=== PATIENT | female | born 1965 | race Caucasian/White ===

== ENCOUNTER 2024-07-03 09:22 | Inpatient (IN) | payer OTHER, SELFPAY ==
[2024-07-03] VITALS (19 sets, daily range): BP systolic 79–132; BP diastolic 42–97; PULSE 65–94; RESP 15–26; TEMP 33.2–36.1; O2SAT 91–100; BMI 38.7; BMI 38.5
--- NOTE | 2024-07-03 09:26 | ED.RN ---
PT. MEGAN KEEPS SAYING SHE WANTS LIQUIDS.
[2024-07-03] MEDS: 0.9% Normal Saline (1000mL) 1,000 ML 999 ML IV ×2 (09:46→09:50)
--- NOTE | 2024-07-03 09:48 | EDS_ITS ---
HPI History of Present Illness Chief Complaint: Alt LOC Narrative Narrative: Chief complaint and HPI: Nausea, vomiting, increased thirst, encephalopathy. 58-year-old female with no significant past medical history presents for evaluation of nausea, vomiting, increased thirst, encephalopathy. Patient is alert but confused. History taken by patient as well as boyfriend. Patient states that she has felt generally unwell since the weekend. Boyfriend states she has had decreased p.o. intake. Patient states she has increased thirst. Boyfriend states that over the past several days patient has been drinking lots of water. Yesterday she developed nausea, vomiting, increased weakness, and confusion. Boyfriend states symptoms seem to worsen today which is why they present via EMS. Patient denies any fever, chills, shortness of breath, chest pain, abdominal pain, dysuria. Endorses nausea and vomiting. Keeps stating I am thirsty and I just want to drink. POC glucose for EMS was in the 400s. Reading here states high. Patient has no reported history of diabetes. Patient states she is full code. Review of systems: See HPI Medications: As listed on the chart Allergies: As listed on the chart PFSH: Per chart Vital signs: As listed on the chart. Reviewed. Physical exam: Gen: Alert, oriented to self and place but not time that her baseline per boyfriend Head: Normocephalic, atraumatic Eyes: No sclera icterus, conjunctiva clear, PERRL, EOMI ENT: Dry mucous membranes Neck: Trachea midline, No JVD, no meningismus CV: RRR, no murmurs, no peripheral edema Resp: Lungs CTA BL, no w/r/c, mild Kussmaul breathing GI: Abd soft, non-distended, non-tender, no r/r/g Musc: Moves all extremities, no deformity Skin: Warm, dry Neuro: Grossly intact [facility] Medical History Thyroid disease Seasonal allergies Home Medications ?Medication ?Instructions ?Recorded ?Last Taken ?Type azithromycin 250 mg tablet See Rx Instructions PO .COMPLEX #6 01/28/19 Unknown Rx (Zithromax Z-Mars) tabs guaifenesin 600 mg tablet, 600 mg PO BID 08/11/19 Unknown History extended release 12 hr (Mucinex) phenylephrine HCl 2.5 mg/5 mL oral 10 mg PO ONCE 01/28/19 Unknown History solution (Children's Sudafed PE Nasal Decongestant) Allergy/AdvReac Type Severity Reaction Status Date / Time cefuroxime (From Ceftin) Allergy Mild X Verified 01/28/19 09:04 Family History Mother COPD (chronic obstructive pulmonary disease) Rheumatic fever Father Lung cancer Social History Smoking Status: Never smoker alcohol intake: never EXAM Physical Exam Const Vital Signs: 07/03/24 09:23 07/03/24 10:23 Temperature 96.9 F L 91.7 F L Temperature Source Oral Core Pulse Rate 73 77 Respiratory Rate 18 20 H Blood Pressure 106/89 H 91/56 L Blood Pressure Mean 94 67 Pulse Ox 100 100 Oxygen Delivery Method Room Air Room Air MDM MDM MDM Narrative Medical decision making narrative: 58-year-old female with no significant past medical history presents for evaluation of nausea, vomiting, increased thirst, encephalopathy. Patient is alert but encephalopathic on physical exam. POC glucose high. I suspect patient's encephalopathy is metabolic in nature. Concern is for new diagnosis of diabetes with DKA or HHS. Differential diagnosis also includes viral illness, electrolyte abnormality, CHAIM, UTI. 2 L NS bolus ordered with Zofran. Laboratory workup ordered. EKG reviewed see below. CBC with a leukocytosis of 71.5. No anemia or platelet dysfunction. This may be reactive however cannot rule out infectious process. Infectious labs added. VBG with a venous blood gas of 6.84, bicarb at 4. 2 A of bicarb ordered. Will repeat VBG in 30 minutes, if no improvement will start bicarb drip. BMP with pseudohyponatremia secondary to hyperglycemia. Patient has hyperkalemia with a potassium of 6.2. Bicarb 5. Patient's anion gap is 37. Patient has CHAIM with creatinine of 3.71. Glucose is 1240. Acetone is moderate. Urine has ketones and glucose. Negative for UTI. Patient is in DKA. 10 units IV insulin bolus ordered with insulin drip. Patient will warrant admission for DKA. Coagulation panel unremarkable. Lactic acid elevated at 2.3. Suspect hypovolemia. Troponin 89. Suspect type II demand. Chest x-ray reviewed see below. Repeat VBG again shows metabolic acidosis with low bicarb. Will start bicarb drip. Patient was discussed with the hospitalist and they accepted admission to the ICU. Patient and her significant other were informed of all the results and the plan. Patient was transferred to the ICU. EKG: Interpreted by me/EM physician: EKG shows normal sinus rhythm with a heart rate of 71. No acute ischemic changes Diagnostic: Interpreted by me/EM physician: Chest x-ray without pneumonia, effusion, cardiomegaly, pneumothorax 40 minutes of critical care time utilized in managing the patient. This is due to high probability of and deterioration of the patient based on the patient's condition and excludes any separately billable procedures. Impression: 1. New onset diabetes in DKA with severe metabolic acidosis 2. CHAIM 2. Hyperkalemia 3. Pseudohyponatremia 5. Elevated troponin, suspect type II demand 6. Severe leukocytosis Lab Data Labs: Laboratory Results - last 24 hr 07/03/24 07/03/24 07/03/24 09:35 09:47 09:50 WBC 71.5 H* RBC 4.57 Hgb 13.1 Hct 42.6 MCV 93.2 MCH 28.7 MCHC 30.8 L RDW Std Deviation 44.4 H RDW Coeff of Nuris 13.1 Plt Count 441 MPV 11.2 Neut % (Auto) Not Reportable Absolute Neuts (auto) 53.6 H Absolute Lymphs (auto) 10.00 H Total Counted 100 Neutrophils % (Manual) 74 H Band Neutrophils % 1 Lymphocytes % (Manual) 14 L Monocytes % (Manual) 6 Metamyelocytes % 3 H Myelocytes % 1 H Promyelocytes % 1 H Diff Path Review May foll Atypical Lymphocytes 2+ Platelet Estimate SLT INC PT INR APTT Sodium 112 L* Potassium 6.2 H* Chloride 70 L* Carbon Dioxide 5.0 L* Anion Gap 37 H BUN 78 H Creatinine 3.71 H Estim Creat Clear Calc 22.06 Est GFR (MDRD) Af Amer 16 L Est GFR (MDRD) Non-Af 13 L BUN/Creatinine Ratio 21.0 H Glucose 1240 H* Hemoglobin A1c 6.8 H Lactic Acid Calcium 8.4 L Phosphorus 8.9 H Magnesium 3.3 H Total Bilirubin 0.60 AST 81 H ALT 40 Alkaline Phosphatase 181 H Troponin I High Sens 89 H Total Protein 7.5 Albumin 3.6 Globulin 3.9 Albumin/Globulin Ratio 0.9 Lipase 89 H Urine Color Urine Clarity Urine pH Ur Specific [place] Urine Protein Urine Glucose (UA) Urine Ketones Urine Occult Blood Urine Nitrite Urine Bilirubin Urine Urobilinogen Ur Leukocyte Esterase Urine RBC Urine WBC Ur Squamous Epith Cells Urine Bacteria Urine Mucus Acetone Level MODERATE H POC Glucose > 500 H* 07/03/24 07/03/24 07/03/24 09:51 09:57 10:05 WBC RBC Hgb Hct MCV MCH MCHC RDW Std Deviation RDW Coeff of Nuris Plt Count MPV Neut % (Auto) Absolute Neuts (auto) Absolute Lymphs (auto) Total Counted Neutrophils % (Manual) Band Neutrophils % Lymphocytes % (Manual) Monocytes % (Manual) Metamyelocytes % Myelocytes % Promyelocytes % Diff Path Review Atypical Lymphocytes Platelet Estimate PT 17.0 H INR 1.4 APTT 31.5 Sodium Potassium Chloride Carbon Dioxide Anion Gap BUN Creatinine Estim Creat Clear Calc Est GFR (MDRD) Af Amer Est GFR (MDRD) Non-Af BUN/Creatinine Ratio Glucose Hemoglobin A1c Lactic Acid 2.3 H* Calcium Phosphorus Magnesium Total Bilirubin AST ALT Alkaline Phosphatase Troponin I High Sens Total Protein Albumin Globulin Albumin/Globulin Ratio Lipase Urine Color Yellow Urine Clarity Clear Urine pH 6.0 Ur Specific [place] 1.020 Urine Protein 30 H Urine Glucose (UA) 1000 H Urine Ketones 50 H Urine Occult Blood 250 H Urine Nitrite Negative Urine Bilirubin Negative Urine Urobilinogen Normal Ur Leukocyte Esterase Negative Urine RBC 0-5 SEEN Urine WBC 0 SEEN Ur Squamous Epith Cells 0-5 SEEN Urine Bacteria RARE Urine Mucus 0 SEEN Acetone Level POC Glucose ABG Data ABG results: ABG 07/03/24 09:58 Specimen Type MAJO Sample Site Not entered VBG pH 6.84 L* VBG pO2 36 VBG HCO3 4 L VBG Total CO2 < 5 L VBG O2 Sat (Calc) 33 L VBG Base Excess -30 L POC Mix VBG pCO2 Pt Tmp 23.8 L O2 Delivery Device Room Air Crit Call To/Read Back Yes Blood Gas Notified Whom klusty Blood Gas Notified Time 10:00:09 Radiography Diagnostic Testing: Clinical Impression(s) from Imaging Studies Chest X-Ray 07/03/24 10:13 IMPRESSION: Normal x-ray examination of the chest. Electronically Signed: Patrick Patrick MD at 10:34 EST , Discharge Plan Disposition Disposition: Acute Care Hospital [facility] Discharge Date/Time: 07/03/24 11:35
[2024-07-03 09:51] LABS: Hematocrit 42.6 % (37-47); Hemoglobin 13.1 g/dL (12.0-15.0); Mean Corp Hgb Conc 30.8 g/dL (32-36); Mean Corpuscular Hgb 28.7 pg (27.0-32.0); Mean Corpuscular Volume 93.2 fL (81-99); Mean Platelet Vol. 11.2 fl (6.2-12.0); POSITIVE COUNT YES; POSITIVE DIFFERENTIAL YES; POSITIVE MORPHOLOGY YES; Platelet Count 441 K/mm3 (150-450); RBC Distribution Width CV 13.1 % (11.6-14.6); RBC Distribution Width SD 44.4 fl (35.1-43.9); Red Blood Count 4.57 M/mm3 (4.2-5.4)
[2024-07-03 09:53] LABS: Bedside Glucose > 500 mg/dL (74-106)
[2024-07-03 09:54] LABS: Differential Indicated MANUAL DIFF
[2024-07-03 09:55] LABS: White Blood Count 71.5 K/mm3 (4.4-11.0)
--- NOTE | 2024-07-03 09:56 | ED.RN ---
WBC 71.5 DR BOATENG
[2024-07-03] MEDS: Ondansetron 4 MG/2 ML Vial IV (09:59)
[2024-07-03 10:04] LABS: Blood Gas Specimen Type VEN; O2 Delivery Device Room Air; SITE Not entered; VBG BASE EXCESS -30 mmol/L (-1.0-3.5); VBG PO2 36 mmHg (25-40); VBG SO2 33 % (50-70); VBG TCO2 < 5 mmol/L (23-33); VBG pCO2 23.8 mmHg (41-51); VBG pH 6.84 (7.32-7.42)
[2024-07-03 10:05] LABS: Mucous, Urine 0 SEEN /hpf (<or=2+); White Blood Cells 0 SEEN /hpf (0-5)
[2024-07-03 10:06] LABS: Color, Urine Yellow (Yellow); Glucose, Dipstick 1000 mg/dl (Normal); Ketone-Dipstick 50 mg/dl (Negative); Leukocyte Esterase-Dipstick Negative /ul (Negative); Nitrite-Dipstick Negative (Negative); Occult Blood-Urine 250 /ul (Negative); Protein-Dipstick 30 mg/dl (Negative); Urine Bilirubin Dipstick Negative (Negative); Urine Clarity Clear (Clear); Urine Urobilinogen Normal (Normal)
--- NOTE | 2024-07-03 10:13 | RAD_ITS ---
STUDY: X-RAY CHEST REASON FOR EXAM: Female, 58 years old. Shortness of breath TECHNIQUE: Single AP portable view of the chest. COMPARISON: None. FINDINGS: EKG electrodes are seen. The lungs are clear and expanded. Scattered small calcified granulomas. There is no demonstrated pleural abnormality. Normal size heart. Normal mediastinum and rafa. Normal visualized pulmonary arteries. Normal visualized aortic arch and descending thoracic aorta. Normal visualized thoracic spine. Normal visualized ribs, clavicles, and shoulders. There is no demonstrated abnormality of the visualized soft tissue structures of the upper abdomen. RAD/Chest 1 View (Portable) IMPRESSION: Normal x-ray examination of the chest. Electronically Signed: Patrick Patrick MD at 10:34 EST ,
[2024-07-03 10:14] LABS: Bacteria RARE /hpf (None Seen); Red Blood Cells-Urine 0-5 SEEN /hpf (0-5); Squamous Epithelial Cells - UA 0-5 SEEN /hpf (5-10)
[2024-07-03 10:21] LABS: International Normalized Ratio 1.4
[2024-07-03] MEDS: Sodium Bicarbonate 8.4% 50 ML Syringe 100 MEQ IV (10:21)
[2024-07-03 10:22] LABS: Partial Thromboplast Time 31.5 Seconds (24.1-36.2)
[2024-07-03 10:25] LABS: Lymphocyte 14 % (19-41); Metamyelocyte 3 % (0-1); Monocyte 6 % (0-10); Myelocyte 1 % (0-0); Neutrophil-Band 1 % (0-5); Neutrophil-Segmented 74 % (47-70); Promyelocyte 1 % (0-0); Total Cells Counted 100 (MANUAL DIFF)
[2024-07-03 10:27] LABS: Platelet Estimate SLT INC (ADEQ)
[2024-07-03 10:28] LABS: ALB/GLOB Ratio 0.9 RATIO (0.9-2.4); AST(SGOT) 81 U/L (15-37); Alanine Aminotransfer ALT/SGPT 40 U/L (13-56); Albumin, Serum 3.6 g/dL (3.2-5.0); Alkaline Phosphatase 181 U/L (45-117); Anion Gap 37 (5-15); Atypical Lymphocyte 2+ %; BUN 78 mg/dL (7-18); Calcium,Total 8.4 mg/dL (8.5-10.1); Chloride 70 mmol/L (98-107); Creatinine, Serum 3.71 mg/dL (0.55-1.02); EST Glomerular Filtration Rate 13 mL/min (>60); Est Glom Filt Rate - Afr Amer 16 mL/min (>60); Estimated Creatinine Clearance 22.06 ml/min; Globulin 3.9 g/dL (2.2-4.2); Glucose 1240 mg/dL (74-106); Lipase 89 U/L (13-75); Magnesium 3.3 mg/dL (1.6-2.6); Phosphorus 8.9 mg/dL (2.5-4.9); Potassium 6.2 mmol/L (3.5-5.1); Protein, Total 7.5 g/dL (6.4-8.2); Sodium Level 112 mmol/L (136-145); Troponin-I HS 89 pg/mL (3.0-54.0)
--- NOTE | 2024-07-03 10:29 | ED.RN ---
FLUID RESUSCITATION R/T DKA. PER DR. SALAZAR.
[2024-07-03 10:30] LABS: Absolute Neutrophil Count 53.6 X10^3/uL (2.0-7.7)
[2024-07-03 10:50] LABS: Lactic Acid 2.3 mmol/L (0.4-1.9)
[2024-07-03 10:51] LABS: Hemoglobin A1c 6.8 % (3.8-5.6)
[2024-07-03] MEDS: Insulin Lispro 100 UNIT/ML VIAL (ADMELOG) 10 UNIT IV (10:55)
[2024-07-03] MEDS: Insulin Lispro 100 UNIT in 0.9% Normal Saline (100mL Bag) 99 ML 11.6 UNIT CONT INF (10:55)
--- NOTE | 2024-07-03 10:56 | PCM.HP.STD ---
HPI - General General Date of Admission: 07/03/24 Date of Service: 07/03/24 Chief Complaint: Drowsy, lethargic, thirsty, polyuria, nausea and vomiting. Generalized weakness and sick since Tuesday HPI Narrative JESSE GUADARRAMA, is a 58 F who is being accompanied with her is brought to ED by EMS for being sick since past Tuesday for 3 days. She is thirsty, nausea, vomiting, fatigue and increased urination. She is also drowsy, confused and asking that she needs to pee even though she has Cross catheter. 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 In ED, vitals shows low blood pressure 91/56, 79/49 and 81/42 which got better with IV fluid resuscitation but his BP is still 103 mmHg. She has labs/biochemistry suggestive of DKA and discussed in assessment and plan. [facility] Medical History Thyroid disease Seasonal allergies Home Medications ?Medication ?Instructions ?Recorded ?Last Taken ?Type azithromycin 250 mg tablet See Rx Instructions PO .COMPLEX #6 01/28/19 Unknown Rx (Zithromax Z-Mars) tabs guaifenesin 600 mg tablet, 600 mg PO BID 01/28/19 Unknown History extended release 12 hr (Mucinex) phenylephrine HCl 2.5 mg/5 mL oral 10 mg PO ONCE 01/28/19 Unknown History solution (Children's Sudafed PE Nasal Decongestant) Allergy/AdvReac Type Severity Reaction Status Date / Time cefuroxime (From Ceftin) Allergy Mild X Verified 01/28/19 09:04 Family History Mother COPD (chronic obstructive pulmonary disease) Rheumatic fever Father Lung cancer Social History Smoking Status: Never smoker alcohol intake: never ROS ROS Narrative 14 system ROS incomplete as patient is drowsy and lethargic. Some salient ROS as mentioned by her boyfriend Denies chronic cardiac disease, respiratory illness including COPD or asthma. Polyuria and increased frequency. Denies burning micturition Denies sore throat or viral-like illness. Denies fever Review of Systems ROS Unobtainable: due to encephalopathy Vital Signs Vital Signs Vital Signs: 07/03/24 09:23 07/03/24 10:23 Temperature 96.9 F L 91.7 F L Temperature Source Oral Core Pulse Rate 73 77 Respiratory Rate 18 20 H Blood Pressure 106/89 H 91/56 L Blood Pressure Mean 94 67 Pulse Ox 100 100 Oxygen Delivery Method Room Air Room Air Weight Weight: 254 lb 10.142 oz Body Mass Index (BMI) 38.7 Physical Exam Narrative General: Drowsy, lethargy, confused and disoriented. BMI 38.6 kg/m?. Obesity grade 2 HEENT: Atraumatic, PERRLA, EOMI, Normocephalic Oral: Oral mucosa dry. No Gingival or Mucosal Lesions/ Ulcerations Neck: Supple, No JVD, Negative Carotid Bruits Chest wall/Lungs: Air entry diminished in bilateral lung bases. No crepitation/rhonchi Cardiovascular: Regular rate, Regular Rhythm, Normal S1, Normal S2, No M/G/R Abdomen: Bowel Sounds Present, Soft, Non Tender, Non-Distended : . No renal angle tenderness. No suprapubic tenderness. Extremities: Mild pedal edema, Capillary Refill Less than 3 Seconds Skin: No rashes, No breakdown Musculoskeletal: No Tenderness to Palpation of Joints or Extremities. ROM could not be evaluated as patient is without. Neurological: DTR 2+/4. No acute focal neurological deficit. Detailed neuroexam unobtainable Psych/Mental Status: Flat affect Results Lab / Micro Data 07/03/24 09:47 07/03/24 09:47 Labs: Laboratory Results - last 24 hr 07/03/24 09:35: POC Glucose > 500 H* 07/03/24 09:47: WBC 71.5 H*, RBC 4.57, Hgb 13.1, Hct 42.6, MCV 93.2, MCH 28.7, MCHC 30.8 L, RDW Std Deviation 44.4 H, RDW Coeff of Nuris 13.1, Plt Count 441, MPV 11.2, Neut % (Auto) Not Reportable, Absolute Neuts (auto) 53.6 H, Absolute Lymphs (auto) 10.00 H, Total Counted 100, Neutrophils % (Manual) 74 H, Band Neutrophils % 1, Lymphocytes % (Manual) 14 L, Monocytes % (Manual) 6, Metamyelocytes % 3 H, Myelocytes % 1 H, Promyelocytes % 1 H, Diff Path Review May foll, Atypical Lymphocytes 2+, Platelet Estimate SLT INC, Sodium 112 L*, Potassium 6.2 H*, Chloride 70 L*, Carbon Dioxide 5.0 L*, Anion Gap 37 H, BUN 78 H, Creatinine 3.71 H, Estim Creat Clear Calc 22.06, Est GFR (MDRD) Af Amer 16 L, Est GFR (MDRD) Non-Af 13 L, BUN/Creatinine Ratio 21.0 H, Glucose 1240 H*, Hemoglobin A1c 6.8 H, Calcium 8.4 L, Phosphorus 8.9 H, Magnesium 3.3 H, Total Bilirubin 0.60, AST 81 H, ALT 40, Alkaline Phosphatase 181 H, Troponin I High Sens 89 H, Total Protein 7.5, Albumin 3.6, Globulin 3.9, Albumin/Globulin Ratio 0.9, Lipase 89 H 07/03/24 09:50: Acetone Level MODERATE H 07/03/24 09:51: PT 17.0 H, INR 1.4, APTT 31.5 07/03/24 09:57: Urine Color Yellow, Urine Clarity Clear, Urine pH 6.0, Ur Specific [place] 1.020, Urine Protein 30 H, Urine Glucose (UA) 1000 H, Urine Ketones 50 H, Urine Occult Blood 250 H, Urine Nitrite Negative, Urine Bilirubin Negative, Urine Urobilinogen Normal, Ur Leukocyte Esterase Negative, Urine RBC 0-5 SEEN, Urine WBC 0 SEEN, Ur Squamous Epith Cells 0-5 SEEN, Urine Bacteria RARE, Urine Mucus 0 SEEN 07/03/24 10:05: Lactic Acid 2.3 H* ABG Data ABG results: ABG 07/03/24 09:58 Specimen Type MAJO Sample Site Not entered VBG pH 6.84 L* VBG pO2 36 VBG Total CO2 < 5 L VBG O2 Sat (Calc) 33 L VBG Base Excess -30 L POC Mix VBG pCO2 Pt Tmp 23.8 L O2 Delivery Device Room Air Crit Call To/Read Back Yes Blood Gas Notified Whom klusty Blood Gas Notified Time 10:00:09 Imaging Radiology Impression Chest X-Ray 07/03/24 10:13 IMPRESSION: Normal x-ray examination of the chest. Electronically Signed: Patrick Patrick MD at 10:34 EST , Assessment & Plan Assessment/Plan (1) DKA (diabetic ketoacidoses): QUALIFIERS: Diabetes mellitus type: type 2 Diabetes mellitus complication detail: without coma Qualified Code(s): E11.10 - Type 2 diabetes mellitus with ketoacidosis without coma PLAN: Plan This is [id number]-year-old female being admitted for DKA. Patient did not know that she has diabetes mellitus. 1. DKA most likely due to underlying, undiagnosed diabetes mellitus type 2: Patient is being admitted in the ICU. Labs reviewed. Admitting glucose was more than 1000, high anion gap metabolic acidosis, bicarb 5, AG 37. Patient was started on IV fluid normal saline 2 L bolus in the ED and then continue vigorous IV fluid rehydration as per DKA protocol. Started on IV insulin drip. Monitor BMP every 4 hourly. 2. High anion gap metabolic acidosis: ABG shows 6.91, 17, 109 on room air. Bicarb in BMP 5. IV bicarb drip was started in ED changed to 250 mL/h. Serum acetone moderate. 3. Hyperkalemia: Serum potassium was 6.2, due to high anion gap metabolic acidosis and DKA. Patient twelve-lead EKG individually reviewed, NSR low voltage QRS, QTc 439 ms. No EKG changes hyperkalemia. It is expected to correct with correction of metabolic acidosis. Serum phosphorus and magnesium are high. 4. Hypotonic, hypovolemic hyponatremia due to increased blood sugar: Corrected sodium is 127. Patient is on IV fluid normal saline and bicarb drip. 5. Leukocytosis: WBC count is 71,000 with left shift, metamyelocyte 3%, myelocytes 1%, promyelocyte 1%. Neutrophils 74%, lymphocyte 14%. Will monitor. Probably due to inflammatory response from acute metabolic derangement 7. CHAIM due to DKA: BUNs/creatinine 78 and 3.71, albumin/creatinine is a 21%. IV fluid resuscitation. 8. Elevated transaminases MD: Patient also has elevated transaminases AST 81, ALT 40. Alkaline phosphatase 181. Monitor liver chemistry. 9. DVT prophylaxis, high risk. Heparin 5000 units subcutaneous Q8 hourly. Living will/advanced directive/end of life care: Patient does not have living will or advanced directive. There is no designated power of commercial real estate attorney for health. After discussion of benefits/risks procedures involved with full code, DNR CC arrest and DNR CC with the patient's boyfriend and the eyes, he opted for full code. Follow-up. Patient does want artificial life support including intubation, tube feed, ventilator and/chest compression, central venous catheter, vasopressor and DC shock if needed Total time spent in [id number] encounter in discussion of advanced directive 17 minutes. Microbiology Past 72 Hours 07/03/24 09:57 Mucosa - Nose SARS-CoV-2, Influenza & RSV (PCR) - Final Laboratory Results 07/03/24 09:35: POC Glucose > 500 H* 07/03/24 09:47: WBC 71.5 H*, RBC 4.57, Hgb 13.1, Hct 42.6, MCV 93.2, MCH 28.7, MCHC 30.8 L, RDW Std Deviation 44.4 H, RDW Coeff of Nuris 13.1, Plt Count 441, MPV 11.2, Neut % (Auto) Not Reportable, Absolute Neuts (auto) 53.6 H, Absolute Lymphs (auto) 10.00 H, Total Counted 100, Neutrophils % (Manual) 74 H, Band Neutrophils % 1, Lymphocytes % (Manual) 14 L, Monocytes % (Manual) 6, Metamyelocytes % 3 H, Myelocytes % 1 H, Promyelocytes % 1 H, Diff Path Review May foll, Atypical Lymphocytes 2+, Platelet Estimate SLT INC, Sodium 112 L*, Potassium 6.2 H*, Chloride 70 L*, Carbon Dioxide 5.0 L*, Anion Gap 37 H, BUN 78 H, Creatinine 3.71 H, Estim Creat Clear Calc 22.06, Est GFR (MDRD) Af Amer 16 L, Est GFR (MDRD) Non-Af 13 L, BUN/Creatinine Ratio 21.0 H, Glucose 1240 H*, Hemoglobin A1c 6.8 H, Calcium 8.4 L, Phosphorus 8.9 H, Magnesium 3.3 H, Total Bilirubin 0.60, AST 81 H, ALT 40, Alkaline Phosphatase 181 H, Troponin I High Sens 89 H, Total Protein 7.5, Albumin 3.6, Globulin 3.9, Albumin/Globulin Ratio 0.9, Lipase 89 H 07/03/24 09:50: Acetone Level MODERATE H 07/03/24 09:51: PT 17.0 H, INR 1.4, APTT 31.5 07/03/24 09:57: Urine Color Yellow, Urine Clarity Clear, Urine pH 6.0, Ur Specific [place] 1.020, Urine Protein 30 H, Urine Glucose (UA) 1000 H, Urine Ketones 50 H, Urine Occult Blood 250 H, Urine Nitrite Negative, Urine Bilirubin Negative, Urine Urobilinogen Normal, Ur Leukocyte Esterase Negative, Urine RBC 0-5 SEEN, Urine WBC 0 SEEN, Ur Squamous Epith Cells 0-5 SEEN, Urine Bacteria RARE, Urine Mucus 0 SEEN 07/03/24 09:58: Specimen Type MAJO, Sample Site Not entered, VBG pH 6.84 L*, VBG pO2 36, VBG HCO3 4 L, VBG Total CO2 < 5 L, VBG O2 Sat (Calc) 33 L, VBG Base Excess -30 L, POC Mix VBG pCO2 Pt Tmp 23.8 L, O2 Delivery Device Room Air, Crit Call To/Read Back Yes, Blood Gas Notified Whom osmin Blood Gas Notified Time 10:00:09 07/03/24 10:05: Lactic Acid 2.3 H* 07/03/24 10:58: Specimen Type MAJO, Sample Site Not entered, VBG pH 6.98 L*, VBG pO2 61 H, VBG HCO3 1 L, VBG Total CO2 < 5 L, VBG O2 Sat (Calc) 76 H, VBG Base Excess < -30 L, POC Mix VBG pCO2 Pt Tmp 5.5 L*, O2 Delivery Device Not entered, Crit Call To/Read Back Yes, Blood Gas Notified Time 11:02:24 07/03/24 11:49: POC Glucose > 500 H* 07/03/24 11:53: Specimen Type ART, Sample Site Not entered, pH 6.91 L*, Bicarbonate Actual 3.4 L, Total CO2 < 5, Base Excess -29 L, O2 Saturation 93 L, ABG pCO2 17.0 L*, ABG pO2 109 H, O2 Delivery Device Room Air, Vent Mode Not entered, Crit Call To/Read Back Yes, Blood Gas Notified Whom gaetano Blood Gas Notified Time 11:54:42 07/03/24 11:57: Glucose 1075 H* 07/03/24 13:13: POC Glucose > 500 H* Clinical Impression(s) from Imaging Studies Chest X-Ray 07/03/24 10:13 IMPRESSION: Normal x-ray examination of the chest. Charges/Coding Visit Charges Inpatient E&M: 40920 Init Hosp L3 Procedures Hospitalists Procedures: 14068 Advncd Care Plan 30 Min
[2024-07-03 11:04] LABS: Blood Gas Specimen Type VEN; O2 Delivery Device Not entered; SITE Not entered; VBG BASE EXCESS < -30 mmol/L (-1.0-3.5); VBG PO2 61 mmHg (25-40); VBG SO2 76 % (50-70); VBG TCO2 < 5 mmol/L (23-33); VBG pH 6.98 (7.32-7.42)
--- NOTE | 2024-07-03 11:06 | CPS ---
Critical values verified times two. Hand delivered results to DR. Carrillo.
[2024-07-03] MEDS: Sodium Bicarbonate 100 MEQ in Dextrose 5%-Water (1000mL Bag) 1,000 ML IV (11:12)
--- NOTE | 2024-07-03 11:38 | CASEMGMT ---
Care Management Face to Face with patient for initial transition planning/care coordination assessment in the ED. This sheet writer introduced self and role at [facility]. Patient lying in bed, alert, but disoriented. Patient's boyfriend, Chester, bedside and willing to participate in assessment and is able to answer all questions appropriately. Care providers, pharmacy, and demographics verified. Admitting Diagnosis: altered mental status Other diagnosis history: maxillary sinusitis PCP: none; resources needed. Specialists: none Preferred Pharmacy: [facility] Insurance: none; Kae with [employer] contacted to try and help patient apply for Medicaid. Patient's boyfriend stated patient used to have insurance before it became too expensive. Prescription Benefit: none Living Will/HPOA: none; may be open to information as patient's boyfriend stated patient may want to put patient's boyfriend down rather than patient's daughter making medical decisions. LNOK: daughter, Iqra, lives in [place]. Living Arrangements: lives with boyfriend in a single wide mobile home; independent with all ADLs prior to this. 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 DME: none HHC: none SNF/Rehab: none Community Resources: none Patient goals: Patient unable to answer. Patient's boyfriend states patient wishes to discharge home and denies need for SNF or HHC at this time. Disposition Plan: admission to acute; RN CM/SW to follow for discharge planning needs that may arise. Gretel Arnold, POSITION CLERK, HEAD OF TRANSPORT LOGISTICS
[2024-07-03] MEDS: 0.9% Normal Saline (1000mL) 1,000 ML 1000 ML IV (11:42)
[2024-07-03 11:57] LABS: Base Excess -29 mmol/L (-2 to +2); Bicarbonate 3.4 mmol/L (22-26); Blood Gas Specimen Type ART; Mode Not entered; O2 Delivery Device Room Air; PO2 109 mmHG (75-100); SITE Not entered; SO2 93 % (95-99); Total Carbon Dioxide < 5 mmol/L; pH 6.91 (7.35-7.45)
[2024-07-03 12:28] LABS: VBG Bicarbonate 4 mmol/L (22-26)
[2024-07-03 12:28] LABS: VBG pCO2 5.5 mmHg (41-51)
[2024-07-03 12:29] LABS: VBG Bicarbonate 1 mmol/L (22-26)
--- NOTE | 2024-07-03 12:29 | CM.ED ---
Social work Per initial RN CM assessment completed in the ED, this SW identified need for patient to attempt to apply for Medicaid. This SW called Kae at [employer] around 1145 and left a voicemail requesting a return call. This SW also emailed Kae the request via encrypted email. No other needs identified at this time. Gretel Arnold, ENRICHMENT ASSISTANT, AVIATION TECHNICIAN AIRCRAFT
[2024-07-03 13:35] LABS: Bedside Glucose > 500 mg/dL (74-106)
[2024-07-03 13:35] LABS: Bedside Glucose > 500 mg/dL (74-106)
[2024-07-03 13:41] LABS: Glucose 1075 mg/dL (74-106)
[2024-07-03 13:56] LABS: Anion Gap 31 (5-15); BUN 77 mg/dL (7-18); BUN/Creat Ratio 23.1 RATIO (10-20); Calcium,Total 7.2 mg/dL (8.5-10.1); Chloride 84 mmol/L (98-107); Creatinine, Serum 3.33 mg/dL (0.55-1.02); EST Glomerular Filtration Rate 15 mL/min (>60); Est Glom Filt Rate - Afr Amer 18 mL/min (>60); Estimated Creatinine Clearance 24.58 ml/min; Glucose 939 mg/dL (74-106); Potassium 3.9 mmol/L (3.5-5.1); Sodium Level 124 mmol/L (136-145)
[2024-07-03 14:12] LABS: Reflex Lactate? Y
[2024-07-03] MEDS: 0.9% Normal Saline (1000mL) 1,000 ML 250 ML IV (14:15)
[2024-07-03 14:37] LABS: Glucose 945 mg/dL (74-106)
[2024-07-03 15:16] LABS: Bedside Glucose > 500 mg/dL (74-106)
[2024-07-03] MEDS: Heparin Injection (Vial) 5,000 UNIT/ML VIAL 5000 UNIT SC ×2 (15:44→22:40)
[2024-07-03] MEDS: Sodium Bicarbonate 100 MEQ in Dextrose 5%-Water (1000mL Bag) 1,000 ML 250 MEQ IV (15:45)
[2024-07-03 15:47] LABS: Glucose 897 mg/dL (74-106)
[2024-07-03 15:49] LABS: Lactic Acid 2.2 mmol/L (0.4-1.9)
[2024-07-03 16:18] LABS: Bedside Glucose > 500 mg/dL (74-106)
[2024-07-03 16:18] LABS: Bedside Glucose > 500 mg/dL (74-106)
[2024-07-03 16:31] LABS: Glucose 870 mg/dL (74-106)
[2024-07-03 18:20] LABS: Bedside Glucose > 500 mg/dL (74-106)
[2024-07-03 18:49] LABS: Glucose 779 mg/dL (74-106)
[2024-07-03 19:19] LABS: Anion Gap 26 (5-15); BUN 76 mg/dL (7-18); BUN/Creat Ratio 22.2 RATIO (10-20); Chloride 85 mmol/L (98-107); Creatinine, Serum 3.42 mg/dL (0.55-1.02); EST Glomerular Filtration Rate 15 mL/min (>60); Est Glom Filt Rate - Afr Amer 18 mL/min (>60); Estimated Creatinine Clearance 23.93 ml/min; Glucose 829 mg/dL (74-106); Potassium 3.6 mmol/L (3.5-5.1); Sodium Level 124 mmol/L (136-145)
[2024-07-03 20:56] LABS: Bedside Glucose > 500 mg/dL (74-106)
[2024-07-03 20:56] LABS: Bedside Glucose > 500 mg/dL (74-106)
[2024-07-03 20:56] LABS: Bedside Glucose > 500 mg/dL (74-106)
--- NOTE | 2024-07-03 21:35 | RAD_ITS ---
INDICATION: Fluid overload rule out EXAMINATION/TECHNIQUE: X-RAY - XR Chest 1 View AP portable. 9:24 PM COMPARISON: Prior study dated: 07/03/2024 FINDINGS: LINES/DEVICES: None. LUNGS: Hazy opacity in the left lung base new compared to prior. No consolidation. No pneumothorax. MEDIASTINUM: Unremarkable. CARDIAC SILHOUETTE: Not enlarged. BONES AND SOFT TISSUES: No acute abnormalities. RAD/Chest 1 View (Portable) IMPRESSION: New left basilar airspace disease may be asymmetric edema, atelectasis or early infiltrate/pneumonia. Electronically Signed: Judy Quigley MD at 23:27 EST ,
[2024-07-03 21:47] LABS: Bedside Glucose > 500 mg/dL (74-106)
[2024-07-03 22:12] LABS: Anion Gap 20 (5-15); BUN 80 mg/dL (7-18); BUN/Creat Ratio 22.7 RATIO (10-20); Calcium,Total 7.1 mg/dL (8.5-10.1); Chloride 86 mmol/L (98-107); Creatinine, Serum 3.53 mg/dL (0.55-1.02); EST Glomerular Filtration Rate 14 mL/min (>60); Est Glom Filt Rate - Afr Amer 17 mL/min (>60); Estimated Creatinine Clearance 23.18 ml/min; Glucose 639 mg/dL (74-106); Potassium 3.8 mmol/L (3.5-5.1); Sodium Level 126 mmol/L (136-145)
[2024-07-03 22:16] LABS: BNP,B-Type NATRIURETIC PEPTIDE 468.2 pg/mL (0-100)
[2024-07-03] MEDS: dexMEDEtomidine 400 MCG in 0.9% Normal Saline (100mL Bag) 96 ML 14.4 MCG CONT INF (22:39)
[2024-07-03] MEDS: Insulin Lispro 100 UNIT in 0.9% Normal Saline (100mL Bag) 99 ML 7.6 UNIT CONT INF (22:44)
[2024-07-04] VITALS (48 sets, daily range): BP systolic 78–139; BP diastolic 36–103; PULSE 75–105; RESP 21–31; TEMP 36.1–37.2; O2SAT 92–100; BMI 37.5
[2024-07-04 00:36] LABS: Osmolality, Serum 371 mOsm/KG (275-295)
[2024-07-04] MEDS: Furosemide 40 MG/4 ML Vial IV (01:03)
[2024-07-04] MEDS: 0.9% Saline Lock 10 ML Syringe IV (01:03)
[2024-07-04 01:30] LABS: Bedside Glucose 368 mg/dL (74-106)
[2024-07-04 01:30] LABS: Bedside Glucose > 500 mg/dL (74-106)
[2024-07-04 01:30] LABS: Bedside Glucose 352 mg/dL (74-106)
[2024-07-04 02:26] LABS: Allen Test Positive; Base Excess -4 mmol/L (-2 to +2); Bicarbonate 22.2 mmol/L (22-26); Blood Gas Specimen Type ART; Mode Not entered; O2 Delivery Device Cannula; PO2 52 mmHG (75-100); SITE R Radial; SO2 84 % (95-99); Total Carbon Dioxide 24 mmol/L; pCO2 41.7 mmHg (35-45); pH 7.34 (7.35-7.45)
--- NOTE | 2024-07-04 02:31 | CT_ITS ---
INDICATION: change in LOC EXAMINATION: CT BRAIN - CT Head or Brain W/O Contrast Injection TECHNIQUE: Multiple axial images were obtained of the head without intravenous contrast. The protocol utilizes one or more of the following dose reduction techniques: automated exposure control, adjustment of mA and/or kV according to patient size,and/or use of iterative reconstruction technique. IV Contrast dosage and agent: None. RADIATION DOSAGE (If Supplied By Facility): CTDIvol = ( 44.99 ) mGy, DLP = ( 1760.95 ) mGycm COMPARISON: No relevant prior comparison study available FINDINGS: BRAIN: No acute bleed. No edema. Boyer-white matter differentiation is maintained. VENTRICLES AND SULCI: Not dilated. EXTRA-AXIAL: No hemorrhage, fluid collection, or mass. CALVARIUM / SKULL BASE: Unremarkable. FACE/SINUSES: Unremarkable. SOFT TISSUES: Unremarkable. CT/Brain/Head without Contrast IMPRESSION: No acute abnormality. CT angiogram and/or MRI may be helpful to evaluate for acute infarct as clinically indicated. Electronically Signed: Judy Quigley MD at 5:37 EST ,
[2024-07-04] MEDS: Norepinephrine 8 MG in 0.9% Normal Saline (250mL Bag) 242 ML 9.4 MG CONT INF (03:18)
[2024-07-04 03:45] LABS: Hemoglobin 12.5 g/dL (12.0-15.0); Mean Corp Hgb Conc 35.7 g/dL (32-36); Mean Corpuscular Hgb 28.2 pg (27.0-32.0); Mean Platelet Vol. 10.2 fl (6.2-12.0); POSITIVE DIFFERENTIAL YES; POSITIVE MORPHOLOGY YES; Platelet Count 289 K/mm3 (150-450); RBC Distribution Width SD 34.4 fl (35.1-43.9); Red Blood Count 4.43 M/mm3 (4.2-5.4); White Blood Count 27.8 K/mm3 (4.4-11.0)
[2024-07-04 04:17] LABS: Anion Gap 11 (5-15); BUN 80 mg/dL (7-18); BUN/Creat Ratio 22.3 RATIO (10-20); Calcium,Total 7.7 mg/dL (8.5-10.1); Chloride 92 mmol/L (98-107); Creatinine, Serum 3.59 mg/dL (0.55-1.02); EST Glomerular Filtration Rate 14 mL/min (>60); Est Glom Filt Rate - Afr Amer 17 mL/min (>60); Glucose 298 mg/dL (74-106); Potassium 3.2 mmol/L (3.5-5.1); Sodium Level 128 mmol/L (136-145)
[2024-07-04] MEDS: dexMEDEtomidine 400 MCG in 0.9% Normal Saline (100mL Bag) 96 ML 14.4 MCG CONT INF (04:30)
[2024-07-04 04:50] LABS: Differential Comment SCANNED
[2024-07-04 05:32] LABS: BNP,B-Type NATRIURETIC PEPTIDE 432.7 pg/mL (0-100)
[2024-07-04] MEDS: Heparin Injection (Vial) 5,000 UNIT/ML VIAL 5000 UNIT SC ×3 (06:04→19:58)
[2024-07-04 07:00] LABS: Bedside Glucose 315 mg/dL (74-106)
[2024-07-04 07:00] LABS: Bedside Glucose 272 mg/dL (74-106)
[2024-07-04 07:00] LABS: Bedside Glucose 257 mg/dL (74-106)
[2024-07-04 07:00] LABS: Bedside Glucose 238 mg/dL (74-106)
[2024-07-04 07:17] LABS: Bedside Glucose 255 mg/dL (74-106)
--- NOTE | 2024-07-04 08:52 | PCM.PN.HOSP ---
Reason for Visit Reason for Visit: Diagnoses Type 2 diabetes mellitus with ketoacidosis without coma (07/03/24) Objective Data Objective Data Vital Signs: Vital Signs Temp Pulse Resp BP Pulse Ox O2 Del Method O2 Flow Rate 96.9 F L 85 24 H 102/72 100 Nasal Cannula 3 07/04/24 04:00 07/04/24 08:30 07/04/24 08:30 07/04/24 08:30 07/04/24 08:30 07/04/24 08:30 07/04/24 08:30 FiO2 94 07/03/24 14:00 Oxygen Flow Rate (L/min) 3 Oxygen Delivery Method Nasal Cannula Weight: 247 lb 12.793 oz Body Mass Index (BMI) 37.5 Intake & Output: Intake and Output for Last 24 Hours 07/02/24 07/03/24 07/04/24 23:59 23:59 23:59 Intake Total 4977.52 / 4992.93 227.39 / 227.39 Output Total 550 / 550 125 / 125 Balance 4427.52 / 4442.93 102.39 / 102.39 Lab / Micro Data 07/05/24 06:15 07/05/24 06:15 Labs: Laboratory Results - last 24 hr 07/03/24 09:35: POC Glucose > 500 H* 07/03/24 09:47: WBC 71.5 H*, RBC 4.57, Hgb 13.1, Hct 42.6, MCV 93.2, MCH 28.7, MCHC 30.8 L, RDW Std Deviation 44.4 H, RDW Coeff of Nuris 13.1, Plt Count 441, MPV 11.2, Neut % (Auto) Not Reportable, Absolute Neuts (auto) 53.6 H, Absolute Lymphs (auto) 10.00 H, Total Counted 100, Neutrophils % (Manual) 74 H, Band Neutrophils % 1, Lymphocytes % (Manual) 14 L, Monocytes % (Manual) 6, Metamyelocytes % 3 H, Myelocytes % 1 H, Promyelocytes % 1 H, Diff Path Review May foll, Atypical Lymphocytes 2+, Platelet Estimate SLT INC, Sodium 112 L*, Potassium 6.2 H*, Chloride 70 L*, Carbon Dioxide 5.0 L*, Anion Gap 37 H, BUN 78 H, Creatinine 3.71 H, Estim Creat Clear Calc 22.06, Est GFR (MDRD) Af Amer 16 L, Est GFR (MDRD) Non-Af 13 L, BUN/Creatinine Ratio 21.0 H, Glucose 1240 H*, Hemoglobin A1c 6.8 H, Calcium 8.4 L, Phosphorus 8.9 H, Magnesium 3.3 H, Total Bilirubin 0.60, AST 81 H, ALT 40, Alkaline Phosphatase 181 H, Troponin I High Sens 89 H, Total Protein 7.5, Albumin 3.6, Globulin 3.9, Albumin/Globulin Ratio 0.9, Lipase 89 H 07/03/24 09:50: Acetone Level MODERATE H 07/03/24 09:51: PT 17.0 H, INR 1.4, APTT 31.5 07/03/24 09:55: Serum Osmolality 371 H 07/03/24 09:57: Urine Color Yellow, Urine Clarity Clear, Urine pH 6.0, Ur Specific [place] 1.020, Urine Protein 30 H, Urine Glucose (UA) 1000 H, Urine Ketones 50 H, Urine Occult Blood 250 H, Urine Nitrite Negative, Urine Bilirubin Negative, Urine Urobilinogen Normal, Ur Leukocyte Esterase Negative, Urine RBC 0-5 SEEN, Urine WBC 0 SEEN, Ur Squamous Epith Cells 0-5 SEEN, Urine Bacteria RARE, Urine Mucus 0 SEEN 07/03/24 10:05: Lactic Acid 2.3 H* 07/03/24 11:49: POC Glucose > 500 H* 07/03/24 11:57: Glucose 1075 H* 07/03/24 13:05: Sodium Cancelled 07/03/24 13:05: Sodium Cancelled 07/03/24 13:05: Sodium 124 L, Potassium Cancelled 07/03/24 13:05: Potassium Cancelled 07/03/24 13:05: Potassium 3.9, Chloride Cancelled 07/03/24 13:05: Chloride Cancelled 07/03/24 13:05: Chloride 84 L, Carbon Dioxide Cancelled 07/03/24 13:05: Carbon Dioxide Cancelled 07/03/24 13:05: Carbon Dioxide 9.0 L*, Anion Gap Cancelled 07/03/24 13:05: Anion Gap Cancelled 07/03/24 13:05: Anion Gap 31 H, BUN Cancelled 07/03/24 13:05: BUN Cancelled 07/03/24 13:05: BUN 77 H, Creatinine Cancelled 07/03/24 13:05: Creatinine Cancelled 07/03/24 13:05: Creatinine 3.33 H, Estim Creat Clear Calc Cancelled 07/03/24 13:05: Estim Creat Clear Calc Cancelled 07/03/24 13:05: Estim Creat Clear Calc 24.58, Est GFR (MDRD) Af Amer Cancelled 07/03/24 13:05: Est GFR (MDRD) Af Amer Cancelled 07/03/24 13:05: Est GFR (MDRD) Af Amer 18 L, Est GFR (MDRD) Non-Af Cancelled 07/03/24 13:05: Est GFR (MDRD) Non-Af Cancelled 07/03/24 13:05: Est GFR (MDRD) Non-Af 15 L, BUN/Creatinine Ratio Cancelled 07/03/24 13:05: BUN/Creatinine Ratio Cancelled 07/03/24 13:05: BUN/Creatinine Ratio 23.1 H, Glucose Cancelled 07/03/24 13:05: Glucose Cancelled 07/03/24 13:05: Glucose 939 H*, Calcium Cancelled 07/03/24 13:05: Calcium Cancelled 07/03/24 13:05: Calcium 7.2 L 07/03/24 13:13: POC Glucose > 500 H* 07/03/24 14:00: Glucose 945 H* 07/03/24 14:02: POC Glucose > 500 H* 07/03/24 14:58: POC Glucose > 500 H* 07/03/24 15:03: Glucose 897 H*, Lactic Acid 2.2 H* 07/03/24 15:54: POC Glucose > 500 H* 07/03/24 16:00: Glucose 870 H* 07/03/24 16:48: POC Glucose > 500 H* 07/03/24 16:50: Sodium 124 L, Potassium 3.6, Chloride 85 L, Carbon Dioxide 13.0 L, Anion Gap 26 H, BUN 76 H, Creatinine 3.42 H, Estim Creat Clear Calc 23.93, Est GFR (MDRD) Af Amer 18 L, Est GFR (MDRD) Non-Af 15 L, BUN/Creatinine Ratio 22.2 H, Glucose 829 H*, Calcium 7.0 L 07/03/24 18:10: Glucose 779 H* 07/03/24 18:11: POC Glucose > 500 H* 07/03/24 19:25: POC Glucose > 500 H* 07/03/24 20:34: POC Glucose > 500 H* 07/03/24 21:20: Sodium 126 L, Potassium 3.8, Chloride 86 L, Carbon Dioxide 19.0 L, Anion Gap 20 H, BUN 80 H, Creatinine 3.53 H, Estim Creat Clear Calc 23.18, Est GFR (MDRD) Af Amer 17 L, Est GFR (MDRD) Non-Af 14 L, BUN/Creatinine Ratio 22.7 H, Glucose 639 H*, Calcium 7.1 L 07/03/24 21:27: POC Glucose > 500 H* 07/03/24 21:40: B-Natriuretic Peptide 468.2 H 07/03/24 22:43: POC Glucose > 500 H* 07/04/24 00:09: POC Glucose 368 H 07/04/24 01:02: POC Glucose 352 H 07/04/24 02:12: POC Glucose 315 H 07/04/24 03:10: POC Glucose 272 H 07/04/24 03:20: WBC 27.8 H, RBC 4.43, Hgb 12.5, Hct 35.0 L, MCV 79.0 L D, MCH 28.2, MCHC 35.7 D, RDW Std Deviation 34.4 L, RDW Coeff of Nuris 12.0, Plt Count 289, MPV 10.2, Immature Gran % (Auto) 2.500 H, Neut % (Auto) 53.5, Lymph % (Auto) 9.0 L, [place] % (Auto) 6.7, Eos % (Auto) 27.9 H, Baso % (Auto) 0.4, Absolute Neuts (auto) 14.9 H, Absolute Lymphs (auto) 2.50, Nucleated RBC % 0, Differential Comment SCANNED, Diff Path Review October, Sodium 128 L, Potassium 3.2 L, Chloride 92 L, Carbon Dioxide 25.0, Anion Gap 11, BUN 80 H, Creatinine 3.59 H, Estim Creat Clear Calc 22.80, Est GFR (MDRD) Af Amer 17 L, Est GFR (MDRD) Non-Af 14 L, BUN/Creatinine Ratio 22.3 H, Glucose 298 H, Calcium 7.7 L, B-Natriuretic Peptide 432.7 H 07/04/24 04:16: POC Glucose 257 H 07/04/24 06:06: POC Glucose 238 H 07/04/24 06:59: POC Glucose 255 H Micro: Microbiology 07/03/24 09:57 Mucosa - Nose SARS-CoV-2, Influenza & RSV (PCR) - Final ABG Data ABG results: ABG 07/03/24 07/03/24 07/03/24 09:58 10:58 11:53 Specimen Type MAJO MAJO ART Sample Site Not entered Not entered Not entered pH 6.91 L* Bicarbonate Actual 3.4 L Total CO2 < 5 Base Excess -29 L O2 Saturation 93 L O2 % ABG pCO2 17.0 L* ABG pO2 109 H Juan R Test VBG pH 6.84 L* 6.98 L* VBG pO2 36 61 H VBG HCO3 4 L 1 L VBG Total CO2 < 5 L < 5 L VBG O2 Sat (Calc) 33 L 76 H VBG Base Excess -30 L < -30 L POC Mix VBG pCO2 Pt Tmp 23.8 L 5.5 L* O2 Delivery Device Room Air Not entered Room Air Vent Mode Not entered Crit Call To/Read Back Yes Yes Yes Blood Gas Notified Whom osmin salter Blood Gas Notified Time 10:00:09 11:02:24 11:54:42 07/04/24 02:22 Specimen Type ART Sample Site R Radial pH 7.34 L Bicarbonate Actual 22.2 Total CO2 24 Base Excess -4 L O2 Saturation 84 L O2 % 3.0 ABG pCO2 41.7 ABG pO2 52 L Juan R Test Positive VBG pH VBG pO2 VBG HCO3 VBG Total CO2 VBG O2 Sat (Calc) VBG Base Excess POC Mix VBG pCO2 Pt Tmp O2 Delivery Device Cannula Vent Mode Not entered Crit Call To/Read Back Blood Gas Notified Whom Blood Gas Notified Time Radiography Diagnostic Testing: Radiology Impression Chest X-Ray 07/03/24 10:13 IMPRESSION: Normal x-ray examination of the chest. Electronically Signed: Patrick Patrick MD at 10:34 EST , Chest X-Ray 07/03/24 21:35 IMPRESSION: New left basilar airspace disease may be asymmetric edema, atelectasis or early infiltrate/pneumonia. Electronically Signed: Judy Quigley MD at 23:27 EST , Brain CT 07/04/24 02:31 IMPRESSION: No acute abnormality. CT angiogram and/or MRI may be helpful to evaluate for acute infarct as clinically indicated. Electronically Signed: Judy Quigley MD at 5:37 EST , Physical Exam Narrative Discussed with nursing staff. Patient has a sitter at bedside. Still mild confused and drowsy but answers questions appropriately or nodding head. Yesterday evening, patient probably pulled out the catheter and documented his voiding 1 time. Then she had repeat Cross catheterization. Total urine documented 125 mL after 12 AM today Patient was also started on Levophed as blood pressure dropped after giving Lasix. Lasix was given as patient having crackles. Physical exam: General: Mild lethargy but opens eyes. BMI 38.6 kg/m?. Obesity grade 2 HEENT: Atraumatic, PERRLA, EOMI, Normocephalic Oral: Oral mucosa dry. No Gingival or Mucosal Lesions/ Ulcerations Neck: Supple, No JVD, Negative Carotid Bruits Chest wall/Lungs: Air entry diminished in bilateral lung bases. No crepitation/rhonchi Cardiovascular: Regular rate, Regular Rhythm, Normal S1, Normal S2, No M/G/R Abdomen: Bowel Sounds Present, Soft, Non Tender, Non-Distended : Oliguria. No renal angle tenderness. No suprapubic tenderness. Extremities: Mild pedal edema, Capillary Refill Less than 3 Seconds Skin: No rashes, No breakdown Musculoskeletal: No Tenderness to Palpation of Joints or Extremities. ROM could not be evaluated as patient is without. Neurological: DTR 2+/4. No acute focal neurological deficit. Detailed neuroexam unobtainable Psych/Mental Status: Flat affect Assessment & Plan Assessment/Plan (1) DKA (diabetic ketoacidoses): QUALIFIERS: Diabetes mellitus complication detail: without coma Diabetes mellitus type: type 2 Qualified Code(s): E11.10 - Type 2 diabetes mellitus with ketoacidosis without coma PLAN: Plan This is [id number]-year-old female being admitted for DKA. Patient did not know that she has diabetes mellitus. 1. DKA most likely due to underlying, undiagnosed diabetes mellitus type 2: Patient is being admitted in the ICU. Labs reviewed. Admitting glucose was more than 1000, high anion gap metabolic acidosis, bicarb 5, AG 37. Patient was started on IV fluid normal saline 2 L bolus in the ED and then continue vigorous IV fluid rehydration as per DKA protocol. Started on IV insulin drip. 07/04: Last BMP pending. 1 anion gap closed 11. Yesterday patient completed 1 L of bicarb drip. Last ABG 7 point Septic shock probably due to evolving pneumonia: The patient presented with sepsis with clinical indicators of hypotension, mild tachycardia, leukocytosis due to evolving pneumonia with acute sepsis-related organ dysfunction as evidenced by fluid resistant hypotension requiring vasopressor, CHAIM, lactic acidosis, and metabolic acidosis. Chest x-ray shows evolving left upper lobe infiltrate Started on vancomycin and Zosyn. Urinary antigens are negative. Respiratory panel negative. MRSA PCR negative. Urine culture shows gram-positive and less than 1000, contamination. 2. High anion gap metabolic acidosis: ABG shows 6.91, 17, 109 on room air. Bicarb in BMP 5. IV bicarb drip was started in ED changed to 250 mL/h. Serum acetone moderate. 3. Hyperkalemia: Serum potassium was 6.2, due to high anion gap metabolic acidosis and DKA. Patient twelve-lead EKG individually reviewed, NSR low voltage QRS, QTc 439 ms. No EKG changes hyperkalemia. It is expected to correct with correction of metabolic acidosis. Serum phosphorus and magnesium are high. 07/04: Last potassium was 3.2. Hyperkalemia is mainly due to metabolic acidosis. 4. Hypotonic, hypovolemic hyponatremia due to increased blood sugar: Corrected sodium is 127. Patient is on IV fluid normal saline and bicarb drip. 07/04: Sodium still low 128. 5. Leukocytosis: WBC count is 71,000 with left shift, metamyelocyte 3%, myelocytes 1%, promyelocyte 1%. Neutrophils 74%, lymphocyte 14%. Will monitor. Probably due to inflammatory response from acute metabolic derangement 07/04: Leukocytosis improving 7. CHAIM due to DKA: BUNs/creatinine 78 and 3.71, albumin/creatinine is a 21%. IV fluid resuscitation. 07/04: Creatinine went up to 3.59. Patient also has oliguria 125 mL since midnight and about 50 mL last 2 hours. Communications Systems Engineer consulted. Urine electrolytes ordered. Portable renal and bladder ultrasound ordered 8. Elevated transaminases : Patient also has elevated transaminases AST 81, ALT 40. Alkaline phosphatase 181. Monitor liver chemistry. 9. DVT prophylaxis, high risk. Heparin 5000 units subcutaneous Q8 hourly. Living will/advanced directive/end of life care: Patient does not have living will or advanced directive. There is no designated power of roller coaster engineer for health. After discussion of benefits/risks procedures involved with full code, DNR CC arrest and DNR CC with the patient's boyfriend and the eyes, he opted for full code. Follow-up. Patient does want artificial life support including intubation, tube feed, ventilator and/chest compression, central venous catheter, vasopressor and DC shock if needed Total time spent in [id number] encounter in discussion of advanced directive 17 minutes. Clinical Impression(s) from Imaging Studies Chest X-Ray 07/03/24 10:13 IMPRESSION: Normal x-ray examination of the chest. Electronically Signed: Patrick Patrick MD at 10:34 EST , Chest X-Ray 07/03/24 21:35 IMPRESSION: New left basilar airspace disease may be asymmetric edema, atelectasis or early infiltrate/pneumonia. Electronically Signed: Judy Quigley MD at 23:27 EST , Brain CT 07/04/24 02:31 IMPRESSION: No acute abnormality. CT angiogram and/or MRI may be helpful to evaluate for acute infarct as clinically indicated. Electronically Signed: Judy Quigley MD at 5:37 EST , Sepsis Attestation Sepsis Alert: Yes Sepsis Attestation: Agree w/Sepsis Date exam was performed: 07/04/24 Time exam was performed: 08:05 Possible Source of Sepsis: Pulmonary Sepsis Organ Dysfunction Criteria Present: SBP < 90 mmHg or MAP < 65 mmHg, SBP decrease of more than 40 mmHg, Creatinine > 2.0 mg/dL, UOP < 0.5 mL/kg/hour for 2 consecutive hours and Lactic Acid > 2 mmol/L Supportive Findings: Patient required vasopressor started last Fluid Resuscitation Fluid resuscitation indicated?: Yes Fluid Resuscitation ordered: 30 ml/kg fluid bolus ordered Amount of fluid ordered: 3,500 Sepsis Note Date exam was performed: 07/04/24 Time exam was performed: 11:00 Sepsis Attestation: Sepsis re-evaluation was performed Response to fluids: Non Fluid responsive hypotension and Vasopressors started (Vasopressor was restarted last night) Charges/Coding Visit Charges Inpatient E&M: 93897 Subs Hosp L3
--- NOTE | 2024-07-04 08:55 | US_ITS ---
STUDY: RENAL ULTRASOUND - COMPLETE REASON FOR EXAM: Female, 58 years old. CHAIM on CKD -- portable, unstable TECHNIQUE: Ultrasound evaluation of the kidneys was performed with real-time and static schneider-scale imaging. COMPARISON: None. FINDINGS: RIGHT KIDNEY: Normal location of the right kidney, which is normal in size. The right kidney measures 9.7 cm x 5.4 cm x 4.8 cm. There is a normal cortex of the right kidney. The renal cortex measures 1.3 cm. There is no right renal mass or cyst. There are no right renal calculi. There is no right hydronephrosis. DISTAL RIGHT URETER: There is non-visualization of the distal right ureter. There is no demonstrated right ureterovesical junction calculus. There is no demonstrated right ureteral jet. LEFT KIDNEY: Normal location of the left kidney, which is normal in size. The left kidney measures 10.7 cm x 4.6 cm x 5 cm. There is a normal cortex of the left kidney. The renal cortex measures 1.4 cm. There is no left renal mass or cyst. There are no left renal calculi. There is no left hydronephrosis. DISTAL LEFT URETER: There is non-visualization of the distal left ureter. There is no demonstrated left ureterovesical junction calculus. There is no demonstrated left ureteral jet. BLADDER: A Cross catheter seen within the empty bladder. US/Kidney and Bladder IMPRESSION: Normal ultrasound of the kidneys. Electronically Signed: Patrick Patrick MD at 15:36 EST ,
--- NOTE | 2024-07-04 09:10 | PCM.CONS.R ---
Assessment & Plan Assessment/Plan (1) CHAIM (acute kidney injury): (2) Hyponatremia: (3) Acute metabolic acidosis: (4) Hypokalemia: (5) DKA (diabetic ketoacidoses): QUALIFIERS: Diabetes mellitus complication detail: without coma Diabetes mellitus type: type 2 Qualified Code(s): E11.10 - Type 2 diabetes mellitus with ketoacidosis without coma PLAN: Plan Assessment/Plan: The patient is a 58-year-old female without significant past medical history. The patient presents to the hospital on 07/03/2024 with 3-day history of generalized malaise. Patient also presented with polydipsia, polyuria, and nausea/vomiting. The patient was found to have glucose level of 1240 mg/dL with bicarbonate level of 5 mmol/L. The patient is admitted to the ICU for treatment of diabetic ketoacidosis. Patient was also found to have elevated serum creatinine on presentation without prior history of CKD. Serum creatinine was 3.71 mg/dL on 07/03/2024 on presentation. Nephrology is following for CHAIM. Acute kidney injury. There is no prior history of CKD. However, last available serum creatinine was more than 10 years ago. On 02/22/2013, serum creatinine was 0.90 mg/dL. Patient presented to hospital with serum creatinine of 3.71 mg/dL on 07/03/2024. Other than expected glucosuria and ketonuria, urinalysis on 07/03/2024 was benign. My suspicion is that the patient has CHAIM from effective blood volume depletion (EBV) due to polyuria prior to presentation. Patient presented to hospital with hypotension which recurred overnight requiring vasopressor. Patient likely has ischemic ATN from prolonged decrease in EBV. I have low suspicion for other causes of CHAIM. Agree with checking kidney ultrasound. Although I have low suspicion for obstruction as a cause of CHAIM, the size of the patient's kidneys may also help to determine chronicity of renal insufficiency. Continue keep MAP above 65 mmHg. There is no need for kidney replacement therapy at this point. Will recheck renal function, volume status, acid-base and electrolytes again tomorrow. Hypokalemia. Potassium level was 3.2 mmol/L this morning at 3:20 AM. Hypokalemia was likely due to insulin drip as well as correction of acute metabolic acidosis. Potassium level is better at 4.5 mmol/L at 8:40 AM today without potassium replacement. The patient had received IV furosemide earlier today, so we will continue to monitor serum potassium. Hyponatremia. Serum sodium was as low as 112 mmol/L on presentation on 07/03/2024. Hyponatremia was primarily due to hyperglycemia. Patient likely had hypertonic hyponatremia on presentation. Although improved, hyponatremia has persisted despite treatment of hyperglycemia. Serum sodium was 129 mmol/L today on 07/04/2024 at 8:40 AM. My suspicion is that hyponatremia is also due to CHAIM and lack of solute intake. I will check urine osmolality and urine sodium. There is no need to treat current degree of hyponatremia with hypertonic saline. Continue to treat hyperglycemia. We will continue to monitor serum sodium. Acute metabolic acidosis with high anion gap/DKA. Serum bicarbonate level was as low as 5 mmol/L on presentation on 07/03/2024. Acute metabolic acidosis is due to DKA. Anion gap has closed with treatment of DKA. Serum bicarbonate level is most recently 24 mmol/L on 07/04/2024 at 8:40 AM. Will continue to monitor serum bicarbonate. Circulatory shock. Hypotension was worsened after start of dexmedetomidine. She is now on vasopressor. Patient is being covered with antimicrobial will investigation for etiology of shock is in progress. We will monitor renal function in the setting of hypotension as discussed above. HPI Consult Data Date of Consult: 07/04/24 HPI Narrative Reason for Consultation: Acute kidney injury HPI Narrative: The patient is a 58-year-old female without significant past medical history. The patient presents to the hospital on 07/03/2024 with 3-day history of generalized malaise. Patient also presented with polydipsia, polyuria, and nausea/vomiting. The patient was found to have glucose level of 1240 mg/dL. The patient was diagnosed with DKA. Her serum bicarbonate level was 5 mmol/L with high anion gap. Nephrology is asked see the patient because of acute kidney injury. Patient presented to hospital with serum creatinine of 3.71 mg/dL. There is no prior history of CKD. Last available serum creatinine prior to this admission was from 02/22/2013. At that time, serum creatinine was 0.90 mg/dL. Patient is currently encephalopathic. She became agitated overnight and pulled Cross catheter. Patient was started on dexmedetomidine infusion. Patient also became more hypotensive overnight requiring norepinephrine infusion. She is currently on 10 mcg of norepinephrine per minute. The patient cannot provide any meaningful history. She does wake up to voice but falls asleep quickly. [facility] Medical History Thyroid disease Seasonal allergies Home Medications ?Medication ?Instructions ?Recorded ?Last Taken ?Type azithromycin 250 mg tablet See Rx Instructions PO .COMPLEX #6 01/28/19 Unknown Rx (Zithromax Z-Mars) tabs guaifenesin 600 mg tablet, 600 mg PO BID 01/28/19 Unknown History extended release 12 hr (Mucinex) phenylephrine HCl 2.5 mg/5 mL oral 10 mg PO ONCE 01/28/19 Unknown History solution (Children's Sudafed PE Nasal Decongestant) Allergy/AdvReac Type Severity Reaction Status Date / Time cefuroxime (From Ceftin) Allergy Mild X Verified 01/28/19 09:04 Family History Mother COPD (chronic obstructive pulmonary disease) Rheumatic fever Father Lung cancer Social History Smoking Status: Never smoker alcohol intake: never ROS ROS Narrative Unable to obtain due to encephalopathy. Physical Exam Narrative General: Somnolent and oriented x0, NAD. HEENT: Normocephalic, atraumatic. Mucous membrane dry without erythema. PERRLA. Neck: Supple, no JVD. Trachea is midline. No thyromegaly or lymphadenopathy. Cardiovascular: Normal S1, S2. No rubs, murmurs, or gallops. Respiratory: Lungs are clear to auscultation bilaterally. No wheezing, rhonchi, or rales. Abdomen: Normal bowel sounds, soft, nontender, no guarding or rebound, no organomegaly. Extremities: No clubbing, cyanosis, or edema. Musculoskeletal: Full passive range of motion, no joint swelling. Psychiatric: Unable to assess. Skin: Warm and dry, no rash. Neurologic: No focal neurologic deficits. Lab / Micro Data 07/04/24 03:20 07/04/24 08:40 Labs: Laboratory Results - last 24 hr 07/03/24 09:35: POC Glucose > 500 H* 07/03/24 09:47: WBC 71.5 H*, RBC 4.57, Hgb 13.1, Hct 42.6, MCV 93.2, MCH 28.7, MCHC 30.8 L, RDW Std Deviation 44.4 H, RDW Coeff of Nuris 13.1, Plt Count 441, MPV 11.2, Neut % (Auto) Not Reportable, Absolute Neuts (auto) 53.6 H, Absolute Lymphs (auto) 10.00 H, Total Counted 100, Neutrophils % (Manual) 74 H, Band Neutrophils % 1, Lymphocytes % (Manual) 14 L, Monocytes % (Manual) 6, Metamyelocytes % 3 H, Myelocytes % 1 H, Promyelocytes % 1 H, Diff Path Review May foll, Atypical Lymphocytes 2+, Platelet Estimate SLT INC, Sodium 112 L*, Potassium 6.2 H*, Chloride 70 L*, Carbon Dioxide 5.0 L*, Anion Gap 37 H, BUN 78 H, Creatinine 3.71 H, Estim Creat Clear Calc 22.06, Est GFR (MDRD) Af Amer 16 L, Est GFR (MDRD) Non-Af 13 L, BUN/Creatinine Ratio 21.0 H, Glucose 1240 H*, Hemoglobin A1c 6.8 H, Calcium 8.4 L, Phosphorus 8.9 H, Magnesium 3.3 H, Total Bilirubin 0.60, AST 81 H, ALT 40, Alkaline Phosphatase 181 H, Troponin I High Sens 89 H, Total Protein 7.5, Albumin 3.6, Globulin 3.9, Albumin/Globulin Ratio 0.9, Lipase 89 H 07/03/24 09:50: Acetone Level MODERATE H 07/03/24 09:51: PT 17.0 H, INR 1.4, APTT 31.5 07/03/24 09:55: Serum Osmolality 371 H 07/03/24 09:57: Urine Color Yellow, Urine Clarity Clear, Urine pH 6.0, Ur Specific [place] 1.020, Urine Protein 30 H, Urine Glucose (UA) 1000 H, Urine Ketones 50 H, Urine Occult Blood 250 H, Urine Nitrite Negative, Urine Bilirubin Negative, Urine Urobilinogen Normal, Ur Leukocyte Esterase Negative, Urine RBC 0-5 SEEN, Urine WBC 0 SEEN, Ur Squamous Epith Cells 0-5 SEEN, Urine Bacteria RARE, Urine Mucus 0 SEEN 07/03/24 10:05: Lactic Acid 2.3 H* 07/03/24 11:49: POC Glucose > 500 H* 07/03/24 11:57: Glucose 1075 H* 07/03/24 13:05: Sodium Cancelled 07/03/24 13:05: Sodium Cancelled 07/03/24 13:05: Sodium 124 L, Potassium Cancelled 07/03/24 13:05: Potassium Cancelled 07/03/24 13:05: Potassium 3.9, Chloride Cancelled 07/03/24 13:05: Chloride Cancelled 07/03/24 13:05: Chloride 84 L, Carbon Dioxide Cancelled 07/03/24 13:05: Carbon Dioxide Cancelled 07/03/24 13:05: Carbon Dioxide 9.0 L*, Anion Gap Cancelled 07/03/24 13:05: Anion Gap Cancelled 07/03/24 13:05: Anion Gap 31 H, BUN Cancelled 07/03/24 13:05: BUN Cancelled 07/03/24 13:05: BUN 77 H, Creatinine Cancelled 07/03/24 13:05: Creatinine Cancelled 07/03/24 13:05: Creatinine 3.33 H, Estim Creat Clear Calc Cancelled 07/03/24 13:05: Estim Creat Clear Calc Cancelled 07/03/24 13:05: Estim Creat Clear Calc 24.58, Est GFR (MDRD) Af Amer Cancelled 07/03/24 13:05: Est GFR (MDRD) Af Amer Cancelled 07/03/24 13:05: Est GFR (MDRD) Af Amer 18 L, Est GFR (MDRD) Non-Af Cancelled 07/03/24 13:05: Est GFR (MDRD) Non-Af Cancelled 07/03/24 13:05: Est GFR (MDRD) Non-Af 15 L, BUN/Creatinine Ratio Cancelled 07/03/24 13:05: BUN/Creatinine Ratio Cancelled 07/03/24 13:05: BUN/Creatinine Ratio 23.1 H, Glucose Cancelled 07/03/24 13:05: Glucose Cancelled 07/03/24 13:05: Glucose 939 H*, Calcium Cancelled 07/03/24 13:05: Calcium Cancelled 07/03/24 13:05: Calcium 7.2 L 07/03/24 13:13: POC Glucose > 500 H* 07/03/24 14:00: Glucose 945 H* 07/03/24 14:02: POC Glucose > 500 H* 07/03/24 14:58: POC Glucose > 500 H* 07/03/24 15:03: Glucose 897 H*, Lactic Acid 2.2 H* 07/03/24 15:54: POC Glucose > 500 H* 07/03/24 16:00: Glucose 870 H* 07/03/24 16:48: POC Glucose > 500 H* 07/03/24 16:50: Sodium 124 L, Potassium 3.6, Chloride 85 L, Carbon Dioxide 13.0 L, Anion Gap 26 H, BUN 76 H, Creatinine 3.42 H, Estim Creat Clear Calc 23.93, Est GFR (MDRD) Af Amer 18 L, Est GFR (MDRD) Non-Af 15 L, BUN/Creatinine Ratio 22.2 H, Glucose 829 H*, Calcium 7.0 L 07/03/24 18:10: Glucose 779 H* 07/03/24 18:11: POC Glucose > 500 H* 07/03/24 19:25: POC Glucose > 500 H* 07/03/24 20:34: POC Glucose > 500 H* 07/03/24 21:20: Sodium 126 L, Potassium 3.8, Chloride 86 L, Carbon Dioxide 19.0 L, Anion Gap 20 H, BUN 80 H, Creatinine 3.53 H, Estim Creat Clear Calc 23.18, Est GFR (MDRD) Af Amer 17 L, Est GFR (MDRD) Non-Af 14 L, BUN/Creatinine Ratio 22.7 H, Glucose 639 H*, Calcium 7.1 L 07/03/24 21:27: POC Glucose > 500 H* 07/03/24 21:40: B-Natriuretic Peptide 468.2 H 07/03/24 22:43: POC Glucose > 500 H* 07/04/24 00:09: POC Glucose 368 H 07/04/24 01:02: POC Glucose 352 H 07/04/24 02:12: POC Glucose 315 H 07/04/24 03:10: POC Glucose 272 H 07/04/24 03:20: WBC 27.8 H, RBC 4.43, Hgb 12.5, Hct 35.0 L, MCV 79.0 L D, MCH 28.2, MCHC 35.7 D, RDW Std Deviation 34.4 L, RDW Coeff of Nuris 12.0, Plt Count 289, MPV 10.2, Immature Gran % (Auto) 2.500 H, Neut % (Auto) 53.5, Lymph % (Auto) 9.0 L, Josephine % (Auto) 6.7, Eos % (Auto) 27.9 H, Baso % (Auto) 0.4, Absolute Neuts (auto) 14.9 H, Absolute Lymphs (auto) 2.50, Nucleated RBC % 0, Differential Comment SCANNED, Diff Path Review October, Sodium 128 L, Potassium 3.2 L, Chloride 92 L, Carbon Dioxide 25.0, Anion Gap 11, BUN 80 H, Creatinine 3.59 H, Estim Creat Clear Calc 22.80, Est GFR (MDRD) Af Amer 17 L, Est GFR (MDRD) Non-Af 14 L, BUN/Creatinine Ratio 22.3 H, Glucose 298 H, Calcium 7.7 L, B-Natriuretic Peptide 432.7 H 07/04/24 04:16: POC Glucose 257 H 07/04/24 06:06: POC Glucose 238 H 07/04/24 06:59: POC Glucose 255 H Micro: Microbiology 07/03/24 09:57 Mucosa - Nose SARS-CoV-2, Influenza & RSV (PCR) - Final ABG Data ABG results: ABG 07/03/24 07/03/24 07/03/24 09:58 10:58 11:53 Specimen Type MAJO MAJO ART Sample Site Not entered Not entered Not entered pH 6.91 L* Bicarbonate Actual 3.4 L Total CO2 < 5 Base Excess -29 L O2 Saturation 93 L O2 % ABG pCO2 17.0 L* ABG pO2 109 H Juan R Test VBG pH 6.84 L* 6.98 L* VBG pO2 36 61 H VBG HCO3 4 L 1 L VBG Total CO2 < 5 L < 5 L VBG O2 Sat (Calc) 33 L 76 H VBG Base Excess -30 L < -30 L POC Mix VBG pCO2 Pt Tmp 23.8 L 5.5 L* O2 Delivery Device Room Air Not entered Room Air Vent Mode Not entered Crit Call To/Read Back Yes Yes Yes Blood Gas Notified Whom osmin salter Blood Gas Notified Time 10:00:09 11:02:24 11:54:42 07/04/24 02:22 Specimen Type ART Sample Site R Radial pH 7.34 L Bicarbonate Actual 22.2 Total CO2 24 Base Excess -4 L O2 Saturation 84 L O2 % 3.0 ABG pCO2 41.7 ABG pO2 52 L Juan R Test Positive VBG pH VBG pO2 VBG HCO3 VBG Total CO2 VBG O2 Sat (Calc) VBG Base Excess POC Mix VBG pCO2 Pt Tmp O2 Delivery Device Cannula Vent Mode Not entered Crit Call To/Read Back Blood Gas Notified Whom Blood Gas Notified Time Imaging Radiology Impression Chest X-Ray 07/03/24 10:13 IMPRESSION: Normal x-ray examination of the chest. Electronically Signed: Patrick Patrick MD at 10:34 EST , Chest X-Ray 07/03/24 21:35 IMPRESSION: New left basilar airspace disease may be asymmetric edema, atelectasis or early infiltrate/pneumonia. Electronically Signed: Judy Quigley MD at 23:27 EST , Brain CT 07/04/24 02:31 IMPRESSION: No acute abnormality. CT angiogram and/or MRI may be helpful to evaluate for acute infarct as clinically indicated. Electronically Signed: Judy Quigley MD at 5:37 EST ,
[2024-07-04 09:19] LABS: Anion Gap 13 (5-15); BUN 86 mg/dL (7-18); BUN/Creat Ratio 23.3 RATIO (10-20); Chloride 92 mmol/L (98-107); Creatinine, Serum 3.69 mg/dL (0.55-1.02); EST Glomerular Filtration Rate 13 mL/min (>60); Est Glom Filt Rate - Afr Amer 16 mL/min (>60); Estimated Creatinine Clearance 21.85 ml/min; Glucose 236 mg/dL (74-106); Potassium 4.5 mmol/L (3.5-5.1); Sodium Level 129 mmol/L (136-145)
--- NOTE | 2024-07-04 09:23 | EX.PCM.CONCC ---
Assessment & Plan Assessment/Plan (1) DKA (diabetic ketoacidoses): QUALIFIERS: Diabetes mellitus complication detail: without coma Diabetes mellitus type: type 2 Qualified Code(s): E11.10 - Type 2 diabetes mellitus with ketoacidosis without coma (2) Sepsis: (3) CHAIM (acute kidney injury): PLAN: Plan RECOMMENDATIONS: 1. Okay to transition from continuous insulin to basal and sliding scale coverage. 2. Continue supplemental IV fluid hydration. 3. Continue Levophed to maintain a mean arterial pressure at or above 65 mmHg. 4. Start empiric antimicrobials. 5. Speech therapy evaluation prior to advancement of diet. 6. Discontinue Precedex. 7. Continue appropriate DVT prophylaxis. IMPRESSIONS: 1. Diabetic ketoacidosis The patient presented to the hospital with newly diagnosed diabetes mellitus in the setting of DKA, which may have been precipitated by underlying infection. She was profoundly acidotic at presentation and was medically managed with IV fluid resuscitation and continuous insulin infusion. Her anion gap has been closed x 2 this morning. Therefore, plan to transition the patient from continuous insulin to basal and sliding scale coverage. Continue aggressive electrolyte repletion, if needed. Diet can be advanced, if the patient is able to be cleared by speech therapy. 2. Septic shock The patient presented with sepsis due to suspected pneumonia with acute sepsis related organ dysfunction as evidenced by fluid refractory hypotension, necessitating vasopressor support along with lactic acidemia and acute kidney injury. Plan to continue Levophed to maintain a mean arterial pressure at or above 65 mmHg. Empiric antimicrobials have been initiated. 3. Acute kidney injury Most likely prerenal in etiology in the setting of volume depletion due to diabetic ketoacidosis and sepsis. Renal ultrasound is currently pending. Nephrology has been consulted to evaluate the patient. Continue current supportive measures as ordered. 4. Metabolic encephalopathy Most likely related to presenting DKA and concern for underlying infection. CT head was completed and ruled out any acute intracranial pathology. Will check follow-up liver function profile along with ammonia and TSH. Otherwise, continue current supportive measures. TIME: 38 minutes of critical care time, independent of procedures, was spent addressing the patient's diabetic ketoacidosis, septic shock, acute kidney injury, metabolic encephalopathy, review of all data and collaboration with the care team. HPI Consult Data Date of Consult: 07/04/24 HPI Narrative Reason for Consultation: Critical care management HPI Narrative: The patient is a 58-year-old female, with a history as outlined below, who presented to the emergency department on July 03 with altered mental status, nausea and vomiting. The patient's boyfriend reported that she had been exhibiting weakness and was confused prior to her admission to the hospital. She had never previously been diagnosed with diabetes. The patient's boyfriend did report that she had been suffering from a nonproductive cough, which has worsened during the hospitalization. On presentation to the emergency department, the patient was documented on several occasions to have a temperature of 91.7 ?F. She was also hypotensive with systolic blood pressures less than 90. Her initial laboratory evaluation revealed an elevated white blood cell count to 71,000. Coagulation profile was notable for an INR of 1.4. Chemistry profile was notable for a sodium of 112, potassium of 6.2, chloride of 70, bicarbonate of 5.0, anion gap of 37, BUN of 78 and creatinine of 3.71. Glucose was elevated at 1240. Moderate serum acetone level was noted. Initial chest x-ray of the chest was unremarkable. The patient ultimately was placed on a DKA protocol with supplemental IV fluid hydration and continuous insulin infusion. Over the course of the day on July 03, the patient remained confused and disoriented. She is currently documented to be overall net +4.5 L for the hospitalization. Follow-up chest x-ray completed last evening demonstrated an evolving left lower lobe infiltrate. CT head demonstrated no acute intracranial abnormality. The patient's white count this morning remains elevated at 27,000. ABG demonstrated a pH of 7.34 with a pCO2 of 41 and pO2 of 52. Chemistry profile was notable for a sodium of 129, BUN of 86 and creatinine of 3.69. Anion gap has been closed x 2. Glucose is improved to 236. BNP was increased to 432. Apparently, over concerns for volume overload overnight, the patient was ordered to receive a one-time dose of IV Lasix. She then became hypotensive and had to be started on vasopressor support. The patient did have an elevated lactate at 2.2 yesterday afternoon. [facility] Medical History Thyroid disease Seasonal allergies Home Medications ?Medication ?Instructions ?Recorded ?Last Taken ?Type azithromycin 250 mg tablet See Rx Instructions PO .COMPLEX #6 01/28/19 Unknown Rx (Zithromax Z-Mars) tabs guaifenesin 600 mg tablet, 600 mg PO BID 01/28/19 Unknown History extended release 12 hr (Mucinex) phenylephrine HCl 2.5 mg/5 mL oral 10 mg PO ONCE 01/28/19 Unknown History solution (Children's Sudafed PE Nasal Decongestant) Allergy/AdvReac Type Severity Reaction Status Date / Time cefuroxime (From Ceftin) Allergy Mild X Verified 01/28/19 09:04 Family History Mother COPD (chronic obstructive pulmonary disease) Rheumatic fever Father Lung cancer Social History Smoking Status: Never smoker alcohol intake: never ROS Review of Systems ROS Unobtainable: due to mental status Physical Exam Const alert and no apparent distress Constitutional Narrative: Still remains disoriented and confused, but is directable. General Appearance: cooperative and ill appearing HEENT normocephalic and head/scalp atraumatic HEENT Narrative: Dry mucous membranes. Eyes PERRL, EOMs intact bilaterally and conjunctivae normal Neck supple General: trachea midline Chest inspection of chest normal Resp normal respiratory effort Resp Narrative: Frequent paroxysms of coughing Auscultation: diminished lung sounds Cardio regular rate and regular rhythm GI normal to inspection, nondistended, normoactive bowel sounds Extremity no clubbing, cyanosis or edema Skin no rashes or lesions noted Neuro CN's II-XII intact bilaterally and moves all extremities Psych Mood & Affect: flat affect Lab / Micro Data 07/04/24 03:20 07/04/24 08:40 Labs: Laboratory Results - last 24 hr 07/03/24 09:35: POC Glucose > 500 H* 07/03/24 09:47: WBC 71.5 H*, RBC 4.57, Hgb 13.1, Hct 42.6, MCV 93.2, MCH 28.7, MCHC 30.8 L, RDW Std Deviation 44.4 H, RDW Coeff of Nuris 13.1, Plt Count 441, MPV 11.2, Neut % (Auto) Not Reportable, Absolute Neuts (auto) 53.6 H, Absolute Lymphs (auto) 10.00 H, Total Counted 100, Neutrophils % (Manual) 74 H, Band Neutrophils % 1, Lymphocytes % (Manual) 14 L, Monocytes % (Manual) 6, Metamyelocytes % 3 H, Myelocytes % 1 H, Promyelocytes % 1 H, Diff Path Review May foll, Atypical Lymphocytes 2+, Platelet Estimate SLT INC, Sodium 112 L*, Potassium 6.2 H*, Chloride 70 L*, Carbon Dioxide 5.0 L*, Anion Gap 37 H, BUN 78 H, Creatinine 3.71 H, Estim Creat Clear Calc 22.06, Est GFR (MDRD) Af Amer 16 L, Est GFR (MDRD) Non-Af 13 L, BUN/Creatinine Ratio 21.0 H, Glucose 1240 H*, Hemoglobin A1c 6.8 H, Calcium 8.4 L, Phosphorus 8.9 H, Magnesium 3.3 H, Total Bilirubin 0.60, AST 81 H, ALT 40, Alkaline Phosphatase 181 H, Troponin I High Sens 89 H, Total Protein 7.5, Albumin 3.6, Globulin 3.9, Albumin/Globulin Ratio 0.9, Lipase 89 H 07/03/24 09:50: Acetone Level MODERATE H 07/03/24 09:51: PT 17.0 H, INR 1.4, APTT 31.5 07/03/24 09:55: Serum Osmolality 371 H 07/03/24 09:57: Urine Color Yellow, Urine Clarity Clear, Urine pH 6.0, Ur Specific [place] 1.020, Urine Protein 30 H, Urine Glucose (UA) 1000 H, Urine Ketones 50 H, Urine Occult Blood 250 H, Urine Nitrite Negative, Urine Bilirubin Negative, Urine Urobilinogen Normal, Ur Leukocyte Esterase Negative, Urine RBC 0-5 SEEN, Urine WBC 0 SEEN, Ur Squamous Epith Cells 0-5 SEEN, Urine Bacteria RARE, Urine Mucus 0 SEEN 07/03/24 10:05: Lactic Acid 2.3 H* 07/03/24 11:49: POC Glucose > 500 H* 07/03/24 11:57: Glucose 1075 H* 07/03/24 13:05: Sodium Cancelled 07/03/24 13:05: Sodium Cancelled 07/03/24 13:05: Sodium 124 L, Potassium Cancelled 07/03/24 13:05: Potassium Cancelled 07/03/24 13:05: Potassium 3.9, Chloride Cancelled 07/03/24 13:05: Chloride Cancelled 07/03/24 13:05: Chloride 84 L, Carbon Dioxide Cancelled 07/03/24 13:05: Carbon Dioxide Cancelled 07/03/24 13:05: Carbon Dioxide 9.0 L*, Anion Gap Cancelled 07/03/24 13:05: Anion Gap Cancelled 07/03/24 13:05: Anion Gap 31 H, BUN Cancelled 07/03/24 13:05: BUN Cancelled 07/03/24 13:05: BUN 77 H, Creatinine Cancelled 07/03/24 13:05: Creatinine Cancelled 07/03/24 13:05: Creatinine 3.33 H, Estim Creat Clear Calc Cancelled 07/03/24 13:05: Estim Creat Clear Calc Cancelled 07/03/24 13:05: Estim Creat Clear Calc 24.58, Est GFR (MDRD) Af Amer Cancelled 07/03/24 13:05: Est GFR (MDRD) Af Amer Cancelled 07/03/24 13:05: Est GFR (MDRD) Af Amer 18 L, Est GFR (MDRD) Non-Af Cancelled 07/03/24 13:05: Est GFR (MDRD) Non-Af Cancelled 07/03/24 13:05: Est GFR (MDRD) Non-Af 15 L, BUN/Creatinine Ratio Cancelled 07/03/24 13:05: BUN/Creatinine Ratio Cancelled 07/03/24 13:05: BUN/Creatinine Ratio 23.1 H, Glucose Cancelled 07/03/24 13:05: Glucose Cancelled 07/03/24 13:05: Glucose 939 H*, Calcium Cancelled 07/03/24 13:05: Calcium Cancelled 07/03/24 13:05: Calcium 7.2 L 07/03/24 13:13: POC Glucose > 500 H* 07/03/24 14:00: Glucose 945 H* 07/03/24 14:02: POC Glucose > 500 H* 07/03/24 14:58: POC Glucose > 500 H* 07/03/24 15:03: Glucose 897 H*, Lactic Acid 2.2 H* 07/03/24 15:54: POC Glucose > 500 H* 07/03/24 16:00: Glucose 870 H* 07/03/24 16:48: POC Glucose > 500 H* 07/03/24 16:50: Sodium 124 L, Potassium 3.6, Chloride 85 L, Carbon Dioxide 13.0 L, Anion Gap 26 H, BUN 76 H, Creatinine 3.42 H, Estim Creat Clear Calc 23.93, Est GFR (MDRD) Af Amer 18 L, Est GFR (MDRD) Non-Af 15 L, BUN/Creatinine Ratio 22.2 H, Glucose 829 H*, Calcium 7.0 L 07/03/24 18:10: Glucose 779 H* 07/03/24 18:11: POC Glucose > 500 H* 07/03/24 19:25: POC Glucose > 500 H* 07/03/24 20:34: POC Glucose > 500 H* 07/03/24 21:20: Sodium 126 L, Potassium 3.8, Chloride 86 L, Carbon Dioxide 19.0 L, Anion Gap 20 H, BUN 80 H, Creatinine 3.53 H, Estim Creat Clear Calc 23.18, Est GFR (MDRD) Af Amer 17 L, Est GFR (MDRD) Non-Af 14 L, BUN/Creatinine Ratio 22.7 H, Glucose 639 H*, Calcium 7.1 L 07/03/24 21:27: POC Glucose > 500 H* 07/03/24 21:40: B-Natriuretic Peptide 468.2 H 07/03/24 22:43: POC Glucose > 500 H* 07/04/24 00:09: POC Glucose 368 H 07/04/24 01:02: POC Glucose 352 H 07/04/24 02:12: POC Glucose 315 H 07/04/24 03:10: POC Glucose 272 H 07/04/24 03:20: WBC 27.8 H, RBC 4.43, Hgb 12.5, Hct 35.0 L, MCV 79.0 L D, MCH 28.2, MCHC 35.7 D, RDW Std Deviation 34.4 L, RDW Coeff of Nuris 12.0, Plt Count 289, MPV 10.2, Immature Gran % (Auto) 2.500 H, Neut % (Auto) 53.5, Lymph % (Auto) 9.0 L, [place] % (Auto) 6.7, Eos % (Auto) 27.9 H, Baso % (Auto) 0.4, Absolute Neuts (auto) 14.9 H, Absolute Lymphs (auto) 2.50, Nucleated RBC % 0, Differential Comment SCANNED, Diff Path Review October, Sodium 128 L, Potassium 3.2 L, Chloride 92 L, Carbon Dioxide 25.0, Anion Gap 11, BUN 80 H, Creatinine 3.59 H, Estim Creat Clear Calc 22.80, Est GFR (MDRD) Af Amer 17 L, Est GFR (MDRD) Non-Af 14 L, BUN/Creatinine Ratio 22.3 H, Glucose 298 H, Calcium 7.7 L, B-Natriuretic Peptide 432.7 H 07/04/24 04:16: POC Glucose 257 H 07/04/24 06:06: POC Glucose 238 H 07/04/24 06:59: POC Glucose 255 H 07/04/24 08:40: Sodium 129 L, Potassium 4.5, Chloride 92 L, Carbon Dioxide 24.0, Anion Gap 13, BUN 86 H, Creatinine 3.69 H, Estim Creat Clear Calc 21.85, Est GFR (MDRD) Af Amer 16 L, Est GFR (MDRD) Non-Af 13 L, BUN/Creatinine Ratio 23.3 H, Glucose 236 H, Calcium 8.0 L Micro: Microbiology 07/03/24 09:57 Mucosa - Nose SARS-CoV-2, Influenza & RSV (PCR) - Final ABG Data ABG results: ABG 07/03/24 07/03/24 07/03/24 09:58 10:58 11:53 Specimen Type MAJO MAJO ART Sample Site Not entered Not entered Not entered pH 6.91 L* Bicarbonate Actual 3.4 L Total CO2 < 5 Base Excess -29 L O2 Saturation 93 L O2 % ABG pCO2 17.0 L* ABG pO2 109 H Juan R Test VBG pH 6.84 L* 6.98 L* VBG pO2 36 61 H VBG HCO3 4 L 1 L VBG Total CO2 < 5 L < 5 L VBG O2 Sat (Calc) 33 L 76 H VBG Base Excess -30 L < -30 L POC Mix VBG pCO2 Pt Tmp 23.8 L 5.5 L* O2 Delivery Device Room Air Not entered Room Air Vent Mode Not entered Crit Call To/Read Back Yes Yes Yes Blood Gas Notified Whom osmin salter Blood Gas Notified Time 10:00:09 11:02:24 11:54:42 07/04/24 02:22 Specimen Type ART Sample Site R Radial pH 7.34 L Bicarbonate Actual 22.2 Total CO2 24 Base Excess -4 L O2 Saturation 84 L O2 % 3.0 ABG pCO2 41.7 ABG pO2 52 L Juan R Test Positive VBG pH VBG pO2 VBG HCO3 VBG Total CO2 VBG O2 Sat (Calc) VBG Base Excess POC Mix VBG pCO2 Pt Tmp O2 Delivery Device Cannula Vent Mode Not entered Crit Call To/Read Back Blood Gas Notified Whom Blood Gas Notified Time Imaging Radiology Impression Chest X-Ray 07/03/24 10:13 IMPRESSION: Normal x-ray examination of the chest. Electronically Signed: Patrick Patrick MD at 10:34 EST , Chest X-Ray 07/03/24 21:35 IMPRESSION: New left basilar airspace disease may be asymmetric edema, atelectasis or early infiltrate/pneumonia. Electronically Signed: Judy Quigley MD at 23:27 EST , Brain CT 07/04/24 02:31 IMPRESSION: No acute abnormality. CT angiogram and/or MRI may be helpful to evaluate for acute infarct as clinically indicated. Electronically Signed: Judy Quigley MD at 5:37 EST , Sepsis Attestation Sepsis Attestation: Agree w/Sepsis Date exam was performed: 07/04/24 Time exam was performed: 11:46 Possible Source of Sepsis: Pulmonary and Genitourinary Sepsis Organ Dysfunction Criteria Present: SBP < 90 mmHg or MAP < 65 mmHg, Creatinine > 2.0 mg/dL and Lactic Acid > 2 mmol/L Charges/Coding Procedures Hospitalists Procedures: 76019 Critical Care 1st Hr
[2024-07-04 09:50] LABS: Amphetamine Urine VISTA NEGATIVE (<1000 ng/mL); Barbiturate Urine VISTA NEGATIVE (< 200 ng/mL); Benzodiazepine Urine VISTA NEGATIVE (< 200 ng/mL); Cocaine Urine VISTA NEGATIVE (< 300 ng/mL); Ecstacy Urine VISTA NEGATIVE (< 500 ng/mL); Methadone Urine VISTA NEGATIVE (< 300 ng/mL); PCP Urine VISTA NEGATIVE (< 25 ng/mL); THC Urine VISTA NEGATIVE (< 50 ng/mL); Vista UDS pH Range 5
[2024-07-04 10:11] LABS: Bedside Glucose 236 mg/dL (74-106)
[2024-07-04 10:11] LABS: Bedside Glucose 228 mg/dL (74-106)
[2024-07-04 10:13] LABS: Procalcitonin 3.83 ng/mL (0.00-0.09)
[2024-07-04] MEDS: Vancomycin HCl 2,000 MG in 0.9% Normal Saline (500mL Bag) 500 ML 250 MG IV (10:16)
[2024-07-04] MEDS: TITRATION PARAMETER CHANGE 1 EACH IV (10:16)
--- NOTE | 2024-07-04 10:23 | NURSING ---
Triggered sepsis alert, Dr. Mello notified, ordered antibiotics, no fluid boluses ordered.
[2024-07-04] MEDS: Dext 5%-0.45% NS 1,000 ML 100 ML IV (10:48)
[2024-07-04 10:57] LABS: Lactic Acid 2.5 mmol/L (0.4-1.9)
[2024-07-04 11:12] LABS: AST(SGOT) 138 U/L (15-37); Alanine Aminotransfer ALT/SGPT 54 U/L (13-56); Alkaline Phosphatase 143 U/L (45-117); Bilirubin, Direct < 0.05 mg/dL (0.00-0.30); Globulin 3.2 g/dL (2.2-4.2); Protein, Total 6.2 g/dL (6.4-8.2); Thyroid Stim Hormone (TSH) 0.305 uIU/mL (0.358-3.740)
[2024-07-04 11:26] LABS: Bedside Glucose 232 mg/dL (74-106)
[2024-07-04 11:26] LABS: Bedside Glucose 241 mg/dL (74-106)
[2024-07-04] MEDS: Insulin Glargine-YFGN 100 UNIT/ML Pen 30 UNIT SC ×2 (11:33→19:58)
--- NOTE | 2024-07-04 11:33 | PCM.RX.CS ---
Consult Antibiotic Management Pharmacy has been consulted to manage selected antibiotic: Vancomycin Type of Intervention Type of Consult: New start Labs Labs: Sodium 129 mmol/L (136-145) L 07/04/24 08:40 Potassium 4.5 mmol/L (3.5-5.1) 07/04/24 08:40 Chloride 92 mmol/L (98-107) L 07/04/24 08:40 Carbon Dioxide 24.0 mmol/L (21.0-32.0) 07/04/24 08:40 Anion Gap 13 (5-15) 07/04/24 08:40 BUN 86 mg/dL (7-18) H 07/04/24 08:40 Creatinine 3.69 mg/dL (0.55-1.02) H 07/04/24 08:40 Est GFR (MDRD) Af Amer 16 mL/min (>60) L 07/04/24 08:40 Est GFR (MDRD) Non-Af 13 mL/min (>60) L 07/04/24 08:40 BUN/Creatinine Ratio 23.3 RATIO (10-20) H 07/04/24 08:40 Glucose 236 mg/dL (74-106) H 07/04/24 08:40 Microbiology Microbiology: Microbiology 07/04/24 09:30 Nasal Secretion MRSA (PCR) - Final 07/03/24 09:57 Mucosa - Nose SARS-CoV-2, Influenza & RSV (PCR) - Final Dosing Weight Weight used for dosin.4 kg Estimated Creatinine Clearance Estimated Creatinine Clearance: 22 ML/MIN Goal Trough Goal Trough: 15-20 mcg/mL Pharmacy Plan for Drug Dosing Pharmacy Plan for Drug Dosing: Give initial load dose of 2000mg IV x1. Since the patient's CrCl is only slightly above 20, will not schedule another dose at this time. Will order a random level for 24 hours after the initial dose is given and use that to determine dosing for tomorrow. Pharmacy Service will continue to monitor and adjust dosing as required. Follow-Up Labs Follow-Up Labs: Trough: Vancomycin (random) Date/Time Labs Ordered Labs to be done on [date and time ordered]: 07/05/24 10:00
[2024-07-04 12:16] LABS: Bedside Glucose 258 mg/dL (74-106)
--- NOTE | 2024-07-04 12:22 | CASEMGMT ---
Social Work- SW participated in interdisciplinary rounds on pt. SW coordinated with [employer] for self-pay status. SW to meet with pt when she is cognitively clear and able to converse appropriately. SW remains available to follow. RITA Boland
[2024-07-04] MEDS: Piperacil/Tazobactam 3.375 GM in 0.9% Normal Saline (50mL MB+) 50 ML IV ×2 (12:53→21:14)
[2024-07-04 13:16] LABS: Eosinophil 11 % (0-5); Lymphocyte 15 % (19-41); Monocyte 7 % (0-10); Neutrophil-Band 7 % (0-5); Neutrophil-Segmented 60 % (47-70); Total Cells Counted 100 (MANUAL DIFF)
[2024-07-04 13:17] LABS: Hypochromasia 1+; Platelet Estimate ADEQUATE (ADEQ); Red Cell Morphology N CYTIC NORMAL (NORM C&C)
[2024-07-04 13:18] LABS: Scan Smear per Review Criteria MANUAL DIFF
[2024-07-04 13:29] LABS: Bedside Glucose 289 mg/dL (74-106)
[2024-07-04 13:42] LABS: Reflex Lactate? Y
[2024-07-04 14:20] LABS: Pathologist Review Reviewed
[2024-07-04] MEDS: Ipratropium/Albuterol Sulfate 3 ML AMPUL.NEB INHALATION (15:19)
[2024-07-04] MEDS: Insulin Lispro 100 UNIT/ML INSULN.PEN SC ×3 (15:38→23:56)
--- NOTE | 2024-07-04 15:45 | RAD_ITS ---
INDICATION: tachypneic EXAMINATION/TECHNIQUE: X-RAY - XR Chest 1 View COMPARISON: July 03, 2024 FINDINGS: LINES/DEVICES: None. LUNGS: No consolidation, edema or effusion. No pneumothorax. MEDIASTINUM AND CARDIOVASCULAR STRUCTURES: Cardiac silhouette not enlarged. Widened mediastinum likely related to prominent vessels similar to previous study. BONES AND SOFT TISSUES: Unremarkable. RAD/Chest 1 View (Portable) IMPRESSION: No radiographic evidence of acute cardiopulmonary disease. Electronically Signed: Mika Ingram DO at 17:36 EST ,
[2024-07-04 15:54] LABS: Bedside Glucose 314 mg/dL (74-106)
[2024-07-04 16:13] LABS: Pathologist Review Reviewed
[2024-07-04] MEDS: Norepinephrine 8 MG in 0.9% Normal Saline (250mL Bag) 242 ML 15 MG CONT INF (19:40)
[2024-07-04 20:28] LABS: Bedside Glucose 373 mg/dL (74-106)
[2024-07-04 22:29] LABS: Differential Indicated MANUAL DIFF
[2024-07-04 22:30] LABS: Absolute Lymphocyte Count 4.17 X10^3/uL (0.83-4.51); Absolute Neutrophil Count 16.7 X10^3/uL (2.0-7.7)
[2024-07-04 23:36] LABS: Protein, Urine (Random) 60.4 mg/dL (<11.9); Protein:Creat Ratio 1058 mg/g CRE (0-200); Urine Chloride 11 mmol/L (Not Establ.); Urine Sodium 10 mmol/L (Not Establ.)
[2024-07-05] VITALS (24 sets, daily range): BP systolic 123–157; BP diastolic 65–87; PULSE 81–96; RESP 18–24; TEMP 36.7–37.3; O2SAT 95–99; BMI 37.4
[2024-07-05 00:18] LABS: Bedside Glucose 348 mg/dL (74-106)
[2024-07-05 00:23] LABS: Osmolality, Urine 428 mOsm/KG
[2024-07-05] MEDS: Insulin Lispro 100 UNIT/ML INSULN.PEN SC ×5 (03:49→22:29)
[2024-07-05 04:09] LABS: Bedside Glucose 350 mg/dL (74-106)
[2024-07-05] MEDS: Heparin Injection (Vial) 5,000 UNIT/ML VIAL 5000 UNIT SC (05:28)
[2024-07-05] MEDS: Piperacil/Tazobactam 3.375 GM in 0.9% Normal Saline (50mL MB+) 50 ML IV ×3 (05:28→22:28)
[2024-07-05 06:42] LABS: Absolute Lymphocyte Count 1.82 X10^3/uL (0.83-4.51); Absolute Neutrophil Count 10.4 X10^3/uL (2.0-7.7); Basophil# 0.03 X10^3/uL; Hematocrit 30.4 % (37-47); Hemoglobin 10.8 g/dL (12.0-15.0); Lymphocyte # 1.82 X10^3/ul (0.83-4.51); Mean Corp Hgb Conc 35.5 g/dL (32-36); Mean Corpuscular Hgb 27.8 pg (27.0-32.0); Mean Corpuscular Volume 78.4 fL (81-99); Mean Platelet Vol. 10.6 fl (6.2-12.0); Monocyte# 1.18 X10^3/uL; NRBC Flagged by Analyzer 0 % (0-5); Neutrophil # 10.35 X10^3/uL (2.7-7.7); POSITIVE COUNT YES; Platelet Count 172 K/mm3 (150-450); RBC Distribution Width CV 12.5 % (11.6-14.6); RBC Distribution Width SD 35.5 fl (35.1-43.9); Red Blood Count 3.88 M/mm3 (4.2-5.4); White Blood Count 13.5 K/mm3 (4.4-11.0)
[2024-07-05 07:20] LABS: ALB/GLOB Ratio 0.9 RATIO (0.9-2.4); AST(SGOT) 86 U/L (15-37); Alanine Aminotransfer ALT/SGPT 50 U/L (13-56); Albumin, Serum 2.7 g/dL (3.2-5.0); Alkaline Phosphatase 123 U/L (45-117); Anion Gap 11 (5-15); BUN 86 mg/dL (7-18); BUN/Creat Ratio 25.2 RATIO (10-20); Calcium,Total 8.4 mg/dL (8.5-10.1); Chloride 101 mmol/L (98-107); Creatinine, Serum 3.41 mg/dL (0.55-1.02); EST Glomerular Filtration Rate 15 mL/min (>60); Est Glom Filt Rate - Afr Amer 18 mL/min (>60); Glucose 351 mg/dL (74-106); Magnesium 2.5 mg/dL (1.6-2.6); Phosphorus 2.2 mg/dL (2.5-4.9); Potassium 3.2 mmol/L (3.5-5.1); Protein, Total 5.7 g/dL (6.4-8.2); Sodium Level 135 mmol/L (136-145)
--- NOTE | 2024-07-05 07:46 | PN.CC_ITS ---
Assessment & Plan Assessment/Plan (1) DKA (diabetic ketoacidoses): QUALIFIERS: Diabetes mellitus type: type 2 Diabetes mellitus complication detail: without coma Qualified Code(s): E11.10 - Type 2 diabetes mellitus with ketoacidosis without coma (2) Sepsis: (3) CHAIM (acute kidney injury): PLAN: Plan RECOMMENDATIONS: 1. Continue basal and sliding scale insulin coverage as ordered. 2. Continue antimicrobials. Vancomycin can be discontinued. 3. Dietary advancement per speech therapy. 4. Ongoing potassium repletion as needed. 5. Continue appropriate DVT prophylaxis. 6. Physical therapy to work with the patient. 7. The patient is medically stable for transfer out of the intensive care unit. IMPRESSIONS: 1. Diabetic ketoacidosis Resolved. The patient presented to the hospital with newly diagnosed diabetes mellitus in the setting of DKA, which may have been precipitated by underlying infection. She was profoundly acidotic at presentation and was medically managed with IV fluid resuscitation and continuous insulin infusion. With supportive care, the patient's DKA has resolved and the patient has been transition to basal and sliding scale insulin coverage, which will be continued. 2. Septic shock Improved. The patient presented with sepsis due to suspected pneumonia with acute sepsis related organ dysfunction as evidenced by fluid refractory hypotension, necessitating vasopressor support along with lactic acidemia and acute kidney injury. The patient will be continued on empiric antibiotics. Given negative MRSA screen, we will plan to discontinue vancomycin. She has been successfully weaned from vasopressor support and remains hemodynamically stable. 3. Acute kidney injury Improving. Most likely prerenal in etiology in the setting of volume depletion due to diabetic ketoacidosis and sepsis. Renal ultrasound was unremarkable. Nephrology is currently following to assist with medical management. 4. Metabolic encephalopathy Improving. Most likely related to presenting DKA and concern for underlying infection. CT head was completed and ruled out any acute intracranial pathology. Continue current supportive measures. This note was generated with [employer] dictation software. It may contain incorrect words, spelling, and punctuation that were not noted in checking the note before signing. Subjective Subjective The patient was seen and examined at the bedside this morning. Events from the last 24 hours have been reviewed. The patient is currently afebrile, hemodynamically stable and maintaining appropriate oxygen saturations on room air. The patient has been weaned from vasopressor support. She is currently documented to be overall net +4.8 L for the hospitalization. White blood cell count is elevated at 13,000. Hemoglobin is dropped to 10.8 g/dL. Platelet count is within normal limits. Potassium is low at 3.2 with a creatinine of 3.4, which is improved from yesterday. Objective Data Objective Data The patient's most recent lab work, culture data and imaging studies have all been personally reviewed. COVID, influenza and RSV PCR's were negative. Strep and urine Legionella antigens were negative. Blood, urine and sputum cultures are pending. Respiratory viral panel was negative. MRSA screen was negative. Vital Signs: Vital Signs Temp Pulse Resp BP Pulse Ox O2 Del Method O2 Flow Rate 99 F 96 22 H 125/69 H 95 Nasal Cannula 2 07/05/24 05:00 07/05/24 07:00 07/05/24 07:00 07/05/24 07:00 07/05/24 07:00 07/05/24 07:00 07/05/24 07:00 FiO2 94 07/03/24 14:00 Oxygen Flow Rate (L/min) 2 Oxygen Delivery Method Nasal Cannula Weight: 246 lb 14.684 oz Body Mass Index (BMI) 37.4 Intake & Output: Intake and Output for Last 24 Hours 07/03/24 07/04/24 07/05/24 23:59 23:59 23:59 Intake Total 4977.52 / 4992.93 1413.05 / 1424.35 66.95 / 66.95 Output Total 550 / 550 385 / 385 700 / 700 Balance 4427.52 / 4442.93 1028.05 / 1039.35 -633.05 / -633.05 Lab / Micro Data Attestation: I reviewed the patient's lab results. 07/05/24 06:15 07/05/24 06:15 Labs: Laboratory Results - last 24 hr 07/03/24 09:06: Urine Osmolality 428, U Random Total Protein 60.4 H, Ur Random Sodium 10, Urine Creatinine 57.10, Protein/Creatinin Ratio 1058 H, Urine Potassium 23.0, Urine Chloride 11, Urine Opiates Screen NEGATIVE, Urine Methadone Screen NEGATIVE, Ur Barbiturates Screen NEGATIVE, Ur Phencyclidine Scrn NEGATIVE, Ur Amphetamines Screen NEGATIVE, MDMA (Ecstasy) Screen NEGATIVE, U Benzodiazepines Scrn NEGATIVE, Urine Cocaine Screen NEGATIVE, U Cannabinoids Screen NEGATIVE, Ur Drug Screen Comment 07/03/24 09:47: Diff Path Review Reviewed 07/04/24 03:20: Immature Gran % (Auto) WASH DRILLER HELPER, Neut % (Auto) WASH DRILLER HELPER, Lymph % (Auto) WASH DRILLER HELPER, [place] % (Auto) WASH DRILLER HELPER, Eos % (Auto) WASH DRILLER HELPER, Baso % (Auto) WASH DRILLER HELPER, Absolute Neuts (auto) 16.7 H, Absolute Lymphs (auto) 4.17, Total Counted 100, Neutrophils % (Manual) 60, B and Neutrophils % 7 H, Lymphocytes % (Manual) 15 L, Monocytes % (Manual) 7, E osinophils % (Manual) 11 H, Nucleated RBC % WASH DRILLER HELPER, Diff Path Review Reviewed, Platelet Estimate ADEQUATE, RBC Morphology N CYTIC, Hypochromasia 1+ 07/04/24 08:01: POC Glucose 228 H 07/04/24 08:40: Sodium 129 L, Potassium 4.5, Chloride 92 L, Carbon Dioxide 24.0, Anion Gap 13, BUN 86 H, Creatinine 3.69 H, Estim Creat Clear Calc 21.85, Est GFR (MDRD) Af Amer 16 L, Est GFR (MDRD) Non-Af 13 L, BUN/Creatinine Ratio 23.3 H, G lucose 236 H, Calcium 8.0 L, Total Bilirubin 0.50, Direct Bilirubin < 0.05, AST 138 H, ALT 54, Alkaline Phosphatase 143 H, Total Protein 6.2 L, Albumin 3.0 L, Globulin 3.2, TSH 0.305 L 07/04/24 09:30: POC Glucose 236 H 07/04/24 09:40: Lactic Acid 2.5 H*, Procalcitonin 3.83 H 07/04/24 10:18: POC Glucose 232 H 07/04/24 10:30: Ammonia 29.0 07/04/24 11:08: POC Glucose 241 H 07/04/24 11:56: POC Glucose 258 H 07/04/24 12:55: POC Glucose 289 H 07/04/24 15:08: POC Glucose 314 H 07/04/24 19:56: POC Glucose 373 H 07/04/24 23:53: POC Glucose 348 H 07/05/24 03:47: POC Glucose 350 H 07/05/24 06:15: Sodium 135 L, Potassium 3.2 L, Chloride 101, Carbon Dioxide 23.0, Anion Gap 11, BUN 86 H, Creatinine 3.41 H, Estim Creat Clear Calc 23.60, E st GFR (MDRD) Af Amer 18 L, Est GFR (MDRD) Non-Af 15 L, BUN/Creatinine Ratio 25.2 H, Glucose 351 H, Calcium 8.4 L, Phosphorus 2.2 L, Magnesium 2.5, Total Bilirubin 0.60, AST 86 H, ALT 50, Alkaline Phosphatase 123 H, Total Protein 5.7 L, Albumin 2.7 L, Globulin 3.0, Albumin/Globulin Ratio 0.9 Micro: Microbiology 07/04/24 13:00 Urine Catheter - Cross Legionella Antigen - Final 07/04/24 13:00 Urine Catheter - Cross Streptococcus pneumoniae Antigen (M - Final 07/04/24 11:10 Mucosa - Nasopharyngeal Respiratory Panel (PCR) - Final 07/03/24 09:06 Urine Catheter - Cross Legionella Antigen - Final 07/03/24 09:06 Urine Catheter - Cross Streptococcus pneumoniae Antigen (M - Final 07/03/24 10:20 Urine Catheter - Catheter Urine Culture - Preliminary Gram positive organism 07/04/24 09:30 Nasal Secretion MRSA (PCR) - Final 07/03/24 09:57 Mucosa - Nose SARS-CoV-2, Influenza & RSV (PCR) - Final Radiography Diagnostic Testing: Radiology Impression Renal Ultrasound 07/04/24 08:55 IMPRESSION: Normal ultrasound of the kidneys. Electronically Signed: Patrick Patrick MD at 15:36 EST , Chest X-Ray 07/04/24 15:45 IMPRESSION: No radiographic evidence of acute cardiopulmonary disease. Electronically Signed: Mika Ingram DO at 17:36 EST , Physical Exam Const alert and no apparent distress General Appearance: cooperative HEENT normocephalic, head/scalp atraumatic and moist oral mucous membranes Eyes PERRL, EOMs intact bilaterally and conjunctivae normal Neck supple General: trachea midline Chest inspection of chest normal Resp normal respiratory effort Auscultation: diminished lung sounds Cardio regular rate and regular rhythm GI normal to inspection, nondistended, normoactive bowel sounds Extremity no clubbing, cyanosis or edema Skin no rashes or lesions noted Neuro CN's II-XII intact bilaterally and moves all extremities Psych Mood & Affect: flat affect Charges/Coding Visit Charges Inpatient E&M: 73621 Subs Hosp L3
[2024-07-05 08:28] LABS: Differential Indicated SCAN CRITERIA MET
[2024-07-05 08:29] LABS: Platelet Estimate A (ADEQ)
--- NOTE | 2024-07-05 09:18 | PCM.PN.HOSP ---
Reason for Visit Reason for Visit: Diagnoses Sepsis, unspecified organism (07/03/24) Type 2 diabetes mellitus with ketoacidosis without coma (07/03/24) Hypo-osmolality and hyponatremia (07/03/24) Acute metabolic acidosis (07/03/24) Hypokalemia (07/03/24) Acute kidney failure, unspecified (07/03/24) Objective Data Objective Data Vital Signs: Vital Signs Temp Pulse Resp BP Pulse Ox O2 Del Method O2 Flow Rate 98.1 F 84 21 H 155/77 H 96 Room Air 2 07/05/24 09:00 07/05/24 09:00 07/05/24 09:00 07/05/24 09:00 07/05/24 09:00 07/05/24 09:00 07/05/24 07:00 FiO2 94 07/03/24 14:00 Oxygen Flow Rate (L/min) 2 Oxygen Delivery Method Room Air Weight: 246 lb 14.684 oz Body Mass Index (BMI) 37.4 Intake & Output: Intake and Output for Last 24 Hours 07/03/24 07/04/24 07/05/24 23:59 23:59 23:59 Intake Total 4977.52 / 4992.93 1413.05 / 1424.35 66.95 / 66.95 Output Total 550 / 550 385 / 385 700 / 700 Balance 4427.52 / 4442.93 1028.05 / 1039.35 -633.05 / -633.05 Lab / Micro Data 07/05/24 06:15 07/05/24 06:15 Labs: Laboratory Results - last 24 hr 07/03/24 09:06: Urine Osmolality 428, U Random Total Protein 60.4 H, Ur Random Sodium 10, Urine Creatinine 57.10, Protein/Creatinin Ratio 1058 H, Urine Potassium 23.0, Urine Chloride 11, Urine Opiates Screen NEGATIVE, Urine Methadone Screen NEGATIVE, Ur Barbiturates Screen NEGATIVE, Ur Phencyclidine Scrn NEGATIVE, Ur Amphetamines Screen NEGATIVE, MDMA (Ecstasy) Screen NEGATIVE, U Benzodiazepines Scrn NEGATIVE, Urine Cocaine Screen NEGATIVE, U Cannabinoids Screen NEGATIVE, Ur Drug Screen Comment 07/03/24 09:47: Diff Path Review Reviewed 07/04/24 03:20: Immature Gran % (Auto) EFFICIENCY ANALYST, Neut % (Auto) EFFICIENCY ANALYST, Lymph % (Auto) EFFICIENCY ANALYST, [place] % (Auto) EFFICIENCY ANALYST, Eos % (Auto) EFFICIENCY ANALYST, Baso % (Auto) EFFICIENCY ANALYST, Absolute Neuts (auto) 16.7 H, Absolute Lymphs (auto) 4.17, Total Counted 100, Neutrophils % (Manual) 60, Band Neutrophils % 7 H, Lymphocytes % (Manual) 15 L, Monocytes % (Manual) 7, Eosinophils % (Manual) 11 H, Nucleated RBC % EFFICIENCY ANALYST, Diff Path Review Reviewed, Platelet Estimate ADEQUATE, RBC Morphology N CYTIC, Hypochromasia 1+ 07/04/24 08:01: POC Glucose 228 H 07/04/24 08:40: Sodium 129 L, Potassium 4.5, Chloride 92 L, Carbon Dioxide 24.0, Anion Gap 13, BUN 86 H, Creatinine 3.69 H, Estim Creat Clear Calc 21.85, Est GFR (MDRD) Af Amer 16 L, Est GFR (MDRD) Non-Af 13 L, BUN/Creatinine Ratio 23.3 H, Glucose 236 H, Calcium 8.0 L, Total Bilirubin 0.50, Direct Bilirubin < 0.05, AST 138 H, ALT 54, Alkaline Phosphatase 143 H, Total Protein 6.2 L, Albumin 3.0 L, Globulin 3.2, TSH 0.305 L 07/04/24 09:30: POC Glucose 236 H 07/04/24 09:40: Lactic Acid 2.5 H*, Procalcitonin 3.83 H 07/04/24 10:18: POC Glucose 232 H 07/04/24 10:30: Ammonia 29.0 07/04/24 11:08: POC Glucose 241 H 07/04/24 11:56: POC Glucose 258 H 07/04/24 12:55: POC Glucose 289 H 07/04/24 15:08: POC Glucose 314 H 07/04/24 19:56: POC Glucose 373 H 07/04/24 23:53: POC Glucose 348 H 07/05/24 03:47: POC Glucose 350 H 07/05/24 06:15: WBC 13.5 H, RBC 3.88 L, Hgb 10.8 L, Hct 30.4 L, MCV 78.4 L, MCH 27.8, MCHC 35.5, RDW Std Deviation 35.5, RDW Coeff of Nuris 12.5, Plt Count 172, MPV 10.6, Immature Gran % (Auto) EFFICIENCY ANALYST, Neut % (Auto) EFFICIENCY ANALYST, Lymph % (Auto) EFFICIENCY ANALYST, [place] % (Auto) EFFICIENCY ANALYST, Eos % (Auto) EFFICIENCY ANALYST, Baso % (Auto) EFFICIENCY ANALYST, Absolute Neuts (auto) 10.4 H, Absolute Lymphs (auto) 1.82, Nucleated RBC % 0, Platelet Estimate A, Sodium 135 L, Potassium 3.2 L, Chloride 101, Carbon Dioxide 23.0, Anion Gap 11, BUN 86 H, Creatinine 3.41 H, Estim Creat Clear Calc 23.60, Est GFR (MDRD) Af Amer 18 L, Est GFR (MDRD) Non-Af 15 L, BUN/Creatinine Ratio 25.2 H, Glucose 351 H, Calcium 8.4 L, Phosphorus 2.2 L, Magnesium 2.5, Total Bilirubin 0.60, AST 86 H, ALT 50, Alkaline Phosphatase 123 H, Total Protein 5.7 L, Albumin 2.7 L, Globulin 3.0, Albumin/Globulin Ratio 0.9 Micro: Microbiology 07/03/24 10:20 Urine Catheter - Catheter Urine Culture - Final Gram positive organism 07/04/24 13:00 Urine Catheter - Cross Legionella Antigen - Final 07/04/24 13:00 Urine Catheter - Cross Streptococcus pneumoniae Antigen (M - Final 07/04/24 11:10 Mucosa - Nasopharyngeal Respiratory Panel (PCR) - Final 07/03/24 09:06 Urine Catheter - Cross Legionella Antigen - Final 07/03/24 09:06 Urine Catheter - Cross Streptococcus pneumoniae Antigen (M - Final 07/04/24 09:30 Nasal Secretion MRSA (PCR) - Final 07/03/24 09:57 Mucosa - Nose SARS-CoV-2, Influenza & RSV (PCR) - Final Radiography Diagnostic Testing: Radiology Impression Renal Ultrasound 07/04/24 08:55 IMPRESSION: Normal ultrasound of the kidneys. Electronically Signed: Patrick Patrick MD at 15:36 EST , Chest X-Ray 07/04/24 15:45 IMPRESSION: No radiographic evidence of acute cardiopulmonary disease. Electronically Signed: Mika Ingram DO at 17:36 EST Reading Location ID and State: [address] [place] [address] Tel [phone], Service support , Physical Exam Narrative Seen and examined Patient is off Levophed drip. Insulin drip was discontinued yesterday. Patient still lethargic. She had a sitter yesterday. Urine output 700 mL since midnight Physical exam: General: Mild lethargy but better than yesterday BMI 38.6 kg/m?. Obesity grade 2 HEENT: Atraumatic, PERRLA, EOMI, Normocephalic Oral: Oral mucosa dry. No Gingival or Mucosal Lesions/ Ulcerations Neck: Supple, No JVD, Negative Carotid Bruits Chest wall/Lungs: Air entry diminished in bilateral lung bases. No crepitation/rhonchi Cardiovascular: Regular rate, Regular Rhythm, Normal S1, Normal S2, No M/G/R Abdomen: Bowel Sounds Present, Soft, Non Tender, Non-Distended : Oliguria. No renal angle tenderness. No suprapubic tenderness. Extremities: Mild pedal edema, Capillary Refill Less than 3 Seconds Skin: No rashes, No breakdown Musculoskeletal: No Tenderness to Palpation of Joints or Extremities. ROM ministry Neurological: DTR 2+/4. No acute focal neurological deficit. Detailed neuroexam unobtainable Psych/Mental Status: Flat affect Assessment & Plan Assessment/Plan (1) DKA (diabetic ketoacidoses): QUALIFIERS: Diabetes mellitus type: type 2 Diabetes mellitus complication detail: without coma Qualified Code(s): E11.10 - Type 2 diabetes mellitus with ketoacidosis without coma PLAN: Plan This is [id number]-year-old female being admitted for DKA. Patient did not know that she has diabetes mellitus. 1. DKA most likely due to underlying, undiagnosed diabetes mellitus type 2: Patient is being admitted in the ICU. Labs reviewed. Admitting glucose was more than 1000, high anion gap metabolic acidosis, bicarb 5, AG 37. Patient was started on IV fluid normal saline 2 L bolus in the ED and then continue vigorous IV fluid rehydration as per DKA protocol. Started on IV insulin drip. 07/04: Last BMP pending. 1 anion gap closed 11. Yesterday patient completed 1 L of bicarb drip. Last ABG 7 point /07/05: Anion gap closed yesterday. Insulin drip was discontinued. Accu-Chek before meals and at bedtime with Humalog sliding scale coverage and hypoglycemia protocol. Will position BMP. 51. Mild hypokalemia and hypophosphatemia. Potassium phosphate ordered 2. Septic shock probably due to evolving pneumonia: The patient presented with sepsis with clinical indicators of hypotension, mild tachycardia, leukocytosis due to evolving pneumonia with acute sepsis-related organ dysfunction as evidenced by fluid resistant hypotension requiring vasopressor, HCAIM, lactic acidosis, and metabolic acidosis. Chest x-ray shows evolving left upper lobe infiltrate Started on vancomycin and Zosyn. Urinary antigens are negative. Respiratory panel negative. MRSA PCR negative. Urine culture shows gram-positive and less than 1000, contamination. 07/05: Patient off vasopressor. Continue IV antibiotic. Left upper lobe pneumonia High anion gap metabolic acidosis: ABG shows 6.91, 17, 109 on room air. Bicarb in BMP 5. IV bicarb drip was started in ED changed to 250 mL/h. Serum acetone moderate. 3. Hyperkalemia: Serum potassium was 6.2, due to high anion gap metabolic acidosis and DKA. Patient twelve-lead EKG individually reviewed, NSR low voltage QRS, QTc 439 ms. No EKG changes hyperkalemia. It is expected to correct with correction of metabolic acidosis. Serum phosphorus and magnesium are high. 07/04: Last potassium was 3.2. Hyperkalemia is mainly due to metabolic acidosis. 07/05: Hypokalemia and hypophosphatemia : 4. Hypotonic, hypovolemic hyponatremia due to increased blood sugar: Corrected sodium is 127. Patient is on IV fluid normal saline and bicarb drip. 07/04: Sodium still low 128. 07/05, sodium 135 5. Leukocytosis: WBC count is 71,000 with left shift, metamyelocyte 3%, myelocytes 1%, promyelocyte 1%. Neutrophils 74%, lymphocyte 14%. Will monitor. Probably due to inflammatory response from acute metabolic derangement 07/04: Leukocytosis improving 7. CHAIM due to DKA: BUNs/creatinine 78 and 3.71, albumin/creatinine is a 21%. IV fluid resuscitation. 07/04: Creatinine went up to 3.59. Patient also has oliguria 125 mL since midnight and about 50 mL last 2 hours. Medical Device Sales Representative consulted. Urine electrolytes ordered. Portable renal and bladder ultrasound ordered 8. Elevated transaminases : Patient also has elevated transaminases AST 81, ALT 40. Alkaline phosphatase 181. Monitor liver chemistry. 9. DVT prophylaxis, high risk. Heparin 5000 units subcutaneous Q8 hourly. Living will/advanced directive/end of life care: Patient does not have living will or advanced directive. There is no designated power of web services developer for health. After discussion of benefits/risks procedures involved with full code, DNR CC arrest and DNR CC with the patient's boyfriend and the eyes, he opted for full code. Follow-up. Patient does want artificial life support including intubation, tube feed, ventilator and/chest compression, central venous catheter, vasopressor and DC shock if needed Total time spent in [id number] encounter in discussion of advanced directive 17 minutes. Clinical Impression(s) from Imaging Studies Chest X-Ray 07/03/24 10:13 IMPRESSION: Normal x-ray examination of the chest. Electronically Signed: Patrick Patrick MD at 10:34 EST , Chest X-Ray 07/03/24 21:35 IMPRESSION: New left basilar airspace disease may be asymmetric edema, atelectasis or early infiltrate/pneumonia. Electronically Signed: Judy Quigley MD at 23:27 EST , Brain CT 07/04/24 02:31 IMPRESSION: No acute abnormality. CT angiogram and/or MRI may be helpful to evaluate for acute infarct as clinically indicated. Electronically Signed: Judy Quigley MD at 5:37 EST , Charges/Coding Visit Charges Inpatient E&M: 80120 Subs Hosp L3
--- NOTE | 2024-07-05 09:20 | ECHOD_ITS ---
Reason For Study: SOB Procedure This was a 2D Doppler, Color Flow transthoracic echocardiogram. The study was technically difficult. Definity deferred due to off axis images. Exam performed portable in ICU/CCU. Left Ventricle Normal LV size. Mild concentric left ventricular hypertrophy. The left ventricular ejection fraction is 65 %. Stage 1 diastolic dysfunction. Right Ventricle Mildly dilated right ventricle. Mild global right ventricular systolic dysfunction. Atria The left and right atria are normal. Mitral Valve Trivial mitral valve insufficiency. Tricuspid Valve Mild tricuspid valve insufficiency. Normal pulmonary artery pressure. Aortic Valve Trisinus/trileaflet aortic valve. Pulmonic Valve The pulmonic valve is not well visualized. Great Vessels Normal sized aortic root. Pericardium/Pleural No pericardial effusion. MMode/2D Measurements & Calculations LVIDd: 3.8 cm IVSd: 1.2 cm LVOT diam: 2.0 cm LVIDs: 2.4 cm LVPWd: 1.4 cm LVOT area: 3.2 cm2 FS: 38.7 % Ao root diam: 3.0 cm LAV(MOD-sp4): 14.9 ml LA A4 area: 8.5 cm2 LA dimension(2D): 3.4 cm RA A4 area: 10.4 cm2 Time Measurements MV dec time: 0.25 sec Doppler Measurements & Calculations MV E max ronak: 72.5 cm/sec Lat Peak E' Ronak: 12.4 cm/sec Med Peak E' Ronak: 11.9 cm/sec MV A max ronak: 78.5 cm/sec E/E' lat: 5.9 E/E' med: 6.1 MV E/A: 0.92 MV V2 max: 99.9 cm/sec MV dec slope: 301.7 cm/sec2 Ao V2 max: 102.6 cm/sec MV max P.0 mmHg Ao max P.2 mmHg MV V2 mean: 63.4 cm/sec Ao V2 mean: 73.5 cm/sec MV mean P.8 mmHg Ao mean P.4 mmHg MV V2 VTI: 30.1 cm Ao V2 VTI: 18.5 cm MVA(VTI): 2.1 cm2 AV (velocity ratio): 1.1 MATIAS(I,D): 3.3 cm2 MATIAS(V,D): 3.3 cm2 LV V1 max: 105.3 cm/sec SV(LVOT): 61.9 ml PA V2 max: 76.0 cm/sec LV V1 max P.5 mmHg PA V2 mean: 50.6 cm/sec LV V1 mean P.3 mmHg LV V1 mean: 70.1 cm/sec LV V1 VTI: 19.5 cm TR max ronak: 237.8 cm/sec TR max P.6 mmHg ECHO/Echo Complete Interpretation Summary The study was technically difficult. Mild concentric left ventricular hypertrophy. The left ventricular ejection fraction is 65 %. Stage 1 diastolic dysfunction. Mildly dilated right ventricle. Mild global right ventricular systolic dysfunction. Mild tricuspid valve insufficiency. Ordering Physician: Maximino Jean Referring Physician: BRAN PCP Performed By: Mariama Narayanan RCS
[2024-07-05] MEDS: Vancomycin Trough/Random Due 1 LAB MC (09:40)
[2024-07-05] MEDS: Insulin Glargine-YFGN 100 UNIT/ML Pen 40 UNIT SC ×2 (09:41→22:28)
[2024-07-05 10:00] LABS: Bedside Glucose 350 mg/dL (74-106)
[2024-07-05 10:33] LABS: Vancomycin, Random Level 18.8 ug/mL (0.0-15.0)
[2024-07-05] MEDS: Potassium Phosphate 30 MM in 0.9% Normal Saline (250mL Bag) 250 ML 42 MM IV (11:00)
--- NOTE | 2024-07-05 11:50 | ST.MBS ---
Modified Barium Swallow Patient Information Study Date: 07/05/24 Study Time: 13:00 Direct Billable Minutes: 99 Total Minutes procedure & reportin Diagnosis: Sepsis A41.9; Bronchitis J40 Referring Physician: Matty Mello Reason for Referral: Objectively assess swallow function, assess risk for aspiration, and determine recommendations for least restrictive diet textures and compensatory strategies to improve safety of swallow. Medical History: PMH: Thyroid disease, Seasonal allergies. The patient presented to [facility] ED 07/03/24 by EMS and accompanied by her after being sick for the past 3 days. Pt reported complaints of thirst, nausea, vomiting, fatigue, and increased urination. Additionally, pt was drowsy and confused. Pt unaware of a history of DM. In the ED, pt was hypotensive and labs/biochemistry were suggestive of DKA. Chest X-ray 07/03/24 IMPRESSION: New left basilar airspace disease may be asymmetric edema, atelectasis or early infiltrate/pneumonia. Pt was admitted for management of DKA, sepsis, and CHAIM. Chest X-ray 07/04/24 IMPRESSION: No radiographic evidence of acute cardiopulmonary disease. Pt was referred for ST consult due to concerns for aspiration. Current Diet Ordered: Regular textures / Thin liquids Mental Status: Impaired (Confusion) Respiratory Status: Oxygenating on Room Air Penetration-Aspiration Scale Penetration-Aspiration Scale: OBJECTIVE ASSESSMENT OF SWALLOW FUNCTION (QUANTITATIVE ? PER TRIAL): PENETRATION / ASPIRATION SCALE (UMAÑA): 1 = does not enter airway 2 = enters airway/above vocal folds/ejected 3 = enters airway/above vocal folds/not ejected 4 = enters airway/contacts vocal folds/ejected 5 = enters airway/contacts vocal folds/not ejected 6 = enters airway/below vocal folds/ejected 7 = enters airway/below vocal folds/not ejected despite effort 8 = enters airway/below vocal folds/no effort VIDEOFLOROSCOPIC SCALE SCORE (UMAÑA): Grade I = aspiration of material that has penetrated into the laryngeal vestibule, intact cough reflex Grade II = aspiration < 10 % of the bolus, intact cough reflex Grade III = aspiration of < 10 % of the bolus, reduced cough reflex or aspiration of > 10 % of the bolus, intact cough reflex Grade IV = aspiration of > 10 % of the bolus, reduced cough reflex Penetration-Aspiration Scale Score Thin Liquid via teaspoon: Result: 1= does not enter airway Thin Liquid via large single sip: cup: Result: 3= enters airways/above vocal folds/not ejected [place] Thick Liquid via large single sip: cup: Result: 3= enters airways/above vocal folds/not ejected Thin Liquid via small single sip: cup: Result: 1= does not enter airway Pudding via teaspoon: Result: 1= does not enter airway Comment: Esophageal screen - Retention in the middle esophagus. Thin Liquid via single sip: straw: Result: 1= does not enter airway Comment: Esophageal screen - Liquid wash fully cleared previous trial. Thin Liquid via single sip: straw Chin tuck: Result: 3= enters airways/above vocal folds/not ejected Thin Liquid via single sip: straw Effortful swallow: Result: 8= enters airway/below vocal folds/no effort Thin Liquid via small single sip: cup Trial 2: Result: 1= does not enter airway 1/2 Cookie: Result: 1= does not enter airway Comment: Esophageal screen - Retention throughout the esophagus. Thin Liquid via small single sip: cup Trial 3: Result: 8= enters airway/below vocal folds/no effort Comment: Esophageal screen - Liquid wash cleared a majority of previous trial; however, mild retention in the middle and lower esophagus remained. Thin Liquid via teaspoon Effortful swallow: Result: 1= does not enter airway Thin Liquid via teaspoon Effortful swallow Trial 2: Result: 3= enters airways/above vocal folds/not ejected [place] Thick Liquid via small single sip: cup: Result: 1= does not enter airway Oral Phase Labial Seal: No Labial Escape Tongue Control During Bolus Hold: Posterior escape of greater than half of bolus Bolus Preparation/Mastication: Slow prolonged chewing/mashing with complete recollection Bolus Transport/Lingual Motion: Slowed tongue motion Oral Residue: Residue collection on oral structures Pharyngeal Phase Initiation of Pharyngeal Swallow: Bolus head in pyriforms Soft Palate Elevation: Trace column of contrast/air between soft palate and pharyngeal wall Laryngeal Elevation: Partial superior movement thyroid cart/partial apprx aryt-epig petiole Anterior Hyoid Excursion: Partial anterior movement Epiglottic Movement: Complete inversion Laryngeal Vestibule Closure at Height of Swallow: Incomplete; narrow column of air/contrast in laryngeal vestibule Pharyngeal Stripping Wave: Present - complete Pharyngoesophageal Segment Opening: Parital distension and partial duration; parital obstruction of flow Tongue Base Retraction: Narrow column of contrast between tongue base & post. pharyngeal wall Pharyngeal Residue: Trace residue within or on pharyngeal structures Esophageal Phase Esophageal Clearance: Esophageal retention Diagnosis/Impression Diagnosis: Moderate oropharyngeal dysphagia R13.12 Impression: The oral phase is primarily marked by... -Decreased bolus control w/ premature posterior loss of >1/2 of thin liquids to the pyriforms prior to swallow onset. -Prolonged, but complete mastication. -Slow tongue motion for A-P transport The pharyngeal phase is primarily marked by... -Delayed swallow onset. -Mildly decreased TB retraction with trace-mild pharyngeal residue in vallecula. -Decreased airway closure due to decreased anterior hyoid excursion and laryngeal elevation. SILENT aspiration of thin liquids via straw w/ effortful swallow and thin liquids via small cup sip. The esophageal phase is primarily marked by... -Mild retention of pudding, which mostly cleared w/ liquid wash. -Retention of cookie throughout the esophagus, which mostly cleared w/ liquid wash, but cookie remained in middle and lower esophagus. Recommendations Diet: Regular Textures and Thin Liquids Compensatory Strategies: Small Bites, Liquid by Teaspoon Only (Hard Swallows), Slow Rate, Sitting upright and Remain sitting upright for 30 minutes after PO intake Supervision: 1:1 Direct Supervision (all food and drink) Recommend Repeat Modified Barium Swallow: Yes Comment: 2-3 weeks after implementation of oropharyngeal exercises Need for Skilled Speech Therapy Services: Yes Comment: -Train the patient in use of strategies to decrease risk for aspiration and reflux aspiration. -Ongoing assessment of diet tolerance of recommended textures. -Train the patient in oropharyngeal exercise program (BRITTON Sarmiento, Marifer). Recommended Referrals: GI Consult (Outpatient) Education Completed: 1. Described result of evaluation., 2. Pt understands evaluation & agrees with goals and treatment plan., 4. Family/caregivers understand evaluation & agree w/ goals & tx plan., 7. Pt requires further education on strategies & risks. and 8. Family/caregivers require further education on strategies & risks. Status Active ST Patient: Active Contact Information [facility] Speech Therapy:: Ann Ross M.A. CCC-CEMENT STORAGE WORKER? Speech-Language Pathologist?? [facility] [address] [place] [address]? [email or web address]?? [phone]
--- NOTE | 2024-07-05 13:34 | PCM.PN.REN ---
Subjective Subjective Resting in bed. Just had echo. Off IV pressors since midnight. Objective Data Objective Data Vital Signs: Vital Signs Temp Pulse Resp BP Pulse Ox O2 Del Method O2 Flow Rate 98.2 F 86 19 H 137/76 H 97 Room Air 2 07/05/24 11:00 07/05/24 11:00 07/05/24 11:00 07/05/24 11:00 07/05/24 11:00 07/05/24 11:00 07/05/24 08:00 FiO2 94 07/03/24 14:00 Oxygen Flow Rate (L/min) 2 Oxygen Delivery Method Room Air Weight: 112 kg Body Mass Index (BMI) 37.4 Intake & Output: Intake and Output for Last 24 Hours 07/03/24 07/04/24 07/05/24 23:59 23:59 23:59 Intake Total 4977.52 / 4992.93 1413.05 / 1424.35 356.95 / 356.95 Output Total 550 / 550 385 / 385 1050 / 1050 Balance 4427.52 / 4442.93 1028.05 / 1039.35 -693.05 / -693.05 Lab / Micro Data 07/06/24 09:50 07/06/24 09:50 Labs: Laboratory Results - last 24 hr 07/03/24 09:06: Urine Osmolality 428, U Random Total Protein 60.4 H, Ur Random Sodium 10, Urine Creatinine 57.10, Protein/Creatinin Ratio 1058 H, Urine Potassium 23.0, Urine Chloride 11 07/03/24 09:47: Diff Path Review Reviewed 07/04/24 03:20: Absolute Neuts (auto) 16.7 H, Absolute Lymphs (auto) 4.17, Nucleated RBC % NATURAL GAS PLANT TECHNICIAN, Diff Path Review Reviewed 07/04/24 15:08: POC Glucose 314 H 07/04/24 19:56: POC Glucose 373 H 07/04/24 23:53: POC Glucose 348 H 07/05/24 03:47: POC Glucose 350 H 07/05/24 06:15: WBC 13.5 H, RBC 3.88 L, Hgb 10.8 L, Hct 30.4 L, MCV 78.4 L, MCH 27.8, MCHC 35.5, RDW Std Deviation 35.5, RDW Coeff of Nuris 12.5, Plt Count 172, MPV 10.6, Immature Gran % (Auto) NATURAL GAS PLANT TECHNICIAN, Neut % (Auto) NATURAL GAS PLANT TECHNICIAN, Lymph % (Auto) NATURAL GAS PLANT TECHNICIAN, Boundary % (Auto) NATURAL GAS PLANT TECHNICIAN, Eos % (Auto) NATURAL GAS PLANT TECHNICIAN, Baso % (Auto) NATURAL GAS PLANT TECHNICIAN, Absolute Neuts (auto) 10.4 H, Absolute Lymphs (auto) 1.82, Nucleated RBC % 0, Platelet Estimate A, Sodium 135 L, Potassium 3.2 L, Chloride 101, Carbon Dioxide 23.0, Anion Gap 11, BUN 86 H, Creatinine 3.41 H, Estim Creat Clear Calc 23.60, Est GFR (MDRD) Af Amer 18 L, Est GFR (MDRD) Non-Af 15 L, BUN/Creatinine Ratio 25.2 H, Glucose 351 H, Calcium 8.4 L, Phosphorus 2.2 L, Magnesium 2.5, Total Bilirubin 0.60, AST 86 H, ALT 50, Alkaline Phosphatase 123 H, Total Protein 5.7 L, Albumin 2.7 L, Globulin 3.0, Albumin/Globulin Ratio 0.9 07/05/24 09:38: POC Glucose 350 H 07/05/24 09:50: Random Vancomycin 18.8 H Micro: Microbiology 07/04/24 13:15 Sputum, Expectorated/Coughed Gram Stain - Final 07/04/24 13:15 Sputum, Expectorated/Coughed Respiratory Culture - Preliminary Staphylococcus aureus 07/03/24 10:05 Blood Culture (Wb) - Left Hand Blood Culture - Preliminary No growth in 48 hours. 07/03/24 10:05 Blood Culture (Wb) - Right Hand Blood Culture - Preliminary No growth in 48 hours. 07/03/24 10:20 Urine Catheter - Catheter Urine Culture - Final Gram positive organism 07/04/24 13:00 Urine Catheter - Cross Legionella Antigen - Final 07/04/24 13:00 Urine Catheter - Cross Streptococcus pneumoniae Antigen (M - Final 07/04/24 11:10 Mucosa - Nasopharyngeal Respiratory Panel (PCR) - Final 07/03/24 09:06 Urine Catheter - Cross Legionella Antigen - Final 07/03/24 09:06 Urine Catheter - Cross Streptococcus pneumoniae Antigen (M - Final 07/04/24 09:30 Nasal Secretion MRSA (PCR) - Final 07/03/24 09:57 Mucosa - Nose SARS-CoV-2, Influenza & RSV (PCR) - Final Radiography Diagnostic Testing: Radiology Impression Renal Ultrasound 07/04/24 08:55 IMPRESSION: Normal ultrasound of the kidneys. Electronically Signed: Patrick Patrick MD at 15:36 EST , Chest X-Ray 07/04/24 15:45 IMPRESSION: No radiographic evidence of acute cardiopulmonary disease. Electronically Signed: Mika Ingram DO at 17:36 EST , Physical Exam Narrative Alert and oriented x 3, no apparent distress S1, S2, RRR Lung sounds clear Abdomen soft, nontender No edema Indwelling Cross Assessment & Plan Assessment/Plan (1) CHAIM (acute kidney injury): (2) Hyponatremia: (3) Acute metabolic acidosis: (4) Hypokalemia: (5) DKA (diabetic ketoacidoses): QUALIFIERS: Diabetes mellitus complication detail: without coma Diabetes mellitus type: type 2 Qualified Code(s): E11.10 - Type 2 diabetes mellitus with ketoacidosis without coma PLAN: Plan Assessment/Plan: The patient is a 58-year-old female without significant past medical history. The patient presents to the hospital on 07/03/2024 with 3-day history of generalized malaise. Patient also presented with polydipsia, polyuria, and nausea/vomiting. The patient was found to have glucose level of 1240 mg/dL with bicarbonate level of 5 mmol/L. The patient is admitted to the ICU for treatment of diabetic ketoacidosis. Patient was also found to have elevated serum creatinine on presentation without prior history of CKD. Serum creatinine was 3.71 mg/dL on 07/03/2024 on presentation. Nephrology is following for CHAIM. Acute kidney injury. There is no prior history of CKD. Last available serum creatinine 02/22/2013, SCr 0.90 mg/dL. Patient presented to hospital with serum creatinine of 3.71 mg/dL on 07/03/2024. Other than expected glucosuria and ketonuria, urinalysis on 07/03/2024 was benign. UPCR 1058mg/g. Patient likely has ischemic ATN from prolonged decrease in EBV. Renal ultrasound no calculi, no hydronephrosis, normal ultrasound of kidneys. Also to note, patient reports she has been taking Ibuprofen at least twice daily for many years. This may have contributed to CHAIM. Unknown at this point if any CKD as patient states has not had labs drawn for many years. Advised patient and significant other importance of avoiding NSAIDs for now. No acute indication for BUILD AND RELEASE MANAGER. SCr on admission 3.71, today SCr 3.41. Urine output looks to be picking up. Will continue to follow serum creatinine trajectory. Baseline serum creatinine unknown. Hypokalemia. Replacement ordered today. Hyponatremia. Serum sodium was as low as 112 mmol/L on presentation on 07/03/2024. Hyponatremia was primarily due to hyperglycemia. Patient likely had hypertonic hyponatremia on presentation. Sodium 135 today, will follow serum sodium trends Acute metabolic acidosis with high anion gap/DKA. Serum bicarbonate level was as low as 5 mmol/L on presentation on 07/03/2024. Acute metabolic acidosis is due to DKA. Anion gap has closed with treatment of DKA. Bicarbonate level 23 today. Septic shock Suspected secondary to pneumonia. Blood pressures improved, off IV pressors as of midnight. Urine output picking up. On midodrine 10 mg 3 times daily. On IV antibiotics. Echo done today.
[2024-07-05 14:29] LABS: Bedside Glucose 360 mg/dL (74-106)
[2024-07-05 14:55] LABS: Hematocrit 30.6 % (37-47); Hemoglobin 10.9 g/dL (12.0-15.0)
[2024-07-05 17:06] LABS: Mucous, Urine 0 SEEN /hpf (<or=2+); Squamous Epithelial Cells - UA 0 SEEN /hpf (5-10)
[2024-07-05 17:07] LABS: Color, Urine Red (Yellow); Glucose, Dipstick 250 mg/dl (Normal); Ketone-Dipstick 5 mg/dl (Negative); Leukocyte Esterase-Dipstick 500 /ul (Negative); Nitrite-Dipstick Negative (Negative); Occult Blood-Urine 250 /ul (Negative); Protein-Dipstick 100 mg/dl (Negative); Urine Bilirubin Dipstick Negative (Negative); Urine Clarity Cloudy (Clear); Urine Urobilinogen Normal (Normal)
[2024-07-05 17:27] LABS: Red Blood Cells-Urine > 100 SEEN /hpf (0-5); Uric Acid Crystals Ur 1+ /hpf (<or=1+)
[2024-07-05 17:29] LABS: Bacteria 1+ /hpf (None Seen); White Blood Cells 25-50 SEEN /hpf (0-5)
[2024-07-05 17:30] LABS: Transitional Epithelial - Ur 0-5 SEEN /hpf (0-5)
[2024-07-05 21:56] LABS: Bedside Glucose 362 mg/dL (74-106)
[2024-07-05 22:57] LABS: Bedside Glucose 271 mg/dL (74-106)
[2024-07-06] VITALS (9 sets, daily range): BP systolic 135–142; BP diastolic 83–95; PULSE 74–94; RESP 17–19; TEMP 36.6–37.2; O2SAT 94–99; BMI 38.1
[2024-07-06] MEDS: Piperacil/Tazobactam 3.375 GM in 0.9% Normal Saline (50mL MB+) 50 ML IV ×3 (05:56→22:08)
[2024-07-06 08:05] LABS: Bedside Glucose 201 mg/dL (74-106)
--- NOTE | 2024-07-06 08:27 | PN.HOSP_ITS ---
Reason for Visit Reason for Visit: Diagnoses Sepsis, unspecified organism (07/03/24) Type 2 diabetes mellitus with ketoacidosis without coma (07/03/24) Hypo-osmolality and hyponatremia (07/03/24) Acute metabolic acidosis (07/03/24) Hypokalemia (07/03/24) Acute kidney failure, unspecified (07/03/24) Objective Data Objective Data Vital Signs: Vital Signs Temp Pulse Resp BP Pulse Ox O2 Del Method O2 Flow Rate 99.0 F 87 18 142/83 H 95 Room Air 2 07/06/24 04:00 07/06/24 04:00 07/06/24 04:00 07/06/24 04:00 07/06/24 04:00 07/06/24 04:00 07/05/24 08:00 FiO2 94 07/03/24 14:00 Oxygen Flow Rate (L/min) 2 Oxygen Delivery Method Room Air Weight: 251 lb 8.759 oz Body Mass Index (BMI) 38.1 Intake & Output: Intake and Output for Last 24 Hours 07/04/24 07/05/24 07/06/24 23:59 23:59 23:59 Intake Total 1413.05 / 1424.35 666.95 / 666.95 100 / 100 Output Total 385 / 385 1450 / 2075 1125 / 1125 Balance 1028.05 / 1039.35 -783.05 / -1408.05 -1025 / -1025 Lab / Micro Data 07/05/24 14:45 07/05/24 06:15 Labs: Laboratory Results - last 24 hr 07/05/24 06:15: WBC 13.5 H, RBC 3.88 L, Hgb 10.8 L, Hct 30.4 L, MCV 78.4 L, MCH 27.8, MCHC 35.5, RDW Std Deviation 35.5, RDW Coeff of Nuris 12.5, Plt Count 172, MPV 10.6, Immature Gran % (Auto) AUTOMATIC PUNCH PRESS OPERATOR, Neut % (Auto) AUTOMATIC PUNCH PRESS OPERATOR, Lymph % (Auto) AUTOMATIC PUNCH PRESS OPERATOR, White % (Auto) AUTOMATIC PUNCH PRESS OPERATOR, Eos % (Auto) AUTOMATIC PUNCH PRESS OPERATOR, Baso % (Auto) AUTOMATIC PUNCH PRESS OPERATOR, Absolute Neuts (auto) 10.4 H, Absolute Lymphs (auto) 1.82, Nucleated RBC % 0, Platelet Estimate A 07/05/24 09:38: POC Glucose 350 H 07/05/24 09:50: Random Vancomycin 18.8 H 07/05/24 11:29: POC Glucose 360 H 07/05/24 14:45: Hgb 10.9 L, Hct 30.6 L 07/05/24 16:33: POC Glucose 362 H 07/05/24 17:00: Urine Color Red, Urine Clarity Cloudy, Urine pH 6.0, Ur Specific [place] 1.010, Urine Protein 100 H, Urine Glucose (UA) 250 H, Urine Ketones 5 H, Urine Occult Blood 250 H, Urine Nitrite Negative, Urine Bilirubin Negative, Urine Urobilinogen Normal, Ur Leukocyte Esterase 500 H, Urine RBC > 100 SEEN, Urine WBC 25-50 SEEN, Ur Squamous Epith Cells 0 SEEN, Ur Transition Epith Cell 0-5 SEEN, Uric Acid Crystals 1+, Urine Bacteria 1+, Urine Mucus 0 SEEN 07/05/24 22:27: POC Glucose 271 H 07/06/24 07:47: POC Glucose 201 H Micro: Microbiology 07/04/24 13:15 Sputum, Expectorated/Coughed Gram Stain - Final 07/04/24 13:15 Sputum, Expectorated/Coughed Respiratory Culture - Preliminary Staphylococcus aureus 07/03/24 10:05 Blood Culture (Wb) - Left Hand Blood Culture - Preliminary No growth in 48 hours. 07/03/24 10:05 Blood Culture (Wb) - Right Hand Blood Culture - Preliminary No growth in 48 hours. 07/03/24 10:20 Urine Catheter - Catheter Urine Culture - Final Gram positive organism 07/04/24 13:00 Urine Catheter - Cross Legionella Antigen - Final 07/04/24 13:00 Urine Catheter - Cross Streptococcus pneumoniae Antigen (M - Final 07/04/24 11:10 Mucosa - Nasopharyngeal Respiratory Panel (PCR) - Final 07/03/24 09:06 Urine Catheter - Cross Legionella Antigen - Final 07/03/24 09:06 Urine Catheter - Cross Streptococcus pneumoniae Antigen (M - Final 07/04/24 09:30 Nasal Secretion MRSA (PCR) - Final 07/03/24 09:57 Mucosa - Nose SARS-CoV-2, Influenza & RSV (PCR) - Final Physical Exam Narrative Seen and examined Patient did not require midodrine. BP about systolic 140s. Hypotension resolved. Mild intermittent confusion. Has hoarseness of voice. Moderate oropharyngeal dysphagia Physical exam: General: Awake, oriented x 2. BMI 38.6 kg/m?. Obesity grade 2 HEENT: Mild hoarseness of voice. Atraumatic, PERRLA, EOMI, Normocephalic Oral: Oral mucosa dry. No Gingival or Mucosal Lesions/ Ulcerations Neck: Supple, No JVD, Negative Carotid Bruits Chest wall/Lungs: Air entry diminished in bilateral lung bases. No crepitation/rhonchi Cardiovascular: Regular rate, Regular Rhythm, Normal S1, Normal S2, No M/G/R Abdomen: Bowel Sounds Present, Soft, Non Tender, Non-Distended : Oliguria. No renal angle tenderness. No suprapubic tenderness. Extremities: Mild pedal edema, Capillary Refill Less than 3 Seconds Skin: No rashes, No breakdown Musculoskeletal: No Tenderness to Palpation of Joints or Extremities. ROM ministry Neurological: DTR 2+/4. No acute focal neurological deficit. Detailed neuroexam unobtainable Psych/Mental Status: Flat affect Assessment & Plan Assessment/Plan (1) DKA (diabetic ketoacidoses): QUALIFIERS: Diabetes mellitus complication detail: without coma D iabetes mellitus type: type 2 Qualified Code(s): E11.10 - Type 2 diabetes mellitus with ketoacidosis without coma PLAN: Plan This is 50-nihm-sbz-year-old female being admitted for DKA. Patient did not know that she has diabetes mellitus. 1. DKA most likely due to underlying, undiagnosed diabetes mellitus type 2: Patient is being admitted in the ICU. Labs reviewed. Admitting glucose was more than 1000, high anion gap metabolic acidosis, bicarb 5, AG 37. Patient was started on IV fluid normal saline 2 L bolus in the ED and then continue vigorous IV fluid rehydration as per DKA protocol. Started on IV insulin drip. 07/04: Last BMP pending. 1 anion gap closed 11. Yesterday patient completed 1 L of bicarb drip. Last ABG 7 point 07/05: Anion gap closed yesterday. Insulin drip was discontinued. Accu-Chek before meals and at bedtime with Humalog sliding scale coverage and hypoglycemia protocol. Will position BMP. 51. Mild hypokalemia and hypophosphatemia. Potassium phosphate ordered 07/06: Glucose is better controlled about 201-250. A1c 6.8%. Oropharyngeal dysphagia: Recommended regular texture and thin liquid with compensatory strategies. One-to-one direct supervision. 2. Septic shock probably due to evolving pneumonia: The patient presented with sepsis with clinical indicators of hypotension, mild tachycardia, leukocytosis due to evolving pneumonia with acute sepsis-related organ dysfunction as evidenced by fluid resistant hypotension requiring vasopressor, CHAIM, lactic acidosis, and metabolic acidosis. Chest x-ray shows evolving left upper lobe infiltrate Started on vancomycin and Zosyn. Urinary antigens are negative. Respiratory panel negative. MRSA PCR negative. Urine culture shows gram-positive and less than 1000, contamination. 07/05: Patient off vasopressor. Continue IV antibiotic. Left upper lobe pneumonia 07/06: Prelim sputum culture growing, 3+ GPC Staph aureus. Blood culture prelim negative for 48 hours. High anion gap metabolic acidosis: ABG shows 6.91, 17, 109 on room air. Bicarb in BMP 5. IV bicarb drip was started in ED changed to 250 mL/h. Serum acetone moderate. 3. Hyperkalemia: Serum potassium was 6.2, due to high anion gap metabolic acidosis and DKA. Patient twelve-lead EKG individually reviewed, NSR low voltage QRS, QTc 439 ms. No EKG changes hyperkalemia. It is expected to correct with correction of metabolic acidosis. Serum phosphorus and magnesium are high. 07/04: Last potassium was 3.2. Hyperkalemia is mainly due to metabolic acidosis. 07/05: Hypokalemia and hypophosphatemia 4. Hypotonic, hypovolemic hyponatremia due to increased blood sugar: Corrected sodium is 127. Patient is on IV fluid normal saline and bicarb drip. 07/04: Sodium still low 128. 07/05, sodium 135 07/06: Electrolytes are getting monitored and getting replaced as indicated. 5. Leukocytosis: WBC count is 71,000 with left shift, metamyelocyte 3%, myelocytes 1%, promyelocyte 1%. Neutrophils 74%, lymphocyte 14%. Will monitor. Probably due to inflammatory response from acute metabolic derangement 07/04: Leukocytosis improving 7. CHAIM due to DKA: BUNs/creatinine 78 and 3.71, albumin/creatinine is a 21%. IV fluid resuscitation. 07/04: Creatinine went up to 3.59. Patient also has oliguria 125 mL since midnight and about 50 mL last 2 hours. Wildlife Ecology Professor consulted. Urine electrolytes ordered. Portable renal and bladder ultrasound ordered 8. Elevated transaminases : Patient also has elevated transaminases AST 81, ALT 40. Alkaline phosphatase 181. Monitor liver chemistry. 9. DVT prophylaxis, high risk. Heparin 5000 units subcutaneous Q8 hourly. Living will/advanced directive/end of life care: Patient does not have living will or advanced directive. There is no designated power of research attorney for health. After discussion of benefits/risks procedures involved with full code, DNR CC arrest and DNR CC with the patient's boyfriend and the eyes, he opted for full code. Follow-up. Patient does want artificial life support including intubation, tube feed, ventilator and/chest compression, central venous catheter, vasopressor and DC shock if needed Total time spent in [id number] encounter in discussion of advanced directive 17 minutes. Clinical Impression(s) from Imaging Studies Chest X-Ray 07/03/24 10:13 IMPRESSION: Normal x-ray examination of the chest. Electronically Signed: Patrick Patrick MD at 10:34 EST , Chest X-Ray 07/03/24 21:35 IMPRESSION: New left basilar airspace disease may be asymmetric edema, atelectasis or early infiltrate/pneumonia. Electronically Signed: Judy Quigley MD at 23:27 EST , Brain CT 07/04/24 02:31 IMPRESSION: No acute abnormality. CT angiogram and/or MRI may be helpful to evaluate for acute infarct as clinically indicated. Electronically Signed: Judy Quigley MD at 5:37 EST , Charges/Coding Visit Charges Inpatient E&M: 33756 Subs Hosp L3
[2024-07-06] MEDS: Insulin Lispro 100 UNIT/ML INSULN.PEN SC ×2 (08:58→12:48)
[2024-07-06] MEDS: Insulin Glargine-YFGN 100 UNIT/ML Pen 40 UNIT SC ×2 (08:59→22:14)
[2024-07-06] MEDS: Enoxaparin 30 MG/0.3 ML Syringe SC (08:59)
--- NOTE | 2024-07-06 09:11 | PN.RENAL_ITS ---
Subjective Subjective Following for CHAIM. The patient denies chest pain, shortness of breath, or nausea. She wants to eat, but the patient failed swallowing study. Patient also complains of voice being hoarse. Objective Data Objective Data Vital Signs: Vital Signs Temp Pulse Resp BP Pulse Ox O2 Del Method O2 Flow Rate 99.0 F 87 18 142/83 H 95 Room Air 2 07/06/24 04:00 07/06/24 04:00 07/06/24 04:00 07/06/24 04:00 07/06/24 04:00 07/06/24 04:00 07/05/24 08:00 FiO2 94 07/03/24 14:00 Oxygen Flow Rate (L/min) 2 Oxygen Delivery Method Room Air Weight: 114.1 kg Body Mass Index (BMI) 38.1 Intake & Output: Intake and Output for Last 24 Hours 07/04/24 07/05/24 07/06/24 23:59 23:59 23:59 Intake Total 1413.05 / 1424.35 666.95 / 666.95 100 / 100 Output Total 385 / 385 1450 / 2075 1125 / 1125 Balance 1028.05 / 1039.35 -783.05 / -1408.05 -1025 / -1025 Lab / Micro Data 07/06/24 09:50 07/06/24 09:50 Labs: Laboratory Results - last 24 hr 07/05/24 09:38: POC Glucose 350 H 07/05/24 09:50: Random Vancomycin 18.8 H 07/05/24 11:29: POC Glucose 360 H 07/05/24 14:45: Hgb 10.9 L, Hct 30.6 L 07/05/24 16:33: POC Glucose 362 H 07/05/24 17:00: Urine Color Red, Urine Clarity Cloudy, Urine pH 6.0, Ur Specific [place] 1.010, Urine Protein 100 H, Urine Glucose (UA) 250 H, Urine Ketones 5 H, Urine Occult Blood 250 H, Urine Nitrite Negative, Urine Bilirubin Negative, Urine Urobilinogen Normal, Ur Leukocyte Esterase 500 H, Urine RBC > 100 SEEN, Urine WBC 25-50 SEEN, Ur Squamous Epith Cells 0 SEEN, Ur Transition Epith Cell 0-5 SEEN, Uric Acid Crystals 1+, Urine Bacteria 1+, Urine Mucus 0 SEEN 07/05/24 22:27: POC Glucose 271 H 07/06/24 07:47: POC Glucose 201 H Micro: Microbiology 07/04/24 13:15 Sputum, Expectorated/Coughed Gram Stain - Final 07/04/24 13:15 Sputum, Expectorated/Coughed Respiratory Culture - Preliminary Staphylococcus aureus GNR lactose micrographics services supervisor 07/03/24 10:05 Blood Culture (Wb) - Left Hand Blood Culture - Preliminary No growth in 48 hours. 07/03/24 10:05 Blood Culture (Wb) - Right Hand Blood Culture - Preliminary No growth in 48 hours. 07/03/24 10:20 Urine Catheter - Catheter Urine Culture - Final Gram positive organism 07/04/24 13:00 Urine Catheter - Cross Legionella Antigen - Final 07/04/24 13:00 Urine Catheter - Cross Streptococcus pneumoniae Antigen (M - Final 07/04/24 11:10 Mucosa - Nasopharyngeal Respiratory Panel (PCR) - Final 07/03/24 09:06 Urine Catheter - Cross Legionella Antigen - Final 07/03/24 09:06 Urine Catheter - Cross Streptococcus pneumoniae Antigen (M - Final 07/04/24 09:30 Nasal Secretion MRSA (PCR) - Final 07/03/24 09:57 Mucosa - Nose SARS-CoV-2, Influenza & RSV (PCR) - Final Radiography Diagnostic Testing: Radiology Impression Echocardiogram 07/05/24 09:20 Interpretation Summary The study was technically difficult. Mild concentric left ventricular hypertrophy. The left ventricular ejection fraction is 65 %. Stage 1 diastolic dysfunction. Mildly dilated right ventricle. Mild global right ventricular systolic dysfunction. Mild tricuspid valve insufficiency. Ordering Physician: Maximino Jean Referring Physician: BRAN PCP Performed By: Mariama Narayanan RCS Physical Exam Narrative Alert and oriented x 3, no apparent distress S1, S2, RRR Lung sounds clear Abdomen soft, nontender No edema Indwelling Cross Assessment & Plan Assessment/Plan (1) CHAIM (acute kidney injury): (2) Hyponatremia: (3) Acute metabolic acidosis: (4) Hypokalemia: (5) DKA (diabetic ketoacidoses): QUALIFIERS: Diabetes mellitus complication detail: without coma D iabetes mellitus type: type 2 Qualified Code(s): E11.10 - Type 2 diabetes mellitus with ketoacidosis without coma PLAN: Plan Assessment/Plan: The patient is a 58-year-old female without significant past medical history. The patient presents to the hospital on 07/03/2024 with 3-day history of generalized malaise. Patient also presented with polydipsia, polyuria, and nausea/vomiting. The patient was found to have glucose level of 1240 mg/dL with bicarbonate level of 5 mmol/L. The patient is admitted to the ICU for treatment of diabetic ketoacidosis. Patient was also found to have elevated serum creatinine on presentation without prior history of CKD. Serum creatinine was 3.71 mg/dL on 07/03/2024 on presentation. Nephrology is following for CHAIM. Acute kidney injury. There is no prior history of CKD. However, last available serum creatinine was more than 10 years ago. On 02/22/2013, serum creatinine was 0.90 mg/dL. Patient presented to hospital with serum creatinine of 3.71 mg/dL on 07/03/2024. Other than expected glucosuria and ketonuria, urinalysis on 07/03/2024 was benign. Renal ultrasound from 07/04/2024 was normal. My suspicion is that the patient has CHAIM from effective blood volume depletion (EBV) due to polyuria prior to presentation. Patient presented to hospital with hypotension which recurred the night of 07/03/2024 briefly requiring vasopressor. Patient is now on midodrine. Patient likely has ischemic ATN from prolonged decrease in EBV. I have low suspicion for other causes of CHAIM. Renal functions improving, and serum creatinine has decreased to 2.32 mg/dL today on 07/06/2024. Continue keep MAP above 65 mmHg. There is no need for kidney replacement therapy. Will recheck renal function, volume status, acid-base and electrolytes again tomorrow. Hypokalemia. Potassium level is 3.1 mmol/L this morning. Hypokalemia was likely due to insulin and lack of oral intake. Magnesium has not been low and was 2.5 mg/dL on 07/05/2024. Will replace potassium deficit IV until she can swallow safely. Hyponatremia. Resolved. Serum sodium was as low as 112 mmol/L on presentation on 07/03/2024. Hyponatremia was primarily due to hyperglycemia. Patient likely had hypertonic hyponatremia on presentation. Serum sodium is 140 mmol/L today on 07/06/2024. Continue to treat hyperglycemia. We will continue to monitor serum sodium. Acute metabolic acidosis with high anion gap/DKA. Resolved. Serum bicarbonate level was as low as 5 mmol/L on presentation on 07/03/2024. Acute metabolic acidosis is due to DKA. Anion gap has closed with treatment of DKA. Serum bicarbonate level is stable at 28 mmol/L on 07/06/2024. Will continue to monitor serum bicarbonate. Circulatory shock. Improving. Hypotension has improved. She is now off of IV vasopressor, but is still on midodrine. Patient is being treated for pneumonia as per coroner's juror and hospitalist.
[2024-07-06 10:05] LABS: Absolute Lymphocyte Count 2.15 X10^3/uL (0.83-4.51); Absolute Neutrophil Count 8.5 X10^3/uL (2.0-7.7); Basophil# 0.02 X10^3/uL; Basophil% 0.2 % (0-1); Eosinophil# 0.01 X10^3/uL; Eosinophils% 0.1 % (0-5); Hematocrit 33.4 % (37-47); Hemoglobin 11.3 g/dL (12.0-15.0); Lymphocyte # 2.15 X10^3/ul (0.83-4.51); Lymphocyte % 18.4 % (19-41); Mean Corp Hgb Conc 33.8 g/dL (32-36); Mean Corpuscular Hgb 27.8 pg (27.0-32.0); Mean Corpuscular Volume 82.1 fL (81-99); Mean Platelet Vol. 10.7 fl (6.2-12.0); Monocyte# 0.92 X10^3/uL; Monocyte% 7.9 % (0-10); NRBC Flagged by Analyzer 0 % (0-5); Neutrophil # 8.53 X10^3/uL (2.7-7.7); Neutrophil % 72.9 % (47-70); Platelet Count 215 K/mm3 (150-450); RBC Distribution Width CV 13.2 % (11.6-14.6); RBC Distribution Width SD 39.4 fl (35.1-43.9); Red Blood Count 4.07 M/mm3 (4.2-5.4); White Blood Count 11.7 K/mm3 (4.4-11.0)
[2024-07-06 10:19] LABS: Anion Gap 5 (5-15); BUN 58 mg/dL (7-18); Calcium,Total 8.9 mg/dL (8.5-10.1); Chloride 107 mmol/L (98-107); Creatinine, Serum 2.32 mg/dL (0.55-1.02); EST Glomerular Filtration Rate 23 mL/min (>60); Est Glom Filt Rate - Afr Amer 28 mL/min (>60); Estimated Creatinine Clearance 35.04 ml/min; Glucose 249 mg/dL (74-106); Potassium 3.1 mmol/L (3.5-5.1); Sodium Level 140 mmol/L (136-145)
[2024-07-06] MEDS: Potassium Chloride 10mEq/100mL 10 MEQ/100 ML IV.SOLN. 100 MEQ IV BOLUS ×4 (11:44→17:43)
--- NOTE | 2024-07-06 12:17 | CASEMGMT ---
Social Work Pt met with Betsy who has assisted pt in applying for Medicaid. SW met with pt and significant other and introduced self and role of SW. SW provided pt with information regarding prescription assistance, [employer], [employer] and [employer] card. Sw also encouraged pt to connect with a PCP and provided information on Jamee Covarrubias and a PCP list. Pt will be followed for possible need for [facility] prescription assistance program. RITA Rodriguez
[2024-07-06 12:38] LABS: Bedside Glucose 162 mg/dL (74-106)
--- NOTE | 2024-07-06 14:03 | PCM.CONS.GEN ---
Assessment & Plan Assessment/Plan (1) Sepsis: PLAN: treating for pneumonia with zosyn. Sputum with mssa and gnr. Will follow, thank you (2) DKA (diabetic ketoacidoses): QUALIFIERS: Diabetes mellitus type: type 2 Diabetes mellitus complication detail: without coma Qualified Code(s): E11.10 - Type 2 diabetes mellitus with ketoacidosis without coma (3) CHAIM (acute kidney injury): HPI Consult Data Date of Consult: 07/06/24 HPI Narrative Reason for Consultation: pneumonia HPI Narrative: JESSE GUADARRAMA, is a 58 F who presented 07/03 with 5-6 days progressive fatigue, thirst, n/v. Found to have DKA, admitted to icu. Some cough and sputum, no fever or chills. On zosyn, feeling better. Full ROS performed and neg except as noted above. [facility] Medical History Thyroid disease Seasonal allergies Home Medications ?Medication ?Instructions ?Recorded ?Last Taken ?Type azithromycin 250 mg tablet See Rx Instructions PO .COMPLEX #6 01/28/19 Unknown Rx (Zithromax Z-Mars) tabs guaifenesin 600 mg tablet, 600 mg PO BID 01/28/19 Unknown History extended release 12 hr (Mucinex) phenylephrine HCl 2.5 mg/5 mL oral 10 mg PO ONCE 01/28/19 Unknown History solution (Children's Sudafed PE Nasal Decongestant) Allergy/AdvReac Type Severity Reaction Status Date / Time cefuroxime (From Ceftin) Allergy Mild X Verified 01/28/19 09:04 Family History Mother COPD (chronic obstructive pulmonary disease) Rheumatic fever Father Lung cancer Social History Smoking Status: Never smoker alcohol intake: never Physical Exam Const alert, oriented x3 and no apparent distress General Appearance: cooperative HEENT normocephalic and head/scalp atraumatic Eyes PERRL and EOMs intact bilaterally Neck supple and No nodes Resp Auscultation: wheezes and diminished lung sounds Cardio regular rate and regular rhythm GI soft to palpation, non-tender and non-distended Extremity General Extremity: Negative for edema Skin no rashes or lesions noted Neuro CN's II-XII intact bilaterally Lab / Micro Data Attestation: I reviewed the patient's lab results. 07/06/24 09:50 07/06/24 09:50 Labs: Laboratory Results - last 24 hr 07/05/24 11:29: POC Glucose 360 H 07/05/24 14:45: Hgb 10.9 L, Hct 30.6 L 07/05/24 16:33: POC Glucose 362 H 07/05/24 17:00: Urine Color Red, Urine Clarity Cloudy, Urine pH 6.0, Ur Specific [place] 1.010, Urine Protein 100 H, Urine Glucose (UA) 250 H, Urine Ketones 5 H, Urine Occult Blood 250 H, Urine Nitrite Negative, Urine Bilirubin Negative, Urine Urobilinogen Normal, Ur Leukocyte Esterase 500 H, Urine RBC > 100 SEEN, Urine WBC 25-50 SEEN, Ur Squamous Epith Cells 0 SEEN, Ur Transition Epith Cell 0-5 SEEN, Uric Acid Crystals 1+, Urine Bacteria 1+, Urine Mucus 0 SEEN 07/05/24 22:27: POC Glucose 271 H 07/06/24 07:47: POC Glucose 201 H 07/06/24 09:50: WBC 11.7 H, RBC 4.07 L, Hgb 11.3 L, Hct 33.4 L, MCV 82.1, MCH 27.8, MCHC 33.8, RDW Std Deviation 39.4, RDW Coeff of [place] 13.2, Plt Count 215, MPV 10.7, Immature Gran % (Auto) 0.500, Neut % (Auto) 72.9 H, Lymph % (Auto) 18.4 L, [place] % (Auto) 7.9, Eos % (Auto) 0.1, Baso % (Auto) 0.2, Absolute Neuts (auto) 8.5 H, Absolute Lymphs (auto) 2.15, Nucleated RBC % 0, Sodium 140, Potassium 3.1 L, Chloride 107, Carbon Dioxide 28.0, Anion Gap 5, BUN 58 H, Creatinine 2.32 H, Estim Creat Clear Calc 35.04, Est GFR (MDRD) Af Amer 28 L, Est GFR (MDRD) Non-Af 23 L, BUN/Creatinine Ratio 25.0 H, Glucose 249 H, Calcium 8.9 07/06/24 12:18: POC Glucose 162 H Micro: Microbiology 07/04/24 13:15 Sputum, Expectorated/Coughed Gram Stain - Final 07/04/24 13:15 Sputum, Expectorated/Coughed Respiratory Culture - Preliminary Staphylococcus aureus GNR lactose station installation supervisor 07/03/24 10:05 Blood Culture (Wb) - Left Hand Blood Culture - Preliminary No growth in 48 hours. 07/03/24 10:05 Blood Culture (Wb) - Right Hand Blood Culture - Preliminary No growth in 48 hours. Imaging Radiology Impression Echocardiogram 07/05/24 09:20 Interpretation Summary The study was technically difficult. Mild concentric left ventricular hypertrophy. The left ventricular ejection fraction is 65 %. Stage 1 diastolic dysfunction. Mildly dilated right ventricle. Mild global right ventricular systolic dysfunction. Mild tricuspid valve insufficiency. Ordering Physician: Maximino Jean Referring Physician: BRAN PCP Performed By: Mariama Narayanan RCS
[2024-07-06 17:05] LABS: Bedside Glucose 148 mg/dL (74-106)
[2024-07-06] MEDS: BENZOCAINE/MENTHOL 1 LOZENGE MUCOUS MEM (17:43)
[2024-07-06 22:53] LABS: Bedside Glucose 140 mg/dL (74-106)
[2024-07-07] VITALS: PULSE 76
[2024-07-07 04:00] VITALS: BP 119/84; PULSE 75; PULSE 78; RESP 16; TEMP 36.7; O2SAT 98
[2024-07-07 05:33] VITALS: BMI 37.4
[2024-07-07] MEDS: Piperacil/Tazobactam 3.375 GM in 0.9% Normal Saline (50mL MB+) 50 ML IV (05:46)
[2024-07-07 06:10] LABS: Absolute Lymphocyte Count 4.33 X10^3/uL (0.83-4.51); Absolute Neutrophil Count 8.3 X10^3/uL (2.0-7.7); Basophil# 0.04 X10^3/uL; Basophil% 0.3 % (0-1); Eosinophil# 0.11 X10^3/uL; Eosinophils% 0.8 % (0-5); Hematocrit 33.4 % (37-47); Hemoglobin 11.1 g/dL (12.0-15.0); Lymphocyte # 4.33 X10^3/ul (0.83-4.51); Lymphocyte % 30.2 % (19-41); Mean Corp Hgb Conc 33.2 g/dL (32-36); Mean Corpuscular Hgb 27.8 pg (27.0-32.0); Mean Corpuscular Volume 83.7 fL (81-99); Mean Platelet Vol. 10.4 fl (6.2-12.0); Monocyte# 1.49 X10^3/uL; Monocyte% 10.4 % (0-10); NRBC Flagged by Analyzer 0 % (0-5); Neutrophil # 8.26 X10^3/uL (2.7-7.7); Neutrophil % 57.5 % (47-70); Platelet Count 214 K/mm3 (150-450); RBC Distribution Width CV 13.5 % (11.6-14.6); RBC Distribution Width SD 41.4 fl (35.1-43.9); Red Blood Count 3.99 M/mm3 (4.2-5.4); White Blood Count 14.3 K/mm3 (4.4-11.0)
[2024-07-07 06:36] LABS: Anion Gap 6 (5-15); BUN 43 mg/dL (7-18); BUN/Creat Ratio 24.7 RATIO (10-20); Calcium,Total 8.5 mg/dL (8.5-10.1); Chloride 110 mmol/L (98-107); Creatinine, Serum 1.74 mg/dL (0.55-1.02); EST Glomerular Filtration Rate 32 mL/min (>60); Est Glom Filt Rate - Afr Amer 39 mL/min (>60); Estimated Creatinine Clearance 46.26 ml/min; Glucose 75 mg/dL (74-106); Potassium 3.3 mmol/L (3.5-5.1); Sodium Level 143 mmol/L (136-145)
[2024-07-07 06:45] LABS: Magnesium 2.7 mg/dL (1.6-2.6); Phosphorus 2.1 mg/dL (2.5-4.9)
[2024-07-07 07:38] VITALS: O2SAT 95
--- NOTE | 2024-07-07 08:23 | PCM.PN.REN ---
Subjective Subjective Following for CHAIM. The patient denies chest pain or pressure. There is no nausea or vomiting. Appetite is good. Objective Data Objective Data Vital Signs: Vital Signs Temp Pulse Resp BP Pulse Ox O2 Del Method O2 Flow Rate 98.1 F 75 16 119/84 H 98 Room Air 2 07/07/24 04:00 07/07/24 04:00 07/07/24 04:00 07/07/24 04:00 07/07/24 04:00 07/07/24 04:00 07/05/24 08:00 FiO2 94 07/03/24 14:00 Oxygen Flow Rate (L/min) 2 Oxygen Delivery Method Room Air Weight: 112.037 kg Body Mass Index (BMI) 37.4 Intake & Output: Intake and Output for Last 24 Hours 07/05/24 07/06/24 07/07/24 23:59 23:59 23:59 Intake Total 666.95 / 666.95 1080 / 1180 510 / 510 Output Total 1450 / 2075 2025 / 2425 800 / 800 Balance -783.05 / -1408.05 -945 / -1245 -290 / -290 Lab / Micro Data 07/07/24 05:57 07/07/24 05:57 Labs: Laboratory Results - last 24 hr 07/06/24 09:50: WBC 11.7 H, RBC 4.07 L, Hgb 11.3 L, Hct 33.4 L, MCV 82.1, MCH 27.8, MCHC 33.8, RDW Std Deviation 39.4, RDW Coeff of [place] 13.2, Plt Count 215, MPV 10.7, Immature Gran % (Auto) 0.500, Neut % (Auto) 72.9 H, Lymph % (Auto) 18.4 L, [place] % (Auto) 7.9, Eos % (Auto) 0.1, Baso % (Auto) 0.2, Absolute Neuts (auto) 8.5 H, Absolute Lymphs (auto) 2.15, Nucleated RBC % 0, Sodium 140, Potassium 3.1 L, Chloride 107, Carbon Dioxide 28.0, Anion Gap 5, BUN 58 H, Creatinine 2.32 H, Estim Creat Clear Calc 35.04, Est GFR (MDRD) Af Amer 28 L, Est GFR (MDRD) Non-Af 23 L, BUN/Creatinine Ratio 25.0 H, Glucose 249 H, Calcium 8.9 07/06/24 12:18: POC Glucose 162 H 07/06/24 16:48: POC Glucose 148 H 07/06/24 22:12: POC Glucose 140 H 07/07/24 05:57: WBC 14.3 H, RBC 3.99 L, Hgb 11.1 L, Hct 33.4 L, MCV 83.7, MCH 27.8, MCHC 33.2, RDW Std Deviation 41.4, RDW Coeff of [place] 13.5, Plt Count 214, MPV 10.4, Immature Gran % (Auto) 0.800, Neut % (Auto) 57.5, Lymph % (Auto) 30.2, [place] % (Auto) 10.4 H, Eos % (Auto) 0.8, Baso % (Auto) 0.3, Absolute Neuts (auto) 8.3 H, Absolute Lymphs (auto) 4.33, Nucleated RBC % 0, Sodium 143, Potassium 3.3 L, Chloride 110 H, Carbon Dioxide 26.0, Anion Gap 6, BUN 43 H, Creatinine 1.74 H, Estim Creat Clear Calc 46.26, Est GFR (MDRD) Af Amer 39 L, Est GFR (MDRD) Non-Af 32 L, BUN/Creatinine Ratio 24.7 H, Glucose 75, Calcium 8.5, Phosphorus 2.1 L, Magnesium 2.7 H Micro: Microbiology 07/04/24 13:15 Sputum, Expectorated/Coughed Gram Stain - Final 07/04/24 13:15 Sputum, Expectorated/Coughed Respiratory Culture - Preliminary Staphylococcus aureus GNR lactose zipper joiner 07/03/24 10:05 Blood Culture (Wb) - Left Hand Blood Culture - Preliminary No growth in 48 hours. 07/03/24 10:05 Blood Culture (Wb) - Right Hand Blood Culture - Preliminary No growth in 48 hours. 07/03/24 10:20 Urine Catheter - Catheter Urine Culture - Final Gram positive organism 07/04/24 13:00 Urine Catheter - Cross Legionella Antigen - Final 07/04/24 13:00 Urine Catheter - Cross Streptococcus pneumoniae Antigen (M - Final 07/04/24 11:10 Mucosa - Nasopharyngeal Respiratory Panel (PCR) - Final 07/03/24 09:06 Urine Catheter - Cross Legionella Antigen - Final 07/03/24 09:06 Urine Catheter - Cross Streptococcus pneumoniae Antigen (M - Final 07/04/24 09:30 Nasal Secretion MRSA (PCR) - Final 07/03/24 09:57 Mucosa - Nose SARS-CoV-2, Influenza & RSV (PCR) - Final Radiography Diagnostic Testing: Radiology Impression Echocardiogram 07/05/24 09:20 Interpretation Summary The study was technically difficult. Mild concentric left ventricular hypertrophy. The left ventricular ejection fraction is 65 %. Stage 1 diastolic dysfunction. Mildly dilated right ventricle. Mild global right ventricular systolic dysfunction. Mild tricuspid valve insufficiency. Ordering Physician: Maximino Jean Referring Physician: BRAN PCP Performed By: Mariama Narayanan RCS Physical Exam Narrative Alert and oriented x 3, no apparent distress S1, S2, RRR Lung sounds clear Abdomen soft, nontender No edema Indwelling Cross Assessment & Plan Assessment/Plan (1) CHAIM (acute kidney injury): (2) Hyponatremia: (3) Acute metabolic acidosis: (4) Hypokalemia: (5) DKA (diabetic ketoacidoses): QUALIFIERS: Diabetes mellitus complication detail: without coma Diabetes mellitus type: type 2 Qualified Code(s): E11.10 - Type 2 diabetes mellitus with ketoacidosis without coma PLAN: Plan Assessment/Plan: The patient is a 58-year-old female without significant past medical history. The patient presents to the hospital on 07/03/2024 with 3-day history of generalized malaise. Patient also presented with polydipsia, polyuria, and nausea/vomiting. The patient was found to have glucose level of 1240 mg/dL with bicarbonate level of 5 mmol/L. The patient is admitted to the ICU for treatment of diabetic ketoacidosis. Patient was also found to have elevated serum creatinine on presentation without prior history of CKD. Serum creatinine was 3.71 mg/dL on 07/03/2024 on presentation. Nephrology is following for CHAIM. Acute kidney injury. There is no prior history of CKD. However, last available serum creatinine was more than 10 years ago. On 02/22/2013, serum creatinine was 0.90 mg/dL. Patient presented to hospital with serum creatinine of 3.71 mg/dL on 07/03/2024. Other than expected glucosuria and ketonuria, urinalysis on 07/03/2024 was benign. Renal ultrasound from 07/04/2024 was normal. My suspicion is that the patient has CHAIM from effective blood volume depletion (EBV) due to polyuria prior to presentation. Patient presented to hospital with hypotension which recurred the night of 07/03/2024 briefly requiring vasopressor. Patient is now on midodrine. Patient likely has ischemic ATN from prolonged decrease in EBV. I have low suspicion for other causes of CHAIM. Renal functions improving, and serum creatinine has decreased to 1.74 mg/dL today on 07/07/2024. Continue keep MAP above 65 mmHg. There is no need for kidney replacement therapy. Will recheck renal function, volume status, acid-base and electrolytes again tomorrow. If patient is discharged, we can recheck renal function again as outpatient. Hypokalemia. Potassium level is 3.3 mmol/L this morning. Hypokalemia was likely due to insulin and lack of oral intake. Magnesium has not been low and is 2.7 mg/dL today on 07/07/2024. Will replace potassium deficit orally since she has been cleared for diet. Hyponatremia. Resolved. Serum sodium was as low as 112 mmol/L on presentation on 07/03/2024. Hyponatremia was primarily due to hyperglycemia. Patient likely had hypertonic hyponatremia on presentation. Serum sodium is 143 mmol/L today on 07/07/2024. Continue to treat hyperglycemia. We will continue to monitor serum sodium. Acute metabolic acidosis with high anion gap/DKA. Resolved. Serum bicarbonate level was as low as 5 mmol/L on presentation on 07/03/2024. Acute metabolic acidosis is due to DKA. Anion gap has closed with treatment of DKA. Serum bicarbonate level is stable at 26 mmol/L on 07/07/2024. Will continue to monitor serum bicarbonate. Circulatory shock. Resolved. Hypotension has improved. She is now off of IV vasopressor and midodrine. Patient is being treated for pneumonia as per medical anthropology director and hospitalist.
[2024-07-07 08:58] LABS: Bedside Glucose 66 mg/dL (74-106)
[2024-07-07 10:00] VITALS: BP 127/85; PULSE 83; RESP 16; TEMP 36.6; O2SAT 98
[2024-07-07] MEDS: Enoxaparin 40 MG/0.4 ML Syringe SC (10:22)
[2024-07-07 10:44] VITALS: O2SAT 95; O2SAT 98
--- NOTE | 2024-07-07 10:54 | DCINST_ITS ---
Discharge Instructions Diet Discharge Diet: Low fat / Low cholesterol, 1800 Calorie Control Diet and 2000 mg Sodium Diet DC O2, CPAP, BIPAP needs RN Home O2 Qualification: Home O2 Qualification: Is the patient on home oxygen No 07/07/24 10:44 Home O2 Qualification: AT REST 1- Pulse Ox at rest 98 07/07/24 10:44 Home O2 Qualification: WITH AMBULATION 1- Pulse Ox with ambulation 95 07/07/24 10:44 1- Oxygen Flow Rate with 0 07/07/24 10:44 ambulation Home O2 Discharge instructions: No Dressing / Incision Discharge Activity: Return to Normal Activity Weight Bearing Status: Weight bearing as tolerated Dressing / Incision Call your doctor if you observe: Fever of 101 or Higher, Coldness, Increased Pain, Numbness or Tingling, Change in Color, Inability to urinate, Inability to have a bowel movement, Shortness of breath, Dizziness, Fainting spells, Swelling in the ankles, Chest pain, Prolonged hiccupping, Increased palpitations (irregular heartbeat) and Calf discomfort Follow Up Care When: IN 2 WEEKS Test Results: Test results from this visit will be discussed in further detail at your follow- up appointment, if applicable. Discharge Plan Admission Admit Date/Time: 07/03/24 10:44 Primary Reason for Your Visit: DKA. Septic shock. Pneumonia Attending Provider: Maximino Jean Primary Care Provider: Care Physician,No Primary Consulting Providers: Mireya Soto; Bassam Ramirez Instructions Additional Instructions / Restrictions: Advised to follow with PCP in 2 weeks, you may schedule appointment at [facility] [phone]. Discharge Orders/Prescriptions Prescriptions: New insulin glargine [Lantus Solostar U-100 Insulin] 100 unit/mL (3 mL) insulin pen 15 unit subcut DAILY Qty: 15 3RF Rx Instructions: Hold if glucose less than 130 mg/dl levofloxacin 500 mg tablet 500 mg PO DAILY 5 Days Qty: 5 0RF potassium, sodium phosphates 280-160-250 mg Powder In Packet 1 packet PO TID 2 Days Qty: 6 0RF Humalog U-100 Insulin 100 unit/mL cartridge See Protocol subcut TID Qty: 15 2RF Protocol: 3. Sliding Scale Insulin Med Dosing Condition: 150-189 mg/dl = 1 unit Condition: 190-229 mg/dl = 2 units Condition: 230-269 mg/dl = 3 units Condition: 270-309 mg/dl = 4 units Condition: 310-349 mg/dl = 5 units Condition: 350-399 mg/dl = 6 units Condition: 400-449 mg/dl = 7 units Condition: Greater than 449 call physician Protocol Text: Suggested for: - Patients on Total Daily Insulin Dose of 37-55 units - Obese, infected, or steroid patients MEDIUM DOSING ALGORITHIM dextromethorphan-guaifenesin [Mucus DM Max ER] 60-1,200 mg tablet extended release 12 hr 1 tab PO Q12H 7 Days Qty: 14 0RF (DME) pen needle, diabetic [Easy Comfort Pen Oneco] 32 gauge x 5/32 needle See Rx Instructions .ROUTE .MEDSUPPLY Qty: 100 0RF Rx Instructions: As directed Discontinued Children's Sudafed PE Nasal 2.5 mg/5 mL solution 10 mg PO ONCE guaifenesin [Mucinex] 600 mg tablet extended release 12hr 600 mg PO BID azithromycin [Zithromax Z-Mars] 250 mg tablet See Rx Instructions PO .COMPLEX Qty: 6 0RF Rx Instructions: take 500 mg today (day 1), then 250 mg for 4 days (days 2-5) Referrals / Follow Up: Mireya Soto MD [Med Staff - Consulting] - Within 1 Month Care Physician,No Primary [Primary Care Provider] - Disposition Disposition (needs filled in before D/C Order can be placed): Home, Self Care
--- NOTE | 2024-07-07 11:16 | DS.PCM_ITS ---
Providers Date of Admission: 07/03/24 Date of Discharge: 07/07/24 Primary Care Physician: Naz Primary Care Phys Consultations 07/04/24 06:28 Consult: Machine Cage Maker / Pulmonary Medicine Routine Consulting Provider: Intensivists/Pulmonary Med Reason for Consult: Levo gtt EMERGENT Consult: No Notified: Yes Date Notified: 07/04/24 Time Notified: 06:28 Method of Notification: Verbal 07/04/24 08:53 Consult: Nephrology Routine Consulting Provider: Mireya Soto Reason for Consult: CHAIM on CKD EMERGENT Consult: No Notified: Yes Date Notified: 07/04/24 Time Notified: 08:54 Method of Notification: Text 07/06/24 08:41 Consult: Infectious Disease Routine Consulting Provider: Bassam Ramirez Reason for Consult: SEPTIC Shock, GPC in sputum cx EMERGENT Consult: No Notified: Yes Date Notified: 07/06/24 Time Notified: 08:42 Method of Notification: Text Reason For Visit: DKA Diagnosis Discharge Diagnosis (1) CHAIM (acute kidney injury): Status: Acute Code(s): N17.9 - Acute kidney failure, unspecified (2) Hyponatremia: Status: Acute Code(s): E87.1 - Hypo-osmolality and hyponatremia (3) Acute metabolic acidosis: Status: Acute Code(s): E87.21 - Acute metabolic acidosis (4) Hypokalemia: Status: Acute Code(s): E87.6 - Hypokalemia (5) DKA (diabetic ketoacidoses): Status: Acute Code(s): E11.10 - Type 2 diabetes mellitus with ketoacidosis without coma Qualifiers: Diabetes mellitus complication detail: without coma Diabetes mellitus type: type 2 Qualified Code(s): E11.10 - Type 2 diabetes mellitus with ketoacidosis without coma Plan This is [id number]-year-old female being admitted for DKA. Patient did not know that she has diabetes mellitus. 1. DKA most likely due to underlying, undiagnosed diabetes mellitus type 2: Patient is being admitted in the ICU. Labs reviewed. Admitting glucose was more than 1000, high anion gap metabolic acidosis, bicarb 5, AG 37. Patient was started on IV fluid normal saline 2 L bolus in the ED and then continue vigorous IV fluid rehydration as per DKA protocol. Started on IV insulin drip. 07/04: Last BMP pending. 1 anion gap closed 11. Yesterday patient completed 1 L of bicarb drip. Last ABG 7 point 07/05: Anion gap closed yesterday. Insulin drip was discontinued. Accu-Chek before meals and at bedtime with Humalog sliding scale coverage and hypoglycemia protocol. Will position BMP. 51. Mild hypokalemia and hypophosphatemia. Potassium phosphate ordered 07/06: Glucose is better controlled about 201-250. A1c 6.8%. 07/07: She was hypoglycemic in the morning, glucose was 75 in BMP and 66. She ate breakfast and close 2213. No insulin to be given today. She was on Lantus 40 twice daily, which is decreased to Lantus 15 units once daily from tomorrow a.m. with hold if glucose less than 130 mg/dl. Accu-Chek before meals and at bedtime with Humalog sliding scale coverage and hypoglycemia protocol. Prescription for Lantus and Humalog insulin and glucometer supplies and needles given. Oropharyngeal dysphagia: Recommended regular texture and thin liquid with compensatory strategies. One-to-one direct supervision. 2. Septic shock probably due to evolving pneumonia: The patient presented with sepsis with clinical indicators of hypotension, mild tachycardia, leukocytosis due to evolving pneumonia with acute sepsis-related organ dysfunction as evidenced by fluid resistant hypotension requiring vasopressor, CHAIM, lactic acidosis, and metabolic acidosis. Chest x-ray shows evolving left upper lobe infiltrate Started on vancomycin and Zosyn. Urinary antigens are negative. Respiratory panel negative. MRSA PCR negative. Urine culture shows gram-positive and less than 1000, contamination. 07/05: Patient off vasopressor. Continue IV antibiotic. Left upper lobe pneumonia 07/06: Prelim sputum culture growing, 3+ GPC Staph aureus. Blood culture prelim negative for 48 hours. 07/07: Sputum culture shows 3+ GPC, MSSA and lactose printing engineer GNR. Discussed with the ID and prescription given for Levaquin for 5 more days. Septic shock resolved. She already had 4 days of antibiotics. High anion gap metabolic acidosis: ABG shows 6.91, 17, 109 on room air. Bicarb in BMP 5. IV bicarb drip was started in ED changed to 250 mL/h. Serum acetone moderate. 3. Hyperkalemia: Serum potassium was 6.2, due to high anion gap metabolic acidosis and DKA. Patient twelve-lead EKG individually reviewed, NSR low voltage QRS, QTc 439 ms. No EKG changes hyperkalemia. It is expected to correct with correction of metabolic acidosis. Serum phosphorus and magnesium are high. 07/04: Last potassium was 3.2. Hyperkalemia is mainly due to metabolic acidosis. 07/05: Hypokalemia and hypophosphatemia 07/07: Prescription for Neutra-Phos given for 4. Hypotonic, hypovolemic hyponatremia due to increased blood sugar: Corrected sodium is 127. Patient is on IV fluid normal saline and bicarb drip. 07/04: Sodium still low 128. 07/05, sodium 135 07/06: Electrolytes are getting monitored and getting replaced as indicated. 07/07: Hyponatremia resolved. Serum sodium 143. 5. Leukocytosis: WBC count is 71,000 with left shift, metamyelocyte 3%, myelocytes 1%, promyelocyte 1%. Neutrophils 74%, lymphocyte 14%. Will monitor. Probably due to inflammatory response from acute metabolic derangement 07/04: Leukocytosis improving 07/07: Leukocytosis much improved, today WBC count 14.3 K. 7. CHAIM due to DKA: BUNs/creatinine 78 and 3.71, albumin/creatinine is a 21%. IV fluid resuscitation. 07/04: Creatinine went up to 3.59. Patient also has oliguria 125 mL since midnight and about 50 mL last 2 hours. Gynecological Assistant consulted. Urine electrolytes ordered. Portable renal and bladder ultrasound ordered 07/07: Kidney function also showing improvement. BUN/creatinine 43/1.74. Advised follow-up with nephrology office. Repeat BMP in 1 week with PCP 8. Elevated transaminases : Patient also has elevated transaminases AST 81, ALT 40. Alkaline phosphatase 181. Monitor liver chemistry. 07/08: Transaminases improving. Follow with PCP with liver chemistry 9. DVT prophylaxis, high risk. Heparin 5000 units subcutaneous Q8 hourly. Living will/advanced directive/end of life care: Patient does not have living will or advanced directive. There is no designated power of sports attorney for health. After discussion of benefits/risks procedures involved with full code, DNR CC arrest and DNR CC with the patient's boyfriend and the eyes, he opted for full code. Follow-up. Patient does want artificial life support including intubation, tube feed, ventilator and/chest compression, central venous catheter, vasopressor and DC shock if needed Discharge medication reconciliation done. Discharge follow-up instructions completed. Discharge process discussed with the patient and all questions were answered to patient's satisfaction. Follow with PCP in 1 to 2 weeks Total time spent, exact 35 minutes on discharge meds reconciliation, examination, coordination of care with nurses and ancillary staff, review of imaging and blood test and discussion with the patient on follow-up instructions. Clinical Impression(s) from Imaging Studies Chest X-Ray 07/03/24 10:13 IMPRESSION: Normal x-ray examination of the chest. Electronically Signed: Patrick Patrick MD at 10:34 EST , Chest X-Ray 07/03/24 21:35 IMPRESSION: New left basilar airspace disease may be asymmetric edema, atelectasis or early infiltrate/pneumonia. Electronically Signed: Judy Quigley MD at 23:27 EST , Brain CT 07/04/24 02:31 IMPRESSION: No acute abnormality. CT angiogram and/or MRI may be helpful to evaluate for acute infarct as clinically indicated. Electronically Signed: Judy Quigley MD at 5:37 EST , Medications at Discharge Home Medications dextromethorphan-guaifenesin ER 60 mg-1,200 mg tab,extend release,12hr (Mucus DM Max ER) 1 tab PO Q12H 1 week #14 tabs 07/07/24 insulin glargine 100 unit/mL (3 mL) subcutaneous pen (Lantus Solostar U-100 Insulin) 15 unit (0.15 mL) subcut DAILY #15 mL 07/07/24 insulin lispro 100 unit/mL subcutaneous cartridge (Humalog U-100 Insulin) See Protocol subcut TID #15 mL 07/07/24 levofloxacin 500 mg tablet 500 mg PO DAILY 5 days #5 tabs 07/07/24 pen needle, diabetic 32 gauge x 5/32 (Easy Comfort Pen [place]) #100 ea 07/07/24 potassium, sodium phosphates 280 mg-160 mg-250 mg oral powder packet 1 packet PO TID 2 days #6 ea 07/07/24 Physical Exam Narrative Seen and examined Her blood pressure is good 127/85. Midodrine was discontinued yesterday. Confusion has resolved. She is coherent. Hoarseness of voice also better. Physical exam: General: Awake, oriented x 2. BMI 38.6 kg/m?. Obesity grade 2 HEENT: Atraumatic, PERRLA, EOMI, Normocephalic Oral: Oral mucosa moist. No Gingival or Mucosal Lesions/ Ulcerations Neck: Supple, No JVD, Negative Carotid Bruits Chest wall/Lungs: Air entry diminished in bilateral lung bases. No crepitation/rhonchi Cardiovascular: Regular rate, Regular Rhythm, Normal S1, Normal S2, No M/G/R Abdomen: Bowel Sounds Present, Soft, Non Tender, Non-Distended : Oliguria. No renal angle tenderness. No suprapubic tenderness. Extremities: Mild pedal edema, Capillary Refill Less than 3 Seconds Skin: No rashes, No breakdown Musculoskeletal: No Tenderness to Palpation of Joints or Extremities. ROM full Neurological: DTR 2+/4. No acute focal neurological deficit. Cranial nerves II to XII intact Psych/Mental Status: Flat affect Weight / BMI Weight Weight: 247 lb Body Mass Index (BMI) 37.4 ABG / Lab / Microbiology Data 07/07/24 05:57 07/07/24 05:57 Laboratory: Laboratory Results - last 24 hr 07/06/24 12:18: POC Glucose 162 H 07/06/24 16:48: POC Glucose 148 H 07/06/24 22:12: POC Glucose 140 H 07/07/24 05:57: WBC 14.3 H, RBC 3.99 L, Hgb 11.1 L, Hct 33.4 L, MCV 83.7, MCH 27.8, MCHC 33.2, RDW Std Deviation 41.4, RDW Coeff of Nuris 13.5, Plt Count 214, MPV 10.4, Immature Gran % (Auto) 0.800, Neut % (Auto) 57.5, Lymph % (Auto) 30.2, [place] % (Auto) 10.4 H, Eos % (Auto) 0.8, Baso % (Auto) 0.3, Absolute Neuts (auto) 8.3 H, Absolute Lymphs (auto) 4.33, Nucleated RBC % 0, Sodium 143, Potassium 3.3 L, Chloride 110 H, Carbon Dioxide 26.0, Anion Gap 6, BUN 43 H, Creatinine 1.74 H , Estim Creat Clear Calc 46.26, Est GFR (MDRD) Af Amer 39 L, Est GFR (MDRD) Non- Af 32 L, BUN/Creatinine Ratio 24.7 H, Glucose 75, Calcium 8.5, Phosphorus 2.1 L, Magnesium 2.7 H 07/07/24 08:39: POC Glucose 66 L 07/07/24 11:28: POC Glucose 113 H Microbiology: Microbiology 07/04/24 13:15 Sputum, Expectorated/Coughed Gram Stain - Final 07/04/24 13:15 Sputum, Expectorated/Coughed Respiratory Culture - Preliminary Staphylococcus aureus GNR lactose printing engineer 07/03/24 10:05 Blood Culture (Wb) - Left Hand Blood Culture - Preliminary No growth in 48 hours. 07/03/24 10:05 Blood Culture (Wb) - Right Hand Blood Culture - Preliminary No growth in 48 hours. 07/03/24 10:20 Urine Catheter - Catheter Urine Culture - Final Gram positive organism 07/04/24 13:00 Urine Catheter - Cross Legionella Antigen - Final 07/04/24 13:00 Urine Catheter - Cross Streptococcus pneumoniae Antigen (M - Final 07/04/24 11:10 Mucosa - Nasopharyngeal Respiratory Panel (PCR) - Final 07/03/24 09:06 Urine Catheter - Cross Legionella Antigen - Final 07/03/24 09:06 Urine Catheter - Cross Streptococcus pneumoniae Antigen (M - Final 07/04/24 09:30 Nasal Secretion MRSA (PCR) - Final 07/03/24 09:57 Mucosa - Nose SARS-CoV-2, Influenza & RSV (PCR) - Final D/C Instructions Discharge Diet: Low fat / Low cholesterol, 1800 Calorie Control Diet and 2000 mg Sodium Diet Weight Bearing Status: Weight bearing as tolerated Call your doctor if you observe: Fever of 101 or Higher, Coldness, Increased Pain, Numbness or Tingling, Change in Color, Inability to urinate, Inability to have a bowel movement, Shortness of breath, Dizziness, Fainting spells, Swelling in the ankles, Chest pain, Prolonged hiccupping, Increased palpitations (irregular heartbeat) and Calf discomfort DC O2, CPAP, BIPAP Needs RN Home O2 Qualification: Home O2 Qualification: Is the patient on home oxygen No 07/07/24 10:44 Home O2 Qualification: AT REST 1- Pulse Ox at rest 98 07/07/24 10:44 Home O2 Qualification: WITH AMBULATION 1- Pulse Ox with ambulation 95 07/07/24 10:44 1- Oxygen Flow Rate with 0 07/07/24 10:44 ambulation PSN CPAP & BiPAP: BiPAP & CPAP Settings per PSN Fraction of Inspired Oxygen ( 94 07/03/24 14:00 FIO2) Home O2 Discharge instructions: No When: IN 2 WEEKS Meaningful Use Info Meaningful Use Meaningful Use Diagnoses (Choose all that apply): None applicable Ischemic Stroke Statin Dosing Therapy Reference: STATIN DOSE THERAPY REFERENCE: * Patients > 75 years receive moderate or high dose statin therapy. * Patients 75 years or YOUNGER should receive HIGH intensity statin dose unless contraindicated. You will be required to document reason for non-treatment if statin daily dose does not meet guidelines. HIGH DOSE STATIN THERAPY DAILY Atorvastatin > than or = to 40 mg Rosuvastatin > than or = to 20 mg Amlodipine + Atorvastatin > than or = to 2.5/40 mg Ezetimibe + Simvastatin 10/80 mg Simvastatin 80mg Discharge Plan Admission Admit Date/Time: 07/03/24 10:44 Primary Reason for Your Visit: DKA. Septic shock. Pneumonia Attending Provider: Maximino Jean Primary Care Provider: Care Physician,No Primary Consulting Providers: Mireya Soto; Bassam Ramirez Instructions Additional Instructions / Restrictions: Advised to follow with PCP in 2 weeks, you may schedule appointment at [facility] [phone]. Discharge Orders/Prescriptions Prescriptions: New insulin glargine [Lantus Solostar U-100 Insulin] 100 unit/mL (3 mL) insulin pen 15 unit subcut DAILY Qty: 15 3RF Rx Instructions: Hold if glucose less than 130 mg/dl levofloxacin 500 mg tablet 500 mg PO DAILY 5 Days Qty: 5 0RF potassium, sodium phosphates 280-160-250 mg Powder In Packet 1 packet PO TID 2 Days Qty: 6 0RF Humalog U-100 Insulin 100 unit/mL cartridge See Protocol subcut TID Qty: 15 2RF Protocol: 3. Sliding Scale Insulin Med Dosing Condition: 150-189 mg/dl = 1 unit Condition: 190-229 mg/dl = 2 units Condition: 230-269 mg/dl = 3 units Condition: 270-309 mg/dl = 4 units Condition: 310-349 mg/dl = 5 units Condition: 350-399 mg/dl = 6 units Condition: 400-449 mg/dl = 7 units Condition: Greater than 449 call physician Protocol Text: Suggested for: - Patients on Total Daily Insulin Dose of 37-55 units - Obese, infected, or steroid patients MEDIUM DOSING ALGORITHIM dextromethorphan-guaifenesin [Mucus DM Max ER] 60-1,200 mg tablet extended release 12 hr 1 tab PO Q12H 7 Days Qty: 14 0RF (DME) pen needle, diabetic [Easy Comfort Pen [place]] 32 gauge x 5/32 needle See Rx Instructions .ROUTE .MEDSUPPLY Qty: 100 0RF Rx Instructions: As directed Discontinued Children's Sudafed PE Nasal 2.5 mg/5 mL solution 10 mg PO ONCE guaifenesin [Mucinex] 600 mg tablet extended release 12hr 600 mg PO BID azithromycin [Zithromax Z-Mars] 250 mg tablet See Rx Instructions PO .COMPLEX Qty: 6 0RF Rx Instructions: take 500 mg today (day 1), then 250 mg for 4 days (days 2-5) Referrals / Follow Up: Mireya Soto MD [Med Staff - Consulting] - Within 1 Month Care Physician,No Primary [Primary Care Provider] - Disposition Disposition (needs filled in before D/C Order can be placed): Home, Self Care Charges/Coding Visit Charges Inpatient E&M: 91844 Disch Hosp >30min
--- NOTE | 2024-07-07 11:53 | CASEMGMT ---
SW completed [facility] prescription assistance program form and sent to pharmacy per RN CM request. Chayito MACHADO
[2024-07-07 11:54] LABS: Bedside Glucose 113 mg/dL (74-106)
--- NOTE | 2024-07-07 12:22 | CASEMGMT ---
Patient has order for discharge. Scripts received for glucometer, walker, and outpatient therapy. SHARON HOLLIS called [facility] retail pharmacy regarding cost of medications, cost came to $384. SHARON HOLLIS in to discuss needs with patient and significant other. SHARON HOLLIS instructed patient and significant other to take script for glucometer to [facility] to purchase over the counter glucometer. Patient states she does not need walker or therapy at this time. SHARON HOLLIS provided walker and therapy script should she reconsider to fill on her own. SHARON HOLLIS updated patient and significant other regarding cost of medication, they are opting to saving the RX assistance for another time when they are not able to afford. Per pharmacy, potassium, sodium phosphates 280-160-250 mg Powder In Packet is out of stock and prescription was transferred to [facility], SHARON HOLLIS updated patient, significant other, and nurse. RN to provide insulin and diabetic teaching prior to discharge. Patient and significant other had no further questions or concerns. SHARON HOLLIS updated discharge plan and provided script in discharge packet.
[2024-07-07 14:00] VITALS: BP 122/85; PULSE 88; RESP 16; TEMP 36.6; O2SAT 98
== END 2024-07-07 14:25 | disposition home or self-care (01) | DRG 637 ==
LOC: ED 10:45 → ICU 11:06
PROVIDERS: Internal Medicine; Internal Medicine Critical Care Medicine; Internal Medicine Nephrology; Admitting Provider Internal Medicine; Emergency Provider Surgery; Visit Provider Internal Medicine
DX: E11.10 Type 2 diabetes mellitus with ketoacidosis without coma (principal); G93.41 Metabolic encephalopathy; R65.21 Severe sepsis with septic shock; A41.9 Sepsis, unspecified organism; J18.9 Pneumonia, unspecified organism; E87.21 Acute metabolic acidosis; E87.1 Hypo-osmolality and hyponatremia; N17.9 Acute kidney failure, unspecified; B95.61 Methicillin susceptible Staphylococcus aureus infection as the cause of diseases classified elsewhere; R13.12 Dysphagia, oropharyngeal phase; E86.1 Hypovolemia; E11.65 Type 2 diabetes mellitus with hyperglycemia; E87.5 Hyperkalemia; E87.6 Hypokalemia; D72.829 Elevated white blood cell count, unspecified; I95.9 Hypotension, unspecified; E07.9 Disorder of thyroid, unspecified; J30.2 Other seasonal allergic rhinitis; E83.30 Disorder of phosphorus metabolism, unspecified; Z82.5 Family history of asthma and other chronic lower respiratory diseases; R74.01 Elevation of levels of liver transaminase levels; B96.89 Other specified bacterial agents as the cause of diseases classified elsewhere
CPT/HCPCS: 36415; 36600; 51702; 70450; 71045; 74230; 76770; 80048; 80053; 80076; 80202; 80307; 81001; 82009; 82140; 82436; 82570; 82803; 82947; 82962; 83036; 83605; 83690; 83735; 83880; 83930; 83935; 84100; 84133; 84145; 84156; 84300; 84443; 84484; 85014; 85018; 85025; 85610; 85730; 87040; 87070; 87077; 87086; 87088; 87186; 87205; 87449; 87631; 87633; 87641; 92526; 92610; 92611; 93005; 93306; 94640; 94762; 97116; 97162; 97166; 97530; 97535; 99285; A4216; J1940; J2405

== ENCOUNTER → 2024-07-16 | Outpatient (CLI) | payer MEDICAID, SELFPAY ==
[2024-07-16 07:53] LABS: Absolute Lymphocyte Count 3.62 X10^3/uL (0.83-4.51); Absolute Neutrophil Count 7.2 X10^3/uL (2.0-7.7); Basophil% 0.8 % (0-1); Eosinophil# 0.29 X10^3/uL; Eosinophils% 2.4 % (0-5); Hematocrit 37.6 % (37-47); Lymphocyte # 3.62 X10^3/ul (0.83-4.51); Lymphocyte % 29.4 % (19-41); Mean Corp Hgb Conc 31.9 g/dL (32-36); Mean Corpuscular Hgb 27.7 pg (27.0-32.0); Mean Corpuscular Volume 86.8 fL (81-99); Mean Platelet Vol. 10.6 fl (6.2-12.0); Monocyte# 1.02 X10^3/uL; Monocyte% 8.3 % (0-10); NRBC Flagged by Analyzer 0 % (0-5); Neutrophil # 7.22 X10^3/uL (2.7-7.7); Neutrophil % 58.5 % (47-70); Platelet Count 324 K/mm3 (150-450); RBC Distribution Width CV 13.2 % (11.6-14.6); RBC Distribution Width SD 41.7 fl (35.1-43.9); Red Blood Count 4.33 M/mm3 (4.2-5.4); White Blood Count 12.3 K/mm3 (4.4-11.0)
[2024-07-16 09:16] LABS: ALB/GLOB Ratio 0.8 RATIO (0.9-2.4); AST(SGOT) 10 U/L (15-37); Alanine Aminotransfer ALT/SGPT 20 U/L (13-56); Albumin, Serum 2.8 g/dL (3.2-5.0); Alkaline Phosphatase 110 U/L (45-117); Anion Gap 7 (5-15); BUN 16 mg/dL (7-18); BUN/Creat Ratio 13.7 RATIO (10-20); Calcium,Total 9.5 mg/dL (8.5-10.1); Chloride 103 mmol/L (98-107); Creatinine, Serum 1.17 mg/dL (0.55-1.02); EST Glomerular Filtration Rate 50 mL/min (>60); Est Glom Filt Rate - Afr Amer 61 mL/min (>60); Globulin 3.6 g/dL (2.2-4.2); Glucose 187 mg/dL (74-106); Potassium 3.8 mmol/L (3.5-5.1); Protein, Total 6.4 g/dL (6.4-8.2); Sodium Level 138 mmol/L (136-145)
== END | disposition home or self-care (01) ==
DX: E11.9 Type 2 diabetes mellitus without complications (principal)
CPT/HCPCS: 36415; 80053; 85025

== ENCOUNTER → 2024-08-13 | Outpatient (CLI) | payer MEDICAID, SELFPAY ==
[2024-08-14 06:36] LABS: Anion Gap 7 (5-15); BUN 23 mg/dL (7-18); BUN/Creat Ratio 22.5 RATIO (10-20); Calcium,Total 9.5 mg/dL (8.5-10.1); Chloride 102 mmol/L (98-107); Creatinine, Serum 1.02 mg/dL (0.55-1.02); EST Glomerular Filtration Rate 59 mL/min (>60); Est Glom Filt Rate - Afr Amer 71 mL/min (>60); Glucose 246 mg/dL (74-106); Potassium 4.3 mmol/L (3.5-5.1); Sodium Level 135 mmol/L (136-145)
== END | disposition home or self-care (01) ==
PROVIDERS: PCP Nurse Practitioner Family; Referring Provider Internal Medicine Nephrology; Visit Provider Internal Medicine Nephrology
DX: N17.9 Acute kidney failure, unspecified (principal)
CPT/HCPCS: 36415; 80048

== ENCOUNTER → 2024-12-18 | Outpatient (CLI) | payer MEDICAID, SELFPAY ==
[2024-12-18 17:43] LABS: Anion Gap 12 (5-15); BUN 27 mg/dL (4-19); BUN/Creat Ratio 31.1 RATIO (10-20); Calcium,Total 9.6 mg/dL (7.6-11.0); Carbon Dioxide 23.4 mmol/L (21.0-32.0); Chloride 101 mmol/L (98-108); Glucose 233 mg/dL (70-99); Potassium 4.1 mmol/L (3.3-5.1)
== END | disposition home or self-care (01) ==
PROVIDERS: PCP Nurse Practitioner Family; Referring Provider Internal Medicine Nephrology; Visit Provider Internal Medicine Nephrology
DX: N17.9 Acute kidney failure, unspecified (principal)
CPT/HCPCS: 36415; 80048

== ENCOUNTER → 2024-12-24 | Outpatient (CLI) | payer MEDICAID, SELFPAY ==
[2024-12-24 13:27] LABS: Creatinine, Urine (random) 18.20 mg/dL (28.00-217.00); Microalbumin,Random Urine < 12.0 mg/L (NO RANGE EST.)
== END | disposition home or self-care (01) ==
LOC: LAB 12:18
PROVIDERS: PCP Nurse Practitioner Family; Referring Provider Internal Medicine Nephrology; Visit Provider Internal Medicine Nephrology
DX: N17.9 Acute kidney failure, unspecified (principal)
CPT/HCPCS: 82043; 82570

== ENCOUNTER → 2025-03-22 | Outpatient (CLI) | payer MEDICAID, SELFPAY ==
--- OUTSIDE RECORDS SUMMARY | 2025-03-22 19:27 | XMS RPT_ITS | CCD ---
Author Organization [facility] Care Team Providers Care Submarine Element Coordinator Name Role Phone KHLOE RESIDENT CARE ASSISTANT-PLANTING MATERIAL CARRIER, JUAN J Primary Care Physician KHLOE RESIDENT CARE ASSISTANT-PLANTING MATERIAL CARRIER, JUAN J Primary Care Unavai lable KHLOE RESIDENT CARE ASSISTANT-PLANTING MATERIAL CARRIER, JUAN J Attending Unavai lable KHLOE TRENT-PLANTING MATERIAL CARRIER, JUAN J Referring Natyvaramiro guadarramale KHLOE PHARMACEUTICAL SALES SPECIALIST-C, JUAN J Primary Care Provider [phone] Luis DAUGHERTY, Dr. Hughes Attending Provider Luis DAUGHERTY, Dr. Hughes Referring Provider KHLOE RESIDENT CARE ASSISTANT-PLANTING MATERIAL CARRIER, JUAN J Attending Unavai lable KHLOE RESIDENT CARE ASSISTANT-PLANTING MATERIAL CARRIER, JUAN J Primary Care Fabi RAMOS MD, MAIK Attending Unavaila ble KHLOE RESIDENT CARE ASSISTANT-PLANTING MATERIAL CARRIER, JUAN J Primary Care Fabi RAMOS MD, MAIK Attending Unavaila ble KHLOE RESIDENT CARE ASSISTANT-PLANTING MATERIAL CARRIER, JUAN J Primary Care Unavai lable KHLOE RESIDENT CARE ASSISTANT-PLANTING MATERIAL CARRIER, JUAN J Attending Unavai lable KHLOE RESIDENT CARE ASSISTANT-PLANTING MATERIAL CARRIER, JUAN J Primary Care Unavai lable KHLOE RESIDENT CARE ASSISTANT-PLANTING MATERIAL CARRIER, JUAN J Attending Unavai lable KHLOE RESIDENT CARE ASSISTANT-PLANTING MATERIAL CARRIER, JUAN J Primary Care Unavai lable KHLOE CORRALESN-PLANTING MATERIAL CARRIER, JUAN J Attending Unavai lable KHLOE RESIDENT CARE ASSISTANT-PLANTING MATERIAL CARRIER, JUAN J Primary Care Unavai lable CORDELIA RESIDENT CARE ASSISTANT-PLANTING MATERIAL CARRIER, SHELLY Attending Unavai lable KHLOE RESIDENT CARE ASSISTANT-PLANTING MATERIAL CARRIER, JUAN J Primary Care Unavai lable KHLOE RESIDENT CARE ASSISTANT-PLANTING MATERIAL CARRIER, JUAN J Attending Unavai lable KHLOE RESIDENT CARE ASSISTANT-PLANTING MATERIAL CARRIER, JUAN J Primary Care Unavai lable KHLOE RESIDENT CARE ASSISTANT-PLANTING MATERIAL CARRIER, JUAN J Primary Care Unavai lable KHLOE RESIDENT CARE ASSISTANT-PLANTING MATERIAL CARRIER, JUAN J Attending Unavai lable KHLOE RESIDENT CARE ASSISTANT-PLANTING MATERIAL CARRIER, JUAN J Attending Unavai lable KHLOE RESIDENT CARE ASSISTANT-PLANTING MATERIAL CARRIER, JUAN J Primary Care Unavai lable KHLOE RESIDENT CARE ASSISTANT-PLANTING MATERIAL CARRIER, JUAN J Primary Care Unavai lable KHLOE RESIDENT CARE ASSISTANT-PLANTING MATERIAL CARRIER, JUAN J Attending Unavai lable KHLOE RESIDENT CARE ASSISTANT-PLANTING MATERIAL CARRIER, JUAN J Consulting Unavai lable KHLOE RESIDENT CARE ASSISTANT-PLANTING MATERIAL CARRIER, JUAN J Attending Unavai lable KHLOE RESIDENT CARE ASSISTANT-PLANTING MATERIAL CARRIER, JUAN J Primary Care Unavai lable KHLOE RESIDENT CARE ASSISTANT-PLANTING MATERIAL CARRIER, JUAN J Primary Care Unavai lable MAIK RAMOS MD Attending Unavaila ble KHLOE RESIDENT CARE ASSISTANT-PLANTING MATERIAL CARRIER, JUAN J Attending Unavai lable KHLOE RESIDENT CARE ASSISTANT-PLANTING MATERIAL CARRIER, JUAN J Primary Care Unavai thierryle HANG VERA DO Attending Unavailable KHLOE RESIDENT CARE ASSISTANT-PLANTING MATERIAL CARRIER, JUAN J Primary Care Unavai lable KHLOE RESIDENT CARE ASSISTANT-PLANTING MATERIAL CARRIER, JUAN J Attending Unavai lable KHLOE RESIDENT CARE ASSISTANT-PLANTING MATERIAL CARRIER, JUAN J Primary Care Unavai lable KHLOE RESIDENT CARE ASSISTANT-PLANTING MATERIAL CARRIER, JUAN J Attending Unavai lable KHLOE RESIDENT CARE ASSISTANT-PLANTING MATERIAL CARRIER, JUAN J Primary Care Unavai lable KHLOE, JUAN J Primary Care Unavailable Luis, Jayaprakas Referring Unavailable Luis, Jayaprakas Attending Unavailable Luis, Jayaprakas Referring Unavailable Luis, Jayaprakas Attending Unavailable KHLOE, JUAN J Primary Care Unavailable Beam VSC, Zebulun Referring Unavailable Beam VSC, Zebulun Attending Unavailable Care Physician, No Primary Primary Care Unava ilable KHLOE, JUAN J Primary Care Unavailable Tanphaichitr, Natthavat Attending Unavaila ble TanphaKeely westfallavaantwan Referring Unavaila ble Maximino Jena Admitting Unavailable Care Physician, No Primary Primary Care Unava ilable Tanphaichitr, Natthavat Consulting Unavaila ble Maximino Jean Attending Unavailable Bassam Ramirez Consulting Unavailable Care Physician, No Primary Primary Care Unava ilable Maximino Jean Attending Unavailable Tanphaichisoto, Natthavaantwan Consulting Unavaila ble Gaetano, Maximino Admitting Unavailable Bassam Ramirez Consulting Unavailable Gaetano, Maximino Consulting Unavailable JUAN J LEDBETTER Referring Unavailable KHLOEJUAN J RODRIGEZ Primary Care Unavailable Pham Blood Attending Unavailable Care Physician, No Primary Primary Care Unava ilable Enzo Shaw Attending Unavailable Matty Mello Attending Unavailable Isrrael Clayton Consulting Unavailable Maximino Jean Referring Unavailable Buddy Steve Consulting Unavailable Rodolfo Caceres Consulting Unavailable Matty Mello Consulting Unavailable Best Singh Consulting Unavailable Israel Greer Consulting Unavailable Kendrick Dupree Consulting Unavailable Selena Mcneil Consulting UnavailMax Canela Consulting Unavailable Weston Lopez Consulting Unavailable Jadiel Tripp Consulting Unavailable Rocio Aldridge Consulting Unavailable Trish Raphael Consulting Unavailable Moiz Tang Consulting Unavailable Gaurav Bhagat Consulting Unavailable Oscar Garcia Consulting Unavailable Anthony Sheets Consulting Unavailable Irais Rice Consulting Unavailable Case Khoury Consulting Unavailable Jasbir Colin Consulting Unavailable Isaak Arndt Consulting Unavailable Michael Farmer Consulting Unavailable Allergies Allergy Classification Reported Allergen(s) Allergy Type Date of Onset Reaction(s) Facility (12 sources) Acetaminophen / oxyCODONE; Translations: [acetaminophen-ox ycodone] Drug Allergy Vomitus (substance) [facility] (12 sources) Cortisone; Translations: [cortisone] Drug Allergy severe burning sensation [facility] (14 sources) DULoxetine; Translations: [duloxetine] Drug Allergy 5 Dream anxiety disorder (disorder) [facility] (14 sources) pregabalin; Translations: [pregabalin] Drug Allergy 5 Blurring of visual image (finding) [facility] Comment on above: unable to drive (2 sources) bismuth subsalicylate Drug Allergy 5 Vomiting [facility] (2 sources) Cefuroxime Drug Allergy 9 X [facility] (2 sources) Clindamycin Drug Allergy 5 Chest tightness [facility] (2 sources) predniSONE Drug Allergy 5 Vomiting [facility] (2 sources) traMADol Drug Allergy 5 migraine [facility] (1 source) bismuth subsalicylate Drug Allergy 5 [facility] Repository (1 source) Cefuroxime Drug Allergy 9 [facility] Repository (1 source) Clindamycin Drug Allergy 5 [facility] Repository (1 source) DULoxetine Drug Allergy 5 [facility] Repository (1 source) predniSONE Drug Allergy 5 [facility] Repository (1 source) pregabalin Drug Allergy 5 [facility] Repository (1 source) traMADol Drug Allergy 5 [facility] Repository Medications Current Medications Medication Drug Class(es) Dates Sig (Normalized) Sig (Original) albuterol MDI (90 mcg/inh) CFC free inhalation aerosol (11 sources) Start: 12-31-2024 take 1 puff(s) by inhalation every four hours as needed for wheezing albuterol MDI (90 mcg/inh) CFC free inhalation aerosol 1 puff(s), Inhalation, q4h, PRN as needed for wheezing, # 18 gram(s), 0 Refill(s), Pharmacy: [facility], Wheezing, 165, cm, 12/31/24 11:26:00 EDT, Height, kg, 12/31/24 11:26:00 EDT, Dosing Weight Start Date: 12/31/24 Status: Ordered Medication Dispense Status: Completed Quantity: 18.0 Unit: g Total Allowed Fills: 1 Fills Dispensed: 0 Indications: Wheezing; Start: 12-31-2024 take 1 puff(s) by in halation every four hours as needed for wheezing albuterol MDI (90 mcg/inh) CFC free inhalation aerosol 1 puff(s), Inhalation, q4h, PRN as needed for wheezing, # 18 gram(s), 0 Refill(s), Pharmacy: [facility], Wheezing, 165, cm, 12/31/24 11:26:00 EDT, Height, kg, 12/31/24 11:26:00 EDT, Dosing Weight Start Date: 12/31/24 Status: Ordered Quantity: 18.0 Unit: g Repeat number: 1 Indications: Wheezing; Start: 10-04-2024 take 1 puff(s) by in halation every four hours as needed for wheezing albuterol MDI (90 mcg/inh) CFC free inhalation aerosol 1 puff(s), Inhalation, q4h, PRN as needed for wheezing, # 18 gram(s), 0 Refill(s), Pharmacy: [facility], Wheezing, 168, cm, 10/04/24 8:02:00 EDT, Height, kg, 10/04/24 8:02:00 EDT, Dosing Weight Start Date: 10/04/24 Status: Ordered Quantity: 18.0 Unit: g Repeat number: 1 Indications: Wheezing; atorvastatin 40 mg oral tablet (11 sources) HMG-CoA Reductase Inhibitor Start: 11-21-2024 atorvastatin 40 mg o ral tablet Dose : 40 mg = 1 tab(s), Oral, qDay, # 90 tab(s), 1 Refill(s), Pharmacy: [facility], Hyperlipemia, 165, cm, 11/21/24 8:11:00 EDT, Height, kg, 11/21/24 8:11:00 EDT, Dosing Weight Start Date: 11/21/24 Status: Ordered Medication Dispense Status: Completed Quantity: 90.0 Unit: tab(s) Total Allowed Fills: 2 Fills Dispensed: 0 Indications: Hyperlipidemia, unspecified; Start: 08-15-2024 atorvastatin 4 0 mg oral tablet Dose : 40 mg = 1 tab(s), Oral, qDay, # 90 tab(s), 1 Refill(s), Pharmacy: [facility], Hyperlipemia, 164, cm, 08/15/24 11:15:00 EST, Height, kg, 08/15/24 11:15:00 EST, Dosing Weight Start Date: 08/15/24 Status: Ordered Quantity: 90.0 Unit: tab(s) Repeat number: 2 Indications: Hyperlipidemia, unspecified; Bio-Dophilus (3 sources) Start: 11-29-2024 Bio-Dophilus B io-Dophilus, 0 Refill(s), 100.7 Start Date: 11/29/24 Status: Ordered Medication Dispense Status: Completed Total Allowed Fills: 1 Fills Dispensed: 0 Start: 11-29-2024 Bio-Dophilus B io-Dophilus, 0 Refill(s), 100.7 Start Date: 11/29/24 Status: Ordered Repeat number: 1 Bio-Sylvester 1000 (3 sources) Start: 11-29-2024 Bio-Sylvester 1000 Bio-Sylvester 1000, 0 Refill(s), 100.7 Start Date: 11/29/24 Status: Ordered Medication Dispense Status: Completed Total Allowed Fills: 1 Fills Dispensed: 0 Start: 11-29-2024 Bio-Sylvester 1000 Bio-Sylvester 1000, 0 Refill(s), 100.7 Start Date: 11/29/24 Status: Ordered Repeat number: 1 C-plus (3 sources) Start: 11-29-2024 C-plus C-plus, 0 Refill(s), 100.7 Start Date: 11/29/24 Status: Ordered Medication Dispense Status: Completed Total Allowed Fills: 1 Fills Dispensed: 0 Start: 11-29-2024 C-plus C-plus, 0 Refill(s), 100.7 Start Date: 11/29/24 Status: Ordered Repeat number: 1 D-Mulison Forte (3 sources) Start: 11-29-2024 D-[place] D-Mulison Forte, 0 Refill(s), 100.7 Start Date: 11/29/24 Status: Ordered Medication Dispense Status: Completed Total Allowed Fills: 1 Fills Dispensed: 0 Start: 11-29-2024 D-[place] D-Mulison Forte, 0 Refill(s), 100.7 Start Date: 11/29/24 Status: Ordered Repeat number: 1 DME MISCellaneous (20 sources) Start: 11-29-2024 DME MISCellane ous See Instructions, Afia Silvano 2+ Sensors. 1 sensor every 15 days. 2 sensors per 30 days. 3 refills. E11.65, # 2 EA, 3 Refill(s), Pharmacy: [facility], 165.1, cm, 11/29/24 11:15:00 EDT, Height, 102.2, kg, 11/29/24 11:15:00 EDT, Dosing Weight Start Date: 11/29/24 Status: Ordered Medication Dispense Status: Completed Quantity: 2.0 Unit: EA Total Allowed Fills: 4 Fills Dispensed: 0 Start: 11-29-2024 DME MISCellane ous See Instructions, Omnipod 5 Intro Kit. Compatible with Silvano 2+ Sensor. 1 kit for 30 days. 0 refills. E11.65, # 1 EA, 0 Refill(s), Pharmacy: [facility], 165.1, cm, 11/29/24 11:15:00 EDT, Height, 102.2, kg, 11/29/24 11:15:00 EDT, Dosing Weight Start Date: 11/29/24 Status: Ordered Medication Dispense Status: Completed Quantity: 1.0 Unit: EA Total Allowed Fills: 1 Fills Dispensed: 0 Start: 11-29-2024 DME MISCellane ous See Instructions, Freestyle Silvano 2+ Sensors. 1 sensor every 15 days. 2 sensors per 30 days. 3 refills. E1165, # 2 EA, 3 Refill(s), Pharmacy: [facility], 165.1, cm, 11/29/24 11:15:00 EDT, Height, 102.2, kg, 11/29/24 11:15:00 EDT, Dosing Weight Start Date: 11/29/24 Status: Ordered Quantity: 2.0 Unit: EA Repeat number: 4 Start: 11-29-2024 DME MISCellane ous See Instructions, Omnipod 5 Intro Kit. Compatible with Silvano 2+ Sensor. 1 kit for 30 days. 0 refills. E11.65, # 1 EA, 0 Refill(s), Pharmacy: [facility], 165.1, cm, 11/29/24 11:15:00 EDT, Height, 102.2, kg, 11/29/24 11:15:00 EDT, Dosing Weight Start Date: 11/29/24 Status: Ordered Quantity: 1.0 Unit: EA Repeat number: 1 Start: 11-13-2024 DME MISCellane ous See Instructions, Freestyle Silvano 3 Thayer. 1 every 12 months. 0 refills. E11.65, # 1 EA, 0 Refill(s), Pharmacy: [facility], 165.1, cm, 11/13/24 10:25:00 EDT, Height, 101.9, kg, 11/13/24 10:25:00 EDT, Dosing Weight Start Date: 11/13/24 Status: Ordered Medication Dispense Status: Completed Quantity: 1.0 Unit: EA Total Allowed Fills: 1 Fills Dispensed: 0 Start: 11-13-2024 DME MISCellane ous See Instructions, Freestyle Silvano 3 Thayer. 1 every 12 months. 0 refills. E11.65, # 1 EA, 0 Refill(s), Pharmacy: [facility], 165.1, cm, 11/13/24 10:25:00 EDT, Height, 101.9, kg, 11/13/24 10:25:00 EDT, Dosing Weight Start Date: 11/13/24 Status: Ordered Quantity: 1.0 Unit: EA Repeat number: 1 Start: 08-21-2024 DME MISCellane ous See Instructions, Libre3 Plus Sensors. Apply sensor to arm once every 15 days to monitor sugars, # 2 EA, 11 Refill(s), Pharmacy: [facility], 164, cm, 08/15/24 11:15:00 EST, Height, 104.2, kg, 08/15/24 11:15:00 EST, Dosing Weight Start Date: 08/21/24 Status: Ordered Quantity: 2.0 Unit: EA Repeat number: 12 doxycycline hyclate 100 mg oral capsule (1 source) Tetracycline-class Drug Start: 12-31-2024 End: 01-10-2025 doxycycline hyclate 100 mg oral capsule Dose : 100 mg = 1 cap(s), Oral, BID, may take with food to minimize abdominal discomfort, X 10 day(s), # 20 cap(s), 0 Refill(s), 01/10/25 11:59:00 AM EDT, Pharmacy: [facility], 165, cm, 12/31/24 11:26:00 EDT, Height, 100.2, kg, 12/31/24 11:26:00 EDT, Dosing Weight Start Date: 12/31/24 Stop Date: 01/10/25 Status: Ordered Quantity: 20.0 Unit: cap(s) Repeat number: 1 Flintstones with Iron oral tablet, chewable (3 sources) Start: 11-29-2024 take 1 tablet by mouth once daily Flintstones with Iron oral tablet, chewable Chewed, qDay, 0 Refill(s) Start Date: 11/29/24 Status: Ordered Medication Dispense Status: Completed Total Allowed Fills: 1 Fills Dispensed: 0 Start: 11-29-2024 take 1 tablet by avinash th once daily Flintstones with Iron oral tablet, chewable Chewed, qDay, 0 Refill(s) Start Date: 11/29/24 Status: Ordered Repeat number: 1 fluticasone propionate 0.05 mg/actuat metered dose nasal spray (11 sources) Corticosteroid Start: 10-04-2024 take 50 ug nasal route once daily in the morning Flonase 50 mcg/inh nasal spray 50 mcg Dose = 1 spray(s), Nostril, each, qAM, # 16 gram(s), 1 Refill(s), Pharmacy: [facility], Seasonal allergies, 168, cm, 10/04/24 8:02:00 EDT, Height, kg, 10/04/24 8:02:00 EDT, Dosing Weight Start Date: 10/04/24 Status: Ordered Medication Dispense Status: Completed Quantity: 16.0 Unit: g Total Allowed Fills: 2 Fills Dispensed: 0 Indications: Other seasonal allergic rhinitis; Garlic Plus (3 sources) Start: 11-29-2024 Garlic Plus Ga rlic Plus, 0 Refill(s), 100.7 Start Date: 11/29/24 Status: Ordered Medication Dispense Status: Completed Total Allowed Fills: 1 Fills Dispensed: 0 Start: 11-29-2024 Garlic Plus Ga rlic Plus, 0 Refill(s), 100.7 Start Date: 11/29/24 Status: Ordered Repeat number: 1 3 ml insulin glargine 100 unt/ml pen injector (14 sources) Insulin Analog Start: 11-29-2024 inject 1 dose by subcutaneous injection once daily at bedtime Lantus Solostar Pen 100 units/mL 3 mL Pen Dose : 28 unit(s) =, Subcutaneous, qHS, # 15 mL, 0 Refill(s), Pharmacy: [facility], 165.1, cm, 11/29/24 11:15:00 EDT, Height, kg, 11/29/24 11:15:00 EDT, Dosing Weight Start Date: 11/29/24 Status: Ordered Medication Dispense Status: Completed Quantity: 15.0 Unit: mL Total Allowed Fills: 1 Fills Dispensed: 0 Start: 11-05-2024 inject 1 dose by sub cutaneous injection once daily Lantus Solostar Pen 100 units/mL 3 mL Pen Dose : 24 unit(s) =, Subcutaneous, qDay, # 10 mL, 0 Refill(s), Pharmacy: [facility], 168, cm, 10/04/24 8:02:00 EDT, Height, kg, 10/18/24 12:41:00 EDT, Dosing Weight Start Date: 11/05/24 Status: Ordered Quantity: 10.0 Unit: mL Repeat number: 1 Start: 07-18-2024 inject 1 dose by sub cutaneous injection once daily Lantus Solostar Pen 100 units/mL 3 mL Pen Dose : 22 unit(s) =, Subcutaneous, qDay, 0 Refill(s) Start Date: 07/18/24 Status: Ordered Repeat number: 1 Start: 07-18-2024 inject 1 dose by sub cutaneous injection once daily Lantus Solostar Pen 100 units/mL 3 mL Pen Dose : 18 unit(s) =, Subcutaneous, qDay, 0 Refill(s) Start Date: 07/18/24 Status: Ordered Repeat number: 1 Start: 07-07-2024 Insulin Glargi ne (Lantus Solostar U-100 Insulin) 100 unit/mL (3 mL) insulin pen Active 15 U SC DAILY 15 July 07, 2024 1:00am Hold if glucose less than 130 mg/dl 3 ml insulin lispro 100 unt/ml pen injector (14 sources) Insulin Analog Start: 07-18-2024 HumaLOG KwikPe n 100 units/mL injectable PEN See Instructions, uses sliding scale, 0 Refill(s) Start Date: 07/18/24 Status: Ordered Medication Dispense Status: Completed Total Allowed Fills: 1 Fills Dispensed: 0 Start: 07-07-2024 Insulin Lispro (Humalog U-100 Insulin) 100 unit/mL cartridge Active 0 U SC THREE TIMES A DAY 15 July 07, 2024 1:00am Please contact the information source for Protocol details. levothyroxine sodium 0.05 mg oral tablet (3 sources) l-Thyroxine Start: 11-29-2024 levothyroxine 50 mcg (0.05 mg) oral tablet Dose : 50 mcg = 1 tab(s), Oral, qDay, # 60 tab(s), 2 Refill(s), Pharmacy: [facility], 165.1, cm, 11/29/24 11:15:00 EDT, Height, kg, 11/29/24 11:15:00 EDT, Dosing Weight Start Date: 11/29/24 Status: Ordered Medication Dispense Status: Completed Quantity: 60.0 Unit: tab(s) Total Allowed Fills: 3 Fills Dispensed: 0 naproxen 500 mg oral tablet (1 source) Nonsteroidal Anti-inflammatory Drug Start: 12-17-2024 End: 12-24-2024 naproxen 500 mg oral tablet Dose : 500 mg = 1 tab(s), Oral, BIDM, X 7 day(s), # 14 tab(s), 0 Refill(s), 12/24/24 3:15:00 PM EDT Start Date: 12/17/24 Stop Date: 12/24/24 Status: Ordered Quantity: 14.0 Unit: tab(s) Repeat number: 1 Osteo B (3 sources) Start: 11-29-2024 Osteo B Osteo B, 0 Refill(s), 100.7 Start Date: 11/29/24 Status: Ordered Medication Dispense Status: Completed Total Allowed Fills: 1 Fills Dispensed: 0 Start: 11-29-2024 Osteo B Osteo B, 0 Refill(s), 100.7 Start Date: 11/29/24 Status: Ordered Repeat number: 1 rosuvastatin calcium 10 mg oral tablet (3 sources) HMG-CoA Reductase Inhibitor Start: 11-29-2024 rosuvastatin 10 mg oral tablet Dose : 10 mg = 1 tab(s), Oral, qHS, # 60 tab(s), 2 Refill(s), Pharmacy: [facility], 165.1, cm, 11/29/24 11:15:00 EDT, Height, kg, 11/29/24 11:15:00 EDT, Dosing Weight Start Date: 11/29/24 Status: Ordered Medication Dispense Status: Completed Quantity: 60.0 Unit: tab(s) Total Allowed Fills: 3 Fills Dispensed: 0 Completed/Discontinued Medications Medication Drug Class(es) Dates Sig (Normalized) Sig (Original) [id number] 200 actuat albuterol 0.09 mg/actuat metered dose inhaler (2 sources) beta2-Adrenergic Agonist Start: 01-28-2019 End: 02-07-2019 Albuterol Sulfate 90 mcg/actuation HFA aerosol inhaler Discontinued 2 NMA INHALATION EVERY 6 HOURS as needed for shortness of breath or wheezing 8 10 0 January 28, 2019 12:00am February 06, 2019 12:00am February 07, 2019 12:06am Bronchitis, not specified as acute or chronic azithromycin 250 mg oral tablet (2 sources) Macrolide Antimicrobial Start: 01-28-2019 End: 07-07-2024 take 2-5 tablets by mouth once daily Azithromycin (Zithromax Z-Mars) 250 mg tablet Discontinued 0 PO .COMPLEX 6 0 January 28, 2019 12:00am July 07, 2024 11:56am Acute maxillary sinusitis, unspecified Bronchitis, not specified as acute or chronic take 500 mg today (day 1), then 250 mg for 4 days (days 2-5) benzonatate 100 mg oral capsule (2 sources) Non-narcotic Antitussive Start: 01-28-2019 End: 02-03-2019 take 1 capsule by mouth three times daily as needed for cough Benzonatate (Tessalon Perles) 100 mg capsule Discontinued 100 mg PO THREE TIMES A DAY as needed for cough 14 5 0 January 28, 2019 12:00am February 01, 2019 12:00am February 03, 2019 12:07am Bronchitis, not specified as acute or chronic Betaine Plus HP (3 sources) Start: 11-29-2024 Betaine Plus HP Betaine Plus HP, 0 Refill(s), 100.7 Start Date: 11/29/24 Status: Ordered Medication Dispense Status: Completed Total Allowed Fills: 1 Fills Dispensed: 0 Start: 11-29-2024 Betaine Plus H P Betaine Plus HP, 0 Refill(s), 100.7 Start Date: 11/29/24 Status: Ordered Repeat number: 1 12 hr dextromethorphan hydrobromide 60 mg / guaiFENesin 1200 mg extended release oral tablet (2 sources) Uncompetitive J-ufawwu-T-aspartate Receptor Antagonist, Sigma-1 Agonist Start: 07-07-2024 End: 11-14-2024 take 60-1200 mg by mouth every twelve hours Dextromethorphan-Guaifenesin (Mucus Dm Max Er) 60-1,200 mg tablet extended release 12 hr Discontinued 1 {tbl} PO Q12H 14 7 0 July 07, 2024 1:00am November 14, 2024 9:13am 12 hr guaiFENesin 600 mg extended release oral tablet (2 sources) Start: 01-28-2019 End: 07-07-2024 take 1 tablet by mouth twice daily, then take 1 tablet by mouth every twelve hours Guaifenesin (Mucinex) 600 mg tablet extended release 12hr Discontinued 600 mg PO TWICE A DAY January 28, 2019 12:00am July 07, 2024 12:03pm levoFLOXacin 500 mg oral tablet (2 sources) Quinolone Antimicrobial Start: 07-07-2024 End: 11-14-2024 take 1 tablet by mouth once daily Levofloxacin 500 mg tablet Discontinued 500 mg PO DAILY 5 5 0 July 07, 2024 1:00am November 14, 2024 9:13am Mg-Zyme (3 sources) Start: 11-29-2024 Mg-Zyme Mg-Zyme, 0 Refill(s) , 100.7 Start Date: 11/29/24 Status: Ordered Medication Dispense Status: Completed Total Allowed Fills: 1 Fills Dispensed: 0 Start: 11-29-2024 Mg-Zyme Mg-Zym e, 0 Refill(s), 100.7 Start Date: 11/29/24 Status: Ordered Repeat number: 1 phenylephrine hydrochloride 0.5 mg/ml oral solution (2 sources) alpha-1 Adrenergic Agonist Start: 01-28-2019 End: 07-07-2024 take 10 mg by mouth once Phenylephrine Hcl (Children's Sudafed Pe Nasal) 2.5 mg/5 mL solution Discontinued 10 mg PO ONCE January 28, 2019 12:00am July 07, 2024 12:03pm Potassium, Sodium Phosphates 280-160-250 mg Powder In Packet (2 sources) Start: 07-07-2024 End: 11-14-2024 Potassium, Sodium Phosphates 280-160-250 mg Powder In Packet Discontinued 1 NMA PO THREE TIMES A DAY 6 2 0 July 07, 2024 1:00am November 14, 2024 9:13am Problems Active Problems Problem Classification Problem Date Documented Date Episodic/Chronic Acute and unspecified renal failure (4 sources) Acute renal failure syndrome; Translations: [Acute kidney failure, unspecified] Onset: 08-03-2024 07-04-2024 Episodic Administrative/social admission (2 sources) Administrative reason for encounter; Translations: [Encounter for other administrative examinations] 11-21-2020 Episodic Chronic kidney disease (12 sources) Chronic kidney disease stage 3A 07-18-2024 Chronic Chronic obstructive pulmonary disease and bronchiectasis (2 sources) Bronchitis; Translations: [Bronchitis, not specified as acute or chronic] 01-28-2019 Episodic Comment on above: Patient with worseni ng cough over the last 10 days. Discussed that an xray would be useful to confirm any pneumonia. She denies xray today. Discussed continuing OTC NSAIDs and nasal saline. Push fluids and start Antibiotic. Inhaler given to help with chest tightness with coughing and cough medication. Discussed potential red flags that would indicate follow up at the ER. Patient expressed understanding and agrees with the current treatment plan. Patient education provided. Diabetes mellitus with complications (3 sources) Diabetic ketoacidosis; Translations: [Type 2 diabetes mellitus with ketoacidosis without coma] Onset: 08-03-2024 07-03-2024 Chronic Diabetes mellitus without complication (20 sources) Diabetes mellitus; Translations: [Type 2 diabetes mellitus without complication] Onset: 08-03-2024 07-18-2024 Chronic Disorders of lipid metabolism (13 sources) Hyperlipidemia; Translations: [Hyperlipidemia, unspecified] Onset: 11-13-2024 08-15-2024 Chronic Fracture of lower limb (2 sources) Closed fracture distal phalanx, toe ; Translations: [Nondisplaced fracture of distal phalanx of unspecified lesser toe(s), initial encounter for closed fracture] Onset: 12-17-2024 Episodic Immunizations and screening for infectious disease (6 sources) Anti-nuclear factor positive; Translations: [Serology positive] 11-29-2024 Episodic Nutritional deficiencies (9 sources) Vitamin D deficiency; Translations: [Vitamin D deficiency, unspecified] Onset: 11-13-2024 11-13-2024 Chronic Other aftercare (1 source) Long-term current use of insulin; Translations: [lobsterman (current) use of insulin] Episodic Other lower respiratory disease (11 sources) Wheezing 10-04-2024 Episodic Other nutritional; endocrine; and metabolic disorders (1 source) H/O: hypothyroidism 07-18-2024 Episodic Other skin disorders (11 sources) Mass of soft tissue 10-04-2024 Episodic Other upper respiratory disease (11 sources) Seasonal allergy 10-04-2024 Chronic Other upper respiratory infections (2 sources) Acute maxillary sinusitis; Translations: [Acute maxillary sinusitis, unspecified] 01-28-2019 Episodic Pneumonia (except that caused by tuberculosis or sexually transmitted disease) (1 source) Pneumonia 07-18-2024 Episodic Superficial injury; contusion (11 sources) Splinter in hand 10-04-2024 Episodic Thyroid disorders (20 sources) Hypothyroidism; Translations: [Ren thyroiditis] Onset: 11-13-2024 08-15-2024 Chronic Unclassified (1 source) Acute metabolic acidosis; Translations: [Acute metabolic acidosis] Onset: 08-03-2024 Urinary tract infections (1 source) Urinary tract infectious disease 07-18-2024 Episodic Past or Other Problems Problem Classification Problem Date Documented Da te Episodic/Chronic Fluid and electrolyte disorders (8 sources) Metabolic acidosis; Translations: [Acute metabolic acidosis] Onset: 08-03-2024 07-04-2024 Episodic Nausea and vomiting (1 source) Nausea with vomiting, unspecified; Translations: [Nausea with vomiting, unspecified] Onset: 11-13-2024 Episodic Other aftercare (1 source) 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 (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) use of insulin; Translations: [lobsterman (current) use of insulin] Onset: 10-18-2024 Episodic Other screening for suspected conditions (not mental disorders or infectious disease) (3 sources) Encounter for screening mammogram for malignant neoplasm of breast; Translations: [Encounter for screening mammogram for malignant neoplasm of breast] Onset: 10-16-2024 Episodic Other skin disorders (1 source) Localized swelling, mass and lump, trunk; Translations: [Localized swelling, mass and lump, trunk] Onset: 10-16-2024 Episodic Septicemia (except in labor) (3 sources) Sepsis; Translations: [Sepsis, unspecified organism] Onset: 08-03-2024 07-15-2024 Episodic Results Test Name Value Interpretation Reference Range Facility FT3on 01-29-2025 Free T3 [Mass/Vol] 2.08 pg/mL Low 2.30-4.00 [facility] Comment on above: Performed By: #### T SH, FT4, FT3 #### [address] [address] FT4on 01-29-2025 Free T4 [Mass/Vol] 0.99 ng/dL Normal 0.76-1.46 [facility] Comment on above: Performed By: #### T SH, FT4, FT3 #### [address] [address] LABORATORYOrdered By: SYSTEM SYSTEM on 01-29-2025 Free T3 [Mass/Vol] 2.08 pg/mL Low 2.30 - 4. 00 pg/mL AO ADM SS Free T4 [Mass/Vol] 0.99 ng/dL Normal 0.76 - 1. 46 ng/dL AO ADM SS TSH Qn 1.14 m[IU]/L Normal 0.36 - 3.74 mcIU/mL AO ADM SS TSHon 01-29-2025 TSH Qn 1.14 m[IU]/L Normal 0.36-3.74 [facility] Comment on above: Performed By: #### T SH, FT4, FT3 #### [address] [address] .Auto Diffon 12-31-2024 Basophil, Absolute 0.0 10 3/mcL Normal 0.0-0.3 [facility] Comment on above: Performed By: #### C MP, ANEU, GFR, ADIFF, CBC #### [address] [address] Basophils/100 WBC (Bld) 0.5 % Normal 0.0-2.5 [facility] Comment on above: Performed By: #### C MP, ANEU, GFR, ADIFF, CBC #### [address] [address] Eosinophil, Absolute 0.0 10 3/mcL Normal 0.0-0.7 [facility] Comment on above: Performed By: #### C MP, ANEU, GFR, ADIFF, CBC #### [address] [address] Eosinophils/100 WBC (Bld) 0.3 % Normal 0.0-6.0 [facility] Comment on above: Performed By: #### C MP, ANEU, GFR, ADIFF, CBC #### [address] [address] Lymphocyte, Absolute 2.0 10 3/mcL Normal 0.9-4.3 [facility] Comment on above: Performed By: #### C MP, ANEU, GFR, ADIFF, CBC #### [address] [address] Lymphocytes/100 WBC (Bld) 20.0 % Normal 20.0-40.0 [facility] Comment on above: Performed By: #### C MP, ANEU, GFR, ADIFF, CBC #### [address] [address] Monocyte, Absolute 1.5 10 3/mcL High 0.1-1.4 [facility] Comment on above: Performed By: #### C MP, ANEU, GFR, ADIFF, CBC #### [address] [address] Monocytes/100 WBC (Bld) 14.5 % High 2.0-13.0 [facility] Comment on above: Performed By: #### C MP, ANEU, GFR, ADIFF, CBC #### [address] [address] Neutrophils/100 WBC (Bld) 64.7 % Normal 50.0-75.0 [facility] Comment on above: Performed By: #### C MP, ANEU, GFR, ADIFF, CBC #### [address] [address] .GFRon 12-31-2024 Estimated Glomerular Filtration Rate 73 ml/min/1.73sqm Normal [facility] Comment on above: Result Comment: Stages of Chronic Kidney Disease (CKD) Stage Description eGFR(ml/min/1.73 sq.m.) CKD 1 Normal kidney function or >=90 normal kindney function with possible kidney damage (ex. Proteinuria) CKD 2 Kidney damage with mild loss 60-89 of kidney function CKD 3a Mild to moderate loss of kidney 45-59 function CKD 3b Moderate to severe loss of 30-44 of kindey function CKD 4 Severe loss of kidney function 15-29 CKD 5 Kidney failure <15 Note: (go live 2024) the eGFR calculation was updated to the 2020 CKD-EPI creatinine equation without a race factor to calculate the eGFR results. Performed By: #### C MP, ANEU, GFR, ADIFF, CBC #### [place] [address] .NEUABSon 12-31-2024 Neutrophil, Absolute 6.5 10 3/mcL Normal 2.3-8.1 [facility] Comment on above: Performed By: #### C MP, ANEU, GFR, ADIFF, CBC #### [place] [address] CBCon 12-31-2024 Erythrocyte distribution width (RBC) [Ratio] 13.6 % Normal 11.5-15.5 [facility] Comment on above: Performed By: #### C MP, ANEU, GFR, ADIFF, CBC #### [place] [address] Hematocrit (Bld) [Volume fraction] 40.5 % Normal 34.0-46.0 [facility] Comment on above: Performed By: #### C MP, ANEU, GFR, ADIFF, CBC #### [place] [address] Hgb 13.7 G/dL Normal 12.0-16.0 [facility] Comment on above: Performed By: #### C MP, ANEU, GFR, ADIFF, CBC #### [address] [address] MCH (RBC) [Entitic mass] 28.6 pg Normal 27.0-33.0 [facility] Comment on above: Performed By: #### C MP, ANEU, GFR, ADIFF, CBC #### [address] [address] MCHC 33.7 G/dL Normal 32.0-36.0 [facility] Comment on above: Performed By: #### C MP, ANEU, GFR, ADIFF, CBC #### [address] [address] MCV (RBC) [Entitic vol] 84.8 fL Normal 80.0-99.0 [facility] Comment on above: Performed By: #### C MP, ANEU, GFR, ADIFF, CBC #### [address] [address] Platelet 166 10 3/mcL Normal 150-450 [facility] Comment on above: Performed By: #### C MP, ANEU, GFR, ADIFF, CBC #### [address] [address] Platelet mean volume (Bld) [Entitic vol] 9.5 fL Normal 6.6-10.5 [facility] Comment on above: Performed By: #### C MP, ANEU, GFR, ADIFF, CBC #### [address] [address] RBC 4.78 10 6/mcL Normal 4.10-5.30 [facility] Comment on above: Performed By: #### C MP, ANEU, GFR, ADIFF, CBC #### [address] [address] WBC 10.0 10 3/mcL Normal 4.5-10.8 [facility] Comment on above: Performed By: #### C MP, ANEU, GFR, ADIFF, CBC #### [address] [address] CMPon 12-31-2024 Albumin Level 3.6 G/dL Normal 3.5-5.0 [facility] Comment on above: Performed By: #### C MP, ANEU, GFR, ADIFF, CBC #### [place] [address] Albumin/Globulin [Mass ratio] 1.0 {ratio} Low 1.1-2.5 [facility] Comment on above: Performed By: #### C MP, ANEU, GFR, ADIFF, CBC #### [place] [address] ALP [Catalytic activity/Vol] 105 U/L Normal 40-135 [facility] Comment on above: Performed By: #### C MP, ANEU, GFR, ADIFF, CBC #### [place] [address] ALT [Catalytic activity/Vol] 28 U/L Normal 14-59 [facility] Comment on above: Performed By: #### C MP, ANEU, GFR, ADIFF, CBC #### [place] [address] AST [Catalytic activity/Vol] 15 U/L Normal 10-40 [facility] Comment on above: Performed By: #### C MP, ANEU, GFR, ADIFF, CBC #### [place] [address] Bili Total 0.8 mg/dL Normal 0.2-1.0 [facility] Comment on above: Result Comment: Use of this assay is not recommended for patients undergoing treatment with eltrombopag due to the potential for falsely elevated results. Performed By: #### C MP, ANEU, GFR, ADIFF, CBC #### [place] [address] BUN/Creatinine Ratio 25 ratio Normal 7-27 [facility] Comment on above: Performed By: #### C MP, ANEU, GFR, ADIFF, CBC #### [place] [address] Calcium [Mass/Vol] 9.1 mg/dL Normal 8.4-10.2 [facility] Comment on above: Performed By: #### C MP, ANEU, GFR, ADIFF, CBC #### [address] [address] Chloride [Moles/Vol] 100 mmol/L Normal 98-107 [facility] Comment on above: Performed By: #### C MP, ANEU, GFR, ADIFF, CBC #### [address] [address] CO2 [Moles/Vol] 29 mmol/L Normal 22-29 [facility] Comment on above: Performed By: #### C MP, ANEU, GFR, ADIFF, CBC #### [address] [address] Creatinine [Mass/Vol] 0.91 mg/dL Normal 0.51-0.95 [facility] Comment on above: Performed By: #### C MP, ANEU, GFR, ADIFF, CBC #### [place] [address] Electrolyte Balance 7.0 mEq/L Normal 4.0-15.0 [facility] Comment on above: Performed By: #### C MP, ANEU, GFR, ADIFF, CBC #### [place] [address] Globulin 3.5 G/dL Normal 2.7-4.4 [facility] Comment on above: Performed By: #### C MP, ANEU, GFR, ADIFF, CBC #### [address] [address] Glucose [Mass/Vol] 116 mg/dL High 70-105 [facility] Comment on above: Performed By: #### C MP, ANEU, GFR, ADIFF, CBC #### [address] [address] Potassium [Moles/Vol] 4.2 mmol/L Normal 3.5-5.1 [facility] Comment on above: Performed By: #### C MP, ANEU, GFR, ADIFF, CBC #### [place] [address] Sodium [Moles/Vol] 136 mmol/L Normal 136-145 [facility] Comment on above: Performed By: #### C MP, ANEU, GFR, ADIFF, CBC #### [place] [address] [place], [place] [address] Total Protein 7.1 G/dL Normal 6.4-8.2 [facility] Comment on above: Performed By: #### C MP, ANEU, GFR, ADIFF, CBC #### [place] [address] [place], [place] [address] Urea nitrogen [Mass/Vol] 23 mg/dL High 7-18 [facility] Comment on above: Performed By: #### C MP, ANEU, GFR, ADIFF, CBC #### [address] [address] LABORATORYOrdered By: SYSTEM SYSTEM on 12-31-2024 Albumin BCP dye [Mass/Vol] 3.6 G/dL Normal 3.5 - 5.0 G/dL AO ADM SS Albumin/Globulin [Mass ratio] 1.0 {ratio} Low 1.1 - 2.5 ratio AO ADM SS ALP [Catalytic activity/Vol] 105 U/L Normal 40 - 135 U/L AO ADM SS ALT With P-5'-P [Catalytic activity/Vol] 28 U/L Normal 14 - 59 U/L AO ADM SS AST With P-5'-P [Catalytic activity/Vol] 15 U/L Normal 10 - 40 U/L AO ADM SS Basophils (Bld) [#/Vol] 0.0 103/mcL Normal 0.0 - 0.3 10^3/mcL AO Workflow SS Basophils/100 WBC (Bld) 0.5 % Normal 0.0 - 2.5 % AO Workflow SS Bilirubin [Mass/Vol] 0.8 mg/dL Normal 0.2 - 1 .0 mg/dL AO ADM SS Comment on above: Interpretive Data: U se of this assay is not recommended for patients undergoing treatment with eltrombopag due to the potential for falsely elevated results. Calcium [Mass/Vol] 9.1 mg/dL Normal 8.4 - 10. 2 mg/dL AO ADM SS Chloride [Moles/Vol] 100 mmol/L Normal 98 - 10 7 mmol/L AO ADM SS CO2 [Moles/Vol] 29 mmol/L Normal 22 - 29 mmol/L AO ADM SS Creatinine [Mass/Vol] 0.91 mg/dL Normal 0.51 - 0.95 mg/dL AO ADM SS Electrolyte Balance 7.0 mEq/L Normal 4.0 - 15 .0 mEq/L AO ADM SS Eosinophil, Absolute 0.0 103/mcL Normal 0.0 - 0 .7 10^3/mcL AO Workflow SS Eosinophils/100 WBC (Bld) 0.3 % Normal 0.0 - 6.0 % AO Workflow SS Erythrocyte distribution width (RBC) [Ratio] 13.6 % Normal 11.5 - 15.5 % AO Workflow SS Estimated Glomerular Filtration Rate 73 ml/min/1.73sqm Invalid Interpretation Code AO Chemistry S Comment on above: Interpretive Data: Stages of Chronic Kidney Disease (CKD) Stage Description eGFR(ml/min/1.73 sq.m.) CKD 1 Normal kidney function or >=90 normal kindney function with possible kidney damage (ex. Proteinuria) CKD 2 Kidney damage with mild loss 60-89 of kidney function CKD 3a Mild to moderate loss of kidney 45-59 function CKD 3b Moderate to severe loss of 30-44 of kindey function CKD 4 Severe loss of kidney function 15-29 CKD 5 Kidney failure <15 Note: (go live 2024) the eGFR calculation was updated to the 2020 CKD-EPI creatinine equation without a race factor to calculate the eGFR results. Globulin 3.5 G/dL Normal 2.7 - 4.4 G/dL AO ADM SS Glucose [Mass/Vol] 116 mg/dL High 70 - 105 mg/dL AO ADM SS Hematocrit (Bld) [Volume fraction] 40.5 % Normal 34.0 - 46.0 % AO Workflow SS Hemoglobin (Bld) [Mass/Vol] 13.7 G/dL Normal 12.0 - 16.0 G/dL AO Workflow SS Lymphocytes (Bld) [#/Vol] 2.0 103/mcL Normal 0.9 - 4.3 10^3/mcL AO Workflow SS Lymphocytes/100 WBC (Bld) 20.0 % Normal 20.0 - 40.0 % AO Workflow SS MCH (RBC) [Entitic mass] 28.6 pg Normal 27.0 - 33.0 pg AO Workflow SS MCHC 33.7 G/dL Normal 32.0 - 36.0 G/dL AO Workflow SS MCV (RBC) [Entitic vol] 84.8 fL Normal 80.0 - 99.0 fL AO Workflow SS Monocytes (Bld) [#/Vol] 1.5 103/mcL High 0.1 - 1.4 10^3/mcL AO Workflow SS Monocytes/100 WBC (Bld) 14.5 % High 2.0 - 13.0 % AO Workflow SS Neutrophils (Bld) [#/Vol] 6.5 103/mcL Normal 2.3 - 8.1 10^3/mcL AO Workflow SS Neutrophils/100 WBC (Bld) 64.7 % Normal 50.0 - 75.0 % AO Workflow SS Platelet mean volume (Bld) [Entitic vol] 9.5 fL Normal 6.6 - 10.5 fL AO Workflow SS Platelets (Bld) [#/Vol] 166 103/mcL Normal 150 - 450 10^3/mcL AO Workflow SS Potassium [Moles/Vol] 4.2 mmol/L Normal 3.5 - 5.1 mmol/L AO ADM SS Protein [Mass/Vol] 7.1 G/dL Normal 6.4 - 8.2 G/dL AO ADM SS RBC (Bld) [#/Vol] 4.78 106/mcL Normal 4.10 - 5.3 0 10^6/mcL AO Workflow SS Sodium [Moles/Vol] 136 mmol/L Normal 136 - 145 mmol/L AO ADM SS Urea nitrogen [Mass/Vol] 23 mg/dL High 7 - 18 mg/dL AO ADM SS Urea nitrogen/Creatinine [Mass ratio] 25 ratio Normal 7 - 27 ratio AO ADM SS WBC (Bld) [#/Vol] 10.0 103/mcL Normal 4.5 - 10.8 10^3/mcL AO Workflow SS XR CHEST 2 VIEWSon XR CHEST 2 VIEWS ORIGINAL EXAMINATION: TWO XRAY VIEWS OF THE CHEST12/31/2024 12:37 pm COMPARISON: None available at time of dictation. HISTORY: ORDERING SYSTEM PROVIDED HISTORY: Reason for Exam: cough, fever FINDINGS: Cardiomediastinal contours are within normal limits. No focal consolidation or pulmonary edema. No pneumothorax or pleural effusion. No acute osseous abnormalities. Mild multilevel degenerative changes of the spine. IMPRESSION: No acute radiographic findings. I have personally reviewed the images of this examination and agree with the resident's findings and interpretation. Interpreted by: Brary Morejon Preliminary Report By: Best Ahn Electronically signed By Barry Morejon Dictated Date: 12/31/2024 4:01:16 PM Prelim Date: 12/31/2024 4:45:47 PM Sign Date: 12/31/2024 4:45:47 PM Ordering Provider: SHELLY Navarro [facility] Microalb:Creat Ratio,Random URon 12-24-2024 Creatinine [Mass/Vol] 18.20 mg/dL Low 28.00-217.00 [facility] Comment on above: Performed By: #### L 502.0250 ####[facility] [address] [place], [place], [address] MALB:CREAT UNABLE TO CALCULATE Normal [facility] Comment on above: Performed By: #### L [id number] ####[facility] [address] [place], [address] MICROALBUMIN,UR < 12.0 Normal NO RANGE EST. [facility] Comment on above: Performed By: #### L [id number] ####[facility] [address] [place], [address] Microalbumin/creat ratio urO rdered By: Ellen Smith on 12-24-2024 Urine microalbumin/creatini ne ratio measurement UNABLE TO CALCULATE mg/g CRE [facility] Random urine creatinine matthew urement (mass/volume)Ordered By: Ellen Smith on 12-24-2024 Creatinine Unsp time (U) [Mass/Vol] 18.20 mg/dL Low 28.00-217.00 [facility] Urine albumin measurement wi th detection limit of 20 mg/L or less (mass/volume)Ordered By: Ellen Smith on 12-24-2024 Albumin DL <= 20 mg/L (U) [Mass/Vol] < 12.0 mg/L NO RANGE EST. [facility] Anion gap in Serum or Plasma Ordered By: Ellen Smith on 12-18-2024 Anion gap [Moles/Vol] 12 mmol/L 5- [facility] BUN/creatinine ratioOrdered By: Ellen Smith on 12-18-2024 Urea nitrogen/Creatinine [Mass ratio] 31.1 mg/mg High - [facility] Basic Metabolic Profile (BMP )on 12-18-2024 BUN/CRE 31.1 RATIO High - [facility] Comment on above: Performed By: #### L 500.2500, [id number] ####[facility] [address] [place], [address] GAP 12 Normal - [facility] Comment on above: Performed By: #### L 500.2500, [id number] ####[facility] [address] [place], [address] Potassium [Moles/Vol] 4.1 mmol/L Normal 3.3-5.1 [facility] Comment on above: Performed By: #### L 500.2500, [id number] ####[facility] [address] [place], [address] Carbon dioxide, total [Moles /volume] in Central venous bloodOrdered By: Ellen Smith on 12-18-2024 CO2 [Moles/Vol] 23.4 mmol/L Normal 21.0-32.0 [facility] Comment on above: Performed By: #### L 500.2500, [id number] ####[facility] [address] [place], [address] Chloride assayOrdered By: Luis Smith on 12-18-2024 Chloride [Moles/Vol] 101 mmol/L Normal 98-108 [facility] Comment on above: Performed By: #### L 500.2500, [id number] ####[facility] [address] [place], [address] Glomerular filtration rate ( GFR) estimation/1.73 sq m using serum, plasma, or whole bOrdered By: Ellen Smith on 12-18-2024 GFR/1.73 sq M.predicted among non-blacks MDRD (S/P/Bld) [Vol rate/Area] 79 mL/min/{1.73_m2} Normal >60 [facility] Comment on above: mL/min/1.73m2 CKD-EP I Creatinine Equation (2020) Result Comment: mL/m in/1.73m2 CKD-EPI Creatinine Equation (2020) Performed By: #### L 500.2500, [id number] ####[facility] [address] [place], [address] Microalb:Creat Ratio,Random URon 12-18-2024 MALB:CREAT Normal [facility] Comment on above: Result Comment: UTO Performed By: #### L 500.2500, [id number] ####[facility] [address] [place], [address] MICROALBUMIN,UR Normal NO RANGE EST. [facility] Comment on above: Result Comment: UTO Performed By: #### L 500.2500, [id number] ####[facility] [address] [place], [address] UR CREAT Normal 28.00-217.00 [facility] Comment on above: Result Comment: UTO Performed By: #### L 500.2500, [id number] ####[facility] [address] [place], [address] Potassium measurement (mass/ volume)Ordered By: Ellen Smith on 12-18-2024 Potassium (Unsp spec) [Mass/Vol] 4.1 mmol/L 3.3-5.1 [facility] Serum creatinine measurement (mass/volume)Ordered By: Ellen Smith on 12-18-2024 Creatinine [Mass/Vol] 0.85 mg/dL Normal 0.70-1.20 [facility] Comment on above: Performed By: #### L 500.2500, [id number] ####[facility] [address] [place], [address] Serum glucose measurement (m ass/volume)Ordered By: Ellen Smith on 12-18-2024 Glucose [Mass/Vol] 233 mg/dL High 70-99 [facility] Comment on above: Performed By: #### L 500.2500, [id number] ####[facility] [address] [place], [address] Serum or plasma calcium matthew urement (mass/volume)Ordered By: Ellen Smith on 12-18-2024 Calcium [Mass/Vol] 9.6 mg/dL Normal 7.6-11.0 [facility] Comment on above: Performed By: #### L 500.2500, [id number] ####[facility] [address] [place], [address] Serum or plasma urea nitroge n measurement (mass/volume)Ordered By: Ellen Smith on 12-18-2024 Urea nitrogen [Mass/Vol] 27 mg/dL High 4-19 [facility] Comment on above: Performed By: #### L 500.2500, [id number] ####[facility] [address] [place], [address] Sodium levelOrdered By: Edmundo Smith on 12-18-2024 Sodium [Moles/Vol] 136 mmol/L Normal 133-145 [facility] Comment on above: Performed By: #### L 500.2500, [id number] ####[facility] [address] [place], [address] XR FOOT MINIMUM 3 VIEWS RIGH Ton 12-17-2024 XR FOOT MINIMUM 3 VIEWS RIGHT ORIGINAL EXAMINATION: THREE XRAY VIEWS OF THE RIGHT FOOT 12/17/2024 1:56 pm COMPARISON: None. HISTORY: ORDERING SYSTEM PROVIDED HISTORY: Reason for Exam: Pt states she dropped a plywood board on the toes of her RT foot today. pain in area of 1st to 3rd toes/distal metatarsals. injury to foot/toes FINDINGS: Lower extremity swelling. Os peroneum. Accessory navicularis. No suspicious osseous lesions. Ill-defined linear lucency through the mid tuft of the 1st distal phalanx. IMPRESSION: Ill-defined linear lucency through the mid tuft of the 1st distal phalanx, cannot exclude a nondisplaced fracture. If pain or clinical concern persists for sub radiographic injury consider correlation with cross-sectional imaging. Interpreted by: Hugo Ponce Preliminary Report By: Hugo Ponce Electronically signed By Hugo Ponce Dictated Date: 12/17/2024 2:01:40 PM Prelim Date: 12/17/2024 2:04:45 PM Sign Date: 12/17/2024 2:04:45 PM Ordering Provider: HANG VERA Interpreted by: Hugo Ponce Preliminary Report By: Hugo Ponce Electronically signed By Hugo Ponce Dictated Date: 12/17/2024 2:01:40 PM Prelim Date: 12/17/2024 2:04:45 PM Sign Date: 12/17/2024 2:04:45 PM Ordering Provider: HANG VERA [facility] US THYROIDon 11-21-2024 US THYROID ORIGINAL EXAMINATION: Ultrasound Thyroid 11/19/2024 11:16 am COMPARISON: None TECHNIQUE: This report is based on interpretation of permanently recorded ultrasound images. HISTORY: ORDERING SYSTEM PROVIDED HISTORY: Reason for Exam: h/o thyroiditis, FINDINGS: Size right thyroid lobe: 4.3 x 1.2 x 1.9 cm Size left thyroid lobe: 4.6 x 1.6 x 1.3 cm Size isthmus: 0.3 cm Texture: Homogeneous background echogenicity without increase in vascularity. Estimated total number of nodules greater than or equal to 1 cm: 1 Nodule#: # 1: This is a nodule in the mid left lobe that is poorly circumscribed. The nodule is measured 1.0 x 0.9 x 1.0 cm. It is mixed cystic solid isoechoic wider than tall with ill-defined margins. There are some punctate echogenic foci within it some of which have comet tail artifacts. ACR Total Points: 5; ACR TI-RADS risk category: TR4 - moderately suspicious nodule. There are no other suspicious thyroid nodules by ACR TIRADS criteria. IMPRESSION: Nonenlarged thyroid. 1. Nodule 1: Size 1.0 cm, ACR TI-RADS 2017 Risk category and Recommendation TR 4, 1 year ultrasound follow-up suggested.. ACR TI-RADS 2017 Recommendations: TR1(0 points) : No FNA or follow up TR2 (2 points) : No FNA or follow up TR3 (3 points) : FNA if >/= 2.5 cm, follow up if 1.5 - 2.4 cm in 1, 3, and 5 years TR4 (4-6 points) : FNA if >/= 1.5 cm, follow up if 1.0 - 1.4 cm in 1, 2, 3, and 5 years TR5 (>/= 7 points) : FNA if >/= 1.0 cm, follow up if 0.5 - 0.9 cm every year for 5 years *ACR TI-RADS recommends that no more than two nodules with the highest ACR TI-RADS total point should be biopsied and no more than four nodules should be followed. Interpreted by: Jake Oates MD Preliminary Report By: Jake Oates MD Electronically signed By Jake Oates MD Dictated Date: 11/21/2024 8:42:59 AM Prelim Date: 11/21/2024 8:46:15 AM Sign Date: 11/21/2024 8:46:15 AM Ordering Provider: MAIK RAMOS [facility] [id number] 11-21-2024 ZNT8 Antibodies <15 [facility] Comment on above: Result Comment: Refe rence Range: All Ages: <15 Negative > or =15 Positive Performed At: [facility] [address] [place] [id number] Dinesh Mcbride MD Ph:[phone] Performed By: #### C MP, ANEU, GFR, ADIFF, CBC #### [address] [address] ANAIFSon 11-20-2024 Antinuclear Ab Pattern Nuclear dense fine speckled [facility] Comment on above: Result Comment: Perf ormed By: [facility] [address] [place] [id number] Mail Handler Equipment Operator: Anil Haile III, M.D. CLIA#: [id number] Performed By: #### C MP, ANEU, GFR, ADIFF, CBC #### [place] [id number] Antinuclear Ab Screen Positive Abnormal Negative [facility] Comment on above: Result Comment: Anti -nuclear antibody test is used as an aid in diagnosis of systemic autoimmune diseases. Where positive and clinically warranted, follow-up using disease-specific testing is recommended. Low positive titers are not uncommon with advanced age, certain chronic infections, and malignancies among others. Test methodology: Indirect fluorescence immunoassay (IFA) using HEp-2 cells. Performed By: [place] [address] Mail Handler Equipment Operator: Anil Haile III, M.D. CLIA#: [id number] Performed By: #### C MP, ANEU, GFR, ADIFF, CBC #### [place] [address] Antinuclear Ab Titer 1:160 Normal [facility] Comment on above: Result Comment: Perf ormed By: [place] [address] Mail Handler Equipment Operator: Anil Haile III, M.D. CLIA#: [id number] Performed By: #### C MP, ANEU, GFR, ADIFF, CBC #### [place] [address] SALCTon 11-19-2024 Cortisol Saliva <0.010 [facility] Comment on above: Result Comment: This test was developed and its performance characteristics determined by [facility]. It has not been cleared or approved by the Food and Drug Administration. Reference Range: Children and Adults: 8:00a.m.: 0.025 - 0.600 Noon: <0.010 - 0.330 4:00p.m.: 0.010 - 0.200 Bedtime (9:00p.m.-Midnight): <0.010 - 0.090 Performed At: [facility] [address] [place] [id number] Dinesh Mcbride MD Ph:[phone] Performed By: #### C MP, ANEU, GFR, ADIFF, CBC #### [place] [id number] RFon 11-18-2024 Rheumatoid Factor <6.0 Normal <=5.9 [facility] Comment on above: Result Comment: RF I gM Antibody by Enzyme Immunoassay: Negative < or = 6 Positive > 6 A positive result indicates the presence of RF antibodies and suggests the possibility of rheumatoid arthritis. A negative result indicates no RF IgM antibody or levels below the negative cut-off of the assay. Results of this assay should be used in conjunction with clinical findings and other serological tests. These results were obtained with the [employer] QUANTA Lite RF IgM STACIA. RF IgM values obtained with different manufacturers' assay methods may not be used interchangeably. The magnitude of the reported IgM levels cannot be correlated to an endpoint titer. Performed By: #### C MP, ANEU, GFR, ADIFF, CBC #### [place] [address] CRPon 11-16-2024 C-Reactive Protein 0.4 mg/dL High 0.0-0.3 [facility] Comment on above: Performed By: #### C MP, ANEU, GFR, ADIFF, CBC #### [place] [address] FE11-16-2024 Iron [Mass/Vol] 52 ug/dL Normal 50-170 [facility] Comment on above: Performed By: #### C MP, ANEU, GFR, ADIFF, CBC #### [place] [address] FT311-16-2024 Free T3 [Mass/Vol] 2.16 pg/mL Low 2.30-4.00 [facility] Comment on above: Performed By: #### C MP, ANEU, GFR, ADIFF, CBC #### [place] [address] [id number] 11-16-2024 ZOHAIB-65 22.1 units/ml High 0.0-5.0 [facility] Comment on above: Result Comment: Perf ormed At: [facility] [id number] Kavon Bedolla MD Ph:[phone] Performed By: #### C MP, ANEU, GFR, ADIFF, CBC #### [place] [address] [place], [place] [address] IBCon 11-16-2024 TIBC 257 mcg/dL Normal 250-450 [facility] Comment on above: Performed By: #### C MP, ANEU, GFR, ADIFF, CBC #### [address] [address] ISLETon 11-16-2024 Panc Islet Cell Ab Negative Normal Neg:<1:1 [facility] Comment on above: Result Comment: Perf ormed At: [address] [id number] Kavon Bedolla MD Ph:[phone] Performed By: #### C MP, ANEU, GFR, ADIFF, CBC #### [address] [address] LABORATORYOrdered By: SYSTEM SYSTEM on 11-16-2024 25-hydroxyvitamin D3 [Mass/Vol] 52.4 ng/mL Invalid Interpretation Code AO ADM SS Comment on above: Interpretive Data: I nterpretive Values Based on Total 25(OH) Vitamin D: Deficient <20 ng/mL Insufficient 20 - <30 ng/mL Sufficient 30-100 ng/mL CRP [Mass/Vol] 0.4 mg/dL High 0.0 - 0.3 mg/dL AO ADM SS Free T3 [Mass/Vol] 2.16 pg/mL Low 2.30 - 4. 00 pg/mL AO ADM SS Iron [Mass/Vol] 52 ug/dL Normal 50 - 170 mcg/dL AO ADM SS Iron binding capacity [Mass/Vol] 257 mcg/dL Normal 250 - 450 mcg/dL AO ADM SS Sayra 11-16-2024 TSI <0.10 Normal 0.00-0.55 [facility] Comment on above: Result Comment: Perf ormed At: [facility] [id number] Kavon Bedolla MD Ph:[phone] Performed By: #### C MP, ANEU, GFR, ADIFF, CBC #### [address] [address] VIDHon 11-16-2024 Vit. D 25-Hydroxy 52.4 ng/mL Normal [facility] Comment on above: Result Comment: Inte rpretive Values Based on Total 25(OH) Vitamin D: Deficient <20 ng/mL Insufficient 20 - <30 ng/mL Sufficient 30-100 ng/mL Performed By: #### C MP, ANEU, GFR, ADIFF, CBC #### [address] [address] B12on 11-15-2024 Vitamin B12 Lvl >2000 High 211-911 [facility] Comment on above: Performed By: #### C MP, ANEU, GFR, ADIFF, CBC #### [address] [address] .Auto Diffon 11-14-2024 Basophil, Absolute 0.1 10 3/mcL Normal 0.0-0.3 [facility] [place] Comment on above: Performed By: #### C MP, ANEU, GFR, ADIFF, CBC #### [address] [address] Basophils/100 WBC (Bld) 0.8 % Normal 0.0-2.5 [facility] Comment on above: Performed By: #### C MP, ANEU, GFR, ADIFF, CBC #### [address] [address] Eosinophil, Absolute 0.1 10 3/mcL Normal 0.0-0.7 [facility] Comment on above: Performed By: #### C MP, ANEU, GFR, ADIFF, CBC #### [address] [address] Eosinophils/100 WBC (Bld) 0.9 % Normal 0.0-6.0 [facility] Comment on above: Performed By: #### C MP, ANEU, GFR, ADIFF, CBC #### [address] [address] Lymphocyte, Absolute 5.1 10 3/mcL High 0.9-4.3 [facility] Comment on above: Performed By: #### C MP, ANEU, GFR, ADIFF, CBC #### [address] [address] Lymphocytes/100 WBC (Bld) 49.9 % High 20.0-40.0 [facility] Comment on above: Performed By: #### C MP, ANEU, GFR, ADIFF, CBC #### [address] [address] Monocyte, Absolute 0.6 10 3/mcL Normal 0.1-1.4 [facility] Comment on above: Performed By: #### C MP, ANEU, GFR, ADIFF, CBC #### [address] [address] Monocytes/100 WBC (Bld) 5.4 % Normal 2.0-13.0 [facility] Comment on above: Performed By: #### C MP, ANEU, GFR, ADIFF, CBC #### [address] [address] Neutrophils/100 WBC (Bld) 43.0 % Low 50.0-75.0 [facility] Comment on above: Performed By: #### C MP, ANEU, GFR, ADIFF, CBC #### [address] [address] .GFRon 11-14-2024 Estimated Glomerular Filtration Rate 78 ml/min/1.73sqm Normal [facility] Comment on above: Result Comment: Stages of Chronic Kidney Disease (CKD) Stage Description eGFR(ml/min/1.73 sq.m.) CKD 1 Normal kidney function or >=90 normal kindney function with possible kidney damage (ex. Proteinuria) CKD 2 Kidney damage with mild loss 60-89 of kidney function CKD 3a Mild to moderate loss of kidney 45-59 function CKD 3b Moderate to severe loss of 30-44 of kindey function CKD 4 Severe loss of kidney function 15-29 CKD 5 Kidney failure <15 Note: (go live 2024) the eGFR calculation was updated to the 2020 CKD-EPI creatinine equation without a race factor to calculate the eGFR results. Performed By: #### C MP, ANEU, GFR, ADIFF, CBC #### [place] [address] .NEUABSon 11-14-2024 Neutrophil, Absolute 4.4 10 3/mcL Normal 2.3-8.1 [facility] Comment on above: Performed By: #### C MP, ANEU, GFR, ADIFF, CBC #### [place] [id number] A1Con 11-14-2024 Glucose [Mass/Vol] 177 mg/dL Normal [facility] Comment on above: Result Comment: Shahnaz mated Average Glucose calculated by equation ((28.7xA1C)-46.7) Estimated average glucose (eAG) is a calculated value from Hemoglobin A1C and is commercial pest control representative of the average blood glucose level in the last 2-3 month period. Normal range: less than 114 mg/dL Performed By: #### A 1C, LIPID #### [place] [address] HbA1c (Bld) [Mass fraction] 7.8 % High 4.3-6.4 [facility] Comment on above: Performed By: #### A 1C, LIPID #### [place] [address] CBCon 11-14-2024 Erythrocyte distribution width (RBC) [Ratio] 13.6 % Normal 11.5-15.5 [facility] Comment on above: Performed By: #### C MP, ANEU, GFR, ADIFF, CBC #### [place] [address] Hematocrit (Bld) [Volume fraction] 42.2 % Normal 34.0-46.0 [facility] Comment on above: Performed By: #### C MP, ANEU, GFR, ADIFF, CBC #### [place] [address] Hgb 13.8 G/dL Normal 12.0-16.0 [facility] Comment on above: Performed By: #### C MP, ANEU, GFR, ADIFF, CBC #### [address] [address] MCH (RBC) [Entitic mass] 28.0 pg Normal 27.0-33.0 [facility] Comment on above: Performed By: #### C MP, ANEU, GFR, ADIFF, CBC #### [address] [address] MCHC 32.7 G/dL Normal 32.0-36.0 [facility] Comment on above: Performed By: #### C MP, ANEU, GFR, ADIFF, CBC #### [address] [address] MCV (RBC) [Entitic vol] 85.5 fL Normal 80.0-99.0 [facility] Comment on above: Performed By: #### C MP, ANEU, GFR, ADIFF, CBC #### [place] [id number] Platelet 180 10 3/mcL Normal 150-450 [facility] Comment on above: Performed By: #### C MP, ANEU, GFR, ADIFF, CBC #### [place] [address] Platelet mean volume (Bld) [Entitic vol] 10.5 fL Normal 6.6-10.5 [facility] Comment on above: Performed By: #### C MP, ANEU, GFR, ADIFF, CBC #### [address] [address] RBC 4.93 10 6/mcL Normal 4.10-5.30 [facility] Comment on above: Performed By: #### C MP, ANEU, GFR, ADIFF, CBC #### [place] [id number] WBC 10.3 10 3/mcL Normal 4.5-10.8 [facility] Comment on above: Performed By: #### C MP, ANEU, GFR, ADIFF, CBC #### [place] [address] CMPon 11-14-2024 Albumin Level 3.6 G/dL Normal 3.5-5.0 [facility] Comment on above: Performed By: #### C MP, ANEU, GFR, ADIFF, CBC #### [address] [address] Albumin/Globulin [Mass ratio] 1.2 {ratio} Normal 1.1-2.5 [facility] Comment on above: Performed By: #### C MP, ANEU, GFR, ADIFF, CBC #### [address] [address] ALP [Catalytic activity/Vol] 107 U/L Normal 40-135 [facility] Comment on above: Performed By: #### C MP, ANEU, GFR, ADIFF, CBC #### [address] [address] ALT [Catalytic activity/Vol] 22 U/L Normal 14-59 [facility] Comment on above: Performed By: #### C MP, ANEU, GFR, ADIFF, CBC #### [address] [address] AST [Catalytic activity/Vol] 14 U/L Normal 10-40 [facility] Comment on above: Performed By: #### C MP, ANEU, GFR, ADIFF, CBC #### [address] [address] Bili Total 0.3 mg/dL Normal 0.2-1.0 [facility] Comment on above: Result Comment: Use of this assay is not recommended for patients undergoing treatment with eltrombopag due to the potential for falsely elevated results. Performed By: #### C MP, ANEU, GFR, ADIFF, CBC #### [address] [address] BUN/Creatinine Ratio 38 ratio High 7-27 [facility] [place] Comment on above: Performed By: #### C MP, ANEU, GFR, ADIFF, CBC #### [address] [address] Calcium [Mass/Vol] 9.5 mg/dL Normal 8.4-10.2 [facility] Comment on above: Performed By: #### C MP, ANEU, GFR, ADIFF, CBC #### [place] [address] Chloride [Moles/Vol] 104 mmol/L Normal 98-107 [facility] Comment on above: Performed By: #### C MP, ANEU, GFR, ADIFF, CBC #### [place] [address] CO2 [Moles/Vol] 27 mmol/L Normal 22-29 [facility] Comment on above: Performed By: #### C MP, ANEU, GFR, ADIFF, CBC #### [place] [address] Creatinine [Mass/Vol] 0.86 mg/dL Normal 0.51-0.95 [facility] Comment on above: Performed By: #### C MP, ANEU, GFR, ADIFF, CBC #### [place] [address] Electrolyte Balance 6.0 mEq/L Normal 4.0-15.0 [facility] Comment on above: Performed By: #### C MP, ANEU, GFR, ADIFF, CBC #### [place] [address] Globulin 3.1 G/dL Normal 2.7-4.4 [facility] Comment on above: Performed By: #### C MP, ANEU, GFR, ADIFF, CBC #### [address] [address] Glucose [Mass/Vol] 192 mg/dL High 70-105 [facility] Comment on above: Performed By: #### C MP, ANEU, GFR, ADIFF, CBC #### [place] [address] Potassium [Moles/Vol] 4.4 mmol/L Normal 3.5-5.1 [facility] Comment on above: Performed By: #### C MP, ANEU, GFR, ADIFF, CBC #### [address] [address] Sodium [Moles/Vol] 137 mmol/L Normal 136-145 [facility] Comment on above: Performed By: #### C MP, ANEU, GFR, ADIFF, CBC #### [address] [address] Total Protein 6.7 G/dL Normal 6.4-8.2 [facility] Comment on above: Performed By: #### C MP, ANEU, GFR, ADIFF, CBC #### [address] [address] Urea nitrogen [Mass/Vol] 33 mg/dL High 7-18 [facility] Comment on above: Performed By: #### C MP, ANEU, GFR, ADIFF, CBC #### [address] [address] CPEPon 11-14-2024 C-Peptide 0.76 ng/mL Low 0.81-3.85 [facility] Comment on above: Performed By: #### C MP, ANEU, GFR, ADIFF, CBC #### [address] [address] ESRon 11-14-2024 Erythrocyte Sed Rate 19 mm/hr Normal 0-30 [facility] [place] Comment on above: Performed By: #### C MP, ANEU, GFR, ADIFF, CBC #### [address] [address] Helder 11-14-2024 Ferritin [Mass/Vol] 130.0 ng/mL Normal 8.0-252.0 [facility] [place] Comment on above: Performed By: #### C MP, ANEU, GFR, ADIFF, CBC #### [address] [address] FOLon 11-14-2024 Folate 18.15 ng/mL Normal 5.38-24.00 [facility] Comment on above: Performed By: #### C MP, ANEU, GFR, ADIFF, CBC #### [address] [address] FT4on 11-14-2024 Free T4 [Mass/Vol] 0.92 ng/dL Normal 0.76-1.46 [facility] Comment on above: Performed By: #### C MP, ANEU, GFR, ADIFF, CBC #### [address] [place], [place] [address] LABORATORYOrdered By: Bib De on 11-14-2024 Cholesterol [Mass/Vol] 265 mg/dL High 0 - 200 mg/dL AO ADM SS Comment on above: Interpretive Data: C holesterol Reference Interval: Less than 200 Desirable 200-239 Borderline high risk 240 and above High risk Cholesterol in HDL [Mass/Vol] 48 mg/dL Normal 40 - 60 mg/dL AO ADM SS Cholesterol in LDL [Mass/Vol] 194 mg/dL High 0 - 130 mg/dL AO ADM SS Triglyceride [Mass/Vol] 115 mg/dL Normal 0 - 150 mg/dL AO ADM SS Comment on above: Interpretive Data: T riglyceride Reference Interval: Less than 150 Normal 150-199 Borderline high risk 200-499 High risk 500 or higher Very high risk LABORATORYOrdered By: SYSTEM SYSTEM on 11-14-2024 Glucose [Mass/Vol] 177 mg/dL Invalid Interpretation Code AO Chemistry S Comment on above: Interpretive Data: E stimated average glucose (eAG) is a calculated value from Hemoglobin A1C and is commercial pest control representative of the average blood glucose level in the last 2-3 month period. Normal range: less than 114 mg/dL HbA1c (Bld) [Mass fraction] 7.8 % High 4.3 - 6.4 % AO ADM SS Albumin BCP dye [Mass/Vol] 3.6 G/dL Normal 3.5 - 5.0 G/dL AO ADM SS Albumin/Globulin [Mass ratio] 1.2 {ratio} Normal 1.1 - 2.5 ratio AO ADM SS ALP [Catalytic activity/Vol] 107 U/L Normal 40 - 135 U/L AO ADM SS ALT With P-5'-P [Catalytic activity/Vol] 22 U/L Normal 14 - 59 U/L AO ADM SS AST With P-5'-P [Catalytic activity/Vol] 14 U/L Normal 10 - 40 U/L AO ADM SS Basophils (Bld) [#/Vol] 0.1 103/mcL Normal 0.0 - 0.3 10^3/mcL AO Workflow SS Basophils/100 WBC (Bld) 0.8 % Normal 0.0 - 2.5 % AO Workflow SS Bilirubin [Mass/Vol] 0.3 mg/dL Normal 0.2 - 1 .0 mg/dL AO ADM SS Comment on above: Interpretive Data: U se of this assay is not recommended for patients undergoing treatment with eltrombopag due to the potential for falsely elevated results. C peptide [Mass/Vol] 0.76 ng/mL Low 0.81 - 3.85 ng/mL AH ADM SS Calcium [Mass/Vol] 9.5 mg/dL Normal 8.4 - 10. 2 mg/dL AO ADM SS Chloride [Moles/Vol] 104 mmol/L Normal 98 - 10 7 mmol/L AO ADM SS CO2 [Moles/Vol] 27 mmol/L Normal 22 - 29 mmol/L AO ADM SS Cobalamin (Vitamin B12) [Mass/Vol] pg/mL High 211 - 911 pg/mL AH ADM SS Creatinine [Mass/Vol] 0.86 mg/dL Normal 0.51 - 0.95 mg/dL AO ADM SS Electrolyte Balance 6.0 mEq/L Normal 4.0 - 15 .0 mEq/L AO ADM SS Eosinophil, Absolute 0.1 103/mcL Normal 0.0 - 0 .7 10^3/mcL AO Workflow SS Eosinophils/100 WBC (Bld) 0.9 % Normal 0.0 - 6.0 % AO Workflow SS Erythrocyte distribution width (RBC) [Ratio] 13.6 % Normal 11.5 - 15.5 % AO Workflow SS Estimated Glomerular Filtration Rate 78 ml/min/1.73sqm Invalid Interpretation Code AO Chemistry S Comment on above: Interpretive Data: Stages of Chronic Kidney Disease (CKD) Stage Description eGFR(ml/min/1.73 sq.m.) CKD 1 Normal kidney function or >=90 normal kindney function with possible kidney damage (ex. Proteinuria) CKD 2 Kidney damage with mild loss 60-89 of kidney function CKD 3a Mild to moderate loss of kidney 45-59 function CKD 3b Moderate to severe loss of 30-44 of kindey function CKD 4 Severe loss of kidney function 15-29 CKD 5 Kidney failure <15 Note: (go live 2024) the eGFR calculation was updated to the 2020 CKD-EPI creatinine equation without a race factor to calculate the eGFR results. Ferritin [Mass/Vol] 130.0 ng/mL Normal 8.0 - 25 2.0 ng/mL AO ADM SS Folate [Mass/Vol] 18.15 ng/mL Normal 5.38 - 24. 00 ng/mL AH ADM SS Free T4 [Mass/Vol] 0.92 ng/dL Normal 0.76 - 1. 46 ng/dL AO ADM SS Globulin 3.1 G/dL Normal 2.7 - 4.4 G/dL AO ADM SS Glucose [Mass/Vol] 192 mg/dL High 70 - 105 mg/dL AO ADM SS Hematocrit (Bld) [Volume fraction] 42.2 % Normal 34.0 - 46.0 % AO Workflow SS Hemoglobin (Bld) [Mass/Vol] 13.8 G/dL Normal 12.0 - 16.0 G/dL AO Workflow SS Lymphocytes (Bld) [#/Vol] 5.1 103/mcL High 0.9 - 4.3 10^3/mcL AO Workflow SS Lymphocytes/100 WBC (Bld) 49.9 % High 20.0 - 40.0 % AO Workflow SS MCH (RBC) [Entitic mass] 28.0 pg Normal 27.0 - 33.0 pg AO Workflow SS MCHC 32.7 G/dL Normal 32.0 - 36.0 G/dL AO Workflow SS MCV (RBC) [Entitic vol] 85.5 fL Normal 80.0 - 99.0 fL AO Workflow SS Monocytes (Bld) [#/Vol] 0.6 103/mcL Normal 0.1 - 1.4 10^3/mcL AO Workflow SS Monocytes/100 WBC (Bld) 5.4 % Normal 2.0 - 13.0 % AO Workflow SS Neutrophils (Bld) [#/Vol] 4.4 103/mcL Normal 2.3 - 8.1 10^3/mcL AO Workflow SS Neutrophils/100 WBC (Bld) 43.0 % Low 50.0 - 75.0 % AO Workflow SS Platelet mean volume (Bld) [Entitic vol] 10.5 fL Normal 6.6 - 10.5 fL AO Workflow SS Platelets (Bld) [#/Vol] 180 103/mcL Normal 150 - 450 10^3/mcL AO Workflow SS Potassium [Moles/Vol] 4.4 mmol/L Normal 3.5 - 5.1 mmol/L AO ADM SS Protein [Mass/Vol] 6.7 G/dL Normal 6.4 - 8.2 G/dL AO ADM SS RBC (Bld) [#/Vol] 4.93 106/mcL Normal 4.10 - 5.3 0 10^6/mcL AO Workflow SS Sodium [Moles/Vol] 137 mmol/L Normal 136 - 145 mmol/L AO ADM SS Thyroglobulin Ab IA Qn 18 unit/mL Normal 15 - 60 unit/mL AH ADM SS TPO Ab IA Qn unit/mL Normal 0 - 60 unit/mL AH ADM SS TSH Qn 2.13 m[IU]/L Normal 0.36 - 3.74 mcIU/mL AO ADM SS Urea nitrogen [Mass/Vol] 33 mg/dL High 7 - 18 mg/dL AO ADM SS Urea nitrogen/Creatinine [Mass ratio] 38 ratio High 7 - 27 ratio AO ADM SS WBC (Bld) [#/Vol] 10.3 103/mcL Normal 4.5 - 10.8 10^3/mcL AO Workflow SS LABORATORYOrdered By: Antione Ybarra on 11-14-2024 ESR Photometric method (Bld) [Velocity] 19 mm/hr Normal 0 - 30 mm/hr AO Man Heme SS LABORATORYOrdered By: [employer] CONTRIBUTOR_SYSTEM on 11-14-2024 ZOHAIB-65 (LC) 22.1 unit/mL High 0.0-5.0 AO Sendouts SS Comment on above: Result Comment: [facility] [id number] Kavon Bedolla MD Ph:[phone] Panc Islet Cell Ab (LC) Negative Invalid Interpretation Code Neg:<1:1 AO Sendouts SS Comment on above: Result Comment: Perf ormed At: [facility] [id number] Kavon Bedolla MD Ph:[phone] TSI (LC) [iU]/L Invalid Interpretation Code 0.00-0.55 AO Sendouts SS Comment on above: Result Comment: Perf ormed At: [facility] [id number] Kavon Bedolla MD Ph:[phone] LIPIDon 11-14-2024 Cholesterol [Mass/Vol] 265 mg/dL High 0-200 [facility] Comment on above: Result Comment: Chol esterol Reference Interval: Less than 200 Desirable 200-239 Borderline high risk 240 and above High risk Performed By: #### A 1C, LIPID #### [address] [address] Cholesterol in HDL [Mass/Vol] 48 mg/dL Normal 40-60 [facility] Comment on above: Performed By: #### A 1C, LIPID #### [address] [address] Cholesterol in LDL [Mass/Vol] 194 mg/dL High 0-130 [facility] Comment on above: Performed By: #### A 1C, LIPID #### [address] [address] Triglyceride [Mass/Vol] 115 mg/dL Normal 0-150 [facility] Comment on above: Result Comment: Trig lyceride Reference Interval: Less than 150 Normal 150-199 Borderline high risk 200-499 High risk 500 or higher Very high risk Performed By: #### A 1C, LIPID #### [address] [address] THYABon 11-14-2024 anti-Thyroid Peroxidase <28 Normal 0-60 [facility] Comment on above: Performed By: #### C MP, ANEU, GFR, ADIFF, CBC #### [address] [address] Thyroglobulin Ab 18 units/ml Normal 15-60 [facility] Comment on above: Performed By: #### C MP, ANEU, GFR, ADIFF, CBC #### [address] [address] TSHon 11-14-2024 TSH Qn 2.13 m[IU]/L Normal 0.36-3.74 [facility] Comment on above: Performed By: #### C MP, ANEU, GFR, ADIFF, CBC #### [address] [address] [place] MAMMOGRAM DIAGNOSTIC LEFT on 10-19-2024 [place] MAMMOGRAM DIAGNOSTIC LEFT ORIGINAL FROM: [place] [address] [place], [place] [address] PROCEDURE FOR: JESSE GUADARRAMA [address] [place] [address] Home: PID#: [id number] Exam#: [id number] : 1965 Age: 59 TO: JUAN J LEDBETTER [place], [place] [address] EXAMINATION: DIAGNOSTIC DIGITAL LEFT BREAST MAMMOGRAM, 10/19/2024 1:30 pm TECHNIQUE: Diagnostic mammography of the left breast was performed. Current study was also evaluated with a Computer Aided Detection (CAD) system. COMPARISON: 10/16/2024 HISTORY: ORDERING SYSTEM PROVIDED HISTORY: Reason for Exam: Follow-up Screening Mammogram FINDINGS: BREAST DENSITY: There are scattered areas of fibroglandular density. Left breast calcifications are confirmed on the CC view, these appear to be layering on the lateral view, these are amorphous on the CC view and somewhat linear on the lateral view. No significant masses, calcifications, or other findings. IMPRESSION: Left breast calcifications are felt to be milk of calcium, these are probably benign, follow-up mammogram in 6 months is recommended to document stability. Aga Sarkar risk calculations, generated with the history provided, report this patient's 10 year risk and lifetime risk for developing breast cancer at 4.9% and 12.5%, respectively. Based on this assessment tool, if the patient's calculated lifetime risk is below 20%, then the patient is considered at average risk for developing breast cancer. If the patient's calculated lifetime risk is at or above 20%, then the patient is considered high risk for developing breast cancer and may be a candidate for supplemental breast MRI screening in addition to annual mammographic screening per the [employer]. BIRADS: BI-RADS: 3: Probably Benign RECALL: 6 month follow-up RECALL TYPE: mammo LETTER SENT: Probably Benign BI-RADS 3 Interpreted by: Priyank Kirkpatrick MD Preliminary Report By: Priyank Kirkpatrick MD Electronically signed By Priyank Kirkpatrick MD Dictated Date: 10/19/2024 2:48:02 PM Prelim Date: 10/19/2024 2:51:58 PM Sign Date: 10/19/2024 2:51:58 PM Ordering Provider: JUAN J LEDBETTER [employer] Supervisor: LIZY KELLY RT(R)(CT) letter sent: Probably Benign BI-RADS 3 Mammogram BI-RADS: 3 Probably benign Normal [facility] LABORATORYOrdered By: Corrina lomeli on 10-18-2024 Glucose [Mass/Vol] 199 mg/dL High 70 - 110 mg/dL [facility] Work Phone: HbA1c (Bld) [Mass fraction] 7.8 % [facility] Work Phone: Lab Performed By Corrina Pond PharmD [facility] Work Phone: Lab Performing Location [facility] Work Phone: MA MAMMOGRAM SCREENING BILAT ERAL W/TOMOon 10-18-2024 MA MAMMOGRAM SCREENING BILATERAL W/HUDSON ORIGINAL FROM: [address] [address] PROCEDURE FOR: JESSE GUADARRAMA [address] [place] [address] Home: PID#: [id number] Exam#: [id number] : 1965 Age: 59 TO: JUAN J LEDBETTER NP [place], [place] [address] EXAMINATION: SCREENING DIGITAL BILATERAL MAMMOGRAM WITH TOMOSYNTHESIS, 10/16/2024 7:47 am TECHNIQUE: Screening mammography of the bilateral breasts was performed with tomosynthesis. 2D standard and 3D tomosynthesis combination imaging performed through both breasts in the MLO and CC projection. Computer aided detection was utilized in the interpretation of this exam. COMPARISON: None. HISTORY: Breast cancer screening. Baseline FINDINGS: BREAST DENSITY: There are scattered areas of fibroglandular density. On the left CC view, two areas of calcifications are present in the lateral breast measuring 2 and 4 mm in size. These localize to the upper and lower breast respectively on the tomographic image but are not well seen on the MLO view. There are no other significant masses, calcifications, or other findings. IMPRESSION: The grouped calcifications in the lateral left breast are indeterminate. Additional views including a full field mL view and spot compression magnification CC and ML views are recommended. We will contact the patient to arrange for the exam. Aga Pham risk calculations, generated with the history provided, report this patient's 10 year risk and lifetime risk for developing breast cancer at 4.9% and 12.5%, respectively. Based on this assessment tool, if the patient's calculated lifetime risk is below 20%, then the patient is considered at average risk for developing breast cancer. If the patient's calculated lifetime risk is at or above 20%, then the patient is considered high risk for developing breast cancer and may be a candidate for supplemental breast MRI screening in addition to annual mammographic screening per the [employer]. BIRADS: BI-RADS: 0: Incomplete: Need Additional Imaging Evaluation RECALL: immediate RECALL TYPE: Left mammo LETTER SENT: Abnormal-Needs additional work up BI-RADS 0 Interpreted by: Tru Manuel MD Preliminary Report By: Tru Manuel MD Electronically signed By Tru Manuel MD Dictated Date: 10/18/2024 7:28:55 AM Prelim Date: 10/18/2024 7:38:11 AM Sign Date: 10/18/2024 7:38:11 AM Ordering Provider: JUAN J LEDBETTER [employer] Supervisor: BIANCA TORREZ RT (R)(M) letter sent: Abnormal-Needs additional work up BI-RADS 0 Mammogram BI-RADS: 0 Indeterminate Normal [facility] US SOFT TISSUE Gaurav 2024 US SOFT TISSUE MASS ORIGINAL EXAMINATION: SOFT TISSUE ULTRASOUND 10/16/2024 8:38 am COMPARISON: None. HISTORY: ORDERING SYSTEM PROVIDED HISTORY: Reason for Exam: Soft tissue mass on right side. Likely lipoma FINDINGS: Diagnostic ultrasound evaluation of the area of palpable concern in the right lateral chest demonstrates no solid or cystic subcutaneous mass. No abnormal vascularity. IMPRESSION: No sonographic correlate for area of palpable concern. Please note the poorly encapsulated subcutaneous lipomatous lesion cannot be excluded. Interpreted by: Hugo Ponce Preliminary Report By: Hugo Ponce Electronically signed By Hugo Ponce Dictated Date: 10/16/2024 11:40:28 AM Prelim Date: 10/16/2024 11:41:32 AM Sign Date: 10/16/2024 11:41:32 AM Ordering Provider: JUAN J Navarro [facility] GNA82eg 09-10-2024 [id number] 7.7 units/ml High 0.0-5.0 [facility] Comment on above: Order Comment: +/- 2 8 days from order date Result Comment: Perf ormed At: [facility] [address] [id number] Kavon Bedolla MD Ph:[phone] Performed By: #### C MP, ANEU, GFR, ADIFF, CBC #### [facility] [address] [place], [place] [address] Basic Metabolic Profile (BMP )on 2024 BUN/CRE 22.5 RATIO High 10-20 [facility] Comment on above: Performed By: #### L 500.2500 ####[facility] [address] [place], [address] CA,Total 9.5 mg/dL Normal 8.5-10.1 [facility] Comment on above: Performed By: #### L 500.2500 ####[facility] [address] [place], [address] Chloride [Moles/Vol] 102 mmol/L Normal 98-107 [facility] Comment on above: Performed By: #### L 500.2500 ####[facility] [address] [place], [address] CO2 [Moles/Vol] 26.0 mmol/L Normal 21.0-32.0 [facility] Comment on above: Performed By: #### L 500.2500 ####[facility] [address] [place], [address] Creatinine [Mass/Vol] 1.02 mg/dL Normal 0.55-1.02 [facility] Comment on above: Result Comment: The validity of the calculated GFR GFRAA in patients over70 years has not been determined. Clinical correlation isessential. Performed By: #### L 500.2500 ####[facility] [address] [place], [address] EST GFR - AA 71 mL/min Normal >60 [facility] Comment on above: Result Comment: Afri can [place] GFR Calc Performed By: #### L 500.2500 ####[facility] [address] [place], [address] GAP 7 Normal 5-15 [facility] Comment on above: Performed By: #### L 500.2500 ####[facility] [address] [place], [address] GFR/1.73 sq M.predicted among non-blacks MDRD (S/P/Bld) [Vol rate/Area] 59 mL/min/{1.73_m2} Low >60 [facility] Comment on above: Result Comment: Non- GFR Calc Performed By: #### L 500.2500 ####[facility] [address] [place], [address] Glucose [Mass/Vol] 246 mg/dL High 74-106 [facility] Comment on above: Result Comment: Gluc ose result greater than or equal to 200 mg/dLsuggests DIABETES MELLITUS per A.D.A. criteria. Performed By: #### L 500.2500 ####[facility] [address] [place], [address] Potassium [Moles/Vol] 4.3 mmol/L Normal 3.5-5.1 [facility] Comment on above: Performed By: #### L 500.2500 ####[facility] [address] [place], [address] Sodium [Moles/Vol] 135 mmol/L Low 136-145 [facility] Comment on above: Performed By: #### L 500.2500 ####[facility] [address] [place], [address] Urea nitrogen [Mass/Vol] 23 mg/dL High 7-18 [facility] Comment on above: Performed By: #### L 500.2500 ####[facility] [address] [place], [address] .GFRon 08-01-2024 Estimated Glomerular Filtration Rate 71 ml/min/1.73sqm Normal [facility] Comment on above: Result Comment: Stages of Chronic Kidney Disease (CKD) Stage Description eGFR(ml/min/1.73 sq.m.) CKD 1 Normal kidney function or >=90 normal kindney function with possible kidney damage (ex. Proteinuria) CKD 2 Kidney damage with mild loss 60-89 of kidney function CKD 3a Mild to moderate loss of kidney 45-59 function CKD 3b Moderate to severe loss of 30-44 of kindey function CKD 4 Severe loss of kidney function 15-29 CKD 5 Kidney failure <15 Note: (go live 2024) the eGFR calculation was updated to the 2020 CKD-EPI creatinine equation without a race factor to calculate the eGFR results. Performed By: #### C MP, ANEU, GFR, ADIFF, CBC #### [address] [address] CMPon 08-01-2024 Albumin Level 3.8 G/dL Normal 3.5-5.0 [facility] Comment on above: Performed By: #### C MP, ANEU, GFR, ADIFF, CBC #### [address] [address] Albumin/Globulin [Mass ratio] 1.4 {ratio} Normal 1.1-2.5 [facility] Comment on above: Performed By: #### C MP, ANEU, GFR, ADIFF, CBC #### [address] [address] ALP [Catalytic activity/Vol] 102 U/L Normal 40-135 [facility] Comment on above: Performed By: #### C MP, ANEU, GFR, ADIFF, CBC #### [address] [address] ALT [Catalytic activity/Vol] 21 U/L Normal 14-59 [facility] Comment on above: Performed By: #### C MP, ANEU, GFR, ADIFF, CBC #### [address] [address] AST [Catalytic activity/Vol] 17 U/L Normal 10-40 [facility] Comment on above: Performed By: #### C MP, ANEU, GFR, ADIFF, CBC #### [address] [address] Bili Total 0.5 mg/dL Normal 0.2-1.0 [facility] Comment on above: Result Comment: Use of this assay is not recommended for patients undergoing treatment with eltrombopag due to the potential for falsely elevated results. Performed By: #### C MP, ANEU, GFR, ADIFF, CBC #### [address] [address] BUN/Creatinine Ratio 17 ratio Normal 7-27 [facility] [place] [facility] Comment on above: Performed By: #### C MP, ANEU, GFR, ADIFF, CBC #### [address] [address] Calcium [Mass/Vol] 9.7 mg/dL Normal 8.4-10.2 [facility] Comment on above: Performed By: #### C MP, ANEU, GFR, ADIFF, CBC #### [address] [address] Chloride [Moles/Vol] 102 mmol/L Normal 98-107 [facility] [place] [facility] Comment on above: Performed By: #### C MP, ANEU, GFR, ADIFF, CBC #### [address] [address] CO2 [Moles/Vol] 30 mmol/L High 22-29 [facility] Comment on above: Performed By: #### C MP, ANEU, GFR, ADIFF, CBC #### [address] [address] Creatinine [Mass/Vol] 0.93 mg/dL Normal 0.55-1.02 [facility] Comment on above: Result Comment: Test ing performed on Siemens Dimension EXL analyzer using a modified kinetic Enedelia technique. Performed By: #### C MP, ANEU, GFR, ADIFF, CBC #### [address] [address] Electrolyte Balance 8.0 mEq/L Normal 4.0-15.0 [facility] Comment on above: Performed By: #### C MP, ANEU, GFR, ADIFF, CBC #### [address] [address] Globulin 2.8 G/dL Normal 1.5-3.8 [facility] Comment on above: Performed By: #### C MP, ANEU, GFR, ADIFF, CBC #### [address] [address] Glucose [Mass/Vol] 139 mg/dL High 70-105 [facility] Comment on above: Performed By: #### C MP, ANEU, GFR, ADIFF, CBC #### [address] [address] Potassium [Moles/Vol] 4.1 mmol/L Normal 3.5-5.1 [facility] Comment on above: Performed By: #### C MP, ANEU, GFR, ADIFF, CBC #### [address] [address] Sodium [Moles/Vol] 140 mmol/L Normal 136-145 [facility] Comment on above: Performed By: #### C MP, ANEU, GFR, ADIFF, CBC #### [address] [address] Total Protein 6.6 G/dL Normal 6.4-8.2 [facility] Comment on above: Performed By: #### C MP, ANEU, GFR, ADIFF, CBC #### [address] [address] Urea nitrogen [Mass/Vol] 16 mg/dL Normal 7-18 [facility] Comment on above: Performed By: #### C MP, ANEU, GFR, ADIFF, CBC #### [address] [address] CPEPon 08-01-2024 C-Peptide 0.55 ng/mL Low 0.81-3.85 [facility] Comment on above: Performed By: #### C MP, ANEU, GFR, ADIFF, CBC #### [address] [address] FT3on 08-01-2024 Free T3 [Mass/Vol] 2.42 pg/mL Normal 2.30-4.00 [facility] Comment on above: Performed By: #### C MP, ANEU, GFR, ADIFF, CBC #### [place] [address] FT4on 08-01-2024 Free T4 [Mass/Vol] 1.26 ng/dL Normal 0.76-1.46 [facility] Comment on above: Performed By: #### C MP, ANEU, GFR, ADIFF, CBC #### [place] [address] LABORATORYOrdered By: SYSTEM SYSTEM on 08-01-2024 Albumin BCP dye [Mass/Vol] 3.8 G/dL Normal 3.5 - 5.0 G/dL AO ADM SS Albumin/Globulin [Mass ratio] 1.4 {ratio} Normal 1.1 - 2.5 ratio AO ADM SS ALP [Catalytic activity/Vol] 102 U/L Normal 40 - 135 U/L AO ADM SS ALT With P-5'-P [Catalytic activity/Vol] 21 U/L Normal 14 - 59 U/L AO ADM SS AST With P-5'-P [Catalytic activity/Vol] 17 U/L Normal 10 - 40 U/L AO ADM SS Bilirubin [Mass/Vol] 0.5 mg/dL Normal 0.2 - 1 .0 mg/dL AO ADM SS Comment on above: Interpretive Data: U se of this assay is not recommended for patients undergoing treatment with eltrombopag due to the potential for falsely elevated results. C peptide [Mass/Vol] 0.55 ng/mL Low 0.81 - 3.85 ng/mL AH ADM SS Calcium [Mass/Vol] 9.7 mg/dL Normal 8.4 - 10. 2 mg/dL AO ADM SS Chloride [Moles/Vol] 102 mmol/L Normal 98 - 10 7 mmol/L AO ADM SS CO2 [Moles/Vol] 30 mmol/L High 22 - 29 mmol/L AO ADM SS Creatinine [Mass/Vol] 0.93 mg/dL Normal 0.55 - 1.02 mg/dL AO ADM SS Comment on above: Interpretive Data: T esting performed on Siemens Dimension EXL analyzer using a modified kinetic Enedelia technique. Electrolyte Balance 8.0 mEq/L Normal 4.0 - 15 .0 mEq/L AO ADM SS Estimated Glomerular Filtration Rate 71 ml/min/1.73sqm Invalid Interpretation Code AO Chemistry S Comment on above: Interpretive Data: Stages of Chronic Kidney Disease (CKD) Stage Description eGFR(ml/min/1.73 sq.m.) CKD 1 Normal kidney function or >=90 normal kindney function with possible kidney damage (ex. Proteinuria) CKD 2 Kidney damage with mild loss 60-89 of kidney function CKD 3a Mild to moderate loss of kidney 45-59 function CKD 3b Moderate to severe loss of 30-44 of kindey function CKD 4 Severe loss of kidney function 15-29 CKD 5 Kidney failure <15 Note: (go live 2024) the eGFR calculation was updated to the 2020 CKD-EPI creatinine equation without a race factor to calculate the eGFR results. Free T3 [Mass/Vol] 2.42 pg/mL Normal 2.30 - 4. 00 pg/mL AO ADM SS Free T4 [Mass/Vol] 1.26 ng/dL Normal 0.76 - 1. 46 ng/dL AO ADM SS Globulin 2.8 G/dL Normal 1.5 - 3.8 G/dL AO ADM SS Glucose [Mass/Vol] 139 mg/dL High 70 - 105 mg/dL AO ADM SS Potassium [Moles/Vol] 4.1 mmol/L Normal 3.5 - 5.1 mmol/L AO ADM SS Protein [Mass/Vol] 6.6 G/dL Normal 6.4 - 8.2 G/dL AO ADM SS Sodium [Moles/Vol] 140 mmol/L Normal 136 - 145 mmol/L AO ADM SS TSH Qn 3.79 m[IU]/L High 0.36 - 3.74 mcIU/mL AO ADM SS Urea nitrogen [Mass/Vol] 16 mg/dL Normal 7 - 18 mg/dL AO ADM SS Urea nitrogen/Creatinine [Mass ratio] 17 ratio Normal 7 - 27 ratio AO ADM SS LABORATORYOrdered By: Bib De on 08-01-2024 Cholesterol [Mass/Vol] 207 mg/dL High 0 - 200 mg/dL AO ADM SS Comment on above: Interpretive Data: C holesterol Reference Interval: Less than 200 Desirable 200-239 Borderline high risk 240 and above High risk Cholesterol in HDL [Mass/Vol] 54 mg/dL Normal 40 - 60 mg/dL AO ADM SS Cholesterol in LDL [Mass/Vol] 130 mg/dL Normal 0 - 130 mg/dL AO ADM SS Triglyceride [Mass/Vol] 115 mg/dL Normal 0 - 150 mg/dL AO ADM SS Comment on above: Interpretive Data: T riglyceride Reference Interval: Less than 150 Normal 150-199 Borderline high risk 200-499 High risk 500 or higher Very high risk LIPIDon 08-01-2024 Cholesterol [Mass/Vol] 207 mg/dL High 0-200 [facility] Comment on above: Result Comment: Chol esterol Reference Interval: Less than 200 Desirable 200-239 Borderline high risk 240 and above High risk Performed By: #### C MP, ANEU, GFR, ADIFF, CBC #### [address] [address] Cholesterol in HDL [Mass/Vol] 54 mg/dL Normal 40-60 [facility] Comment on above: Performed By: #### C MP, ANEU, GFR, ADIFF, CBC #### [address] [address] Cholesterol in LDL [Mass/Vol] 130 mg/dL Normal 0-130 [facility] Comment on above: Performed By: #### C MP, ANEU, GFR, ADIFF, CBC #### [address] [address] Triglyceride [Mass/Vol] 115 mg/dL Normal 0-150 [facility] Comment on above: Result Comment: Trig lyceride Reference Interval: Less than 150 Normal 150-199 Borderline high risk 200-499 High risk 500 or higher Very high risk Performed By: #### C MP, ANEU, GFR, ADIFF, CBC #### [place] [address] [place], [place] [address] TSHon 08-01-2024 TSH Qn 3.79 m[IU]/L High 0.36-3.74 [facility] Comment on above: Performed By: #### C MP, ANEU, GFR, ADIFF, CBC #### [place] [address] [place], [place] [address] CBC W/Diff, Automatedon 06-21 Absolute Lymph 3.62 X10 3/uL Normal 0.83-4.51 [facility] Comment on above: Performed By: #### L 500.4050, L100.0100 ####[facility] [address] [place], [address] Absolute Neut 7.2 X10 3/uL Normal 2.0-7.7 [facility] Comment on above: Performed By: #### L 500.4050, L100.0100 ####[facility] [address] [place], [address] Basophils/100 WBC (Bld) 0.8 % Normal 0-1 [facility] Comment on above: Performed By: #### L 500.4050, L100.0100 ####[facility] [address] [place], [address] Eosinophils/100 WBC (Bld) 2.4 % Normal 0-5 [facility] Comment on above: Performed By: #### L 500.4050, L100.0100 ####[facility] [address] [place], [address] Erythrocyte distribution width (RBC) [Ratio] 13.2 % Normal 11.6-14.6 [facility] Comment on above: Performed By: #### L 500.4050, L100.0100 ####[facility] [address] [place], [address] Hematocrit (Bld) [Volume fraction] 37.6 % Normal 37-47 [facility] Comment on above: Performed By: #### L 500.4050, L100.0100 ####[facility] [address] [place], [address] Hemoglobin (Bld) [Mass/Vol] 12.0 g/dL Normal 12.0-15.0 [facility] Comment on above: Performed By: #### L 500.4050, L100.0100 ####[facility] [address] [place], [address] IG% 0.600 Normal 0.0-0.9 [facility] Comment on above: Result Comment: IG% - Immature Granulocytes (promyelocytes, myelocytes andmetamyelocytes) > 1% indicates that a LEFT SHIFT is Present. Performed By: #### L 500.4050, L100.0100 ####[facility] [address] [place], [address] Lymphocytes/100 WBC (Bld) 29.4 % Normal 19-41 [facility] Comment on above: Performed By: #### L 500.4050, L100.0100 ####[facility] [address] [place], [address] MCH (RBC) [Entitic mass] 27.7 pg Normal 27.0-32.0 [facility] Comment on above: Performed By: #### L 500.4050, L100.0100 ####[facility] [address] [place], [address] MCHC (RBC) [Mass/Vol] 31.9 g/dL Low 32-36 [facility] Comment on above: Performed By: #### L 500.4050, L100.0100 ####[facility] [address] [place], [address] MCV (RBC) [Entitic vol] 86.8 fL Normal 81-99 [facility] Comment on above: Performed By: #### L 500.4050, L100.0100 ####[facility] [address] [place], [address] Monocytes/100 WBC (Bld) 8.3 % Normal 0-10 [facility] Comment on above: Performed By: #### L 500.4050, L100.0100 ####[facility] [address] [place], [address] Neutrophils/100 WBC (Bld) 58.5 % Normal 47-70 [facility] Comment on above: Performed By: #### L 500.4050, L100.0100 ####[facility] [address] [place], [address] Nucleated RBC (Bld) [#/Vol] 0 10*3/uL Normal 0-5 [facility] Comment on above: Performed By: #### L 500.4050, L100.0100 ####[facility] [address] [place], [address] Platelet mean volume (Bld) [Entitic vol] 10.6 fL Normal 6.2-12.0 [facility] Comment on above: Performed By: #### L 500.4050, L100.0100 ####[facility] [address] [place], [address] Platelets (Bld) [#/Vol] 324 10*3/uL Normal 150-450 [facility] Comment on above: Performed By: #### L 500.4050, L100.0100 ####[facility] [address] [place], [address] RBC (Bld) [#/Vol] 4.33 10*6/uL Normal 4.2-5.4 [facility] Comment on above: Performed By: #### L 500.4050, L100.0100 ####[facility] [address] [place], [address] RDW SD 41.7 fl Normal 35.1-43.9 [facility] Comment on above: Performed By: #### L 500.4050, L100.0100 ####[facility] [address] [place], [address] WBC (Bld) [#/Vol] 12.3 10*3/uL High 4.4-11.0 [facility] Comment on above: Performed By: #### L 500.4050, L100.0100 ####[facility] [address] [place], [address] Comprehensive Metabolic Prof iaon 07-16-2024 Albumin [Mass/Vol] 2.8 g/dL Low 3.2-5.0 [facility] Comment on above: Performed By: #### L 500.4050, L100.0100 ####[facility] [address] [place], [address] Albumin/Globulin [Mass ratio] 0.8 {ratio} Low 0.9-2.4 [facility] Comment on above: Performed By: #### L 500.4050, L100.0100 ####[facility] [address] [place], [address] ALK P 110 U/L Normal 45-117 [facility] Comment on above: Performed By: #### L 500.4050, L100.0100 ####[facility] [address] [place], [address] ALT [Catalytic activity/Vol] 20 U/L Normal 13-56 [facility] Comment on above: Performed By: #### L 500.4050, L100.0100 ####[facility] [address] [place], [address] AST [Catalytic activity/Vol] 10 U/L Low 15-37 [facility] Comment on above: Performed By: #### L 500.4050, L100.0100 ####[facility] [address] [place], [address] Bilirubin [Mass/Vol] 0.60 mg/dL Normal 0.20-1.00 [facility] Comment on above: Result Comment: For patients on eltrombopag therapy, use of Dimension [place] TBIL is not recommended. Performed By: #### L 500.4050, L100.0100 ####[facility] [address] [place], [address] BUN/CRE 13.7 RATIO Normal 10-20 [facility] Comment on above: Performed By: #### L 500.4050, L100.0100 ####[facility] [address] [place], [address] CA,Total 9.5 mg/dL Normal 8.5-10.1 [facility] Comment on above: Performed By: #### L 500.4050, L100.0100 ####[facility] [address] [place], [address] Chloride [Moles/Vol] 103 mmol/L Normal 98-107 [facility] Comment on above: Performed By: #### L 500.4050, L100.0100 ####[facility] [address] [place], [address] CO2 [Moles/Vol] 28.0 mmol/L Normal 21.0-32.0 [facility] Comment on above: Performed By: #### L 500.4050, L100.0100 ####[facility] [address] [place], [address] Creatinine [Mass/Vol] 1.17 mg/dL High 0.55-1.02 [facility] Comment on above: Result Comment: The validity of the calculated GFR GFRAA in patients over70 years has not been determined. Clinical correlation isessential. Performed By: #### L 500.4050, L100.0100 ####[facility] [address] [place], [address] EST GFR - AA 61 mL/min Normal >60 [facility] Comment on above: Result Comment: Afri can Iraqi GFR Calc Performed By: #### L 500.4050, L100.0100 ####[facility] [address] [place], [address] GAP 7 Normal 5-15 [facility] Comment on above: Performed By: #### L 500.4050, L100.0100 ####[facility] [address] [place], [address] GFR/1.73 sq M.predicted among non-blacks MDRD (S/P/Bld) [Vol rate/Area] 50 mL/min/{1.73_m2} Low >60 [facility] Comment on above: Result Comment: Non- GFR Calc Performed By: #### L 500.4050, L100.0100 ####[facility] [address] [place], [address] Globulin (S) [Mass/Vol] 3.6 g/dL Normal 2.2-4.2 [facility] Comment on above: Performed By: #### L 500.4050, L100.0100 ####[facility] [address] [place], [address] Glucose [Mass/Vol] 187 mg/dL High 74-106 [facility] Comment on above: Result Comment: Fast ing Glucose result greater than or equal to 126 mg/dLsuggests DIABETES MELLITUS per A.D.A. criteria. Performed By: #### L 500.4050, L100.0100 ####[facility] [address] [place], [address] Potassium [Moles/Vol] 3.8 mmol/L Normal 3.5-5.1 [facility] Comment on above: Performed By: #### L 500.4050, L100.0100 ####[facility] [address] [place], [address] Sodium [Moles/Vol] 138 mmol/L Normal 136-145 [facility] Comment on above: Performed By: #### L 500.4050, L100.0100 ####[facility] [address] [place], [address] T PROT 6.4 g/dL Normal 6.4-8.2 [facility] Comment on above: Performed By: #### L 500.4050, L100.0100 ####[facility] [address] [place], [address] Urea nitrogen [Mass/Vol] 16 mg/dL Normal - [facility] Comment on above: Performed By: #### L 500.4050, L100.0100 ####[facility] [address] [place], [address] Basic Metabolic Profile (BMP )on 07-08-2024 BUN Normal - [facility] Comment on above: Result Comment: Canc elled via OM: Order cancelled - Patient discharged Performed By: #### L 500.2500 ####[facility] [address] [place], [address] BUN/CRE Normal - [facility] Comment on above: Result Comment: Canc elled via OM: Order cancelled - Patient discharged Performed By: #### L 500.2500 ####[facility] [address] [place], [address] CA,Total Normal 8.5-10.1 [facility] Comment on above: Result Comment: Canc elled via OM: Order cancelled - Patient discharged Performed By: #### L 500.2500 ####[facility] [address] [place], [address] CL Normal 98-107 [facility] Comment on above: Result Comment: Canc elled via OM: Order cancelled - Patient discharged Performed By: #### L 500.2500 ####[facility] [address] [place], [address] CO2 Normal 21.0-32.0 [facility] Comment on above: Result Comment: Canc elled via OM: Order cancelled - Patient discharged Performed By: #### L 500.2500 ####[facility] [address] [place], [address] CREAT,SERUM Normal 0.55-1.02 [facility] Comment on above: Result Comment: Canc elled via OM: Order cancelled - Patient discharged Performed By: #### L 500.2500 ####[facility] [address] [place], [address] EST GFR Normal >60 [facility] Comment on above: Result Comment: Canc elled via OM: Order cancelled - Patient discharged Performed By: #### L 500.2500 ####[facility] [address] [place], [address] EST GFR - AA Normal >60 [facility] Comment on above: Result Comment: Canc elled via OM: Order cancelled - Patient discharged Performed By: #### L 500.2500 ####[facility] [address] [place], [address] GAP Normal 5-15 [facility] Comment on above: Result Comment: Canc elled via OM: Order cancelled - Patient discharged Performed By: #### L 500.2500 ####[facility] [address] [place], [address] GLU Normal 74-106 [facility] Comment on above: Result Comment: Canc elled via OM: Order cancelled - Patient discharged Performed By: #### L 500.2500 ####[facility] [address] [place], [address] Potassium Normal 3.5-5.1 [facility] Comment on above: Result Comment: Canc elled via OM: Order cancelled - Patient discharged Performed By: #### L 500.2500 ####[facility] [address] [place], [address] Basic Metabolic Profile (BMP) Normal 136-145 [facility] Comment on above: Result Comment: Canc elled via OM: Order cancelled - Patient discharged Performed By: #### L 500.2500 ####[facility] [address] [place], [address] CBC W/Diff, Automatedon 06-20 Absolute Neut Normal 2.0-7.7 [facility] Comment on above: Result Comment: Canc elled via OM: Order cancelled - Patient discharged Performed By: #### L 100.0100 ####[facility] [address] [place], [address] HCT Normal 37-47 [facility] Comment on above: Result Comment: Canc elled via OM: Order cancelled - Patient discharged Performed By: #### L 100.0100 ####[facility] [address] [place], [address] HGB Normal 12.0-15.0 [facility] Comment on above: Result Comment: Canc elled via OM: Order cancelled - Patient discharged Performed By: #### L 100.0100 ####[facility] [address] [place], [address] MCH Normal 27.0-32.0 [facility] Comment on above: Result Comment: Canc elled via OM: Order cancelled - Patient discharged Performed By: #### L 100.0100 ####[facility] [address] [place], [address] MCHC Normal 32-36 [facility] Comment on above: Result Comment: Canc elled via OM: Order cancelled - Patient discharged Performed By: #### L 100.0100 ####[facility] [address] [place], [address] MCV Normal 81-99 [facility] Comment on above: Result Comment: Canc elled via OM: Order cancelled - Patient discharged Performed By: #### L 100.0100 ####[facility] [address] [place], [address] NEUT% Normal 47-70 [facility] Comment on above: Result Comment: Canc elled via OM: Order cancelled - Patient discharged Performed By: #### L 100.0100 ####[facility] [address] [place], [address] PLT Normal 150-450 [facility] Comment on above: Result Comment: Canc elled via OM: Order cancelled - Patient discharged Performed By: #### L 100.0100 ####[facility] [address] [place], [address] RBC Normal 4.2-5.4 [facility] Comment on above: Result Comment: Canc elled via OM: Order cancelled - Patient discharged Performed By: #### L 100.0100 ####[facility] [address] [place], [address] RDW CV Normal 11.6-14.6 [facility] Comment on above: Result Comment: Canc elled via OM: Order cancelled - Patient discharged Performed By: #### L 100.0100 ####[facility] [address] [place], [address] RDW SD Normal 35.1-43.9 [facility] Comment on above: Result Comment: Canc elled via OM: Order cancelled - Patient discharged Performed By: #### L 100.0100 ####[facility] [address] [place], [address] WBC Normal 4.4-11.0 [facility] Comment on above: Result Comment: Canc elled via OM: Order cancelled - Patient discharged Performed By: #### L 100.0100 ####[facility] [address] [place], [address] Culture, Blood (WB)on 2024 CUB Blood cultures x2, from two different sites No growth in 5 days. Normal [facility] Comment on above: Performed By: #### M 200.1000, L300.4310, L503.6005, L300.3900 ####[facility] [address] [place], [address] Respiratory Cultureon 2024 RESPC Normal [facility] Comment on above: Performed By: #### M 100.2000, M100.2400 ####[facility] [address] [place], [address] Basic Metabolic Profile (BMP )on 07-07-2024 BUN/CRE 24.7 RATIO High 10-20 [facility] Comment on above: Performed By: #### L 500.2500 ####[facility] [address] [place], [address] CA,Total 8.5 mg/dL Normal 8.5-10.1 [facility] Comment on above: Performed By: #### L 500.2500 ####[facility] [address] [place], [address] Chloride [Moles/Vol] 110 mmol/L High 98-107 [facility] Comment on above: Performed By: #### L 500.2500 ####[facility] [address] [place], [address] CO2 [Moles/Vol] 26.0 mmol/L Normal 21.0-32.0 [facility] Comment on above: Performed By: #### L 500.2500 ####[facility] [address] [place], [address] Creatinine [Mass/Vol] 1.74 mg/dL High 0.55-1.02 [facility] Comment on above: Result Comment: The validity of the calculated GFR GFRAA in patients over70 years has not been determined. Clinical correlation isessential. Performed By: #### L 500.2500 ####[facility] [address] [place], [address] ECRCL 46.26 ml/min Normal [facility] Comment on above: Performed By: #### L 500.2500 ####[facility] [address] [place], [address] EST GFR - AA 39 mL/min Low >60 [facility] Comment on above: Result Comment: Afri can Iraqi GFR Calc Performed By: #### L 500.2500 ####[facility] [address] [place], [address] GAP 6 Normal 5-15 [facility] Comment on above: Performed By: #### L 500.2500 ####[facility] [address] [place], [address] GFR/1.73 sq M.predicted among non-blacks MDRD (S/P/Bld) [Vol rate/Area] 32 mL/min/{1.73_m2} Low >60 [facility] Comment on above: Result Comment: Non- GFR Calc Performed By: #### L 500.2500 ####[facility] [address] [place], [address] Glucose [Mass/Vol] 75 mg/dL Normal 74-106 [facility] Comment on above: Performed By: #### L 500.2500 ####[facility] [address] [place], [address] Potassium [Moles/Vol] 3.3 mmol/L Low 3.5-5.1 [facility] Comment on above: Performed By: #### L 500.2500 ####[facility] [address] [place], [address] Sodium [Moles/Vol] 143 mmol/L Normal 136-145 [facility] Comment on above: Performed By: #### L 500.2500 ####[facility] [address] [place], [address] Urea nitrogen [Mass/Vol] 43 mg/dL High 7-18 [facility] Comment on above: Performed By: #### L 500.2500 ####[facility] [address] [place], [address] Bedside Glucoseon 07-07-2024 FINGERSTICK GLU 113 mg/dL High 74-106 [facility] Comment on above: Result Comment: NERISSA GEMENT OF PATIENT CARE PER NURSING PROTOCOL Performed By: #### L 501.080 ####[facility] [address] [place], [address] FINGERSTICK GLU 66 mg/dL Low 74-106 [facility] Comment on above: Result Comment: NERISSA GEMENT OF PATIENT CARE PER NURSING PROTOCOL Performed By: #### L 501.080 ####[facility] [address] [place], [address] CBC W/Diff, Automatedon 06-20 Absolute Lymph 4.33 X10 3/uL Normal 0.83-4.51 [facility] Comment on above: Performed By: #### L 100.0100 ####[facility] [address] [place], [address] Absolute Neut 8.3 X10 3/uL High 2.0-7.7 [facility] Comment on above: Performed By: #### L 100.0100 ####[facility] [address] [place], [address] Basophils/100 WBC (Bld) 0.3 % Normal 0-1 [facility] Comment on above: Performed By: #### L 100.0100 ####[facility] [address] [place], [address] Eosinophils/100 WBC (Bld) 0.8 % Normal 0-5 [facility] Comment on above: Performed By: #### L 100.0100 ####[facility] [address] [place], [address] Erythrocyte distribution width (RBC) [Ratio] 13.5 % Normal 11.6-14.6 [facility] Comment on above: Performed By: #### L 100.0100 ####[facility] [address] [place], [address] Hematocrit (Bld) [Volume fraction] 33.4 % Low 37-47 [facility] Comment on above: Performed By: #### L 100.0100 ####[facility] [address] [place], [address] Hemoglobin (Bld) [Mass/Vol] 11.1 g/dL Low 12.0-15.0 [facility] Comment on above: Performed By: #### L 100.0100 ####[facility] [address] [place], [address] IG% 0.800 Normal 0.0-0.9 [facility] Comment on above: Result Comment: IG% - Immature Granulocytes (promyelocytes, myelocytes andmetamyelocytes) > 1% indicates that a LEFT SHIFT is Present. Performed By: #### L 100.0100 ####[facility] [address] [place], [address] Lymphocytes/100 WBC (Bld) 30.2 % Normal 19-41 [facility] Comment on above: Performed By: #### L 100.0100 ####[facility] [address] [place], [address] MCH (RBC) [Entitic mass] 27.8 pg Normal 27.0-32.0 [facility] Comment on above: Performed By: #### L 100.0100 ####[facility] [address] [place], [address] MCHC (RBC) [Mass/Vol] 33.2 g/dL Normal 32-36 [facility] Comment on above: Performed By: #### L 100.0100 ####[facility] [address] [place], [address] MCV (RBC) [Entitic vol] 83.7 fL Normal 81-99 [facility] Comment on above: Performed By: #### L 100.0100 ####[facility] [address] [place], [address] Monocytes/100 WBC (Bld) 10.4 % High 0-10 [facility] Comment on above: Performed By: #### L 100.0100 ####[facility] [address] [place], [address] Neutrophils/100 WBC (Bld) 57.5 % Normal 47-70 [facility] Comment on above: Performed By: #### L 100.0100 ####[facility] [address] [place], [address] Nucleated RBC (Bld) [#/Vol] 0 10*3/uL Normal 0-5 [facility] Comment on above: Performed By: #### L 100.0100 ####[facility] [address] [place], [address] Platelet mean volume (Bld) [Entitic vol] 10.4 fL Normal 6.2-12.0 [facility] Comment on above: Performed By: #### L 100.0100 ####[facility] [address] [place], [address] Platelets (Bld) [#/Vol] 214 10*3/uL Normal 150-450 [facility] Comment on above: Performed By: #### L 100.0100 ####[facility] [address] [place], [address] RBC (Bld) [#/Vol] 3.99 10*6/uL Low 4.2-5.4 [facility] Comment on above: Performed By: #### L 100.0100 ####[facility] [address] [place], [address] RDW SD 41.4 fl Normal 35.1-43.9 [facility] Comment on above: Performed By: #### L 100.0100 ####[facility] [address] [place], [address] WBC (Bld) [#/Vol] 14.3 10*3/uL High 4.4-11.0 [facility] Comment on above: Performed By: #### L 100.0100 ####[facility] [address] [place], [address] Discharge Instructionon 06-20 Discharge Instruction Normal [facility] Magnesiumon 07-07-2024 Magnesium [Mass/Vol] 2.7 mg/dL High 1.6-2.6 [facility] Comment on above: Performed By: #### L 501.2300, L501.5200 ####[facility] [address] [place], [address] Phosphoruson 07-07-2024 Phosphate [Mass/Vol] 2.1 mg/dL Low 2.5-4.9 [facility] Comment on above: Performed By: #### L 501.2300, L501.5200 ####[facility] [address] [place], [address] Basic Metabolic Profile (BMP )on 07-06-2024 BUN/CRE 25.0 RATIO High 10-20 [facility] Comment on above: Performed By: #### L 500.2500 ####[facility] [address] [place], [address] CA,Total 8.9 mg/dL Normal 8.5-10.1 [facility] Comment on above: Performed By: #### L 500.2500 ####[facility] [address] [place], [address] Chloride [Moles/Vol] 107 mmol/L Normal 98-107 [facility] Comment on above: Performed By: #### L 500.2500 ####[facility] [address] [place], [address] CO2 [Moles/Vol] 28.0 mmol/L Normal 21.0-32.0 [facility] Comment on above: Performed By: #### L 500.2500 ####[facility] [address] [place], [address] Creatinine [Mass/Vol] 2.32 mg/dL High 0.55-1.02 [facility] Comment on above: Result Comment: The validity of the calculated GFR GFRAA in patients over70 years has not been determined. Clinical correlation isessential. Performed By: #### L 500.2500 ####[facility] [address] [place], [address] ECRCL 35.04 ml/min Normal [facility] Comment on above: Performed By: #### L 500.2500 ####[facility] [address] [place], [address] EST GFR - AA 28 mL/min Low >60 [facility] Comment on above: Result Comment: Afri can Iraqi GFR Calc Performed By: #### L 500.2500 ####[facility] [address] [place], [address] GAP 5 Normal 5-15 [facility] Comment on above: Performed By: #### L 500.2500 ####[facility] [address] [place], [address] GFR/1.73 sq M.predicted among non-blacks MDRD (S/P/Bld) [Vol rate/Area] 23 mL/min/{1.73_m2} Low >60 [facility] Comment on above: Result Comment: Non- GFR Calc Performed By: #### L 500.2500 ####[facility] [address] [place], [address] Glucose [Mass/Vol] 249 mg/dL High 74-106 [facility] Comment on above: Result Comment: Gluc ose result greater than or equal to 200 mg/dLsuggests DIABETES MELLITUS per A.D.A. criteria. Performed By: #### L 500.2500 ####[facility] [address] [place], [address] Potassium [Moles/Vol] 3.1 mmol/L Low 3.5-5.1 [facility] Comment on above: Performed By: #### L 500.2500 ####[facility] [address] [place], [address] Sodium [Moles/Vol] 140 mmol/L Normal 136-145 [facility] Comment on above: Performed By: #### L 500.2500 ####[facility] [address] [place], [address] Urea nitrogen [Mass/Vol] 58 mg/dL High 7-18 [facility] Comment on above: Performed By: #### L 500.2500 ####[facility] [address] [place], [address] BUN Normal 7-18 [facility] Comment on above: Result Comment: @DUP LICATE OK TO CANCEL PER [facility] Performed By: #### L 100.0100, L500.2500 ####[facility] [address] [place], [address] BUN/CRE Normal 10-20 [facility] Comment on above: Result Comment: @DUP LICATE OK TO CANCEL PER CHARLY,SR. MANAGER Performed By: #### L 100.0100, L500.2500 ####[facility] [address] [place], [address] CA,Total Normal 8.5-10.1 [facility] Comment on above: Result Comment: @DUP LICATE OK TO CANCEL PER CHARLY,SR. MANAGER Performed By: #### L 100.0100, L500.2500 ####[facility] [address] [place], [address] CL Normal 98-107 [facility] Comment on above: Result Comment: @DUP LICATE OK TO CANCEL PER CHARLY,SR. MANAGER Performed By: #### L 100.0100, L500.2500 ####[facility] [address] [place], [address] CO2 Normal 21.0-32.0 [facility] Comment on above: Result Comment: @DUP LICATE OK TO CANCEL PER CHARLY,SR. MANAGER Performed By: #### L 100.0100, L500.2500 ####[facility] [address] [place], [address] CREAT,SERUM Normal 0.55-1.02 [facility] Comment on above: Result Comment: @DUP LICATE OK TO CANCEL PER CHARLY,SR. MANAGER Performed By: #### L 100.0100, L500.2500 ####[facility] [address] [place], [address] EST GFR Normal >60 [facility] Comment on above: Result Comment: @DUP LICATE OK TO CANCEL PER CHARLY,SR. MANAGER Performed By: #### L 100.0100, L500.2500 ####[facility] [address] [place], [address] EST GFR - AA Normal >60 [facility] Comment on above: Result Comment: @DUP LICATE OK TO CANCEL PER CHARLYSR. MANAGER Performed By: #### L 100.0100, L500.2500 ####[facility] [address] [place], [address] GAP Normal 5-15 [facility] Comment on above: Result Comment: @DUP LICATE OK TO CANCEL PER CHARLY,SR. MANAGER Performed By: #### L 100.0100, L500.2500 ####[facility] [address] [place], [address] GLU Normal 74-106 [facility] Comment on above: Result Comment: @DUP LICATE OK TO CANCEL PER CHARLY,SR. MANAGER Performed By: #### L 100.0100, L500.2500 ####[facility] [address] [place], [address] Potassium Normal 3.5-5.1 [facility] Comment on above: Result Comment: @DUP LICATE OK TO CANCEL PER [facility] ICU Performed By: #### L 100.0100, L500.2500 ####[facility] [address] [place], [address] Basic Metabolic Profile (BMP) Normal 136-145 [facility] Comment on above: Result Comment: @DUP LICATE OK TO CANCEL PER CHARLY,SR. MANAGER Performed By: #### L 100.0100, L500.2500 ####[facility] [address] [place], [address] Bedside Glucoseon 07-06-2024 FINGERSTICK GLU 140 mg/dL High 74-106 [facility] Comment on above: Result Comment: NERISSA RODRIGUES OF PATIENT CARE PER NURSING PROTOCOL Performed By: #### L 501.080 ####[facility] [address] [place], [address] FINGERSTICK GLU 148 mg/dL High 74-106 [facility] Comment on above: Result Comment: NERISSA GEMENT OF PATIENT CARE PER NURSING PROTOCOL Performed By: #### L 501.080 ####[facility] [address] [place], [address] FINGERSTICK GLU 162 mg/dL High 74-106 [facility] Comment on above: Result Comment: NERISSA GEMENT OF PATIENT CARE PER NURSING PROTOCOL Performed By: #### L 501.080 ####[facility] [address] [place], [address] FINGERSTICK GLU 201 mg/dL High 74-106 [facility] Comment on above: Result Comment: NERISSA GEMENT OF PATIENT CARE PER NURSING PROTOCOL Performed By: #### L 501.080 ####[facility] [address] [place], [address] CBC W/Diff, Automatedon 06-20 Absolute Lymph 2.15 X10 3/uL Normal 0.83-4.51 [facility] Comment on above: Performed By: #### L 100.0100 ####[facility] [address] [place], [address] Absolute Neut 8.5 X10 3/uL High 2.0-7.7 [facility] Comment on above: Performed By: #### L 100.0100 ####[facility] [address] [place], [address] Basophils/100 WBC (Bld) 0.2 % Normal 0-1 [facility] Comment on above: Performed By: #### L 100.0100 ####[facility] [address] [place], [address] Eosinophils/100 WBC (Bld) 0.1 % Normal 0-5 [facility] Comment on above: Performed By: #### L 100.0100 ####[facility] [address] [place], [address] Erythrocyte distribution width (RBC) [Ratio] 13.2 % Normal 11.6-14.6 [facility] Comment on above: Performed By: #### L 100.0100 ####[facility] [address] [place], [address] Hematocrit (Bld) [Volume fraction] 33.4 % Low 37-47 [facility] Comment on above: Performed By: #### L 100.0100 ####[facility] [address] [place], [address] Hemoglobin (Bld) [Mass/Vol] 11.3 g/dL Low 12.0-15.0 [facility] Comment on above: Performed By: #### L 100.0100 ####[facility] [address] [place], [address] IG% 0.500 Normal 0.0-0.9 [facility] Comment on above: Result Comment: IG% - Immature Granulocytes (promyelocytes, myelocytes andmetamyelocytes) > 1% indicates that a LEFT SHIFT is Present. Performed By: #### L 100.0100 ####[facility] [address] [place], [address] Lymphocytes/100 WBC (Bld) 18.4 % Low 19-41 [facility] Comment on above: Performed By: #### L 100.0100 ####[facility] [address] [place], [address] MCH (RBC) [Entitic mass] 27.8 pg Normal 27.0-32.0 [facility] Comment on above: Performed By: #### L 100.0100 ####[facility] [address] [place], [address] MCHC (RBC) [Mass/Vol] 33.8 g/dL Normal 32-36 [facility] Comment on above: Performed By: #### L 100.0100 ####[facility] [address] [place], [address] MCV (RBC) [Entitic vol] 82.1 fL Normal 81-99 [facility] Comment on above: Performed By: #### L 100.0100 ####[facility] [address] [place], [address] Monocytes/100 WBC (Bld) 7.9 % Normal 0-10 [facility] Comment on above: Performed By: #### L 100.0100 ####[facility] [address] [place], [address] Neutrophils/100 WBC (Bld) 72.9 % High 47-70 [facility] Comment on above: Performed By: #### L 100.0100 ####[facility] [address] [place], [address] Nucleated RBC (Bld) [#/Vol] 0 10*3/uL Normal 0-5 [facility] Comment on above: Performed By: #### L 100.0100 ####[facility] [address] [place], [address] Platelet mean volume (Bld) [Entitic vol] 10.7 fL Normal 6.2-12.0 [facility] Comment on above: Performed By: #### L 100.0100 ####[facility] [address] [place], [address] Platelets (Bld) [#/Vol] 215 10*3/uL Normal 150-450 [facility] Comment on above: Performed By: #### L 100.0100 ####[facility] [address] [place], [address] RBC (Bld) [#/Vol] 4.07 10*6/uL Low 4.2-5.4 [facility] Comment on above: Performed By: #### L 100.0100 ####[facility] [address] [place], [address] RDW SD 39.4 fl Normal 35.1-43.9 [facility] Comment on above: Performed By: #### L 100.0100 ####[facility] [address] [place], [address] WBC (Bld) [#/Vol] 11.7 10*3/uL High 4.4-11.0 [facility] Comment on above: Performed By: #### L 100.0100 ####[facility] [address] [place], [address] Absolute Neut Normal 2.0-7.7 [facility] Comment on above: Result Comment: @DUP LICATE OK TO CANCEL PER [facility] ICU Performed By: #### L 100.0100, L500.2500 ####[facility] [address] [place], [address] HCT Normal 37-47 [facility] Comment on above: Result Comment: @DUP LICATE OK TO CANCEL PER [facility] ICU Performed By: #### L 100.0100, L500.2500 ####[facility] [address] [place], [address] HGB Normal 12.0-15.0 [facility] Comment on above: Result Comment: @DUP LICATE OK TO CANCEL PER CHARLYSR. MANAGER Performed By: #### L 100.0100, L500.2500 ####[facility] [address] [place], [address] MCH Normal 27.0-32.0 [facility] Comment on above: Result Comment: @DUP LICATE OK TO CANCEL PER CHARLY,SR. MANAGER Performed By: #### L 100.0100, L500.2500 ####[facility] [address] [place], [address] MCHC Normal 32-36 [facility] Comment on above: Result Comment: @DUP LICATE OK TO CANCEL PER CHARLY,SR. MANAGER Performed By: #### L 100.0100, L500.2500 ####[facility] [address] [place], [address] MCV Normal 81-99 [facility] Comment on above: Result Comment: @DUP LICATE OK TO CANCEL PER CHARLY,SR. MANAGER Performed By: #### L 100.0100, L500.2500 ####[facility] [address] [place], [address] NEUT% Normal 47-70 [facility] Comment on above: Result Comment: @DUP LICATE OK TO CANCEL PER CHARLY,SR. MANAGER Performed By: #### L 100.0100, L500.2500 ####[facility] [address] [place], [address] PLT Normal 150-450 [facility] Comment on above: Result Comment: @DUP LICATE OK TO CANCEL PER CHARLY,SR. MANAGER Performed By: #### L 100.0100, L500.2500 ####[facility] [address] [place], [address] RBC Normal 4.2-5.4 [facility] Comment on above: Result Comment: @DUP LICATE OK TO CANCEL PER CHARLY,SR. MANAGER Performed By: #### L 100.0100, L500.2500 ####[facility] [address] [place], [address] RDW CV Normal 11.6-14.6 [facility] Comment on above: Result Comment: @DUP LICATE OK TO CANCEL PER CHARLY,SR. MANAGER Performed By: #### L 100.0100, L500.2500 ####[facility] [address] [place], [address] RDW SD Normal 35.1-43.9 [facility] Comment on above: Result Comment: @DUP LICATE OK TO CANCEL PER [facility] ICU Performed By: #### L 100.0100, L500.2500 ####[facility] [address] [place], [address] WBC Normal 4.4-11.0 [facility] Comment on above: Result Comment: @DUP LICATE OK TO CANCEL PER [facility] ICU Performed By: #### L 100.0100, L500.2500 ####[facility] [address] [place], [address] Consultation - Infectious Dx on 07-06-2024 Consultation - Infectious Dx Normal [facility] Bedside Glucoseon 07-05-2024 FINGERSTICK GLU 271 mg/dL High [address] [place] [address] Comment on above: Result Comment: NERISSA GEMENT OF PATIENT CARE PER NURSING PROTOCOL Performed By: #### L 501.080 ####[facility] [address] [place], [address] FINGERSTICK GLU 362 mg/dL High [address] [place] [address] Comment on above: Result Comment: Dr Chucho marrufo FollowedInsulin GivenMANAGEMENT OF PATIENT CARE PER NURSING PROTOCOL Performed By: #### L 501.080 ####[facility] [address] [place], [address] FINGERSTICK GLU 360 mg/dL High [address] [place] [address] Comment on above: Result Comment: NERISSA GEMENT OF PATIENT CARE PER NURSING PROTOCOL Performed By: #### L 501.080 ####[facility] [address] [place], [address] FINGERSTICK GLU 350 mg/dL High [address] [place] [address] Comment on above: Result Comment: NERISSA GEMENT OF PATIENT CARE PER NURSING PROTOCOL Performed By: #### L 501.080 ####[facility] [address] [place], [address] FINGERSTICK GLU 348 mg/dL High [address] [place] [address] Comment on above: Result Comment: NERISSA RODRIGUES OF PATIENT CARE PER NURSING PROTOCOL Performed By: #### L 501.080 ####[facility] [address] [place], [address] CBC W/Diff, Automatedon 06-20 PLT EST A Normal ADEQ [facility] Comment on above: Order Comment: A MENDED REPORT 07/05/24827 NEUT% previously reported as: 76.8 H % AMENDED REPORT 07/05/24827 LY% previously reported as: 13.5 L % AMENDED REPORT 07/05/24827 MONO% previously reported as: 8.7 % AMENDED REPORT 07/05/24827 EO% previously reported as: 0.0 % AMENDED REPORT 07/05/24827 BASO% previously reported as: 0.2 %IG% - Immature Granulocytes (promyelocytes, myelocytes andmetamyelocytes) > 1% indicates that a LEFT SHIFT is Present. AMENDED REPORT 07/05/24828 IM GRAN % previously reported as: 0.800 % Performed By: #### L 500.4050, L100.0100, L501.5200, L501.2300 ####[facility] [address] [place], [address] Comprehensive Metabolic Prof ilon 07-05-2024 Albumin [Mass/Vol] 2.7 g/dL Low 3.2-5.0 [facility] Comment on above: Performed By: #### L 500.4050, L100.0100, L501.5200, L501.2300 ####[facility] [address] [place], [address] Albumin/Globulin [Mass ratio] 0.9 {ratio} Normal 0.9-2.4 [facility] Comment on above: Performed By: #### L 500.4050, L100.0100, L501.5200, L501.2300 ####[facility] [address] [place], [address] ALK P 123 U/L High 45-117 [facility] Comment on above: Performed By: #### L 500.4050, L100.0100, L501.5200, L501.2300 ####[facility] [address] [place], [address] ALT [Catalytic activity/Vol] 50 U/L Normal 13-56 [facility] Comment on above: Performed By: #### L 500.4050, L100.0100, L501.5200, L501.2300 ####[facility] [address] [place], [address] AST [Catalytic activity/Vol] 86 U/L High 15-37 [facility] Comment on above: Performed By: #### L 500.4050, L100.0100, L501.5200, L501.2300 ####[facility] [address] [place], [address] Bilirubin [Mass/Vol] 0.60 mg/dL Normal 0.20-1.00 [facility] Comment on above: Result Comment: For patients on eltrombopag therapy, use of Dimension [place] TBIL is not recommended. Performed By: #### L 500.4050, L100.0100, L501.5200, L501.2300 ####[facility] [address] [place], [address] BUN/CRE 25.2 RATIO High 10-20 [facility] Comment on above: Performed By: #### L 500.4050, L100.0100, L501.5200, L501.2300 ####[facility] [address] [place], [address] CA,Total 8.4 mg/dL Low 8.5-10.1 [facility] Comment on above: Performed By: #### L 500.4050, L100.0100, L501.5200, L501.2300 ####[facility] [address] [place], [address] Chloride [Moles/Vol] 101 mmol/L Normal 98-107 [facility] Comment on above: Performed By: #### L 500.4050, L100.0100, L501.5200, L501.2300 ####[facility] [address] [place], [address] CO2 [Moles/Vol] 23.0 mmol/L Normal 21.0-32.0 [facility] Comment on above: Performed By: #### L 500.4050, L100.0100, L501.5200, L501.2300 ####[facility] [address] [place], [address] Creatinine [Mass/Vol] 3.41 mg/dL High 0.55-1.02 [facility] Comment on above: Result Comment: The validity of the calculated GFR GFRAA in patients over70 years has not been determined. Clinical correlation isessential. Performed By: #### L 500.4050, L100.0100, L501.5200, L501.2300 ####[facility] [address] [place], [address] ECRCL 23.60 ml/min Normal [facility] Comment on above: Performed By: #### L 500.4050, L100.0100, L501.5200, L501.2300 ####[facility] [address] [place], [address] EST GFR - AA 18 mL/min Low >60 [facility] Comment on above: Result Comment: Afri can Iraqi GFR Calc Performed By: #### L 500.4050, L100.0100, L501.5200, L501.2300 ####[facility] [address] [place], [address] GAP 11 Normal 5-15 [facility] Comment on above: Performed By: #### L 500.4050, L100.0100, L501.5200, L501.2300 ####[facility] [address] [place], [address] GFR/1.73 sq M.predicted among non-blacks MDRD (S/P/Bld) [Vol rate/Area] 15 mL/min/{1.73_m2} Low >60 [facility] Comment on above: Result Comment: Non- GFR Calc Performed By: #### L 500.4050, L100.0100, L501.5200, L501.2300 ####[facility] [address] [place], [address] Globulin (S) [Mass/Vol] 3.0 g/dL Normal 2.2-4.2 [facility] Comment on above: Performed By: #### L 500.4050, L100.0100, L501.5200, L501.2300 ####[facility] [address] [place], [address] Glucose [Mass/Vol] 351 mg/dL High 74-106 [facility] Comment on above: Result Comment: Gluc ose result greater than or equal to 200 mg/dLsuggests DIABETES MELLITUS per A.D.A. criteria. Performed By: #### L 500.4050, L100.0100, L501.5200, L501.2300 ####[facility] [address] [place], [address] Potassium [Moles/Vol] 3.2 mmol/L Low 3.5-5.1 [facility] Comment on above: Performed By: #### L 500.4050, L100.0100, L501.5200, L501.2300 ####[facility] [address] [place], [address] Sodium [Moles/Vol] 135 mmol/L Low 136-145 [facility] Comment on above: Performed By: #### L 500.4050, L100.0100, L501.5200, L501.2300 ####[facility] [address] [place], [address] T PROT 5.7 g/dL Low 6.4-8.2 [facility] Comment on above: Performed By: #### L 500.4050, L100.0100, L501.5200, L501.2300 ####[facility] [address] [place], [address] Urea nitrogen [Mass/Vol] 86 mg/dL High 7-18 [facility] Comment on above: Performed By: #### L 500.4050, L100.0100, L501.5200, L501.2300 ####[facility] [address] [place], [address] Echo Completeon 07-05-2024 Echo Complete Normal [facility] Gram Stainon 07-05-2024 GS List Antibiotics Las t 48 Hours? vancomycin, zosyn Not obtained in 1 hr, induce w/nebulized 0.9% NaCL Acceptable Specimen? Yes (<25 Epithelial cells per/lpf) Gram Stain 3+ Gram positive cocci 1+ White Blood Cells No Epithelial cells Normal [facility] Comment on above: Performed By: #### M 100.2000, M100.2400 ####[facility] [address] [place], [address] HH, Hemoglobin AND Hematocri ton 07-05-2024 Hematocrit (Bld) [Volume fraction] 30.6 % Low 37-47 [facility] Comment on above: Performed By: #### L 100.0600 ####[facility] [address] [place], [address] Hemoglobin (Bld) [Mass/Vol] 10.9 g/dL Low 12.0-15.0 [facility] Comment on above: Performed By: #### L 100.0600 ####[facility] [address] [place], [address] Magnesiumon 07-05-2024 Magnesium [Mass/Vol] 2.5 mg/dL Normal 1.6-2.6 [facility] Comment on above: Performed By: #### L 500.4050, L100.0100, L501.5200, L501.2300 ####[facility] [address] [place], [address] Modified Barium Swallow Stud yon 07-05-2024 Modified Barium Swallow Study Normal [facility] Osmolality, Urineon 07-05-19 25 OSMOLALITY,UR 428 mOsm/KG Normal [facility] Comment on above: Result Comment: Norm al Urine Reference Ranges Random: 50 - 1200 mOsm/kg H20 depending on fluid intake Random: >850 mOsm/kg after 12 hour fluid restriction 24 hour: 300 - 900 mOsm/kg H2O Performed By: #### L 500.9400, L501.0900, L501.7400 ####[facility] [address] [place], [address] Phosphoruson 07-05-2024 Phosphate [Mass/Vol] 2.2 mg/dL Low 2.5-4.9 [facility] Comment on above: Performed By: #### L 500.4050, L100.0100, L501.5200, L501.2300 ####[facility] [address] [place], [address] Urinalysis, Completeon 07-05 EPI,TRANSITION 0-5 SEEN Normal 0-5 [facility] Comment on above: Order Comment: COLOR OF URINE MAY AFFECT DIPSTICK RESULTS.Microscopic field is filled. Other elements may beobscured.CATHETER SPECIMEN Performed By: #### L 400.0001 ####[facility] [address] [place], [address] BACTERIA 1+ /hpf Normal None Seen [facility] Comment on above: Order Comment: COLOR OF URINE MAY AFFECT DIPSTICK RESULTS.Microscopic field is filled. Other elements may beobscured.CATHETER SPECIMEN Performed By: #### L 400.0001 ####[facility] [address] [place], [address] WBC 25-50 SEEN Normal 0-5 [facility] Comment on above: Order Comment: COLOR OF URINE MAY AFFECT DIPSTICK RESULTS.Microscopic field is filled. Other elements may beobscured.CATHETER SPECIMEN Performed By: #### L 400.0001 ####[facility] [address] [facility] [address] RBC > 100 SEEN Normal 0-5 [facility] Comment on above: Order Comment: COLOR OF URINE MAY AFFECT DIPSTICK RESULTS.Microscopic field is filled. Other elements may beobscured.CATHETER SPECIMEN Performed By: #### L 400.0001 ####[facility] [address] [place] [id number] URIC CRYSTALS 1+ /hpf Normal [facility] Comment on above: Order Comment: COLOR OF URINE MAY AFFECT DIPSTICK RESULTS.Microscopic field is filled. Other elements may beobscured.CATHETER SPECIMEN Performed By: #### L 400.0001 ####[facility] [address] [facility] [address] EPI,SQUAMOUS 0 SEEN Normal 5-10 [facility] Comment on above: Order Comment: COLOR OF URINE MAY AFFECT DIPSTICK RESULTS.Microscopic field is filled. Other elements may beobscured.CATHETER SPECIMEN Performed By: #### L 400.0001 ####[facility] [address] [facility] [address] Mucus Ql (Urine sed) 0 SEEN Normal [facility] Comment on above: Order Comment: COLOR OF URINE MAY AFFECT DIPSTICK RESULTS.Microscopic field is filled. Other elements may beobscured.CATHETER SPECIMEN Performed By: #### L 400.0001 ####[facility] [address] [place], [address] Vancomycin, Random Levelon 0 07-05-2024 VANCO, RANDOM 18.8 ug/mL High 0.0-15.0 [facility] Comment on above: Result Comment: VANC OMYCIN STANDARD DRUG THERAPY: CRITICAL VALUE IS > 15.0 mg/LVANCOMYCIN HIGH INTENSITY THERAPY: CRITICAL VALUE IS > 20.0 mg/LPLEASE CONTACT PHARMACY SERVICES (#5571) FOR INTERPRETATIONOF RESULTS. THIS RESULT DOES NOT REPRESENT A PEAK OR TROUGHLEVEL FOR THIS DRUG. Performed By: #### L 501.8850 ####[facility] [address] [place], [address] Ammoniaon 07-04-2024 Ammonia (P) [Moles/Vol] 29.0 umol/L Normal 11-32 [facility] Comment on above: Performed By: #### L 501.9520, L503.5510, L500.3400 ####[facility] [address] [place], [address] BNP,B-Type NATRIURETIC PEPTI Ade 07-04-2024 Natriuretic peptide B (Bld) [Mass/Vol] 432.7 pg/mL High 0-100 [facility] Comment on above: Performed By: #### L 503.6620 ####[facility] [address] [place], [address] Basic Metabolic Profile (BMP )on 07-04-2024 BUN/CRE 23.3 RATIO High 10-20 [facility] Comment on above: Order Comment: Call MD with results STAT Performed By: #### L 500.2500 ####[facility] [address] [place], [address] CA,Total 8.0 mg/dL Low 8.5-10.1 [facility] Comment on above: Order Comment: Call MD with results STAT Performed By: #### L 500.2500 ####[facility] [address] [place], [address] Chloride [Moles/Vol] 92 mmol/L Low 98-107 [facility] Comment on above: Order Comment: Call MD with results STAT Performed By: #### L 500.2500 ####[facility] [address] [place], [address] CO2 [Moles/Vol] 24.0 mmol/L Normal 21.0-32.0 [facility] Comment on above: Order Comment: Call MD with results STAT Performed By: #### L 500.2500 ####[facility] [address] [place], [address] Creatinine [Mass/Vol] 3.69 mg/dL High 0.55-1.02 [facility] Comment on above: Order Comment: Call MD with results STAT Result Comment: The validity of the calculated GFR GFRAA in patients over70 years has not been determined. Clinical correlation isessential. Performed By: #### L 500.2500 ####[facility] [address] [place], [address] ECRCL 21.85 ml/min Normal [facility] Comment on above: Order Comment: Call MD with results STAT Performed By: #### L 500.2500 ####[facility] [address] [place], [address] EST GFR - AA 16 mL/min Low >60 [facility] Comment on above: Order Comment: Call MD with results STAT Result Comment: Afri can Iraqi GFR Calc Performed By: #### L 500.2500 ####[facility] [address] [place], [address] GAP 13 Normal 5-15 [facility] Comment on above: Order Comment: Call MD with results STAT Performed By: #### L 500.2500 ####[facility] [address] [place], [address] GFR/1.73 sq M.predicted among non-blacks MDRD (S/P/Bld) [Vol rate/Area] 13 mL/min/{1.73_m2} Low >60 [facility] Comment on above: Order Comment: Call MD with results STAT Result Comment: Non- GFR Calc Performed By: #### L 500.2500 ####[facility] [address] [place], [address] Glucose [Mass/Vol] 236 mg/dL High 74-106 [facility] Comment on above: Order Comment: Call MD with results STAT Result Comment: Gluc ose result greater than or equal to 200 mg/dLsuggests DIABETES MELLITUS per A.D.A. criteria. Performed By: #### L 500.2500 ####[facility] [address] [place], [address] Potassium [Moles/Vol] 4.5 mmol/L Normal 3.5-5.1 [facility] Comment on above: Order Comment: Call MD with results STAT Result Comment: Mode rate Hemolysis, Result may be falsely increased. Performed By: #### L 500.2500 ####[facility] [address] [place], [address] Sodium [Moles/Vol] 129 mmol/L Low 136-145 [facility] Comment on above: Order Comment: Call MD with results STAT Performed By: #### L 500.2500 ####[facility] [address] [place], [address] Urea nitrogen [Mass/Vol] 86 mg/dL High 7-18 [facility] Comment on above: Order Comment: Call MD with results STAT Performed By: #### L 500.2500 ####[facility] [address] [place], [address] BUN/CRE 22.3 RATIO High 10-20 [facility] Comment on above: Order Comment: Call MD with results STAT Performed By: #### L 500.2500 ####[facility] [address] [place], [address] CA,Total 7.7 mg/dL Low 8.5-10.1 [facility] Comment on above: Order Comment: Call MD with results STAT Performed By: #### L 500.2500 ####[facility] [address] [place], [address] Chloride [Moles/Vol] 92 mmol/L Low 98-107 [facility] Comment on above: Order Comment: Call MD with results STAT Performed By: #### L 500.2500 ####[facility] [address] [place], [address] CO2 [Moles/Vol] 25.0 mmol/L Normal 21.0-32.0 [facility] Comment on above: Order Comment: Call MD with results STAT Performed By: #### L 500.2500 ####[facility] [address] [place], [address] Creatinine [Mass/Vol] 3.59 mg/dL High 0.55-1.02 [facility] Comment on above: Order Comment: Call MD with results STAT Result Comment: The validity of the calculated GFR GFRAA in patients over70 years has not been determined. Clinical correlation isessential. Performed By: #### L 500.2500 ####[facility] [address] [place], [address] ECRCL 22.80 ml/min Normal [facility] Comment on above: Order Comment: Call MD with results STAT Performed By: #### L 500.2500 ####[facility] [address] [place], [address] EST GFR - AA 17 mL/min Low >60 [facility] Comment on above: Order Comment: Call MD with results STAT Result Comment: Afri can Iraqi GFR Calc Performed By: #### L 500.2500 ####[facility] [address] [place], [address] GAP 11 Normal 5-15 [facility] Comment on above: Order Comment: Call MD with results STAT Performed By: #### L 500.2500 ####[facility] [address] [place], [address] GFR/1.73 sq M.predicted among non-blacks MDRD (S/P/Bld) [Vol rate/Area] 14 mL/min/{1.73_m2} Low >60 [facility] Comment on above: Order Comment: Call MD with results STAT Result Comment: Non- GFR Calc Performed By: #### L 500.2500 ####[facility] [address] [place], [address] Glucose [Mass/Vol] 298 mg/dL High 74-106 [facility] Comment on above: Order Comment: Call MD with results STAT Result Comment: Gluc ose result greater than or equal to 200 mg/dLsuggests DIABETES MELLITUS per A.D.A. criteria. Performed By: #### L 500.2500 ####[facility] [address] [place], [address] Potassium [Moles/Vol] 3.2 mmol/L Low 3.5-5.1 [facility] Comment on above: Order Comment: Call MD with results STAT Performed By: #### L 500.2500 ####[facility] [address] [place], [address] Sodium [Moles/Vol] 128 mmol/L Low 136-145 [facility] Comment on above: Order Comment: Call MD with results STAT Performed By: #### L 500.2500 ####[facility] [address] [place], [address] Urea nitrogen [Mass/Vol] 80 mg/dL High 7-18 [facility] Comment on above: Order Comment: Call MD with results STAT Performed By: #### L 500.2500 ####[facility] [address] [place], [address] Bedside Glucoseon 07-04-2024 FINGERSTICK GLU 373 mg/dL High 74-106 [facility] Comment on above: Result Comment: NERISSA GEMENT OF PATIENT CARE PER NURSING PROTOCOL Performed By: #### L 501.080 ####[facility] [address] [place], [address] FINGERSTICK GLU 314 mg/dL High 74-106 [facility] Comment on above: Result Comment: Dr Chucho marrufo FollowedInsulin GivenMANAGEMENT OF PATIENT CARE PER NURSING PROTOCOL Performed By: #### L 501.080 ####[facility] [address] [place], [address] FINGERSTICK GLU 289 mg/dL High 74-106 [facility] Comment on above: Result Comment: Dr Chucho marrufo FollowedInsulin GivenMANAGEMENT OF PATIENT CARE PER NURSING PROTOCOL Performed By: #### L 501.080 ####[facility] [address] [place], [address] FINGERSTICK GLU 258 mg/dL High -[address] [place] [address] Comment on above: Result Comment: Insu cristy GivenDr Orders FollowedMANAGEMENT OF PATIENT CARE PER NURSING PROTOCOL Performed By: #### L 501.080 ####[facility] [address] [place], [address] FINGERSTICK GLU 232 mg/dL High 74-106 [facility] Comment on above: Result Comment: NERISSA GEMENT OF PATIENT CARE PER NURSING PROTOCOL Performed By: #### L 501.080 ####[facility] [address] [place], [address] FINGERSTICK GLU 241 mg/dL High 74-106 [facility] Comment on above: Result Comment: NERISSA GEMENT OF PATIENT CARE PER NURSING PROTOCOL Performed By: #### L 501.080 ####[facility] [address] [place], [address] FINGERSTICK GLU 236 mg/dL High 74-106 [facility] Comment on above: Result Comment: NERISSA GEMENT OF PATIENT CARE PER NURSING PROTOCOL Performed By: #### L 501.080 ####[facility] [address] [place], [address] FINGERSTICK GLU 228 mg/dL High 74-106 [facility] Comment on above: Result Comment: NERISSA GEMENT OF PATIENT CARE PER NURSING PROTOCOL Performed By: #### L 501.080 ####[facility] [address] [place], [address] FINGERSTICK GLU 255 mg/dL High 74-106 [facility] Comment on above: Result Comment: NERISSA GEMENT OF PATIENT CARE PER NURSING PROTOCOL Performed By: #### L 501.080 ####[facility] [address] [place], [address] FINGERSTICK GLU 257 mg/dL High [address] [place] [address] Comment on above: Result Comment: NERISSA GEMENT OF PATIENT CARE PER NURSING PROTOCOL Performed By: #### L 501.080 ####[facility] [address] [place], [address] FINGERSTICK GLU 238 mg/dL High [facility]106 [facility] Comment on above: Result Comment: NERISSA GEMENT OF PATIENT CARE PER NURSING PROTOCOL Performed By: #### L 501.080 ####[facility] [address] [place], [address] FINGERSTICK GLU 272 mg/dL High -106 [facility] Comment on above: Result Comment: NERISSA GEMENT OF PATIENT CARE PER NURSING PROTOCOL Performed By: #### L 501.080 ####[facility] [address] [place], [address] FINGERSTICK GLU 315 mg/dL High [address] [place] [address] Comment on above: Result Comment: NERISSA GEMENT OF PATIENT CARE PER NURSING PROTOCOL Performed By: #### L 501.080 ####[facility] [address] [place], [address] FINGERSTICK GLU 368 mg/dL High 74-106 [facility] Comment on above: Result Comment: NERISSA GEMENT OF PATIENT CARE PER NURSING PROTOCOL Performed By: #### L 501.080 ####[facility] [address] [place], [address] FINGERSTICK GLU > 500 Invalid Interpretation Code [address] [place] [address] Comment on above: Result Comment: Insu cristy GivenMANAGEMENT OF PATIENT CARE PER NURSING PROTOCOL Performed By: #### L 501.080 ####[facility] [address] [place], [address] FINGERSTICK GLU 352 mg/dL High [address] [place] [address] Comment on above: Result Comment: NERISSA GEMENT OF PATIENT CARE PER NURSING PROTOCOL Performed By: #### L 501.080 ####[facility] [address] [place], [address] Blood Gases by [facility] 025 FRANCK TEST Positive Normal [facility] Comment on above: Performed By: #### L 9000.0800 ####[facility] [address] [place], [address] Base excess Calc (Bld) [Moles/Vol] -4 mmol/L Low -2 to +2 [facility] Comment on above: Performed By: #### L 9000.0800 ####[facility] [address] [place], [address] Blood Gas Type ART Normal [facility] Comment on above: Performed By: #### L 9000.0800 ####[facility] [address] [place], [address] CO2 [Moles/Vol] 24 mmol/L Normal [facility] Comment on above: Performed By: #### L 9000.0800 ####[facility] [address] [place], [address] FI02 3.0 Normal [facility] Comment on above: Performed By: #### L 9000.0800 ####[facility] [address] [place], [address] HCO3 (Bld) [Moles/Vol] 22.2 mmol/L Normal 22-26 [facility] Comment on above: Performed By: #### L 0.0800 ####[facility] [address] [place], [address] Mode Not entered Normal [facility] Comment on above: Performed By: #### L 9000.0800 ####[facility] [address] [place], [address] O2 Delivery Dev Cannula Normal [facility] Comment on above: Performed By: #### L 0.08 ####[facility] [address] [place], [address] pCO2 41.7 mmHg Normal 35-45 [facility] Comment on above: Performed By: #### L 9000.0800 ####[facility] [address] [place], [address] pH (Bld) 7.34 [pH] Low 7.35-7.45 [facility] Comment on above: Performed By: #### L 9000.0800 ####[facility] [address] [place], [address] PO2 52 mmHG Low 75-100 [facility] Comment on above: Performed By: #### L 9000.0800 ####[facility] [address] [place], [address] SITE R Radial Normal [facility] Comment on above: Performed By: #### L 9000.0800 ####[facility] [address] [place], [address] SO2 84 Low 95-99 [facility] Comment on above: Performed By: #### L 9000.0800 ####[facility] [address] [place], [place], [address] Brain/Head without Contrasto n 07-04-2024 Brain/Head without Contrast Normal [facility] CBC W/Diff, Automatedon 06-20 PATH REV Reviewed Normal [facility] Comment on above: Order Comment: A MENDED REPORT 07/04/24 2229 NRBC, FLAGGED previously reported as: 0 % Result Comment: Neut rophilic leukocytosis with left shift.MICROCYTOSIS.Clinical correlation necessary.Aravind Mireles M.D. 07/04/24 AMENDED REPORT 07/04/24 1613 PATH REV previously reported as: October Performed By: #### L 100.0100 ####[facility] [address] [place], [place], [address] PATH REV Reviewed Normal [facility] Comment on above: Result Comment: NEUT ROPHILIC LEUKEMOID REACTION WITH LEFT SHIFT.Clinical correlation necessary.Aravind Mireles M.D. 07/04/24 AMENDED REPORT 07/04/24 1420 PATH REV previously reported as: October Performed By: #### L 100.0100 ####[facility] [address] [place], [address] Chest 1 View (Portable)on Chest 1 View (Portable) Normal [facility] Consultation - Intensiviston 07-04-2024 Consultation - Room Service Waiter/Waitress Normal [facility] Consultation - Nephrologyon 07-04-2024 Consultation - Nephrology Normal [facility] Kidney and Bladderon 025 Kidney and Bladder Normal [facility] Lactic Acidon 07-04-2024 Lactate [Moles/Vol] 2.5 mmol/L Invalid Interpretation Code 0.4-1.9 [facility] Comment on above: Order Comment: Y Result Comment: Crit ical Result(s) Called at: 10:56:32 07/04/2024 by: AARTI Chase. Results read back by same. Performed By: #### L 503.6005 ####[facility] [address] [place], [address] Legionella Antigen Urineon 0 07-04-2024 LEGU Normal [facility] Comment on above: Performed By: #### M 300.4500, M300.4600 ####[facility] [address] [place], [address] LEGU Normal [facility] Comment on above: Performed By: #### M 300.4600, M300.4500 ####[facility] [address] [place], [address] Liver Profileon 07-04-2024 Albumin [Mass/Vol] 3.0 g/dL Low 3.2-5.0 [facility] Comment on above: Performed By: #### L 501.9520, L503.5510, L500.3400 ####[facility] [address] [place], [address] ALK P 143 U/L High 45-117 [facility] Comment on above: Performed By: #### L 501.9520, L503.5510, L500.3400 ####[facility] [address] [place], [address] ALT [Catalytic activity/Vol] 54 U/L Normal 13-56 [facility] Comment on above: Performed By: #### L 501.9520, L503.5510, L500.3400 ####[facility] [address] [place], [address] AST [Catalytic activity/Vol] 138 U/L High 15-37 [facility] Comment on above: Result Comment: Mode rate Hemolysis, Result may be falsely increased. Performed By: #### L 501.9520, L503.5510, L500.3400 ####[facility] [address] [place], [address] Bilirubin [Mass/Vol] 0.50 mg/dL Normal 0.20-1.00 [facility] Comment on above: Result Comment: For patients on eltrombopag therapy, use of Dimension [place] TBIL is not recommended. Performed By: #### L 501.9520, L503.5510, L500.3400 ####[facility] [address] [place], [address] D BILI < 0.05 Normal 0.00-0.30 [facility] Comment on above: Performed By: #### L 501.9520, L503.5510, L500.3400 ####[facility] [address] [place], [address] Globulin (S) [Mass/Vol] 3.2 g/dL Normal 2.2-4.2 [facility] Comment on above: Performed By: #### L 501.9520, L503.5510, L500.3400 ####[facility] [address] [place], [address] T PROT 6.2 g/dL Low 6.4-8.2 [facility] Comment on above: Performed By: #### L 501.9520, L503.5510, L500.3400 ####[facility] [address] [place], [address] M8200.1000on 07-04-2024 M8200.1000 Negative Normal [facility] Comment on above: Performed By: #### M 8200.1000 ####[facility] [address] [place], [address] Osmolality, Serumon 07-04-19 25 OSMOLALITY,SER 371 mOsm/KG High 275-295 [facility] Comment on above: Order Comment: Comme nts: If not done in the EDComments: Add to ER Lab draw Performed By: #### L 300.3900, L501.7300 ####[facility] [address] [place], [address] Procalcitoninon 07-04-2024 Procalcitonin 3.83 ng/mL High 0.00-0.09 [facility] Comment on above: Result Comment: A pr ocalcitonin (PCT) level above 2.0 ng/mL on the first day of ICU admission is associated with a high risk for progression to severe sepsis and/or septic shock. A PCT level below 0.5 ng/mL on the first day of ICU admission is associated with a low risk for progression to severe and/or septic shock. Note: Concentrations <0.5 ng/mL do not exclude an infection on account of localized infections (without systemic signs) which can be associated with such low concentrations, or a systemic infection in its initial stages (<6 hours). Furthermore, increased procalcitonin can occur without infection. PCT concentrations between 0.5 and 2.0 ng/mL should be interpreted taking into account the patient's history. It is recommended to retest PCT within 6-24 hours if any concentrations <2 ng/mL are obtained. Performed By: #### L 509.7000 ####[facility] [address] [place], [address] Protein+Creatinine Ratio,Uri neon 07-04-2024 PROT:CRE RATIO 1058 mg/g CRE High 0-200 [facility] Comment on above: Performed By: #### L 500.9400, L501.0900, L501.7400 ####[facility] [address] [place], [address] Protein (U) [Mass/Vol] 60.4 mg/dL High <11.9 [facility] Comment on above: Performed By: #### L 500.9400, L501.0900, L501.7400 ####[facility] [address] [place], [address] UR CREAT 57.10 mg/dL Normal NO RANGE EST. [facility] Comment on above: Performed By: #### L 500.9400, L501.0900, L501.7400 ####[facility] [address] [place], [address] RESPIRATORY PANEL MOLECULARo n 07-04-2024 RP PANEL Normal [facility] Comment on above: Performed By: #### M 100.638 ####[facility] [address] [place], [address] Strep pneumoniae Antig(UR,CS F)on 07-04-2024 STPAG Normal [facility] Comment on above: Performed By: #### M 300.4500, M300.4600 ####[facility] [address] [place], [address] STPAG Normal [facility] Comment on above: Performed By: #### M 300.4600, M300.4500 ####[facility] [address] [place], [address] Thyroid Stim Hormone (TSH)on 07-04-2024 TSH 0.305 uIU/mL Low 0.358-3.740 [facility] Comment on above: Performed By: #### L 501.9520, L503.5510, L500.3400 ####[facility] [address] [place], [address] Urine Cultureon 07-04-2024 URC Cross cath urine is not recommended. Growth may represent distal urethral rubens. Gram positive organism Logan Count <1000 Normal [facility] Comment on above: Performed By: #### M 100.2200 ####[facility] [address] [place], [address] Urine Drug Screen (VISTA)on 07-04-2024 AMPHETAMINES Negative Normal <1000 ng/mL [facility] Comment on above: Performed By: #### L 505.5000 ####[facility] [address] [place], [address] BARBITIURATES Negative Normal < 200 ng/mL [facility] Comment on above: Performed By: #### L 505.5000 ####[facility] [address] [place] [phone] BENZODIAZIPINE Negative Normal < 200 ng/mL [facility] Comment on above: Performed By: #### L 505.5000 ####[facility] [address] [place] [phone] COCAINE Negative Normal < 300 ng/mL [facility] Comment on above: Performed By: #### L 505.5000 ####[facility] [address] [place] [phone] ECSTACY Negative Normal < 500 ng/mL [facility] Comment on above: Performed By: #### L 505.5000 ####[facility] [address] [place] [address] METHADONE Negative Normal < 300 ng/mL [facility] Comment on above: Performed By: #### L 505.5000 ####[facility] [address] [place] [phone] OPIATES Negative Normal < 300 ng/mL [facility] Comment on above: Performed By: #### L 505.5000 ####[facility] [address] [place] [phone] PCP Negative Normal < 25 ng/mL [facility] Comment on above: Performed By: #### L 505.5000 ####[facility] [address] [place] [phone] THC Negative Normal < 50 ng/mL [facility] Comment on above: Performed By: #### L 505.5000 ####[facility] [address] [place] [phone] VISTA UDS PH 5 Normal [facility] Comment on above: Performed By: #### L 505.5000 ####[facility] [address] [place], [address] Urine Electrolytes- Randomon 07-04-2024 Sodium (U) [Moles/Vol] 10 mmol/L Normal Not Establ. [facility] Comment on above: Performed By: #### L 500.9400, L501.0900, L501.7400 ####[facility] [address] [place], [address] UR CL 11 mmol/L Normal Not Establ. [facility] Comment on above: Performed By: #### L 500.9400, L501.0900, L501.7400 ####[facility] [address] [place], [address] UR K 23.0 mmol/L Normal Not Establ. [facility] Comment on above: Performed By: #### L 500.9400, L501.0900, L501.7400 ####[facility] [address] [place], [address] Acetone Serumon 07-03-2024 ACETONE SERUM MODERATE Abnormal NEG [facility] Comment on above: Performed By: #### L 501.2300, L501.2450, L500.4050, L501.9985, L501.4020, L501.5200, L501.6900 ####[facility] [address] [place], [address] BNP,B-Type NATRIURETIC PEPTI Ade 07-03-2024 Natriuretic peptide B (Bld) [Mass/Vol] 468.2 pg/mL High 0-100 [facility] Comment on above: Performed By: #### L 503.6620 ####[facility] [address] [place], [address] Basic Metabolic Profile (BMP )on 07-03-2024 BUN/CRE 22.7 RATIO High 10-20 [facility] Comment on above: Order Comment: Call MD with results STAT Performed By: #### L 500.2500 ####[facility] [address] [place], [address] CA,Total 7.1 mg/dL Low 8.5-10.1 [facility] Comment on above: Order Comment: Call MD with results STAT Performed By: #### L 500.2500 ####[facility] [address] [place], [address] Chloride [Moles/Vol] 86 mmol/L Low 98-107 [facility] Comment on above: Order Comment: Call MD with results STAT Performed By: #### L 500.2500 ####[facility] [address] [place], [address] CO2 [Moles/Vol] 19.0 mmol/L Low 21.0-32.0 [facility] Comment on above: Order Comment: Call MD with results STAT Performed By: #### L 500.2500 ####[facility] [address] [place], [address] Creatinine [Mass/Vol] 3.53 mg/dL High 0.55-1.02 [facility] Comment on above: Order Comment: Call MD with results STAT Result Comment: The validity of the calculated GFR GFRAA in patients over70 years has not been determined. Clinical correlation isessential. Performed By: #### L 500.2500 ####[facility] [address] [place], [address] ECRCL 23.18 ml/min Normal [facility] Comment on above: Order Comment: Call MD with results STAT Performed By: #### L 500.2500 ####[facility] [address] [place], [address] EST GFR - AA 17 mL/min Low >60 [facility] Comment on above: Order Comment: Call MD with results STAT Result Comment: Afri can Iraqi GFR Calc Performed By: #### L 500.2500 ####[facility] [address] [place], [address] GAP 20 High 5-15 [facility] Comment on above: Order Comment: Call MD with results STAT Performed By: #### L 500.2500 ####[facility] [address] [place], [place], [phone] GFR/1.73 sq M.predicted among non-blacks MDRD (S/P/Bld) [Vol rate/Area] 14 mL/min/{1.73_m2} Low >60 [facility] Comment on above: Order Comment: Call MD with results STAT Result Comment: Non- GFR Calc Performed By: #### L 500.2500 ####[facility] [address] [place], [address] Glucose [Mass/Vol] 639 mg/dL Invalid Interpretation Code 74-106 [facility] Comment on above: Order Comment: Call MD with results STAT Result Comment: Crit ical Result(s) Called at: 22:11:28 07/03/2024 by: SILVIA. Results read back by T. NoraGlucose result greater than or equal to 200 mg/dLsuggests DIABETES MELLITUS per A.D.A. criteria. Performed By: #### L 500.2500 ####[facility] [address] [place], [place], [phone] Potassium [Moles/Vol] 3.8 mmol/L Normal 3.5-5.1 [facility] Comment on above: Order Comment: Call MD with results STAT Result Comment: Slig ht Hemolysis, Result may be falsely increased. Performed By: #### L 500.2500 ####[facility] [address] [place], [address] Sodium [Moles/Vol] 126 mmol/L Low 136-145 [facility] Comment on above: Order Comment: Call MD with results STAT Performed By: #### L 500.2500 ####[facility] [address] [place], [address] Urea nitrogen [Mass/Vol] 80 mg/dL High 7-18 [facility] Comment on above: Order Comment: Call MD with results STAT Performed By: #### L 500.2500 ####[facility] [address] [place], [address] BUN/CRE 22.2 RATIO High 10-20 [facility] Comment on above: Order Comment: Call MD with results STAT Performed By: #### L 500.2500 ####[facility] [address] [place], [address] CA,Total 7.0 mg/dL Low 8.5-10.1 [facility] Comment on above: Order Comment: Call MD with results STAT Performed By: #### L 500.2500 ####[facility] [address] [place], [address] Chloride [Moles/Vol] 85 mmol/L Low 98-107 [facility] Comment on above: Order Comment: Call MD with results STAT Performed By: #### L 500.2500 ####[facility] [address] [place], [address] CO2 [Moles/Vol] 13.0 mmol/L Low 21.0-32.0 [facility] Comment on above: Order Comment: Call MD with results STAT Performed By: #### L 500.2500 ####[facility] [address] [place], [address] Creatinine [Mass/Vol] 3.42 mg/dL High 0.55-1.02 [facility] Comment on above: Order Comment: Call MD with results STAT Result Comment: The validity of the calculated GFR GFRAA in patients over70 years has not been determined. Clinical correlation isessential. Performed By: #### L 500.2500 ####[facility] [address] [place], [address] ECRCL 23.93 ml/min Normal [facility] Comment on above: Order Comment: Call MD with results STAT Performed By: #### L 500.2500 ####[facility] [address] [place], [address] EST GFR - AA 18 mL/min Low >60 [facility] Comment on above: Order Comment: Call MD with results STAT Result Comment: Afri can Iraqi GFR Calc Performed By: #### L 500.2500 ####[facility] [address] [place], [address] GAP 26 High 5-15 [facility] Comment on above: Order Comment: Call MD with results STAT Performed By: #### L 500.2500 ####[facility] [address] [place], [place], [phone] GFR/1.73 sq M.predicted among non-blacks MDRD (S/P/Bld) [Vol rate/Area] 15 mL/min/{1.73_m2} Low >60 [facility] Comment on above: Order Comment: Call MD with results STAT Result Comment: Non- GFR Calc Performed By: #### L 500.2500 ####[facility] [address] [place], [place], [address] Glucose [Mass/Vol] 829 mg/dL Invalid Interpretation Code 74-106 [facility] Comment on above: Order Comment: Call MD with results STAT Result Comment: Crit ical Result(s) Called at: 19:18:25 07/03/2024 by: SILVIA. Results read back by Vangie JerezGlucose result greater than or equal to 200 mg/dLsuggests DIABETES MELLITUS per A.D.A. criteria. Performed By: #### L 500.2500 ####[facility] [address] [place], [place], [phone] Potassium [Moles/Vol] 3.6 mmol/L Normal 3.5-5.1 [facility] Comment on above: Order Comment: Call MD with results STAT Performed By: #### L 500.2500 ####[facility] [address] [place], [address] Sodium [Moles/Vol] 124 mmol/L Low 136-145 [facility] Comment on above: Order Comment: Call MD with results STAT Performed By: #### L 500.2500 ####[facility] [address] [place], [address] Urea nitrogen [Mass/Vol] 76 mg/dL High 7-18 [facility] Comment on above: Order Comment: Call MD with results STAT Performed By: #### L 500.2500 ####[facility] [address] [place], [address] BUN/CRE 23.1 RATIO High 10-20 [facility] Comment on above: Performed By: #### L 500.2500 ####[facility] [address] [place], [address] CA,Total 7.2 mg/dL Low 8.5-10.1 [facility] Comment on above: Performed By: #### L 500.2500 ####[facility] [address] [place], [address] Chloride [Moles/Vol] 84 mmol/L Low 98-107 [facility] Comment on above: Performed By: #### L 500.2500 ####[facility] [address] [place], [address] CO2 [Moles/Vol] 9.0 mmol/L Invalid Interpretation Code 21.0-32.0 [facility] Comment on above: Result Comment: Crit ical Result(s) Called at: 13:54:22 07/03/2024 by:Kathryn Marlow. Results read back by same. Performed By: #### L 500.2500 ####[facility] [address] [place], [address] Creatinine [Mass/Vol] 3.33 mg/dL High 0.55-1.02 [facility] Comment on above: Result Comment: The validity of the calculated GFR GFRAA in patients over70 years has not been determined. Clinical correlation isessential. Performed By: #### L 500.2500 ####[facility] [address] [place], [address] ECRCL 24.58 ml/min Normal [facility] Comment on above: Performed By: #### L 500.2500 ####[facility] [address] [place], [address] EST GFR - AA 18 mL/min Low >60 [facility] Comment on above: Result Comment: Afri can Iraqi GFR Calc Performed By: #### L 500.2500 ####[facility] [address] [place], [address] GAP 31 High 5-15 [facility] Comment on above: Performed By: #### L 500.2500 ####[facility] [address] [place], [address] GFR/1.73 sq M.predicted among non-blacks MDRD (S/P/Bld) [Vol rate/Area] 15 mL/min/{1.73_m2} Low >60 [facility] Comment on above: Result Comment: Non- GFR Calc Performed By: #### L 500.2500 ####[facility] [address] [place], [address] Glucose [Mass/Vol] 939 mg/dL Invalid Interpretation Code 74-106 [facility] Comment on above: Result Comment: Crit ical Result(s) Called at: 13:44:36 07/03/2024 by:Kathryn Ramon. Results read back by same.Glucose result greater than or equal to 200 mg/dLsuggests DIABETES MELLITUS per A.D.A. criteria. Performed By: #### L 500.2500 ####[facility] [address] [place], [address] Potassium [Moles/Vol] 3.9 mmol/L Normal 3.5-5.1 [facility] Comment on above: Performed By: #### L 500.2500 ####[facility] [address] [place], [address] Sodium [Moles/Vol] 124 mmol/L Low 136-145 [facility] Comment on above: Performed By: #### L 500.2500 ####[facility] [address] [place], [address] Urea nitrogen [Mass/Vol] 77 mg/dL High 7-18 [facility] Comment on above: Performed By: #### L 500.2500 ####[facility] [address] [place], [address] BUN Normal 7-18 [facility] Comment on above: Order Comment: Call MD with results STAT Result Comment: TWO OTHER BMPS COMPLETED 07/04/24 Performed By: #### L 500.2500 ####[facility] [address] [place], [address] Result Comment: DUPL ICATE; SEE C273 Result Comment: @OK TO CANCEL PER [facility] ICU BUN/CRE Normal 10-20 [facility] Comment on above: Order Comment: Call MD with results STAT Result Comment: TWO OTHER BMPS COMPLETED 07/04/24 Performed By: #### L 500.2500 ####[facility] [address] [place], [address] Result Comment: DUPL ICATE; SEE C273 Result Comment: @OK TO CANCEL PER [facility] CA,Total Normal 8.5-10.1 [facility] Comment on above: Order Comment: Call MD with results STAT Result Comment: TWO OTHER BMPS COMPLETED 07/04/24 Performed By: #### L 500.2500 ####[facility] [address] [place], [address] Result Comment: DUPL ICATE; SEE C273 Result Comment: @OK TO CANCEL PER [facility] ICU CL Normal 98-107 [facility] Comment on above: Order Comment: Call MD with results STAT Result Comment: TWO OTHER BMPS COMPLETED 07/04/24 Performed By: #### L 500.2500 ####[facility] [address] [place], [address] Result Comment: DUPL ICATE; SEE C273 Result Comment: @OK TO CANCEL PER [facility] ICU CO2 Normal 21.0-32.0 [facility] Comment on above: Order Comment: Call MD with results STAT Result Comment: TWO OTHER BMPS COMPLETED 07/04/24 Performed By: #### L 500.2500 ####[facility] [address] [place], [address] Result Comment: DUPL ICATE; SEE C273 Result Comment: @OK TO CANCEL PER [facility] ICU CREAT,SERUM Normal 0.55-1.02 [facility] Comment on above: Order Comment: Call MD with results STAT Result Comment: TWO OTHER BMPS COMPLETED 07/04/24 Performed By: #### L 500.2500 ####[facility] [address] [place], [address] Result Comment: DUPL ICATE; SEE C273 Result Comment: @OK TO CANCEL PER [facility] ICU EST GFR Normal >60 [facility] Comment on above: Order Comment: Call MD with results STAT Result Comment: TWO OTHER BMPS COMPLETED 07/04/24 Performed By: #### L 500.2500 ####[facility] [address] [place], [address] Result Comment: DUPL ICATE; SEE C273 Result Comment: @OK TO CANCEL PER [facility] ICU EST GFR - AA Normal >60 [facility] Comment on above: Order Comment: Call MD with results STAT Result Comment: TWO OTHER BMPS COMPLETED 07/04/24 Performed By: #### L 500.2500 ####[facility] [address] [place], [address] Result Comment: DUPL ICATE; SEE C273 Result Comment: @OK TO CANCEL PER [facility] ICU GAP Normal 5-15 [facility] Comment on above: Order Comment: Call MD with results STAT Result Comment: TWO OTHER BMPS COMPLETED 07/04/24 Performed By: #### L 500.2500 ####[facility] [address] [place], [address] Result Comment: DUPL ICATE; SEE C273 Result Comment: @OK TO CANCEL PER [facility] GLU Normal 74-106 [facility] Comment on above: Order Comment: Call MD with results STAT Result Comment: TWO OTHER BMPS COMPLETED 07/04/24 Performed By: #### L 500.2500 ####[facility] [address] [place], [address] Result Comment: DUPL ICATE; SEE C273 Result Comment: @OK TO CANCEL PER [facility] Potassium Normal 3.5-5.1 [facility] Comment on above: Order Comment: Call MD with results STAT Result Comment: TWO OTHER BMPS COMPLETED 07/04/24 Performed By: #### L 500.2500 ####[facility] [address] [place], [address] Result Comment: DUPL ICATE; SEE C273 Result Comment: @OK TO CANCEL PER [facility] Basic Metabolic Profile (BMP) Normal 136-145 [facility] Comment on above: Order Comment: Call MD with results STAT Result Comment: TWO OTHER BMPS COMPLETED 07/04/24 Performed By: #### L 500.2500 ####[facility] [address] [place], [address] Result Comment: DUPL ICATE; SEE C273 Result Comment: @OK TO CANCEL PER [facility] ICU Bedside Glucoseon 07-03-2024 FINGERSTICK GLU > 500 Invalid Interpretation Code 74-106 [facility] Comment on above: Result Comment: NERISSA RODRIGUES OF PATIENT CARE PER NURSING PROTOCOL Performed By: #### L 501.080 ####[facility] [address] [place], [address] FINGERSTICK GLU > 500 Invalid Interpretation Code [address] [place] [address] Comment on above: Result Comment: NERISSA GEMENT OF PATIENT CARE PER NURSING PROTOCOL Performed By: #### L 501.080 ####[facility] [address] [place], [address] Result Comment: Insu cristy GivenMANAGEMENT OF PATIENT CARE PER NURSING PROTOCOL FINGERSTICK GLU > 500 Invalid Interpretation Code [address] [place] [address] Comment on above: Result Comment: Dr Chucho marrufo FollowedMANAGEMENT OF PATIENT CARE PER NURSING PROTOCOL Performed By: #### L 501.080 ####[facility] [address] [place], [address] FINGERSTICK GLU > 500 Invalid Interpretation Code [address] [place] [address] Comment on above: Result Comment: Dr Chucho marrufo FollowedMANAGEMENT OF PATIENT CARE PER NURSING PROTOCOL Performed By: #### L 501.080 ####[facility] [address] [place], [address] FINGERSTICK GLU > 500 Invalid Interpretation Code [address] [place] [address] Comment on above: Result Comment: Repe at TestMANAGEMENT OF PATIENT CARE PER NURSING PROTOCOL Performed By: #### L 501.080 ####[facility] [address] [place], [address] FINGERSTICK GLU > 500 Invalid Interpretation Code [address] [place] [address] Comment on above: Result Comment: NERISSA GEMENT OF PATIENT CARE PER NURSING PROTOCOL Performed By: #### L 501.080 ####[facility] [address] [place], [address] FINGERSTICK GLU > 500 Invalid Interpretation Code [address] [place] [address] Comment on above: Result Comment: Dr Chucho marrufo FollowedMANAGEMENT OF PATIENT CARE PER NURSING PROTOCOL Performed By: #### L 501.080 ####[facility] [address] [place], [address] [facility] Base excess Calc (Bld) [Moles/Vol] -29 mmol/L Low -2 to +2 [facility] Comment on above: Performed By: #### L 9000.0800 ####[facility] [address] [place], [address] Blood Gas Type ART Normal [facility] Comment on above: Performed By: #### L 9000.0800 ####[facility] [address] [place], [address] HCO3 (Bld) [Moles/Vol] 3.4 mmol/L Low 22-26 [facility] Comment on above: Performed By: #### L 9000.0800 ####[facility] [address] [place], [address] Mode Not entered Normal [facility] Comment on above: Performed By: #### L 9000.0800 ####[facility] [address] [place], [address] O2 Delivery Dev Room Air [facility] Comment on above: Performed By: #### L 9000.0800 ####[facility] [address] [place], [address] pCO2 17.0 mmHg Invalid Interpretation Code 35-45 [facility] Comment on above: Performed By: #### L 9000.0800 ####[facility] [address] [place], [address] pH (Bld) 6.91 [pH] Invalid Interpretation Code 7.35-7.45 [facility] Comment on above: Performed By: #### L 9000.0800 ####[facility] [address] [place], [address] PO2 109 mmHG High 75-100 [facility] Comment on above: Performed By: #### L 9000.0800 ####[facility] [address] [place], [address] Read Back By Yes [facility] Comment on above: Performed By: #### L 9000.0800 ####[facility] [address] [place], [address] Results To gaetano [facility] Comment on above: Performed By: #### L 9000.0800 ####[facility] [address] [place], [address] SITE Not entered [facility] Comment on above: Performed By: #### L 9000.0800 ####[facility] [address] [place], [address] SO2 93 Low 95-99 [facility] Comment on above: Performed By: #### L 9000.0800 ####[facility] [address] [place], [address] Time Given 11:54:42 [facility] Comment on above: Performed By: #### L 9000.0800 ####[facility] [address] [place], [address] TOTAL CO2 < 5 [facility] Comment on above: Performed By: #### L 9000.0800 ####[facility] [address] [place], [address] Chest 1 View (Portable)on Chest 1 View (Portable) Normal [facility] Chest 1 View (Portable) Normal [facility] Comprehensive Metabolic Prof ilon 07-03-2024 Albumin [Mass/Vol] 3.6 g/dL Normal 3.2-5.0 [facility] Comment on above: Order Comment: 'TROP ' Serial specimen #1, #2 or #3: 1 Performed By: #### L 501.2300, L501.2450, L500.4050, L501.9985, L501.4020, L501.5200, L501.6900 ####[facility] [address] [place], [address] Albumin/Globulin [Mass ratio] 0.9 {ratio} Normal 0.9-2.4 [facility] Comment on above: Order Comment: 'TROP ' Serial specimen #1, #2 or #3: 1 Performed By: #### L 501.2300, L501.2450, L500.4050, L501.9985, L501.4020, L501.5200, L501.6900 ####[facility] [address] [place], [address] ALK P 181 U/L High 45-117 [facility] Comment on above: Order Comment: 'TROP ' Serial specimen #1, #2 or #3: 1 Performed By: #### L 501.2300, L501.2450, L500.4050, L501.9985, L501.4020, L501.5200, L501.6900 ####[facility] [address] [place], [address] ALT [Catalytic activity/Vol] 40 U/L Normal 13-56 [facility] Comment on above: Order Comment: 'TROP ' Serial specimen #1, #2 or #3: 1 Performed By: #### L 501.2300, L501.2450, L500.4050, L501.9985, L501.4020, L501.5200, L501.6900 ####[facility] [address] [place], [address] AST [Catalytic activity/Vol] 81 U/L High 15-37 [facility] Comment on above: Order Comment: 'TROP ' Serial specimen #1, #2 or #3: 1 Performed By: #### L 501.2300, L501.2450, L500.4050, L501.9985, L501.4020, L501.5200, L501.6900 ####[facility] [address] [place], [address] Bilirubin [Mass/Vol] 0.60 mg/dL Normal 0.20-1.00 [facility] Comment on above: Order Comment: 'TROP ' Serial specimen #1, #2 or #3: 1 Result Comment: For patients on eltrombopag therapy, use of Dimension [place] TBIL is not recommended. Performed By: #### L 501.2300, L501.2450, L500.4050, L501.9985, L501.4020, L501.5200, L501.6900 ####[facility] [address] [place], [address] BUN/CRE 21.0 RATIO High 10-20 [facility] Comment on above: Order Comment: 'TROP ' Serial specimen #1, #2 or #3: 1 Performed By: #### L 501.2300, L501.2450, L500.4050, L501.9985, L501.4020, L501.5200, L501.6900 ####[facility] [address] [place], [address] CA,Total 8.4 mg/dL Low 8.5-10.1 [facility] Comment on above: Order Comment: 'TROP ' Serial specimen #1, #2 or #3: 1 Performed By: #### L 501.2300, L501.2450, L500.4050, L501.9985, L501.4020, L501.5200, L501.6900 ####[facility] [address] [place], [address] Chloride [Moles/Vol] 70 mmol/L Invalid Interpretation Code 98-107 [facility] Comment on above: Order Comment: 'TROP ' Serial specimen #1, #2 or #3: 1 Result Comment: Crit ical Result(s) Called at: 10:23:45 07/03/2024 by:Kathryn Dupree. Results read back by same. Performed By: #### L 501.2300, L501.2450, L500.4050, L501.9985, L501.4020, L501.5200, L501.6900 ####[facility] [address] [place], [address] CO2 [Moles/Vol] 5.0 mmol/L Invalid Interpretation Code 21.0-32.0 [facility] Comment on above: Order Comment: 'TROP ' Serial specimen #1, #2 or #3: 1 Result Comment: Crit ical Result(s) Called at: 10:23:45 07/03/2024 by:Kathryn Dupree. Results read back by same. Performed By: #### L 501.2300, L501.2450, L500.4050, L501.9985, L501.4020, L501.5200, L501.6900 ####[facility] [address] [place], [address] Creatinine [Mass/Vol] 3.71 mg/dL High 0.55-1.02 [facility] Comment on above: Order Comment: 'TROP ' Serial specimen #1, #2 or #3: 1 Result Comment: The validity of the calculated GFR GFRAA in patients over70 years has not been determined. Clinical correlation isessential. Performed By: #### L 501.2300, L501.2450, L500.4050, L501.9985, L501.4020, L501.5200, L501.6900 ####[facility] [address] [place], [address] ECRCL 22.06 ml/min Normal [facility] Comment on above: Order Comment: 'TROP ' Serial specimen #1, #2 or #3: 1 Performed By: #### L 501.2300, L501.2450, L500.4050, L501.9985, L501.4020, L501.5200, L501.6900 ####[facility] [address] [place], [address] EST GFR - AA 16 mL/min Low >60 [facility] Comment on above: Order Comment: 'TROP ' Serial specimen #1, #2 or #3: 1 Result Comment: Afri can Iraqi GFR Calc Performed By: #### L 501.2300, L501.2450, L500.4050, L501.9985, L501.4020, L501.5200, L501.6900 ####[facility] [address] [place], [address] GAP 37 High 5-15 [facility] Comment on above: Order Comment: 'TROP ' Serial specimen #1, #2 or #3: 1 Performed By: #### L 501.2300, L501.2450, L500.4050, L501.9985, L501.4020, L501.5200, L501.6900 ####[facility] [address] [place], [address] GFR/1.73 sq M.predicted among non-blacks MDRD (S/P/Bld) [Vol rate/Area] 13 mL/min/{1.73_m2} Low >60 [facility] Comment on above: Order Comment: 'TROP ' Serial specimen #1, #2 or #3: 1 Result Comment: Non- GFR Calc Performed By: #### L 501.2300, L501.2450, L500.4050, L501.9985, L501.4020, L501.5200, L501.6900 ####[facility] [address] [place], [address] Globulin (S) [Mass/Vol] 3.9 g/dL Normal 2.2-4.2 [facility] Comment on above: Order Comment: 'TROP ' Serial specimen #1, #2 or #3: 1 Performed By: #### L 501.2300, L501.2450, L500.4050, L501.9985, L501.4020, L501.5200, L501.6900 ####[facility] [address] [place], [address] Glucose [Mass/Vol] 1240 mg/dL Invalid Interpretation Code 74-106 [facility] Comment on above: Order Comment: 'TROP ' Serial specimen #1, #2 or #3: 1 Result Comment: Crit ical Result(s) Called at: 10:23:45 07/03/2024 by:Kathryn Dupree. Results read back by same.Glucose result greater than or equal to 200 mg/dLsuggests DIABETES MELLITUS per A.D.A. criteria. Performed By: #### L 501.2300, L501.2450, L500.4050, L501.9985, L501.4020, L501.5200, L501.6900 ####[facility] [address] [place], [address] Potassium [Moles/Vol] 6.2 mmol/L Invalid Interpretation Code 3.5-5.1 [facility] Comment on above: Order Comment: 'TROP ' Serial specimen #1, #2 or #3: 1 Result Comment: Crit ical Result(s) Called at: 10::45 07/03/2024 by:Kathryn Dupree. Results read back by same. Performed By: #### L 501.2300, L501.2450, L500.4050, L501.9985, L501.4020, L501.5200, L501.6900 ####[facility] [address] [place], [address] Sodium [Moles/Vol] 112 mmol/L Invalid Interpretation Code 136-145 [facility] Comment on above: Order Comment: 'TROP ' Serial specimen #1, #2 or #3: 1 Result Comment: Crit ical Result(s) Called at: 10:23:45 07/03/2024 by:Kathryn Dupree. Results read back by same. Performed By: #### L 501.2300, L501.2450, L500.4050, L501.9985, L501.4020, L501.5200, L501.6900 ####[facility] [address] [place], [address] T PROT 7.5 g/dL Normal 6.4-8.2 [facility] Comment on above: Order Comment: 'TROP ' Serial specimen #1, #2 or #3: 1 Performed By: #### L 501.2300, L501.2450, L500.4050, L501.9985, L501.4020, L501.5200, L501.6900 ####[facility] [address] [place], [address] Urea nitrogen [Mass/Vol] 78 mg/dL High 7-18 [facility] Comment on above: Order Comment: 'TROP ' Serial specimen #1, #2 or #3: 1 Performed By: #### L 501.2300, L501.2450, L500.4050, L501.9985, L501.4020, L501.5200, L501.6900 ####[facility] [address] [place], [address] Emergency Department Summary on 07-03-2024 Emergency Department Summary Normal [facility] Glucoseon 07-03-2024 Glucose [Mass/Vol] 779 mg/dL Invalid Interpretation Code 74-106 [facility] Comment on above: Result Comment: Crit ical Result(s) Called at: 18:48:09 07/03/2024 by: SILVIA. Results read back by Vangie FletcherGlucose result greater than or equal to 200 mg/dLsuggests DIABETES MELLITUS per A.D.A. criteria. Performed By: #### L 501.0100 ####[facility] [address] [place], [address] Glucose [Mass/Vol] 870 mg/dL Invalid Interpretation Code 74-106 [facility] Comment on above: Result Comment: Crit ical Result(s) Called at: 16:30:40 07/03/2024 by: SILVIA. Results read back by AvinashkGlucose result greater than or equal to 200 mg/dLsuggests DIABETES MELLITUS per A.D.A. criteria. Performed By: #### L 501.0100 ####[facility] [address] [place], [address] Glucose [Mass/Vol] 897 mg/dL Invalid Interpretation Code 30-106 [facility] Comment on above: Result Comment: Gluc ose result greater than or equal to 200 mg/dLsuggests DIABETES MELLITUS per A.D.A. criteria.RESULTS CALLED TO MONA 07/03/24 [place].REPORT READ BACK BY . SAME AMENDED REPORT 07/03/241546 GLU previously reported as: 897 *H mg/dLGlucose result greater than or equal to 200 mg/dLsuggests DIABETES MELLITUS per A.D.A. criteria. Performed By: #### L 501.0100 ####[facility] [address] [place], [address] Glucose [Mass/Vol] 945 mg/dL Invalid Interpretation Code 460[address] [facility] Comment on above: Result Comment: Crit ical Result(s) Called at: 14:36:16 07/03/2024 by:Kathryn Marlow. Results read back by same.Glucose result greater than or equal to 200 mg/dLsuggests DIABETES MELLITUS per A.D.A. criteria. Performed By: #### L 501.0100 ####[facility] [address] [place], [address] Glucose [Mass/Vol] 1075 mg/dL Invalid Interpretation Code 59784 [facility] Comment on above: Result Comment: Crit ical Result(s) Called at: 13:39:51 07/03/2024 by:Kathryn Ramon. Results read back by same.Glucose result greater than or equal to 200 mg/dLsuggests DIABETES MELLITUS per A.D.A. criteria. Performed By: #### L 501.0100 ####[facility] [address] [place], [address] H AND P Exam - Hospitaliston 07-03-2024 H&P Exam - Hospitalist Normal [facility] Hemoglobin A1con 07-03-2024 HbA1c (Bld) [Mass fraction] 6.8 % High 3.8-5.6 [facility] Comment on above: Result Comment: Norm al < 5.7 % Prediabetic 5.7 - 6.4 % Diabetic >or= 6.5 % Please note range changes. Performed By: #### L 501.2300, L501.2450, L500.4050, L501.9985, L501.4020, L501.5200, L501.6900 ####[facility] [address] [place], [address] L501.4020on 07-03-2024 TROPONIN-I HS 89 pg/mL High 3.0-54.0 [facility] Comment on above: Order Comment: 'TROP ' Serial specimen #1, #2 or #3: 1 Result Comment: Plea Note: New Test Units and Gender Specific Reference Ranges. For more information see Policy Stat Procedure [place] High Sensitivity Troponin (TNIH) and attachments. Performed By: #### L 501.2300, L501.2450, L500.4050, L501.9985, L501.4020, L501.5200, L501.6900 ####[facility] [address] [place], [address] Lactic Acidon 07-03-2024 Lactate [Moles/Vol] 2.2 mmol/L Invalid Interpretation Code 0.4-1.9 [facility] Comment on above: Result Comment: Crit ical Result(s) Called at: 15:48:38 07/03/2024 by: SILVIA. Results read back by Mona Performed By: #### L 503.600 ####[facility] [address] [place], [address] Lactate [Moles/Vol] 2.3 mmol/L Invalid Interpretation Code 0.4-1.9 [facility] Comment on above: Order Comment: Y Result Comment: Crit ical Result(s) Called at: 10:49:09 07/03/2024 by:Kathryn higgins to Kelly Singh. Results read back by same. Performed By: #### M 200.1000, L300.4310, L503.6005, L300.3900 ####[facility] [address] [place], [address] Lipaseon 07-03-2024 Lipase [Catalytic activity/Vol] 89 U/L High 13-75 [facility] Comment on above: Order Comment: 'TROP ' Serial specimen #1, #2 or #3: 1 Result Comment: Aniceto franco note:LIPASE revised reference range effective 22.New Lipase methodology. Expected to produce lower valuesthan the previous assay method.NEW Reference Range: 13 - 75 U/L Performed By: #### L 501.2300, L501.2450, L500.4050, L501.9985, L501.4020, L501.5200, L501.6900 ####[facility] [address] [place], [address] M100.678on 07-03-2024 M100.678 Pending SARS-CoV-2 (COVID 19) Negative INFLUENZA A Negative INFLUENZA B Negative RSV PCR Negative Normal [facility] Comment on above: Performed By: #### M 100.678 ####[facility] [address] [place], [address] Magnesiumon 07-03-2024 Magnesium [Mass/Vol] 3.3 mg/dL High 1.6-2.6 [facility] Comment on above: Order Comment: 'TROP ' Serial specimen #1, #2 or #3: 1 Performed By: #### L 501.2300, L501.2450, L500.4050, L501.9985, L501.4020, L501.5200, L501.6900 ####[facility] [address] [place], [address] Partial Thromboplast Timeon 07-03-2024 aPTT Coag (Bld) [Time] 31.5 s Normal 24.1-36.2 [facility] Comment on above: Performed By: #### M 200.1000, L300.4310, L503.6005, L300.3900 ####[facility] [address] [place], [address] Phosphoruson 07-03-2024 Phosphate [Mass/Vol] 8.9 mg/dL High 2.5-4.9 [facility] Comment on above: Order Comment: 'TROP ' Serial specimen #1, #2 or #3: 1 Performed By: #### L 501.2300, L501.2450, L500.4050, L501.9985, L501.4020, L501.5200, L501.6900 ####[facility] [address] [place], [address] Prothrombin Time w/INRon INR Normal [facility] Comment on above: Result Comment: Canc elled via OM: Duplicate Order Performed By: #### L 300.3900, L501.7300 ####[facility] [address] [place], [address] PROTIME Normal 11.7-14.9 [facility] Comment on above: Result Comment: Canc elled via OM: Duplicate Order Performed By: #### L 300.3900, L501.7300 ####[facility] [address] [place], [address] INR Coag (PPP) [Relative time] 1.4 {INR} Normal [facility] Comment on above: Performed By: #### M 200.1000, L300.4310, L503.6005, L300.3900 ####[facility] [address] [place], [address] PT Coag (PPP) [Time] 17.0 s High 11.7-14.9 [facility] Comment on above: Performed By: #### M 200.1000, L300.4310, L503.6005, L300.3900 ####[facility] [address] [place], [address] Urinalysis, Completeon 07-03 BACTERIA RARE Normal None Seen [facility] Comment on above: Order Comment: NATALIE CTOR TO SPECIFY Performed By: #### L 400.0001 ####[facility] [address] [place], [address] EPI,SQUAMOUS 0-5 SEEN Normal 5-10 [facility] Comment on above: Order Comment: NATALIE CTOR TO SPECIFY Performed By: #### L 400.0001 ####[facility] [address] [place], [address] RBC 0-5 SEEN Normal 0-5 [facility] Comment on above: Order Comment: NATALIE CTOR TO SPECIFY Performed By: #### L 400.0001 ####[facility] [address] [place], [address] Mucus Ql (Urine sed) 0 SEEN Normal [facility] Comment on above: Order Comment: NATALIE CTOR TO SPECIFY Performed By: #### L 400.0001 ####[facility] [address] [place], [address] WBC 0 SEEN Normal 0-5 [facility] Comment on above: Order Comment: NATALIE CTOR TO SPECIFY Performed By: #### L 400.0001 ####[facility] [address] [place], [address] Venous Blood Gason 5 HCO3 (Bld) [Moles/Vol] 1 mmol/L Low 22-26 [facility] Comment on above: Performed By: #### L 9000.0810 ####[facility] [address] [place], [address] HCO3 (Bld) [Moles/Vol] 4 mmol/L Low 22-26 [facility] Comment on above: Performed By: #### L 9000.0810 ####[facility] [address] [place], [place], [address] VBG pCO2 5.5 mmHg Invalid Interpretation Code 41-51 [facility] Comment on above: Performed By: #### L 9000.0810 ####[facility] [address] [place], [address] Vital Signs Date Time Vital Sign Value Performing Clinician Debbie velez 10-18-2024 12:41-0400 Body weight 102.7 kg JUAN J KHLOE RESIDENT CARE ASSISTANT -PLANTING MATERIAL CARRIER [facility] 09-24-2024 12:36-0400 Body weight 102.6 kg JUAN J KHLOE RESIDENT CARE ASSISTANT -PLANTING MATERIAL CARRIER [facility] 09-05-2024 14:00-0400 Body weight 105.2 kg JUAN J KHLOE RESIDENT CARE ASSISTANT -PLANTING MATERIAL CARRIER [facility] Encounters Encounter Date Encounter Type Care Provider Facility Start: 03-22-2025 ambulatory JUAN J KHLOE Facilit y:[facility] Start: 01-29-2025 End: 01-29-2025 ambulatory JUAN J KHLOE RESIDENT CARE ASSISTANT-PLANTING MATERIAL CARRIER Facility:[facility] Start: 01-29-2025 End: 01-29-2025 Patient encounter procedure MAIK RAMOS MD [facility] Start: 12-31-2024 End: 12-31-2024 ambulatory SHELLY STOREY RESIDENT CARE ASSISTANT-PLANTING MATERIAL CARRIER Facility:[facility] Start: 12-31-2024 End: 12-31-2024 Patient encounter procedure SHELLY STOREY RESIDENT CARE ASSISTANT-PLANTING MATERIAL CARRIER [facility] Start: 12-24-2024 End: 12-24-2024 ambulatory JUAN J KHLOE PHARMACEUTICAL SALES SPECIALIST-C Work Phone: -Laboratory Start: 12-24-2024 End: 12-24-[address] Ellen Smith MD -Laboratory Work Phone: Start: 12-24-2024 End: 12-24-2024 ambulatory Ellen Smith Facility:[facility] Start: 12-18-2024 End: 12-18-2024 ambulatory JUAN J MOHAMUDETLER PHARMACEUTICAL SALES SPECIALIST-C Work Phone: -Laboratory Start: 12-18-2024 End: 12-18-[address] Ellen Smith MD -Laboratory Work Phone: Start: 12-18-2024 End: 12-18-2024 ambulatory JUAN J KHLOE Facility:[facility] Start: 12-17-2024 End: 12-17-2024 Emergency department patient visit HANGYAEL VERA [facility] Start: 11-19-2024 End: 11-19-2024 ambulatory MAIK RAMOS MD Facility:[facility] Start: 11-19-2024 End: 11-19-2024 Patient encounter procedure MAIK RAMOS MD [facility] Start: 11-16-2024 End: 11-16-2024 ambulatory JUAN J KHLOE RESIDENT CARE ASSISTANT-PLANTING MATERIAL CARRIER Facility:[facility] Start: 11-16-2024 End: 11-16-2024 Patient encounter procedure JUAN J KHLOE RESIDENT CARE ASSISTANT-PLANTING MATERIAL CARRIER [facility] Start: 11-14-2024 End: 11-14-2024 ambulatory JUAN J KHLOE RESIDENT CARE ASSISTANT-PLANTING MATERIAL CARRIER Facility:[facility] Start: 11-14-2024 End: 11-14-2024 Patient encounter procedure JUAN J KHLOE RESIDENT CARE ASSISTANT-PLANTING MATERIAL CARRIER [facility] Start: 11-13-2024 End: 11-17-2024 ambulatory MAIK RAMOS MD Facility:[facility] Start: 11-13-2024 End: 11-17-2024 Outreach Lab MAIK RAMOS MD [facility] Start: 11-08-2024 ambulatory JUAN J HOSTETLE R RESIDENT CARE ASSISTANT-PLANTING MATERIAL CARRIER Facility:[facility] Start: 10-19-2024 End: 10-19-2024 ambulatory JUAN J KHLOE RESIDENT CARE ASSISTANT-PLANTING MATERIAL CARRIER Facility:[facility] Start: 10-19-2024 End: 10-19-2024 Patient encounter procedure JUAN J KHLOE RESIDENT CARE ASSISTANT-PLANTING MATERIAL CARRIER [facility] Start: 10-18-2024 End: 10-18-2024 Patient encounter procedure JUAN J KHLOE RESIDENT CARE ASSISTANT-PLANTING MATERIAL CARRIER [facility] Start: 10-18-2024 End: 11-02-2024 ambulatory JUAN J KHLOE RESIDENT CARE ASSISTANT-PLANTING MATERIAL CARRIER Facility:[facility] Start: 10-18-2024 End: 11-02-2024 OTHER THERAPY JUAN J KHLOE RESIDENT CARE ASSISTANT-PLANTING MATERIAL CARRIER [facility] Start: 10-16-2024 End: 10-16-2024 ambulatory JUAN J KHLOE RESIDENT CARE ASSISTANT-PLANTING MATERIAL CARRIER Facility:[facility] Start: 10-16-2024 End: 10-16-2024 Patient encounter procedure JUAN J KHLOE RESIDENT CARE ASSISTANT-PLANTING MATERIAL CARRIER [facility] Start: 09-24-2024 ambulatory JUAN J HOSTETLE R RESIDENT CARE ASSISTANT-PLANTING MATERIAL CARRIER Facility:[facility] Start: 09-24-2024 End: 09-24-2024 ambulatory JUAN J KHLOE RESIDENT CARE ASSISTANT-PLANTING MATERIAL CARRIER Facility:[facility] Start: 09-19-2024 End: 09-19-2024 ambulatory JUAN J KHLOE RESIDENT CARE ASSISTANT-PLANTING MATERIAL CARRIER Facility:[facility] Start: 09-05-2024 End: 09-05-2024 ambulatory JUAN J KHLOE RESIDENT CARE ASSISTANT-PLANTING MATERIAL CARRIER Facility:[facility] Start: 08-27-2024 End: 08-27-2024 ambulatory JUAN J KHLOE RESIDENT CARE ASSISTANT-PLANTING MATERIAL CARRIER Facility:[facility] Start: 08-13-2024 End: 08-13-2024 ambulatory JUAN J KHLOE Facility:[facility] Start: 08-01-2024 End: 08-01-2024 ambulatory JUAN J KHLOE RESIDENT CARE ASSISTANT-PLANTING MATERIAL CARRIER Facility:[facility] Start: 08-01-2024 End: 08-01-2024 Patient encounter procedure JUAN J KHLOE RESIDENT CARE ASSISTANT-PLANTING MATERIAL CARRIER [facility] Start: 07-16-2024 End: 07-16-2024 ambulatory Zebulun Beam VSC Facility:[facility] Start: 07-05-2024 ambulatory No Primary Car e Physician Facility:[facility] Start: 07-03-2024 ambulatory No Primary Car e Physician Facility:[facility] Start: 07-03-2024 End: 07-07-2024 [facility] Payers Date Payer Category Payer Unknown [id number] 2024 Self-pay [id number] 2017 Medicaid [id number] 2017 Unknown [id number] 1965 Unknown [id number] 2.16.8 40.1.241743.3.579.2.627 1965 Unknown [id number] 2.16. 840.1.406582.3.579.2.627 1965 Unknown [id number] 2.16. 840.1.763510.3.579.2.627 1965 Unknown [id number] 2.16. 840.1.782839.3.579.2.627 1965 Unknown [id number] 2.16.8 40.1.488650.3.579.2. 1965 Unknown [id number] 2.16.8 40.1.224596.3.579.2.62 1965 Unknown [id number] 2.16.8 40.1.823236.3.579.2. 1965 Unknown [id number] 2.16.8 40.1.676135.3.579.2. 1965 Unknown [id number] 2.16.8 40.1.186718.3.579.2. 1965 Unknown [id number] 2.16.8 40.1.468205.3.579.2. 1965 Unknown [id number] 2.16.8 40.1.913319.3.579.2. 1965 Unknown [id number] 2.16.8 40.1.649160.3.579.2.7 1965 Unknown [id number] 2.16.8 40.1.710948.3.579.2. 1965 Unknown [id number] 2.16.8 40.1.360495.3.579.2.62 1965 Unknown [id number] 2.16.8 40.1.290972.3.579.2. 1965 Unknown [id number] 2.16.8 40.1.720854.3.579.2. 1965 Unknown [id number] 2.16.8 40.1.749691.3.579.2. 1965 Unknown [id number] 2.16.8 40.1.794788.3.579.2.627 Unknown [id number] Unknown [id number] 2.16.8 40.1.428776.3.579.2.462 Unknown [id number] 2.16.8 40.1.666225.3.579.2.462 Unknown [id number] 2.16.8 40.1.141210.3.579.2.462 Unknown [id number] 2.16.8 40.1.359840.3.579.2.462 Unknown [id number] 2.16.8 40.1.291798.3.579.2.462 Unknown [id number] 2.16.8 40.1.228304.3.579.2.462 Unknown [id number] 2.16.8 40.1.514572.3.579.2.462 Unknown [id number] 2.16.8 40.1.290339.3.579.2.462 Unknown [id number] 2.16.8 40.1.418855.3.579.2.462 Unknown [id number] 2.16.8 40.1.202289.3.579.2.462 Unknown [id number] 2.16.8 40.1.386395.3.579.2.462 Unknown [id number] 2.16.8 40.1.953652.3.579.2.462 Unknown [id number] 2.16.8 40.1.015153.3.579.2.462 Unknown [id number] 2.16.8 40.1.846994.3.579.2.462 Social History Date Type Detail Facility Start: 07-18-2024 End: 11-14-2024 Tobacco smoking status Never smoked tobacco (finding) Tammie [facility]: 1965 Sex Assigned At Female A [facility] Sex Female (finding) [facility] Medical Equipment Procedure Code Equipment Code Equipment Origin al Text Equipment Identifier Dates Pen Needle, Diab etic (Easy Comfort Pen [place]) 32 gauge x 5/32 needle Start: 07-07-2024 Pen Needle, Diab etic (Easy Comfort Pen [place]) 32 gauge x 5/32 needle Start: 07-07-2024 Clinical Notes 07-07-2024 to 12-31-2024 Note Date & Type Note Facility 12-31-2024 Note Exam Date Time Procedure Performing Provider Status 12/31/24 12:37 PM XR Chest 2 Views BARRY MOREJON DO; Auth (Verified) [id number] ORIGINAL EXAMINATION: TWO XRAY VIEWS OF THE CHEST12/31/2024 12:37 pm COMPARISON: None available at time of dictation. HISTORY: ORDERING SYSTEM PROVIDED HISTORY: Reason for Exam: cough, fever FINDINGS: Cardiomediastinal contours are within normal limits. No focal consolidation or pulmonary edema. No pneumothorax or pleural effusion. No acute osseous abnormalities. Mild multilevel degenerative changes of the spine. IMPRESSION: No acute radiographic findings. I have personally reviewed the images of this examination and agree with the resident's findings and interpretation. Interpreted by: Barry Morejon Preliminary Report By: Best Ahn Electronically signed By Barry Morejon Dictated Date: 12/31/2024 4:01:16 PM Prelim Date: 12/31/2024 4:45:47 PM Sign Date: 12/31/2024 4:45:47 PM [facility]ing [facility] Hospital Discharge instructions Patient Education 12/17/2024 15:21:33 Fracture, Toe, Closed Closed Toe Fracture Your toe is broken (fractured). This causes local pain, swelling, and sometimes bruising. This injury usually takes about 4 to 6 weeks to heal, but can sometimes take longer. Toe injuries are often treated by taping the injured toe to the next one (jovany taping). Or a hard shoe, splint or cast may be used. This protects the injured toe and holds it in position. If the toenail has been severely injured, it may fall off in 1 to 2 weeks. It takes up to 12 monthsfor a new toenail to grow back. Home care Follow these guidelines when caring for yourself at home: You may be given a cast shoe to wear to keep your toe from moving. If not, you can use a sandal or any shoe that doesn t put pressure on the injured toe until the swelling and pain go away. If using a sandal, be careful not to strike your foot against anything. Another injury could make the fracture worse. If you were given crutches, don t put full weight on the injured foot until you can do so without pain, or as directed by your healthcare provider. Keep your foot elevated to reduce pain and swelling. When sleeping, put a pillow under the injured leg. When sitting, support the injured leg so it is above your heart. This is very important during the first 2 days (48 hours). Put an ice pack on the injured area. Do this for 20 minutes every 1 to 2 hours the first day for pain relief. You can make an ice pack by wrapping a plastic bag of ice cubes in a thin towel. As the ice melts, be careful that any cloth or paper tape doesn t get wet. Continue using the ice pack 3 to 4 times a day for the next 2 days. Then use the ice pack as needed to ease pain and swelling. If jovany tape was used and it becomes wet or dirty, change it. You may replace it with paper, plastic, or cloth tape. Cloth tape and paper tapes must be kept dry. You may use acetaminophen or ibuprofen to control pain, unless another pain medicine was prescribed. If you have chronic liver or kidney disease, talk with your healthcare provider before using thesemedicines. Also talk with your provider if you ve had a stomach ulcer or gastrointestinal bleeding. You may return to sports or physical education activities after 4 weeks when you can run without pain, or as directed by your healthcare provider. Follow-up care Follow up with your healthcare provider in 1 week, or as advised. This is to make sure the bone is healing the way it should. X-rays may be taken. You will be told of any new findings that may affect your care. When to seek medical advice Call your healthcare provider right away if any of these occur: Pain or swelling gets worse The cast/splint cracks The cast and padding get wet and stays wet more than 24 hours Bad odor from the cast/splint or wound fluid stains the cast Tightness or pressure under the cast/splint gets worse Toe becomes cold, blue, numb, or tingly You can t move the toe Signs of infection: fever, redness, warmth, swelling, or drainage from the wound or cast Fever of 100.4 F (38 C) or higher, or chills as directed by your healthcare provider [id number] [employer]. [address] [place] [address]. All rights reserved. This information is not intended as a substitute for professional medical care. Always follow yourhealthcare professional's instructions. Follow Up Care 12/17/2024 13:09:52 With:ADARSH CRENSHAW MD, Orthopedic Address: [address] [place] [address] [address] [facility] [place] [phone] When:2-4 days With:ROSA GALVAN DPM, Surgery Address: [address] [place] [address], [address] [facility] [place] [address]- When:2-4 days [facility] 06-30-2025 Note Discharge Instructions Thank you for allowing [facility] to assist you with your healthcare needs. The following is importantdischarge information regarding your hospital visit. Diagnosis from Today's Visit Nondisplaced fracture of first metatarsal bone What to Do Next Instructions from Your Care Team Please use postop shoe. If have difficulty with getting around use crutches. You are prescribed short course of anti-inflammatories to help with discomfort, please take the medication with food or milk to protect stomach lining. can combine with tylenol but do not take other anti-inflammatories such as ibuprofen or medications labeled NSAIDS and they can harm your stomach when combined. please ice the area and keep elevated throughout the day. Can follow-up with podiatry or orthopedics in thenext week. Return to the emergency department for any acute worsening symptoms or concerns. No qualifying data available. Post Acute Orders No qualifying data available. You Need to Schedule the Following Appointments Follow Up with ADARSH CRENSHAW MD, Orthopedic When:Within 2-4 days Where:[address] [place] [address], [facility] [address] [facility] [place] [phone] Follow Up with ROSA GALVAN DPM, Surgery When:Within 2-4 days Where:[address] [place] [address], [address] [facility] [place] [address]- Allergies Cymbalta Nightmare Lyrica Blurry vision Tylox Vomit cortisone severe burning sensation Medications Please ask your primary doctor or pharmacist before taking any other medication not listed, including over the counter drugs, herbal medications, vitamins and or supplements as they may interact withyour home medications. What How Much When Why Instructions Last Dose New naproxen (naproxen 500 mg oral tablet) 1 tab(s) by mouth Twice daily with meals Duration: 7 Days Printed Prescription Unchanged albuterol (albuterol MDI (90 mcg/ inh) CFC free inhalation aerosol) 1 puff(s) by inhalation Every 4 hours as needed for as needed for wheezing Wheezing Unchanged atorvastatin (atorvastatin 40 mg oral tablet) 1 tab(s) by mouth Once a day Hyperlipemia Unchanged DME (DME MISCellaneous) See instructions Freestyle Silvano 3 Thayer. 1 every 12 months. 0 refills. E11.65 Unchanged DME (DME MISCellaneous) See instructions Freestyle Silvano 2+ Sensors. 1 sensor every 15 days. 2 sensors per 30 days. 3 refills. E11.65 Unchanged DME (DME MISCellaneous) See instructions Omnipod 5 Intro Kit. Compatible with Silvano 2+ Sensor. 1 kit for 30 days. 0 refills. E11.65 Unchanged fluticasone nasal (Flonase 50 mcg/ inh nasal spray) 1 spray(s) each nostril Once a day (in the morning) Seasonal allergies Unchanged insulin glargine (Lantus Solostar Pen 100 units/ mL 3 mL Pen) 28 unit(s) Subcutaneous Daily at bedtime Unchanged insulin lispro (HumaLOG) (HumaLOG KwikPen 100 units/ mL injectable PEN) See instructions uses sliding scale Unchanged levothyroxine (levothyroxine 50 mcg (0.05 mg) oral tablet) 1 tab(s) by mouth Once a day Unchanged Misc Medication (Betaine Plus HP) Unchanged Misc Medication (Bio-Dophilus) Unchanged Misc Medication (Bio-Sylvester 1000) Unchanged Misc Medication (C-plus) Unchanged Misc Medication (D-Mulison Forte) Unchanged Misc Medication (Garlic Plus) Unchanged Misc Medication (Mg-Zyme) Unchanged Misc Medication (Osteo B) Unchanged multivitamin with iron (Flintstones with Iron oral tablet, chewable) Chewed Once a day Unchanged rosuvastatin (rosuvastatin 10 mg oral tablet) 1 tab(s) by mouth Daily at bedtime Please take this list to your next doctor s visit. Bring all medications you take, including over the counter medications, herbals and other supplements with you to your doctor s visit. Patients and families are reminded to discard old lists and to update any records with all medication providers or retail pharmacies. Medication Leaflets naproxen (na PROX en) Aleve, Aleve Back and Muscle Pain, Aleve Easy Open Arthritis, Aleve Liquid Gels, Anaprox-DS, EC-Naprosyn, Naprelan, Naprosyn What is the most important information I should know about naproxen? Naproxen can increase your risk of fatal heart attack or stroke. Do not use this medicine just before or after heart bypass surgery (coronary artery bypass graft, or CABG). Naproxen may also cause stomach or intestinal bleeding, which can be fatal. What is naproxen? Naproxen is a nonsteroidal anti-inflammatory drug (NSAID). Naproxen is used to treat pain or inflammation caused by conditions such as arthritis, ankylosing spondylitis, tendinitis, bursitis, gout, or menstrual cramps. The delayed-release or extended-release tablets are slower-acting forms of naproxen that are used only for treating chronic conditions such as arthritis or ankylosing spondylitis. These forms of naproxen will not work fast enough to treat acute pain. Naproxen may also be used for purposes not listed in this medication guide. What should I discuss with my healthcare provider before taking naproxen? Naproxen can increase your risk of fatal heart attack or stroke, even if you don't have any risk factors. Do not use this medicine just before or after heart bypass surgery (coronary artery bypass graft, or CABG). Naproxen may also cause stomach or intestinal bleeding, which can be fatal. These conditions can occur without warning while you are using naproxen, especially in older adults. You should not use naproxen if you are allergic to it, or if you have ever had an asthma attack or severe allergic reaction after taking aspirin or an NSAID. Ask a doctor before giving naproxen to a child younger than 12 years old. Ask a doctor or pharmacist if this medicine is safe to use if you have: heart disease, high blood pressure, high cholesterol, diabetes, or if you smoke; a heart attack, stroke, or blood clot; stomach ulcers or bleeding; asthma; liver or kidney disease; fluid retention; or if you take aspirin to prevent heart attack or stroke. If you are , you should not take naproxen unless your doctor tells you to. Taking an NSAID during the last 20 weeks of can cause serious heart or kidney problems in the unborn baby and possible complications with your . It may not be safe to breastfeed while using this medicine. Ask your doctor about any risk. How should I take naproxen? Use exactly as directed on the label, or as prescribed by your doctor. Use the lowest dose that is effective in treating your condition. Shake the oral suspension (liquid) before you measure a dose. Measure a dose with the supplied measuring device (not a kitchen spoon). Take this medicine with food or milk if it upsets your stomach. Always follow directions on the medicine label about giving this medicine to a child. Naproxen doses are based on weight in children. Your child's dose needs may change if the child gains or loses weight. If you use naproxen long-term, you may need frequent medical tests. This medicine can affect the results of certain medical tests. Tell any doctor who treats you that you are using naproxen. Store at room temperature away from moisture, heat, and light. Keep the bottle tightly closed when not in use. What happens if I miss a dose? Since naproxen is used when needed, you may not be on a dosing schedule. Skip any missed dose if it's almost time for your next dose. Do not use two doses at one time. What happens if I overdose? Seek emergency medical attention or call the Poison Help line at . What should I avoid while taking naproxen? Avoid drinking alcohol. It may increase your risk of stomach bleeding. Avoid taking aspirin or other NSAIDs unless your doctor tells you to. Ask a doctor or pharmacist before using other medicines for pain, fever, swelling, or cold/flu symptoms. They may contain ingredients similar to naproxen (such as aspirin, ibuprofen, or ketoprofen). Ask your doctor before using an antacid, and use only the type your doctor recommends. Some antacids can make it harder for your body to absorb naproxen. What are the possible side effects of naproxen? Get emergency medical help if you have signs of an allergic reaction (runny or stuffy nose, wheezing or trouble breathing, hives, swelling in your face or throat) or a severe skin reaction (fever, sore throat, burning eyes, skin pain, red or purple skin rash with blistering and peeling). Stop using naproxen and seek medical treatment if you have a serious drug reaction that can affect many parts of your body. Symptoms may include skin rash, fever, swollen glands, muscle aches, severeweakness, unusual bruising, or yellowing of your skin or eyes. Get emergency medical help if you have signs of a heart attack or stroke: chest pain spreading to your jaw or shoulder, sudden numbness or weakness on one side of the body, slurred speech, leg swelling, feeling short of breath. Stop using naproxen and call your doctor at once if you have: shortness of breath (even with mild exertion); swelling or rapid weight gain; the first sign of any skin rash or blister, no matter how mild; signs of stomach bleeding--bloody or tarry stools, coughing up blood or vomit that looks like coffee grounds; liver problems--nausea, upper stomach pain, loss of appetite, dark urine, mikey- colored stools, jaundice (yellowing of the skin or eyes); kidney problems--little or no urination, painful urination, swelling in your feet or ankles; or low red blood cells (anemia)--pale skin, unusual tiredness, feeling light-headed or short of breath, cold hands and feet. Common side effects may include: headache; indigestion, heartburn, stomach pain; or flu symptoms; This is not a complete list of side effects and others may occur. Call your doctor for medical advice about side effects. You may report side effects to FDA at 6-706-EXE-1766. What other drugs will affect naproxen? Ask your doctor before using naproxen if you take an antidepressant. Taking certain antidepressantswith an NSAID may cause you to bruise or bleed easily. Ask a doctor or pharmacist before using naproxen with any other medications, especially: other NSAIDs or salicylates (diflunisal, salsalate); antacids and sucralfate; cholestyramine; cyclosporine; digoxin; lithium; methotrexate; pemetrexed; probenecid; warfarin (Coumadin, Jantoven) or similar blood thinners; a diuretic or 'water pill'; or heart or blood pressure medication. This list is not complete. Other drugs may affect naproxen, including prescription and hwlv-icl-hdakeqt medicines, vitamins, and herbal products. Not all possible drug interactions are listed here. Where can I get more information? Your pharmacist can provide more information about naproxen. Remember, keep this and all other medicines out of the reach of children, never share your medicines with others, and use this medication only for the indication prescribed. Every effort has been made to ensure that the information provided by [employer]. ('[employer]') is accurate, up-to-date, and complete, but no guarantee is made to that effect. Drug information contained herein may be time sensitive. [employer] information has been compiled for use by healthcare practitioners and consumers in the [place] and therefore [employer] does not warrant that uses outside of the [place] are appropriate, unless specifically indicated otherwise. [employer] drug information does not endorse drugs, diagnose patients or recommend therapy. [employer] drug information isan informational resource designed to assist licensed healthcare practitioners in caring for their p atients and/or to serve consumers viewing this service as a supplement to, and not a substitute for, the expertise, skill, knowledge and judgment of healthcare practitioners. The absence of a warningfor a given drug or drug combination in no way should be construed to indicate that the drug or drug combination is safe, effective or appropriate for any given patient. [employer] does not assume any responsibility for any aspect of healthcare administered with the aid of information [employer] provides. The information contained herein is not intended to cover all possible uses, directions, precautions, warnings, drug interactions, allergic reactions, or adverse effects. If you have questions about the drugs you are taking, check with your doctor, nurse or pharmacist. Copyright 2080-9491 [employer]. Version: 22.. Revision Date: 01/20/2023. Education Materials Foot Fracture You have a broken bone (fracture) in your foot. This will cause pain, swelling, and often bruising.It will usually take about 4 to 8 weeks to heal. A foot fracture may be treated with a special shoe, splint, cast, or boot. Home care Follow these guidelines when caring for yourself at home: You may be given a splint, cast, shoe, or boot to keep the injured area from moving. Unless you were told otherwise, use crutches or a walker. Don t put weight on the injured foot until your health care provider says you can do so. (You can rent crutches and a walker at many pharmacies and [facility] orthopedic supply stores.) Don t put weight on a splint, or it will break. Keep your leg elevated to reduce pain and swelling. When sleeping, put a pillow under the injured leg. When sitting, support the injured leg so it is above your waist. This is very important during the first 2 days (48 hours). Put an ice pack on the injured area. Do this for 20 minutes every 1 to 2 hours the first day for pain relief. You can make an ice pack by wrapping a plastic bag of ice cubes in a thin towel. As the ice melts, be careful that the splint, cast, boot, or shoe doesn t get wet. You can place the ice pack directly over the splint or cast. Unless told otherwise, you can open the boot or shoe to apply the ice pack. Continue using the ice pack 3 to 4 times a day for the next 2 days. Then use the ice pack as needed to ease pain and swelling. Keep the splint, cast, boot, or shoe dry. When bathing, protect it with a large plastic bag, rubber-banded at the top end. If a fiberglass splint or cast or boot gets wet, you can dry it with a hair designer. Unless told otherwise, you can take off the boot or shoe to bathe. You may use acetaminophen or ibuprofen to control pain, unless another pain medicine was prescribed. If you have chronic liver or kidney disease, talk with your healthcare provider before using thesemedicines. Also talk with your provider if you ve had a stomach ulcer or gastrointestinal bleeding. Don t put creams or objects under the cast if you have itching. Follow-up care Follow up with your healthcare provider, or as advised. This is to make sure the bone is healing the way it should. If you were given a splint, it may be changed to a cast or boot at your follow-up visit. X-rays may be taken. You will be told of any new findings that may affect your care. When to seek medical advice Call your healthcare provider right away if any of these occur: The cast or splint cracks The plaster cast or splint becomes wet or soft The fiberglass cast or splint stays wet for more than 24 hours Bad odor from the cast or wound fluid stains the cast Tightness or pain under the cast or splint gets worse Toes become swollen, cold, blue, numb, or tingly You can t move your toes Skin around cast or splint becomes red Fever of 100.4 F (38 C) or higher, or as directed by your healthcare provider [id number] [employer]. [address] [place] [address]. All rights reserved. This information is not intended as a substitute for professional medical care. Always follow yourhealthcare professional's instructions. Additional Information VACCINATE! IT SAVES LIVES! Members of the community who have not yet received the COVID-19 vaccine and would like to receive it can visit one of [facility] vaccine clinics. There are many vaccine clinic locations within the [facility]. For locations and available times, please visit [email or web address] It is important to note that some COVID mobile vaccine clinics are held outdoors and may be canceled in rainy or stormy conditions. To learn more about pediatric vaccinations (ages 5-11), we invite you to visit the [facility] webpage. [email or web address] learn more about the COVID-19 vaccine, we invite you to visit the CDC website for a list of frequently asked questions. https://www.cdc.gov/coronavirus/2019-ncov/vaccines/faq.html [facility] Patient Portal Access Instructions: Stay connected with your healthcare team and access your personal medical information anytime with the [facility] Patient Portal. If you would like a full copy of your medical records please contact the [facility] Medical Records Department Tuesday through Tuesday between 8a.m. and 4:30p.m. Please follow the directions below to access the portal: 1.Access the email account you provided upon registration to the [facility].2.Look for an invitation email from [facility].3.Open the email and access the invitation link: Accept Invitation to [facility]4.Fill in the required bautista to create your account. Sign into [email or web address] with your username and password that you created in the above steps to stay up to date. You can then view a summary of results, a summary of your visits, and the ability to download your summaries to your computer or send the information securely to a physician. Remember that your healthcare information is confidential, so carefully consider who you will allow to register on the [facility] Patient Portal for access to your information. You can also access the [facility] Patient Portal on the [facility]. Simply click on Health Records under ServiceRelated and then click on the [employer] logo. HOW TO SAFELY DISPOSE OF PRESCRIPTION MEDICATIONS Please use one of the following methods to safely dispose of your unused medications. 1.Use a drug disposal kit: the drug disposal pouch allows you to safely discard your old and unuseddrugs. Ask your nurse to give you one when you are discharged.2.Visit a local take-back location: Many local pharmacies and police departments have programs that collect old and unwanted prescriptiondrugs. Call your local pharmacy or go to http://bit.Accolade/7P4Pv7g to find one close to you.3.Make use of household items: Use cat litter or old coffee grounds to dispose medications if other options arenot available. Mix your drugs with these household products, seal them in an airtight container andthrow it into the garbage. Call [facility]: [phone] to be sure your drugs can be disposed of in this way. Some medicines may require a different approach.4.Never flush your medications down the toilet. IF YOU HAVE BEEN PRESCRIBED AN OPIOIDS FOR PAIN If you have been prescribed an opioid (such as hydrocodone, oxycodone or morphine), it is critical to understand the possible side effects and risks of opioid pain medications. Even when taken as directed, opioids can have several side effects including: Tolerance, meaning you might need to take more of a medication for the same pain relief. Nausea, vomiting and/or constipation. Sleepiness, dizziness, dry mouth, confusion, depression or itching. Physical dependence, meaning you have withdrawal symptoms when a medication is stopped ? this can develop within a few days. KNOW YOUR RESPONSIBILITIES It is important to know exactly how much and how often to take the opioid pain medications you are prescribed. Never take opioids in higher amounts or more often than prescribed. Do not combine opioids with alcohol or other drugs that cause drowsiness, such as benzodiazepines, also known as benzos,including diazepam and alprazolam, muscle relaxants or sleep aids. Never sell or share prescriptionopioids. This is illegal. Store opioids in a secure place and out of reach of others (including children, family, friends and visitors). The last page(s) of this document has been signed and retained as a CHART COPY Signatures Patient Education Materials Fracture, Foot Medication Leaflets naproxen My discharge plan and instructions have been reviewed and explained to me and I,JESSE GUADARRAMA understand my current condition and have read and understand these discharge instructions. I have received a written copy of the plan/instructions. If I have questions, I am aware that I should contact my doctor. 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 HISTORY: ORDERING SYSTEM PROVIDED HISTORY: Reason for Exam: Pt states she dropped a plywood board on the toes of her RT foot today. pain in area of 1st to 3rd toes/distal metatarsals. injury to foot/toes FINDINGS: Lower extremity swelling. Os peroneum. Accessory navicularis. No suspicious osseous lesions. Ill-defined linear lucency through the mid tuft of the 1st distal phalanx. IMPRESSION: Ill-defined linear lucency through the mid tuft of the 1st distal phalanx, cannot exclude a nondisplaced fracture. If pain or clinical concern persists for sub radiographic injury consider correlation with cross-sectional imaging. Interpreted by: Hugo Ponce Preliminary Report By: Hugo Ponce Electronically signed By Hugo Ponce Dictated Date: 12/17/2024 2:01:40 PM Prelim Date: 12/17/2024 2:04:45 PM Sign Date: 12/17/2024 2:04:45 PM Ordering Provider: HANG VERA Interpreted by: Hugo Ponce Preliminary Report By: Hugo Ponce Electronically signed By Hugo Ponce Dictated Date: 12/17/2024 2:01:40 PM Prelim Date: 12/17/2024 2:04:45 PM Sign Date: 12/17/2024 2:04:45 PM Ordering Provider: HANG VERA [facility]05-02-2025 Note* Exam Date Time Procedure Performing Provider Status 10/19/24 2:25 PM MA Mammogram Diagnostic Left PRIYANK KIRKPATRICK MD; Auth (Verified) [id number] ORIGINAL FROM: [place] [address] PROCEDURE FOR: JESSE GUADARRAMA [address] [place] [address] Home: PID#: [id number] Exam#: [id number] : 1965 Age: 59 TO: JUAN J LEDBETTER NP [facility] [place] [address] EXAMINATION: DIAGNOSTIC DIGITAL LEFT BREAST MAMMOGRAM, 10/19/2024 1:30 pm TECHNIQUE: Diagnostic mammography of the left breast was performed. Current study was also evaluated with a Computer Aided Detection (CAD) system. COMPARISON: 10/16/2024 HISTORY: ORDERING SYSTEM PROVIDED HISTORY: Reason for Exam: Follow-up Screening Mammogram FINDINGS: BREAST DENSITY: There are scattered areas of fibroglandular density. Left breast calcifications are confirmed on the CC view, these appear to be layering on the lateral view, these are amorphous on the CC view and somewhat linear on the lateral view. No significant masses, calcifications, or other findings. IMPRESSION: Left breast calcifications are felt to be milk of calcium, these are probably benign, follow-up mammogram in 6 months is recommended to document stability. Aga zi risk calculations, generated with the history provided, report this patient's 10 year risk and lifetime risk for developing breast cancer at 4.9% and 12.5%, respectively. Based on this assessment tool, if the patient's calculated lifetime risk is below 20%, then the patient is considered at average risk for developing breast cancer. If the patient's calculated lifetime risk is at or above 20%, then the patient is considered high risk for developing breast cancer and may be a candidate for supplemental breast MRI screening in addition to annual mammographic screening per the [employer]. BIRADS: BI-RADS: 3: Probably Benign RECALL: 6 month follow-up RECALL TYPE: mammo LETTER SENT: Probably Benign BI-RADS 3 Interpreted by: Priyank Kirkpatrick MD Preliminary Report By: Priyank Kirkpatrick MD Electronically signed By Priyank Kirkpatrick MD Dictated Date: 10/19/2024 2:48:02 PM Prelim Date: 10/19/2024 2:51:58 PM Sign Date: 10/19/2024 2:51:58 PM Ordering Provider: JUAN J LEDBETTER [employer] Supervisor: LIZY KELLY RT(R)(CT) letter sent: Probably Benign BI-RADS 3 Mammogram BI-RADS: 3 Probably benign [facility]05-01-2025 Note Vitals: -Weight: 226 lbs History & Physical: [facility] for follow up on diabetes management and an A1c check. Last A1c was elevated at 8.5%. She is currently bridging with the [facility] until she can meet with endocrinology at the end of October. Will plan on today being her last appointment with the [facility]. She is currently managed on Lantus 24 units daily and Humalog sliding scale ranging from 3-7 units with meals depending on her carb intake. Tasha does wear the Libre3 system to monitor her sugars at home and is meeting with the dietitian after visit today. Past Medical History: Problems Active Wheezing Seasonal allergies Splinter of right hand Soft tissue mass Hyperlipidemia Hypothyroid CKD stage 3a, GFR 45-59 ml/min Diabetes mellitus Medications: albuterol: 1 puff(s), Inhalation, q4h, PRN (as needed for wheezing) atorvastatin: 40 mg = 1 tab(s), Oral, qDay DME: See Instructions, Libre3 Plus Sensors. Apply sensor to arm once every 15 days to monitor sugars fluticasone nasal: 50 mcg = 1 spray(s), Nostril, each, qAM insulin glargine: 22 unit(s), Subcutaneous, qDay insulin lispro (HumaLOG): See Instructions, uses sliding scale Labs: -POC B mg/dLPOC HbA1c: 7.8% (10/18/24) -C peptide: 0.55 ng/mL -GAD65: 7.7 units/mL Diabetes Labs No qualifying data available. Diabetes Type I Labs Cholesterol: 207 mg/dL High (08/01/24) HDL Cholesterol: 54 mg/dL (08/01/24) LDL Cholesterol: 130 mg/dL (08/01/24) Triglycerides: 115 mg/dL (08/01/24) Creatinine Lvl (s): 0.93 mg/dL (08/01/24) TSH: 3.79 mcIU/mL High (08/01/24) Yearly Diabetic Exams: -Eye Exam: Up to date, completed in August of 2024 -Foot Exam: Due for foot exam Blood Glucose Monitoring: Has been wearing the Silvano monitor. Results are listed below for the last 14 days: Very High (>250): 0% High (181-250): 30% Target Range (70-180): 70% Low (54-69): 0% Very Low (<54): 0% Average Glucose: 165 mg/dL Glucose Management Indicator: 7.3% % Time CGM is Active: 96% Silvano report attached to document for additional information. Acute Complications: -Hypoglycemia: Denies signs or symptoms. States there have been occasional lows on Silvano system, but fingersticks are always within normal range. -Hyperglycemia: Denies signs or symptoms Nutrition & Physical Activity: She is meeting with the dietitian today after visit. Will defer nutrition managed to her at this time. Assessment and Plan: Tasha's A1c did improve to 7.8%. This still remains elevated, but it is below the 8% A1c that she needs to get back to work. She continues to watch her diet closely, but will discuss how to balance carb intake while controlling her sugars. They are running higher more recently. She has been compliant with her insulin. No changes will be made today and she is going to focus on nutrition managementwith the dietitian. Tasha is establishing with endocrinology at the end of October. Will not schedule afollow up with her moving forward and care will transition to the endocrinology team. Did instruct Tasha to call the [facility] with any questions prior to starting with endocrinology. All questionswere answered and Tasha voiced understanding. Total time spent caring for the patient today was 25 minutes. This includes time spent before the visit reviewing the chart (lab results, past visit documentation, reviewing CGM data etc.), time spent during the visit, and time spend after the visit on documentation, consulting with peers, etc. Digitally Signed by Corrina Pond PharmD on 10/18/2024 12:41 PM [facility]04-29-2025 Note* Exam Date Time Procedure Performing Provider Status 10/16/24 8:37 AM US Soft Tissue Mass HUGO PONCE MD; Auth (Verified) [id number] ORIGINAL EXAMINATION: SOFT TISSUE ULTRASOUND 10/16/2024 8:38 am COMPARISON: None. HISTORY: ORDERING SYSTEM PROVIDED HISTORY: Reason for Exam: Soft tissue mass on right side. Likely lipoma FINDINGS: Diagnostic ultrasound evaluation of the area of palpable concern in the right lateral chest demonstrates no solid or cystic subcutaneous mass. No abnormal vascularity. IMPRESSION: No sonographic correlate for area of palpable concern. Please note the poorly encapsulated subcutaneous lipomatous lesion cannot be excluded. Interpreted by: Hugo Ponce Preliminary Report By: Hugo Ponce Electronically signed By Hugo Ponce Dictated Date: 10/16/2024 11:40:28 AM Prelim Date: 10/16/2024 11:41:32 AM Sign Date: 10/16/2024 11:41:32 AM Ordering Provider: JUAN J LEDBETTER [facility]04-07-2025 Note Vitals: -Weight: 225.8 lbs History & Physical: Tasha returns to the [facility] for follow up on diabetes management. She is also meeting with thedietitian today after her visit. Tasha is planning to establish with endocrinology at the end of October and is following with the [facility] to help bridge her care until that time. Lab work is indicative of a lack of insulin production. Her C-peptide levels were low and her GAD65 was elevated. She is currently managed on Lantus 22 units daily and Humalog sliding scale ranging from 3-7 units with meals. Tasha wears a Libre3 system to monitor her sugars at home. Past Medical History: Problems Active Hyperlipidemia Hypothyroid CKD stage 3a, GFR 45-59 ml/min Diabetes mellitus Medications: atorvastatin: 40 mg = 1 tab(s), Oral, qDay DME: See Instructions, Libre3 Plus Sensors. Apply sensor to arm once every 15 days to monitor sugars insulin glargine: 22 unit(s), Subcutaneous, qDay insulin lispro (HumaLOG): See Instructions, uses sliding scale Labs: -POC HbA1c: 8.5% (07/18/24) -C-peptide: 0.55 ng/mL -ZOHAIB-65: 7.7 units/mL Diabetes Labs No qualifying data available. Diabetes Type I Labs Cholesterol: 207 mg/dL High (08/01/24) HDL Cholesterol: 54 mg/dL (08/01/24) LDL Cholesterol: 130 mg/dL (08/01/24) Triglycerides: 115 mg/dL (08/01/24) Creatinine Lvl (s): 0.93 mg/dL (08/01/24) TSH: 3.79 mcIU/mL High (08/01/24) Yearly Diabetic Exams: -Eye Exam: Up to date, completed in August of 2024 -Foot Exam: Due for foot exam Blood Glucose Monitoring: Has been wearing the Silvano monitor. Results are listed below for the last 14 days: Very High (>250): 0% High (181-250): 17% Target Range (70-180): 83% Low (54-69): 0% Very Low (<54): 0% Average Glucose: 148 mg/dL Glucose Management Indicator: 6.9% % Time CGM is Active: 96% Silvano report attached to document for additional information. Acute Complications: -Hypoglycemia: Denies signs or symptoms -Hyperglycemia: Denies signs or symptoms Nutrition & Physical Activity: She is meeting with the dietitian after visit today. Will defer nutrition management to her at thistime. Assessment and Plan: Reviewed Tasha's Silvano report with her in office. Sugars have been very stable. Did have some falselows mid day last week and will sporadically have some borderline low sugar in the morning. She continues to adjust her insulin as appropriate at home. States she has been watching her diet very closely and has been using minimal meal time insulin. Tasha is to continue her sliding scale insulin as she has been, no medication changes today. She is agreeable to this. Blood sugars are running extremely steady which is what she needs for her to get back to work. All questions were answered and willplan on having her follow up at the beginning of October to get her A1c checked and meet with the dietitian prior to establishing with endocrinology. Instructed her to call with any issues. Total time spent caring for the patient today was 18 minutes. This includes time spent before the visit reviewing the chart (lab results, past visit documentation, reviewing CGM data etc.), time spent during the visit, and time spend after the visit on documentation, consulting with peers, etc. Digitally Signed by Corrina Pond PharmD on 09/24/2024 12:36 PM [facility]03-19-2025 Note Vitals: - Weight: 231.4lbs History and Physical: [facility] for a follow up on diabetes management and to go through her freeLibre3 trial that was placed last visit. Her most recent A1c was 8.5% (07/18/24). She is currently managed on Lantus 22 units daily and Humalog 3-6 units with meals. She does have her own Libre3 sensor that she wishes to put on today during the appointment under supervision. Past Medical History: Problems Active Hyperlipidemia Hypothyroid CKD stage 3a, GFR 45-59 ml/min Diabetes mellitus Medications: atorvastatin: 40 mg = 1 tab(s), Oral, qDay DME: See Instructions, Libre3 Plus Sensors. Apply sensor to arm once every 15 days to monitor sugars insulin glargine: 22 unit(s), Subcutaneous, qDay insulin lispro (HumaLOG): See Instructions, uses sliding scale Labs: - POC HbA1c: 8.5% (1/29/25) - C-Peptide: 0.55mg/mL (08/21/24) Diabetes Labs No qualifying data available. Diabetes Type I Labs Cholesterol: 207 mg/dL High (08/01/24) HDL Cholesterol: 54 mg/dL (08/01/24) LDL Cholesterol: 130 mg/dL (08/01/24) Triglycerides: 115 mg/dL (08/01/24) Creatinine Lvl (s): 0.93 mg/dL (08/01/24) TSH: 3.79 mcIU/mL High (08/01/24) Yearly Diabetic Exams: - Eye Exam: Up to date, actively following with an metal technician - Foot Exam: Denies any neuropathy issues Blood Glucose Monitoring: Has been wearing the Silvano monitor. Results are listed below for the last 14 days: Very High (>250): 0% High (181-250): 35% Target Range (70-180): 65% Low (54-69): 0% Very Low (<54): 0% Average Glucose: 166mg/dL Glucose Management Indicator: 7.3% % Time CGM is Active: 96% Silvano report attached to document for additional information. Acute Complications: - Hypoglycemia: There was one low reading on her Libre3 report. She denied any signs or symptoms when this occurred. She did not take a fingerstick immediately when the alarm went off as she did not have her testing supplies with her. She drank some orange juice and was able to check with a fingerstick once she got back home about 10 minutes after the alarm. When she checked it was 72mg/dL. She had a snack and her Silvano showed it was back to normal range. -Hyperglycemia: States that she feels sweaty and hot. Nutrition & Physical Activity: Has been logging all of her meals on the Silvano cher. Encouraged her to keep up the great work. 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 Patient did state that she is doing a lot more yard work recently now that the weather is nicer. Assessment & Plan: Very pleased with Tasha's Silvano report today. Reviewed the report with her today in office. Her Silvano did not show any low readings, but as stated above it did alarm her once and was able to correct the low. She is stressed about her sugars going up and down all the time but assured her that her readings looked good. She has been having higher fasting readings in the morning. Will increase Lantus to 24 units once daily to help control these morning readings. No changes to meal time insulin. Patient did put on new Libre3 sensor today, but needed some help putting it on. She did mention possibly having a friend or family member help apply them. Will follow up with her in 3 weeks when she comes in to see the power plant superintendent. Will review Libre3 report and evaluate insulin dosing. Instructed patientto call the clinic if she has any questions or concerns prior to her next appointment. Total time spent caring for the patient today was 46 minutes. This includes time spent before the visit reviewing the chart (lab results, past visit documentation, reviewing CGM data, etc.), time spent during the visit, and time spent after the visit on documentation, consulting peers, etc. Digitally Signed by Ben Green on 09/05/2024 01:36 PM [facility]03-19-2025 Note Vitals: - Weight: 231.4lbs History and Physical: [facility] for a follow up on diabetes management and to go through her freeLibre3 trial that was placed last visit. Her most recent A1c was 8.5% (07/18/24). She is currently managed on Lantus 22 units daily and Humalog 3-6 units with meals. She does have her own Libre3 sensor that she wishes to put on today during the appointment under supervision. Past Medical History: Problems Active Hyperlipidemia Hypothyroid CKD stage 3a, GFR 45-59 ml/min Diabetes mellitus Medications: atorvastatin: 40 mg = 1 tab(s), Oral, qDay DME: See Instructions, Libre3 Plus Sensors. Apply sensor to arm once every 15 days to monitor sugars insulin glargine: 22 unit(s), Subcutaneous, qDay insulin lispro (HumaLOG): See Instructions, uses sliding scale Labs: - POC HbA1c: 8.5% (07/18/24) - C-Peptide: 0.55mg/mL (08/21/24) Diabetes Labs No qualifying data available. Diabetes Type I Labs Cholesterol: 207 mg/dL High (08/01/24) HDL Cholesterol: 54 mg/dL (08/01/24) LDL Cholesterol: 130 mg/dL (08/01/24) Triglycerides: 115 mg/dL (08/01/24) Creatinine Lvl (s): 0.93 mg/dL (08/01/24) TSH: 3.79 mcIU/mL High (08/01/24) Yearly Diabetic Exams: - Eye Exam: Up to date, actively following with an metal technician - Foot Exam: Denies any neuropathy issues Blood Glucose Monitoring: Has been wearing the Silvano monitor. Results are listed below for the last 14 days: Very High (>250): 0% High (181-250): 35% Target Range (70-180): 65% Low (54-69): 0% Very Low (<54): 0% Average Glucose: 166mg/dL Glucose Management Indicator: 7.3% % Time CGM is Active: 96% Silvano report attached to document for additional information. Acute Complications: - Hypoglycemia: There was one low reading on her Libre3 report. She denied any signs or symptoms when this occurred. She did not take a fingerstick immediately when the alarm went off as she did not have her testing supplies with her. She drank some orange juice and was able to check with a fingerstick once she got back home about 10 minutes after the alarm. When she checked it was 72mg/dL. She had a snack and her Silvano showed it was back to normal range. -Hyperglycemia: States that she feels sweaty and hot. Nutrition & Physical Activity: Has been logging all of her meals on the Silvano cher. Encouraged her to keep up the great work. 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 Patient did state that she is doing a lot more yard work recently now that the weather is nicer. Assessment & Plan: Very pleased with Tasha's Silvano report today. Reviewed the report with her today in office. Her Silvano did not show any low readings, but as stated above it did alarm her once and was able to correct the low. She is stressed about her sugars going up and down all the time but assured her that her readings looked good. She has been having higher fasting readings in the morning. Will increase Lantus to 24 units once daily to help control these morning readings. No changes to meal time insulin. Patient did put on new Libre3 sensor today, but needed some help putting it on. She did mention possibly having a friend or family member help apply them. Will follow up with her in 3 weeks when she comes in to see the power plant superintendent. Will review Libre3 report and evaluate insulin dosing. Instructed patientto call the clinic if she has any questions or concerns prior to her next appointment. Total time spent caring for the patient today was 46 minutes. This includes time spent before the visit reviewing the chart (lab results, past visit documentation, reviewing CGM data, etc.), time spent during the visit, and time spent after the visit on documentation, consulting peers, etc. Digitally Signed by Ben Green on 09/05/2024 01:36 PM [facility]01-18-2025 [facility] Evaluation + Plan note Future Appointments Appointment Date:08/15/2024 11:00:00 AM Scheduled Provider:JUAN J LEDBETTER Location:[employer] [facility] Appointment Type:PC OV Appointment Date:11/13/2024 10:30:00 AM Scheduled Provider:MAIK RAMOS MD Location:[facility] Appointment Type:ENDO PHARMACEUTICAL SALES SPECIALIST Future Scheduled Tests Laboratory* Albumin/Creatinine Ratio, Random Urine 10/16/24 [facility] Evaluation + Plan note Future Appointments Appointment Date:10/19/2024 01:30:00 PM Scheduled Provider: Location:[facility] Appointment Type:MA Mammogram Diagnostic Left w/ [place] Appointment Date:11/13/2024 10:30:00 AM Scheduled Provider:MAIK RAMOS MD Location:[facility] Appointment Type:ENDO PHARMACEUTICAL SALES SPECIALIST Appointment Date:11/15/2024 02:00:00 PM Scheduled Provider: Location:[facility] Appointment Type:NUT Diet Visit Individual Appointment Date:11/21/2024 08:00:00 AM Scheduled Provider:JUAN J LEDBETTER Location:[facility] Appointment Type:PC OV Future Scheduled Tests Laboratory* TSH with Reflex to FT4 11/12/24 * A1C Hemoglobin 11/12/24 * Lipid Profile 11/12/24 * Albumin/Creatinine Ratio, Random Urine 11/12/24 * Albumin/Creatinine Ratio, Random Urine 10/16/24 * Complete Metabolic Panel 11/12/24 Radiology* MA Mammo Diagnostic Left w/ [place] 10/19/24 * MA Mammogram Diagnostic Left w/o [place] 10/18/24 [facility] Evaluation + Plan note Future Appointments Appointment Date:10/18/2024 09:00:00 AM Scheduled Provider: Location:[facility] Appointment Type:MEDS - Diabetic Individual Visit Appointment Date:10/18/2024 09:30:00 AM Scheduled Provider: Location:[facility] Appointment Type:NUT Diet Visit Individual Appointment Date:11/13/2024 10:30:00 AM Scheduled Provider:MAIK RAMOS MD Location:[facility] Appointment Type:ENDO PHARMACE[employer]ICAL SALES SPECIALIST Appointment Date:11/21/2024 08:00:00 AM Scheduled Provider:JUAN J LEDBETTER Location:[facility] Appointment Type:PC OV Future Scheduled Tests Laboratory* TSH with Reflex to FT4 11/12/24 * A1C Hemoglobin 11/12/24 * Lipid Profile 11/12/24 * Albumin/Creatinine Ratio, Random Urine 11/12/24 * Albumin/Creatinine Ratio, Random Urine 10/16/24 * Complete Metabolic Panel 11/12/24 [facility] Evaluation + Plan note Future Appointments Appointment Date:11/13/2024 10:30:00 AM Scheduled Provider:MAIK RAMOS MD Location:[facility] Appointment Type:ENDO PHARMACEUTICAL SALES SPECIALIST Appointment Date:11/15/2024 02:00:00 PM Scheduled Provider: Location:[facility] Appointment Type:NUT Diet Visit Individual Appointment Date:11/21/2024 08:00:00 AM Scheduled Provider:JUAN J LEDBETTER Location:[facility] Appointment Type:PC OV Future Scheduled Tests Laboratory* TSH with Reflex to FT4 11/12/24 * A1C Hemoglobin 11/12/24 * Lipid Profile 11/12/24 * Albumin/Creatinine Ratio, Random Urine 11/12/24 * Albumin/Creatinine Ratio, Random Urine 10/16/24 * Complete Metabolic Panel 11/12/24 Radiology* MA Mammogram Diagnostic Left w/o [place] 10/18/24 [facility] Evaluation + Plan note Future Appointments Appointment Date:11/19/2024 11:00:00 AM Scheduled Provider: Location:[facility] Appointment Type:US Thyroid Appointment Date:11/21/2024 08:00:00 AM Scheduled Provider:JUAN J LEDBETTER Location:[facility] Appointment Type:PC OV Appointment Date:11/29/2024 11:30:00 AM Scheduled Provider:MAIK RAMOS MD Location:[facility] Appointment Type:ENDO OV Appointment Date:12/03/2024 01:00:00 PM Scheduled Provider: Location:[facility] Appointment Type:NUT Diet Visit Individual Future Scheduled Tests Laboratory* Albumin/Creatinine Ratio, Random Urine 11/12/24 * Albumin/Creatinine Ratio, Random Urine 10/16/24 Radiology* MA Mammogram Diagnostic Left w/o [place] 10/18/24 * US Thyroid 11/19/24 [facility] Evaluation + Plan note Future Appointments Appointment Date:11/19/2024 11:00:00 AM Scheduled Provider: Location:[facility] Appointment Type:US Thyroid Appointment Date:11/21/2024 08:00:00 AM Scheduled Provider:JUAN J LEDBETTER Location:[facility] Appointment Type:PC OV Appointment Date:11/29/2024 11:30:00 AM Scheduled Provider:MAIK RAMOS MD Location:[facility] Appointment Type:ENDO OV Appointment Date:12/03/2024 01:00:00 PM Scheduled Provider: Location:[facility] Appointment Type:NUT Diet Visit Individual Diagnostic Tests Pending * AIDA by IFA Screen 11/16/24 Future Scheduled Tests Laboratory* Albumin/Creatinine Ratio, Random Urine 11/12/24 * Albumin/Creatinine Ratio, Random Urine 10/16/24 Radiology* MA Mammogram Diagnostic Left w/o [place] 10/18/24 * US Thyroid 11/19/24 [facility] Evaluation + Plan note Future Appointments Appointment Date:11/19/2024 11:00:00 AM Scheduled Provider: Location:[facility] Appointment Type:US Thyroid Appointment Date:11/21/2024 08:00:00 AM Scheduled Provider:JUAN J LEDBETTER Location:[facility] Appointment Type:PC OV Appointment Date:11/29/2024 11:30:00 AM Scheduled Provider:MAIK RAMOS MD Location:[facility] Appointment Type:ENDO OV Appointment Date:12/03/2024 01:00:00 PM Scheduled Provider: Location:[facility] Appointment Type:NUT Diet Visit Individual Diagnostic Tests Pending * Rheumatoid Factor 11/14/24 * ZNT8 Antibodies 11/14/24 * Salivary Cortisol,MS 11/13/24 Future Scheduled Tests Laboratory* Albumin/Creatinine Ratio, Random Urine 11/12/24 * Albumin/Creatinine Ratio, Random Urine 10/16/24 Radiology* MA Mammogram Diagnostic Left w/o [place] 10/18/24 * US Thyroid 11/19/24 [facility] Evaluation + Plan note Future Appointments Appointment Date:11/21/2024 08:00:00 AM Scheduled Provider:JUAN J LEDBETTER Location:[facility] Appointment Type:PC OV Appointment Date:11/29/2024 11:30:00 AM Scheduled Provider:MAIK RAMOS MD Location:[facility] Appointment Type:ENDO OV Appointment Date:12/03/2024 01:00:00 PM Scheduled Provider: Location:[facility] Appointment Type:NUT Diet Visit Individual Future Scheduled Tests Laboratory* Albumin/Creatinine Ratio, Random Urine 11/12/24 * Albumin/Creatinine Ratio, Random Urine 10/16/24 Radiology* MA Mammogram Diagnostic Left w/o [place] 10/18/24 [facility] Evaluation + Plan note Future Appointments Appointment Date:02/07/2025 11:30:00 AM Scheduled Provider:MAIK RAMOS MD Location:[facility] Appointment Type:ENDO OV Appointment Date:05/20/2025 07:30:00 AM Scheduled Provider:JUAN J LEDBETTER Location:[facility] Appointment Type:PC OV Future Scheduled Tests Laboratory* Thyroid Stimulating Hormone 01/29/25 * Free T4 01/29/25 * A1C Hemoglobin 05/23/25 * Free T3 01/29/25 * Lipid Profile 05/23/25 * Albumin/Creatinine Ratio, Random Urine 05/23/25 * Albumin/Creatinine Ratio, Random Urine 11/12/24 * Albumin/Creatinine Ratio, Random Urine 10/16/24 * Complete Metabolic Panel 05/23/25 Radiology* MA Mammogram Diagnostic Left w/o [place] 10/18/24 [facility] Evaluation + Plan note Future Appointments Appointment Date:02/07/2025 11:30:00 AM Scheduled Provider:MAIK RAMOS MD Location:[facility] Appointment Type:ENDO OV Appointment Date:05/20/2025 07:30:00 AM Scheduled Provider:JUAN J LEDBETTER Location:[facility] Appointment Type:PC OV Future Scheduled Tests Laboratory* A1C Hemoglobin 05/23/25 * Lipid Profile 05/23/25 * Albumin/Creatinine Ratio, Random Urine 05/23/25 * Albumin/Creatinine Ratio, Random Urine 11/12/24 * Albumin/Creatinine Ratio, Random Urine 10/16/24 * Complete Metabolic Panel 05/23/25 Radiology* MA Mammogram Diagnostic Left w/o [place] 10/18/24 [facility] Evaluation noteNo assessment information available [facility] Work Phone: Hospital course Narrative No data available for this section [facility] Discharge instructions No data available for this section [facility] Progress note No data available for this section [facility] Reason for referral (narrative)No reason for referral [facility] Work Phone: Summary Purpose Family History Relationship Condition Age at Onset Recorded Date/T prateek mother Chronic obstructive pulmonary disease Unk nown Rheumatic fever Unknown Anemia Unknown father Malignant neoplasm of lung Unknown Alcoholism Unknown High blood cholesterol Unknown Malignant neoplasm of skin Unknown grandmother Diabetes mellitus Unknown sister Malignant neoplasm of breast Unknown No Family History Records Found Advance Directives No Advanced Directives Records FoundNo Advanced Directives Records FoundNo Advanced Directives Records Found Chief Complaint and Reason for Visit Chief Complaint Admit Date NEEDS ORDER December 18, 2024 2:34p m Additional Source Comments Patient Care team informatio n (unrecognized section and content) Team Status: Active Member Role/Relationship Status Dates SHARON PALUMBO Primary Care Provider Active Team Status: Inactive Member Role/Relationship Status Dates SHARON PALUMBO Primary Care Provider Active Start: December 18, 2024 End: December 18, 2024 Dr. Ellen Smith MD Attending Provider Active Start: December 18, 2024 End: December 18, 2024 Dr. Ellen Smith MD Referring Provider Active Start: December 18, 2024 End: December 18, 2024 Team Status: Inactive Member Role/Relationship Status Dates SHARON PALUMBO Primary Care Provider Active Start: December 24, 2024 End: December 24, 2024 Dr. Ellen Smith MD Attending Provider Active Start: December 24, 2024 End: December 24, 2024 Dr. Ellen Smith MD Referring Provider Active Start: December 24, 2024 End: December 24, 2024 INFORMATION SOURCE (unrecogn ized section and content) DATE CREATED AUTHOR 09/26/2024 [facility] DATE CREATED AUTHOR AUTHOR'S ORGANIZ ATION 01/30/2025 [facility] DATE CREATED AUTHOR AUTHOR'S ORGANIZ ATION 03/22/2025 [facility] Goals (unrecognized section and content) Goals may be documented in a n alternate section FOR RECORDS PERTAINING TO PATIENTS WHO ARE OR HAVE BEEN ENROLLED IN A CHEMICAL DEPENDENCY/SUBSTANCEABUSE PROGRAM, SOME INFORMATION MAY BE OMITTED. This clinical summary was aggregated from multiple sources. Caution should be exercised in using it in the provision of clinical care. This summary normalizes information from multiple sources, and as a consequence, information in this document may materially change the coding, format and clinical context of patient data. In addition, data may be omitted in some cases. CLINICAL DECISIONS SHOULD BE BASED ON THE PRIMARY CLINICAL RECORDS. [employer] provides no warranty or guarantee of the accuracy or completeness of information in this document.
[2025-03-27 09:09] LABS: HPV APTIMA, High Risk Negative (Negative)
== END | disposition home or self-care (01) ==
PROVIDERS: PCP Nurse Practitioner Family; Referring Provider Obstetrics & Gynecology; Visit Provider Obstetrics & Gynecology
DX: Z12.4 Encounter for screening for malignant neoplasm of cervix (principal)
CPT/HCPCS: 87624; 88175; G0145

== ENCOUNTER → 2025-03-29 | Outpatient (CLI) | payer MEDICAID, SELFPAY ==
--- NOTE | 2025-03-29 14:09 | US_ITS ---
PROCEDURE: TRANSVAGINAL NON- 03/29/2025 REASON FOR EXAM: CERVICAL POLYPS TECHNIQUE: Procedure Code: USTVAG Modality: US Procedure: TRANSVAGINAL NON- COMPARISON: None FINDINGS: Patient is postmenopausal. Measurements: Uterus: 7.2 cm x 4.5 cm x 3.7 cm. Endometrial Thickness: 4 mm. Questionable 2 mm x 3 mm by 2 mm cervical cyst. Right Ovary: Nonvisualized. Left Ovary: 2.5 cm x 1.9 cm x 2.3 cm with a volume of 5.8 mL. Uterus: Heterogeneous echotexture with the fibroid. The largest fibroid measures 2.8 cm x 2.6 cm 1.8 cm. Endometrium: 4 mm. Right ovary: Not visualized. Left ovary: Normal size and echotexture. Other: No large pelvic mass identified. US/Transvaginal Non- IMPRESSION: Enlarged fibroid uterus. Mild thickening of the endometrium. Reading Location: [place] [id number]
--- NOTE | 2025-03-29 14:09 | US_ITS ---
PROCEDURE: TRANSVAGINAL NON- 03/29/2025 REASON FOR EXAM: CERVICAL POLYPS TECHNIQUE: Procedure Code: USTVAG Modality: US Procedure: TRANSVAGINAL NON- COMPARISON: None FINDINGS: Patient is postmenopausal. Measurements: Uterus: 7.2 cm x 4.5 cm x 3.7 cm. Endometrial Thickness: 4 mm. Questionable 2 mm x 3 mm by 2 mm cervical cyst. Right Ovary: Nonvisualized. Left Ovary: 2.5 cm x 1.9 cm x 2.3 cm with a volume of 5.8 mL. Uterus: Heterogeneous echotexture with the fibroid. The largest fibroid measures 2.8 cm x 2.6 cm 1.8 cm. Endometrium: 4 mm. Right ovary: Not visualized. Left ovary: Normal size and echotexture. Other: No large pelvic mass identified. US/Transvaginal Non- IMPRESSION: Enlarged fibroid uterus. Mild thickening of the endometrium. Reading Location: [place] [id number]
== END | disposition home or self-care (01) ==
LOC: US 14:06
PROVIDERS: PCP Nurse Practitioner Family; Referring Provider Obstetrics & Gynecology; Visit Provider Obstetrics & Gynecology
DX: N84.1 Polyp of cervix uteri (principal)
CPT/HCPCS: 76830

== ENCOUNTER → 2025-05-10 | Outpatient (CLI) | payer MEDICAID, SELFPAY ==
--- NOTE | 2025-05-10 10:45 | LES_PTH ---
PATIENT: JESSE GUADARRAMA LOC: [facility] U#:[id number] AGE/SX: 59/F ROOM: RE05/10/[address]: Dr. Pham Blood MD : 1965 BED: DIS: 05/10/2025 SPEC #: [id number] RECD: 05/10/25 12:34 STATUS: NAVIN REFranchesca #: [id number] PEGGY: 05/10/25 10:[address]: Pham Blood DEPT: SURGICAL PATHOLOGY RECD BY: Mingo Contreras ENTERED: 05/10/25 14:46 SP TYPE: Lesion OTHR DR: JUAN J LEDBETTER, [employer]INE [employer]MENT DESIGN ENGINEER-C Tissues: A - Vagina, NOS B - Uterine cervix, NOS Procedures: Surgery Specimen Level IV HEADER OPERATION: Polypectomy, lesion removal PRE-OP DIAGNOSIS: Vaginal wall lesion, cervical polyp TISSUE SUBMITTED: A- Vaginal wall lesion, B- Cervical polyp MICROSCOPIC DIAGNOSIS A. Vaginal wall, excision: * Fibroepithelial polyp B. Cervix, polypectomy: * Benign endocervical polyp MICROSCOPIC DESCRIPTION Slides are reviewed. GROSS DESCRIPTION Received in 2 formalin containers labeled with the patient's name and date of . Designated as: A. Vaginal wall lesion is a 0.9 x 0.6 x 0.2 cm aggregate of pink-red tissue fragments. Entirely submitted in 1 cassette. B. Cervical polyp is a 1.6 x 1[address]-pink to red, lobulated, polypoid tissue fragment and mucoid material. The presumed resection margin of the polypoid tissue is inked green and the polyp is trisected. Entirely submitted in 1 cassette. OR 05/10/2025 CPT:35444m4
== END | disposition home or self-care (01) ==
LOC: LABSPEC 11:36
PROVIDERS: PCP Nurse Practitioner Family; Visit Provider Obstetrics & Gynecology
DX: N84.2 Polyp of vagina (principal); N84.1 Polyp of cervix uteri
CPT/HCPCS: 88305